=== PATIENT | female | born 1970 | race Caucasian/White ===

== ENCOUNTER 2019-12-18 18:26 | Emergency (ER) | payer SELFPAY ==
[~2019-12-18] VITALS: Ht 139.7 cm; Wt 45.4 kg
[~2019-12-18 18:26] MED LIST: ATIVAN2 MG PO; LEVSIN0.125 MG PO; PREVACID30 MG PO; PROBIOTIC DIGE1 EACH PO; ZOLOFT50 MG PO
[2019-12-18] MEDS ORDERED: SODIUM CHLORIDE 0.9% 1000ML 1,000 ML IV STA (18:38)
[2019-12-18] MEDS ORDERED: ONDANSETRON HCL INJ 2MG/ML 2ML 2 MG/ML VIAL IV NR (18:45)
[2019-12-18] MEDS ORDERED: KETOROLAC TROMETHAMINE 30 MG/ML VIAL IV NR (18:45)
[2019-12-18] MEDS ORDERED: CEFTRIAXONE SOD 1 GM/NS 50 ML 50 ML IV NR (18:45)
--- NOTE | 2019-12-18 18:45 | Emergency Department Note ---
History of Present Illnes History of Present Illness Chief Complaint: Abdominal Complaints History of Present Illness This is a 49 year old female . c/o left flank pain 4/10 currently being tx for uti on keflex denies abd pain cva ttp noted on exam denies n/v/d PAIN TO LEFT FLANK DOES NOT RADIATE FROM AREA. DENIES OTHER SYMPTOMS, STATES ON ABX FOR UTI AND HAS HISTORY OF DIVERTICULITIS. Historian: Patient Arrival Mode: Car Onset (how long ago): day(s) (on set this am ) Severity: moderate Duration (how long): day(s) (onset this am ) Progression: unchanged Context: recent illness (uti on kelfex) Relieving factors: none Exacerbating factors: none Treatments prior to arrival: other (currently on keflex ) (MANDY MALAVE NP) Past Medical/Family History Physician Review I have reviewed the patient's past medical and family history. Any updates have been documented here. (MANDY MALAVE NP) Past Medical History Recent Fever: No Clinical Suspicion of Infectio: No New/Unexplained Change in Ment: No Past Medical History: UTI's, Anxiety, GERD Other Medical History: IBS Past Surgical History: Hysterectomy (MANDY MALAVE NP) Social History Smoking Cessation: Never Smoker Alcohol Use: None Any Illegal Drug Use: No TB Exposure/Symptoms: No (MANDY MALAVE NP) Family History Family history of heart diseas: No (MANDY MALAVE NP) Other Any Pre-Existing Lines (PICC,: No (MANDY MALAVE NP) Review of Systems Review of Systems Constitutional: no symptoms EENTM: no symptoms Cardiovascular: no symptoms Respiratory: no symptoms Gastrointestinal: no symptoms, other (c/o left flank pain / cva tenderness) Genitourinary: no symptoms Musculoskeletal: no symptoms Neurological: no symptoms Psychological: no symptoms Endocrine: no symptoms Hematological/Lymphatic: no symptoms Review of other systems All other systems reviewed and negative. (MANDY MALAVE NP) Physical Exam Related Data Allergies: Coded Allergies: amoxicillin (Verified Allergy, Severe, HEART RACE, 08/05/19) ciprofloxacin (Verified Allergy, Severe, HEART RACE, 08/05/19) clavulanic acid (Verified Allergy, Severe, HEART RACE, 08/05/19) diazepam (Verified Allergy, Severe, ANXIOUS, 08/05/19) hydromorphone (Verified Allergy, Severe, ITCHING, 08/05/19) morphine (Verified Allergy, Severe, 08/05/19) PT REPORTS SHE "CAN'T BREATH" WHEN THIS MEDICATION WAS GIVEN escitalopram (Verified Allergy, Unknown, 08/05/19) levofloxacin (Verified Allergy, Unknown, 08/05/19) Triage Vital Signs Vital Signs Date Time Temp Pulse Resp B/P (MAP) Pulse Ox O2 Delivery O2 Flow Rate FiO2 12/18/19 18:36 98.7 97 16 119/84 98 Vital signs reviewed: Yes (MANDY MALAVE ELECTROCARDIOGRAM TECHNICIAN) Physical Exam CONSTITUTIONAL Constitutional: well-developed, well-nourished HENT HENT: normocephalic, atraumatic, oropharynx clear/moist, nose normal HENT L/R: left ext ear normal, right ext ear normal EYES Eyes: conjunctivae normal, EOM normal NECK Neck: ROM normal PULMONARY Pulmonary: effort normal, breath sounds normal CARDIOVASCULAR GASTROINTESTINAL Abdominal: soft, nontender, bowel sounds normal, left CVA tenderness, other (c/o left flank pain on set this am / denies n/v/d dysuria / currently being tx for uti on keflex) GENITOURINARY Genitourinary: exam deferred SKIN Skin: warm, dry MUSCULOSKELETAL Musculoskeletal: ROM normal NEUROLOGICAL Neurological: alert, oriented x 3, no gross motor or sensory deficits PSYCHOLOGICAL Psychological: mood/affect normal, judgement normal (MANDY MALAVE ELECTROCARDIOGRAM TECHNICIAN) Results Laboratory Laboratory Laboratory Tests Test 12/18/19 18:40 White Blood Count 6.37 x10e3/uL (4.8-10.8) Red Blood Count 4.33 x10e6/uL (3.6-5.1) Hemoglobin 11.9 g/dL (12.0-16.0) Hematocrit 37.4 % (34.2-44.1) Mean Corpuscular Volume 86.4 fL (81-99) Mean Corpuscular Hemoglobin 27.5 pg (28-32) Mean Corpuscular Hemoglobin Concent 31.8 g/dL (31-35) Red Cell Distribution Width 16.2 % (11.7-14.4) Platelet Count 309 x10e3/uL (140-360) Neutrophils (%) (Auto) 35.9 % (38.7-80.0) Lymphocytes (%) (Auto) 23.4 % (18.0-39.1) Monocytes (%) (Auto) 7.2 % (4.4-11.3) Eosinophils (%) (Auto) 31.7 % (0.0-6.0) Basophils (%) (Auto) 1.6 % (0.0-1.0) Neutrophils # (Auto) 2.3 (2.1-6.9) Lymphocytes # (Auto) 1.5 (1.0-3.2) Monocytes # (Auto) 0.5 (0.2-0.8) Eosinophils # (Auto) 2.0 (0.0-0.4) Basophils # (Auto) 0.1 (0.0-0.1) Absolute Immature Granulocyte (auto 0.01 x10e3/uL (0-0.1) Urine Color Yellow (YELLOW) Urine Clarity Clear (CLEAR) Urine pH 6.5 (5 - 7) Urine Specific [place] 1.020 (1.010-1.025) Urine Protein Negative (NEGATIVE) Urine Glucose (UA) Negative (NEGATIVE) Urine Ketones Negative (NEGATIVE) Urine Blood Negative (NEGATIVE) Urine Nitrite Negative (NEGATIVE) Urine Bilirubin Negative (NEGATIVE) Urine Urobilinogen 0.2 mg/dL (0.2 - 1) Urine Leukocyte Esterase Negative (NEGATIVE) Urine RBC 0-5 /HPF (0-5) Urine WBC 0-5 /HPF (0-5) Urine Epithelial Cells Few /LPF (NONE) Urine Bacteria Rare /HPF (NONE) Sodium Level 137 mmol/L (136-145) Potassium Level 4.2 mmol/L (3.5-5.1) Chloride Level 107 mmol/L (98-107) Carbon Dioxide Level 20 mmol/L (22-29) Anion Gap 14.2 mmol/L (8-16) Blood Urea Nitrogen 11 mg/dL (7-26) Creatinine 0.66 mg/dL (0.57-1.11) Estimat Glomerular Filtration Rate > 60 ML/MIN (60-) BUN/Creatinine Ratio 17 (6-25) Glucose Level 89 mg/dL (74-118) Calcium Level 8.9 mg/dL (8.4-10.2) Total Bilirubin 0.5 mg/dL (0.2-1.2) Aspartate Amino Transf (AST/SGOT) 19 IU/L (5-34) Alanine Aminotransferase (ALT/SGPT) 15 IU/L (0-55) Alkaline Phosphatase 62 IU/L (40-150) Total Protein 7.4 g/dL (6.5-8.1) Albumin 3.7 g/dL (3.5-5.0) Globulin 3.7 g/dL (2.3-3.5) Albumin/Globulin Ratio 1.0 (0.8-2.0) Lab results reviewed: Yes (MANDY MALAVE NP) Imaging Impressions Procedure: [id number] CT/CT ABDOMEN/PELVIS WO Exam Date: 12/18/19 Exam Time: 1929 REPORT STATUS: Signed EXAM: CT Abdomen and Pelvis WITHOUT contrast INDICATION: Flank pain COMPARISON: None. TECHNIQUE: Abdomen and pelvis were scanned utilizing a multidetector helical scanner from the lung base to the pubic symphysis without administration of IV contrast. Absence of intravenous contrast decreases sensitivity for detection of focal lesions and vascular pathology. Coronal and sagittal reformations were obtained. Routine protocol was performed. IV CONTRAST: None ORAL CONTRAST: None COMPLICATIONS: None RADIATION DOSE: Total DLP: 642 mGy*cm Estimated effective dose: (DLP x 0.015 x size factor) mSv CTDIvol has been reviewed. It is below the limits set by the Radiation Protocol Committee (RPC). Dose modulation, iterative reconstruction, and/or weight based adjustment of the mA/kV was utilized to reduce the radiation dose to as low as reasonably achievable. FINDINGS: LINES and TUBES: None. LOWER THORAX: Unremarkable HEPATOBILIARY: Small hepatic cysts. No biliary ductal dilation. GALLBLADDER: No radio-opaque stones or sludge. No wall thickening. SPLEEN: No splenomegaly. PANCREAS: No focal masses or ductal dilatation. ADRENALS: No adrenal nodules KIDNEYS/URETERS: No hydronephrosis. No cystic or solid mass lesions. Two nonobstructing left intrarenal calculi, largest 5 mm. GI TRACT: No abnormal distention, wall thickening, or evidence of bowel obstruction. Appendix is normal. PELVIC ORGANS/BLADDER: The urinary bladder is unremarkable. The uterus is surgically absent. LYMPH NODES: Mildly prominent central mesenteric lymph nodes. No lymphadenopathy by CT size criteria. VESSELS: Unremarkable. PERITONEUM / RETROPERITONEUM: No free air or fluid. Minimal nonspecific stranding of the central mesenteric fat. Advanced colonic diverticulosis. BONES: Unremarkable. SOFT TISSUES: Unremarkable. IMPRESSION: 1. No acute abdominal or pelvic abnormality. No obstructive uropathy. 2. Small nonobstructing left intrarenal calculi. 3. Advanced colonic diverticulosis. 4. Minimal nonspecific stranding of the central mesenteric fat. This may reflect a remote inflammatory process. Signed by: Steven Escobar MD on 12/18/2019 8:09 PM Dictated By: STEVEN ESCOBAR MD 08 Transcribed By: ERICK on 12/18/192008 (MANDY MALAVE NP) Critical Care Time Subsequent provider I assumed direction of critical care for this patient from another provider of my specialty. (MANDY MALAVE NP) Assessment & Plan Assessment & Plan Problems: (1) Left flank pain Assessment & Plan 49 year old female . c/o left flank pain / currently being tx for uti on keflex denies abd pain cva ttp noted on exam denies n/v/d - Discussed plan of care w/ Dr Erwin - lab ct abd ordered - pt medicated w/ rocephin zofran toradol ns bolus Dr Erwin in eval pt status discussed lab ct results plan of care and f/u instructions 1. follow up with urologist in 1-2 days without fail 2. increase oral fluids 3. return to ed as needed 4. t#3 (MANDY MALAVE NP) Reassessment Reassessment time: 20:19 Reassessment pt sts pain resolved at this time (MANDY MALAVE NP) Depart Disposition: HOME, SELF-CARE Last Vital Signs Date Time Temp Pulse Resp B/P (MAP) Pulse Ox O2 Delivery O2 Flow Rate FiO2 12/18/19 18:36 98.7 97 16 119/84 98 (MANDY MALAVE NP) Home Meds Reported Medications Lansoprazole (PREVACID) 30 Mg Capsule., PO PRN PRN for INDIGESTION THERAPEUTIC INTERCHANGE WITH PROTONIX PER [facility] 08/05/19 Hyoscyamine Sulfate (LEVSIN) 0.125 Mg Tablet, 0.375 MG PO BID 08/05/19 Lactobacillus Rhamnosus R0011 (PROBIOTIC DIGESTIVE CARE) 1 Each Capsule, 1 TAB PO DAILY 08/05/19 Lorazepam (ATIVAN) 2 Mg Tablet, 2 MG PO TID 08/05/19 Sertraline Hcl (ZOLOFT) 50 Mg Tablet, 50 MG PO DAILY, #30 TAB 08/05/19 Attestation Provider Attestation The patient's history, exam findings, diagnostics, and a summary of any interventions or procedures was reviewed in detail with our GILDA. I personally interviewed and examined the patient, and I have reviewed and agree with the HPI andexam. My personal exam shows [ mild left cva tenderness, no abd tenderness, bowel sounds positive]. I confirm the diagnosis as documented by the GILDA. I have reviewed and agree with the care plan articulated in the disposition section. (NORY ERWIN MD) MANDY MALAVE NP December 18, 2019 18:44 NORY ERWIN MD December 18, 2019 20:24
[2019-12-18 19:11] LABS: BASOPHILS # (AUTO) 0.1 (0.0-0.1); BASOPHILS % 1.6 % (0.0-1.0); EOSINOPHILS % 31.7 % (0.0-6.0); HEMATOCRIT 37.4 % (34.2-44.1); HEMOGLOBIN 11.9 g/dL (12.0-16.0); LYMPHOCYTES # (AUTO) 1.5 (1.0-3.2); LYMPHOCYTES % 23.4 % (18.0-39.1); MEAN CORPUSCULAR HEMOGLOBIN 27.5 pg (28-32); MEAN CORPUSCULAR HGB CONC 31.8 g/dL (31-35); MEAN CORPUSCULAR VOLUME 86.4 fL (81-99); MONOCYTES # (AUTO) 0.5 (0.2-0.8); MONOCYTES % 7.2 % (4.4-11.3); NEUTROPHILS # (AUTO) 2.3 (2.1-6.9); NEUTROPHILS % 35.9 % (38.7-80.0); PLATELET COUNT 309 x10e3/uL (140-360); RED BLOOD COUNT 4.33 x10e6/uL (3.6-5.1); RED CELL DISTRIBUTION WIDTH 16.2 % (11.7-14.4)
[2019-12-18 19:28] LABS: ALANINE AMINOTRANSFERASE 15 IU/L (0-55); ALBUMIN 3.7 g/dL (3.5-5.0); ALKALINE PHOSPHATASE 62 IU/L (40-150); ANION GAP 14.2 mmol/L (8-16); BLOOD UREA NITROGEN 11 mg/dL (7-26); BUN/CREATININE RATIO 17 (6-25); CALCIUM 8.9 mg/dL (8.4-10.2); CARBON DIOXIDE 20 mmol/L (22-29); CHLORIDE 107 mmol/L (98-107); CREATININE, SERUM 0.66 mg/dL (0.57-1.11); EST GLOMERULAR FILTRATION RATE > 60 ML/MIN (60-); GLUCOSE 89 mg/dL (74-118); POTASSIUM 4.2 mmol/L (3.5-5.1); SODIUM 137 mmol/L (136-145)
[2019-12-18 19:30] LABS: CLARITY,URINE CLEAR (CLEAR); COLOR,URINE YELLOW (YELLOW); KETONES,URINE NEGATIVE (NEGATIVE); LEUKOCYTE ESTERASE ,URINE NEGATIVE (NEGATIVE); NITRITE,URINE NEGATIVE (NEGATIVE); PROTEIN,URINE DIPSTICK NEGATIVE (NEGATIVE)
[2019-12-18 19:31] LABS: BILIRUBIN,URINE NEGATIVE (NEGATIVE); URINE UROBILINOGEN 0.2 mg/dL (0.2 - 1)
[2019-12-18 19:42] LABS: BACTERIA,URINE RARE /HPF; RBC,URINE 0-5 /HPF (0-5); WBC,URINE (MAN) 0-5 /HPF (0-5)
[2019-12-18 19:43] LABS: EPITHELIAL CELLS,URINE FEW /LPF
--- NOTE | 2019-12-18 20:12 | Diagnostic Imaging Report ---
EXAM: CT Abdomen and Pelvis WITHOUT contrast INDICATION: Flank pain COMPARISON: None. TECHNIQUE: Abdomen and pelvis were scanned utilizing a multidetector helical scanner from the lung base to the pubic symphysis without administration of IV contrast. Absence of intravenous contrast decreases sensitivity for detection of focal lesions and vascular pathology. Coronal and sagittal reformations were obtained. Routine protocol was performed. IV CONTRAST: None ORAL CONTRAST: None COMPLICATIONS: None RADIATION DOSE: Total DLP: 642 mGy*cm Estimated effective dose: (DLP x 0.015 x size factor) mSv CTDIvol has been reviewed. It is below the limits set by the Radiation Protocol Committee (RPC). Dose modulation, iterative reconstruction, and/or weight based adjustment of the mA/kV was utilized to reduce the radiation dose to as low as reasonably achievable. FINDINGS: LINES and TUBES: None. LOWER THORAX: Unremarkable HEPATOBILIARY: Small hepatic cysts. No biliary ductal dilation. GALLBLADDER: No radio-opaque stones or sludge. No wall thickening. SPLEEN: No splenomegaly. PANCREAS: No focal masses or ductal dilatation. ADRENALS: No adrenal nodules KIDNEYS/URETERS: No hydronephrosis. No cystic or solid mass lesions. Two nonobstructing left intrarenal calculi, largest 5 mm. GI TRACT: No abnormal distention, wall thickening, or evidence of bowel obstruction. Appendix is normal. PELVIC ORGANS/BLADDER: The urinary bladder is unremarkable. The uterus is surgically absent. LYMPH NODES: Mildly prominent central mesenteric lymph nodes. No lymphadenopathy by CT size criteria. VESSELS: Unremarkable. PERITONEUM / RETROPERITONEUM: No free air or fluid. Minimal nonspecific stranding of the central mesenteric fat. Advanced colonic diverticulosis. BONES: Unremarkable. SOFT TISSUES: Unremarkable. IMPRESSION: 1. No acute abdominal or pelvic abnormality. No obstructive uropathy. 2. Small nonobstructing left intrarenal calculi. 3. Advanced colonic diverticulosis. 4. Minimal nonspecific stranding of the central mesenteric fat. This may reflect a remote inflammatory process. Signed by: Marco Lyman MD on 12/18/2019 8:09 PM
[2019-12-18 20:38] VITALS: BP 101/80
== END 2019-12-18 20:45 | disposition home or self-care (01) ==
LOC: ER 18:26
DX: M54.5 Low back pain (principal); R10.9 Unspecified abdominal pain; N20.0 Calculus of kidney; K57.90 Diverticulosis of intestine, part unspecified, without perforation or abscess without bleeding; F41.9 Anxiety disorder, unspecified; K21.9 Gastro-esophageal reflux disease without esophagitis
CPT/HCPCS: 36415; 74176; 80053; 81001; 85025; 87086; 96374; 99284; J0696; J1885; J2405; J7030

== ENCOUNTER 2020-01-13 13:47 | Emergency (ER) | payer SELFPAY ==
[~2020-01-13] VITALS: Ht 139.7 cm; Wt 45.4 kg
--- OUTSIDE RECORDS SUMMARY | 2020-01-13 13:51 | XMS REPORT | Continuity of Care Document ---
Author Author [facility] Organization [facility] Address [address] [place] [address] Phone Unavailable Care Team Providers Care Site Promotion Agent Name Role Phone MD Deacon SÁNCHEZ PCP Unavailable Rafal ERWIN Attphys Unavailable William BATES Attphys Unavailable Payers Payer Name Policy Type Policy Number Effective Date Expiration Date S ource Self Pay NA [facility] Problems Condition Name Condition Details Condition Category Status Onset Date Resolution Date Last Treatment Date Treating Clinician Comments Source Left flank pain Problem Active [facility] Allergies, Adverse Reactions, Alerts Allergy Name Allergy Type Status Severity Reaction(s) Onset Date Inacti ve Date Treating Clinician Comments Source Penicillins DA Active NE 2019-10-08 00:00:00 [facility] diazepam DA Active U 2019-09-19 00:00:00 [facility] morphine DA Active U 2019-09-19 00:00:00 [facility] ciprofloxacin DA Active U 2019-09-19 00:00:00 [facility] levofloxacin DA Active U 2019-09-19 00:00:00 [facility] escitalopram DA Active U 2019-09-19 00:00:00 [facility] CO-AMOXYCLAV DA Active SV 2019-09-19 00:00:00 [facility] Diazepam Allergy to substance Active Severe ANXIOUS 2019-08-05 00:00:00 [facility] Morphine Allergy to substance Active Severe 2019-08-05 00:00:00 [facility] clavulanic acid Allergy to substance Active Severe HEART RACE 2019-08-05 00:00:00 [facility] Ciprofloxacin Allergy to substance Active Severe HEART RACE 2019 00:00:00 [facility] Amoxicillin Allergy to substance Active Severe HEART RACE 2019-08-05 0 0:00:00 [facility] Hydromorphone Allergy to substance Active Severe ITCHING 2019-08-05 00 :00:00 [facility] Levofloxacin Allergy to substance Active 2019-08-05 00:00:0 0 [facility] Escitalopram Allergy to substance Active 2019-08-05 00:00:0 0 [facility] clavulanic acid DA Active MO 2019-07-26 00:00:00 [facility] amoxicillin DA Active MO 2019-07-26 00:00:00 [facility] hydromorphone HCl DA Active U 2019-07-26 00:00:00 [facility] diazepam DA Active SV 2019-07-26 00:00:00 [facility] morphine DA Active SV 2019-07-26 00:00:00 [facility] ciprofloxacin DA Active MO 2019-07-26 00:00:00 [facility] hydromorphone DA Active NE 2019-07-26 00:00:00 [facility] levofloxacin DA Active SV 2019-07-26 00:00:00 [facility] hydromorphone HCl DA Active U 2019-06-18 00:00:00 [facility] diazepam DA Active SV 2019-06-18 00:00:00 [facility] morphine DA Active SV 2019-06-18 00:00:00 [facility] clavulanic acid DA Active MO 2019-06-18 00:00:00 [facility] ciprofloxacin DA Active MO 2019-06-18 00:00:00 [facility] amoxicillin DA Active MO 2019-06-18 00:00:00 [facility] hydromorphone DA Active NE 2019-06-18 00:00:00 [facility] levofloxacin DA Active SV 2019-06-18 00:00:00 [facility] hydromorphone HCl DA Active U 2019-03-29 00:00:00 [facility] diazepam DA Active SV 2019-03-29 00:00:00 [facility] morphine DA Active SV 2019-03-29 00:00:00 [facility] clavulanic acid DA Active MO 2019-03-29 00:00:00 [facility] ciprofloxacin DA Active MO 2019-03-29 00:00:00 [facility] amoxicillin DA Active MO 2019-03-29 00:00:00 [facility] levofloxacin DA Active SV 2019-03-29 00:00:00 [facility] clavulanic acid DA Active MO 2019-03-01 00:00:00 [facility] amoxicillin DA Active MO 2019-03-01 00:00:00 [facility] hydromorphone HCl DA Active U 2018-05-10 00:00:00 [facility] diazepam DA Active SV 2018-05-10 00:00:00 [facility] morphine DA Active SV 2018-05-10 00:00:00 [facility] ciprofloxacin DA Active MO 2018-05-10 00:00:00 [facility] levofloxacin DA Active SV 2018-05-10 00:00:00 [facility] hydromorphone HCl DA Active U 2018-03-23 00:00:00 [facility] diazepam DA Active SV 2018-03-23 00:00:00 [facility] morphine DA Active SV 2018-03-23 00:00:00 [facility] ciprofloxacin DA Active MO 2018-03-23 00:00:00 [facility] levofloxacin DA Active SV 2018-03-23 00:00:00 [facility] No Known Allergies DA Active U 2018-02-16 00:00:00 [facility] Social History Social Habit Start Date Stop Date Quantity Comments Source Sex Assigned At 1970 00:00:00 1970 00:00:00 Female [facility] Medications Ordered Medication Name Filled Medication Name Start Date Stop Da te Current Medication? Ordering Clinician Indication Dosage Frequency Signature (SIG) Comments Components Source Hyoscyamine Sulfate (Levsin) 0.125 Mg TABLET Hyoscyami ne Sulfate (Levsin) 0.125 Mg TABLET Yes .375 Twice A Day [facility] Lactobacillus Rhamnosus R0011 (Probiotic Digestive Car e) 1 Each CAPSULE Lactobacillus Rhamnosus R0011 (Probiotic Digestive Care) 1 Each CAPSULE Yes 1 Daily [facility] Lansoprazole (Prevacid) 30 Mg CAPSULE. Lansoprazole (Prevacid) 30 Mg CAPSULE.DR Hernandez As Needed as needed for Ind igestion [facility] Lorazepam (Ativan) 2 Mg TABLET Lorazepam (Ativan) 2 Mg TABLET Yes 2 Three Times A Day [facility] Sertraline Hcl (Zoloft) 50 Mg TABLET Sertraline Hcl (Zoloft) 50 Mg TABLET Yes 50 Daily [facility] Vital Signs Vital Name Observation Time Observation Value Comments Source Body Temperature 2019-12-18 20:38:00 98.2 [degF] [facility] Weight 2019-12-18 18:36:00 100 [lb_av] [facility] BMI (Body Mass Index) 2019-12-18 18:36:00 23.2 kg/m2 [facility] Procedures Procedure Date / Time Performed Performing Clinician Erik tyalor CT of abdomen and pelvis without contrast 2019-12-18 00:00:00 [facility] X-ray of chest, two views 2019-08-05 00:00:00 BETTINA Patricia [facility] Plan of Care Planned Activity Planned Date Details Comments Source Instructions Flank Pain [facility] Encounters Start Date/Time End Date/Time Encounter Type Admission Type [facility] Facility Care Department Encounter ID Source 2019-12-18 18:26:00 2019-12-18 20:45:00 Departed Emergency Room 1 ERWIN, NORY [facility] [id number] CH I [facility] 2019-08-05 04:00:00 2019-08-05 04:00:00 Registered Clinic 3 ANNE BATES [facility] [id number] [facility] Results Test Description Test Time Test Comments Results Result Comments Source CT ABDOMEN/PELVIS WO 2019-12-18 20:05:00 [facility] [address] [address] Patient Name: MERON MARTÍNEZ MR #: [id number] : 1970 Age/Sex: 49/F Req #: [id number] Adm Physician: Ordered by: MANDY MALAVE NP Report #: [id number] Location: ER Room/Bed: Procedure: [id number] CT/CT ABDOMEN/PELVIS WO Exam Date: 12/18/19 Exam Time: 1929 REPORT STATUS: Signed EXAM: CT Abdomen and Pelvis WITHOUT contrast INDICATION: Flank pain COMPARISON: None. TECHNIQUE: Abdomen and pelvis were scanned utilizing a multidetector helical scanner from the lung base to the pubic symphysis without administration of IV contrast. Absence of intravenous contrast decreases sensitivity for detection of focal lesions and vascular pathology. Coronal and sagittal reformations were obtained. Routine protocol was performed. IV CONTRAST: None ORAL CONTRAST: None COMPLICATIONS: None RADIATION DOSE: Total DLP: 642 mGy*cm Estimated effective dose: (DLP x 0.015 x size facto r) mSv CTDIvol has been reviewed. It is below the limits set by the Radiation Protocol Committee (RPC). Dose modulation, iterative reconstruction, and/or weight based adjustment of the mA/kV was utilized to reduce the radiation dose to as low as reasonably achievable. FINDINGS: LINES and TUBES: None. LOWER THORAX: Unremarkable HEPATOBILIARY: Small hepatic cysts. No biliary ductal dilation. GALLBLADDER: No radio-opaque stones or sludge. No wall thickening. SPLEEN: No splenomegaly. PANCREAS: No focal masses or ductal dilatation. A DRENALS: No adrenal nodules KIDNEYS/URETERS: No hydronephrosis. No cystic or solid mass lesions. Two nonobstructing left intrarenal calculi, largest 5 mm. GI TRACT: No abnormal distention, wall thickening, or evidence of bowel obstruction. Appendix is normal. PELVIC ORGANS/BLADDER: The urinary bladder is unremarkable. The uterus is surgically absent. LYMPH NODES: Mildly prominent central mesenteric lymph nodes. No lymphadenopathy by CT size criteria. VESSELS: Unremarkable. PERITONEUM / RETROPERITONEUM: No free air or fluid. Minimal nonspecific stranding of the central mesenteric fat. Advanced colonic diverticulosis. BONES: Unremarkable. SOFT TISSUES: Unremarkable. IMPRESSION: 1. No acute abdominal or pelvic abnormality. No obstructive uropathy. 2. Small nonobstructing left intrarenal calculi. 3. Advanced colonic diverticulosis. 4. Minimal nonspecific stranding of the central mesenteric fat. This may reflect a remote inflammatory process. Signed by: Steven Escobar MD on 12/18/2019 8:09 PM Dictated By: STEVEN ESCOBAR MD 08 Transcribed By: ERICK on 12/18/192008 COPY TO: MANDY MALAVE NP Blood leukocytes automated count (number/volume) 2019-12-18 18:40:00 Test Item White Blood Count (test code = 6690-2) 6.37 4.8-10.8 [facility] count (number/volume)2019-12-18 18:40:00* Test Item Value Reference Range Interpretation Comments Red Blood Count (test code = 789-8) 4.33 3.6-5.1 [facility] hemoglobin measurement (moles/volume)2019-12-18 18:40:00* Test Item Value Reference Range Interpretation Comments Hemoglobin (test code = 43787-4) 11.9 12.0-16.0 [facility] blood hematocrit (volume fraction)2019-12-18 18:40:00* Test Item Value Reference Range Interpretation Comments Hematocrit (test code = 4544-3) 37.4 34.2-44.1 [facility] erythrocyte mean corpuscular [id number] 18:40:00* Test Item Value Reference Range Interpretation Comments Mean Corpuscular Volume (test code = 787-2) 86.4 81-99 [facility] mean corpuscular hemoglobin (mass per erythrocyte)2019-12-18 18:40:00* Test Item Value Reference Range Interpretation Comments Mean Corpuscular Hemoglobin (test code = 785-6) 27.5 28-32 [facility] erythrocyte mean corpuscular hemoglobin concentration measurement (mass/volume)2019-12-18 18:40:00* Test Item Value Reference Range Interpretation Comments Mean Corpuscular Hemoglobin Concent (test code = 786-4) 31.8 31-35 [facility] AliceRDW CtxCh-[id number] 18:40:00* Test Item Value Reference Range Interpretation Comments Red Cell Distribution Width (test code = 30233-0) 16.2 11.7 -14.4 [facility] platelet count (count/volume)2019-12-18 18:40:00* Test Item Value Reference Range Interpretation Comments Platelet Count (test code = 777-3) 309 140-360 [facility] Alice[facility] blood segmented neutrophil count as percentage of total wgdiorswsv3931-39-87 18:40:00* Test Item Value Reference Range Interpretation Comments Neutrophils (%) (Auto) (test code = 47684-0) 35.9 38.7-80.0 [facility] lymphocyte count as percentage ot total gzaxelwxzf1775-35-99 18:40:00* Test Item Value Reference Range Interpretation Comments Lymphocytes (%) (Auto) (test code = 736-9) 23.4 18.0-39.1 [facility] Alice[facility] blood monocyte count as percentage of total bctijeganp8726-74-86 18:40:00* Test Item Value Reference Range Interpretation Comments Monocytes (%) (Auto) (test code = 5905-5) 7.2 4.4-11.3 [facility] Alice[facility] blood eosinophil count as percentage of total rknobafkpd4373-13-04 18:40:00* Test Item Value Reference Range Interpretation Comments Eosinophils (%) (Auto) (test code = 713-8) 31.7 0.0-6.0 [facility] Alice[facility] blood basophil count as percentage of total oxgznphwxj5105-70-51 18:40:00* Test Item Value Reference Range Interpretation Comments Basophils (%) (Auto) (test code = 706-2) 1.6 0.0-1.0 [facility] AliceFluoroscopic procedure less than one hour prwedfnw7438-37-75 18:40:00* Test Item Value Reference Range Interpretation Comments IM GRANULOCYTES % (test code = IM GRANULOCYTES %) 0.2 0.0- 1.0 [facility] Alice[facility] neutrophil count 2019-12-18 18:40:00* Test Item Value Reference Range Interpretation Comments Neutrophils # (Auto) (test code = 751-8) 2.3 2.1-6.9 [facility] lymphocytes count (number/volume) 2019-12-18 18:40:00* Test Item Value Reference Range Interpretation Comments Lymphocytes # (Auto) (test code = 59563-6) 1.5 1.0-3.2 [facility] monocytes automated count (number/volume)2019-12-18 18:40:00* Test Item Value Reference Range Interpretation Comments Monocytes # (Auto) (test code = 742-7) 0.5 0.2-0.8 [facility] Alice[facility] blood eosinophil count 2019-12-18 18:40:00* Test Item Value Reference Range Interpretation Comments Eosinophils # (Auto) (test code = 711-2) 2.0 0.0-0.4 [facility] Alice[facility] blood basophil count (count/volume)2019-12-18 18:40:00* Test Item Value Reference Range Interpretation Comments Basophils # (Auto) (test code = 704-7) 0.1 0.0-0.1 [facility] AliceFluoroscopic procedure less than one hour ebcrypys2958-24-57 18:40:00* Test Item Value Reference Range Interpretation Comments Absolute Immature Granulocyte (auto (lela t code = Absolute Immature Granulocyte (auto) 0.01 0-0.1 [facility] Alice[facility] color rsxadihimrifg8437-46-90 18:40:00* Test Item Value Reference Range Interpretation Comments Urine Color (test code = 5778-6) YELLOW YELLOW [facility] AliceUrine xfecafi8174-71-10 18:40:00* Test Item Value Reference Range Interpretation Comments Urine Clarity (test code = 82080-7) CLEAR CLEAR [facility] gravity of Urine by Test strip 2019-12-18 18:40:00* Test Item Value Reference Range Interpretation Comments Urine Specific Maidens (test code = 5811-5) 1.020 1.010-1.02 5 [facility] pH measurement by automated test qfmjz0239-94-84 18:40:00* Test Item Value Reference Range Interpretation Comments Urine pH (test code = 19312-1) 6.5 5-7 [facility] leukocyte esterase detection by kjlytttv7367-38-01 18:40:00* Test Item Value Reference Range Interpretation Comments Urine Leukocyte Esterase (test code = 5799-2) NEGATIVE NEGATIVE [facility] Alice[facility] nitrite mjewrupay1001-72-59 18:40:00* Test Item Value Reference Range Interpretation Comments Urine Nitrite (test code = 71239-1) NEGATIVE NEGATIVE [facility] protein measurement by test strip (mass/volume)2019-12-18 18:40:00* Test Item Value Reference Range Interpretation Comments Urine Protein (test code = 5804-0) NEGATIVE NEGATIVE [facility] Alice[facility] glucose yimvobytl9135-06-01 18:40:00* Test Item Value Reference Range Interpretation Comments Urine Glucose (UA) (test code = 2349-9) NEGATIVE NEGATIVE [facility] Alice[facility] ketones detection by automated test ccrfb3856-76-12 18:40:00* Test Item Value Reference Range Interpretation Comments Urine Ketones (test code = 72186-2) NEGATIVE NEGATIVE [facility] Alice[facility] urobilinogen measurement by test strip (mass/volume)2019-12-18 18:40:00* Test Item Value Reference Range Interpretation Comments Urine Urobilinogen (test code = 92957-2) 0.2 0.2-1 [facility] Alice[facility] total bilirubin measurement (mass/volume)2019-12-18 18:40:00* Test Item Value Reference Range Interpretation Comments Urine Bilirubin (test code = 1978-6) NEGATIVE NEGATIVE [facility] AliceU[facility] erythrocytes wminuchtp5014-38-16 18:40:00* Test Item Value Reference Range Interpretation Comments Urine Blood (test code = 36015-0) NEGATIVE NEGATIVE [facility] AliceAutomated urine sediment leukocyte count by microscopy (number/high power field)2019-12-18 18:40:00* Test Item Value Reference Range Interpretation Comments Urine WBC (test code = 5821-4) 0-5 0-5 [facility] AliceErythrocytes detection in urine sediment by light jzcmmazkfm5475-85-69 18:40:00* Test Item Value Reference Range Interpretation Comments Urine RBC (test code = 01795-3) 0-5 0-5 [facility] AliceBacteria detection in urine sediment by light vnmwszyljh0956-35-18 18:40:00* Test Item Value Reference Range Interpretation Comments Urine Bacteria (test code = 08665-2) RARE NONE [facility] AliceEpithelial cells detection in urine sediment by light uvrezylwsp1630-34-20 18:40:00* Test Item Value Reference Range Interpretation Comments Urine Epithelial Cells (test code = 94469-1) FEW NONE [facility] Lake[facility]um or plasma sodium measurement (moles/volume)2019-12-18 18:40:00* Test Item Value Reference Range Interpretation Comments Sodium Level (test code = 2951-2) 137 136-145 [facility] Lake[facility]um or plasma potassium measurement (moles/volume)2019-12-18 18:40:00* Test Item Value Reference Range Interpretation Comments Potassium Level (test code = 2823-3) 4.2 3.5-5.1 [facility] Lake[facility]um or plasma chloride measurement (moles/volume)2019-12-18 18:40:00* Test Item Value Reference Range Interpretation Comments Chloride Level (test code = 2075-0) 107 98-107 [facility] Lakeerum or plasma carbon dioxide, total measurement (moles/volume)2019-12-18 18:40:00* Test Item Value Reference Range Interpretation Comments Carbon Dioxide Level (test code = 2028-9) 20 22-29 [facility] Lake[facility]um or plasma anion [id number] 18:40:00* Test Item Value Reference Range Interpretation Comments Anion Gap (test code = 03985-4) 14.2 8-16 [facility] or plasma urea nitrogen measurement (mass/volume)2019-12-18 18:40:00* Test Item Value Reference Range Interpretation Comments Blood Urea Nitrogen (test code = 3094-0) 11 7-26 [facility] or plasma creatinine measurement (mass/volume)2019-12-18 18:40:00* Test Item Value Reference Range Interpretation Comments Creatinine (test code = 2160-0) 0.66 0.57-1.11 [facility] or plasma urea nitrogen/creatinine mass gdsyr6688-22-11 18:40:00* Test Item Value Reference Range Interpretation Comments BUN/Creatinine Ratio (test code = 3097-3) 17 6-25 [facility] AliceEstimated glomerular filtration rate (GFR) abqicgidyfspw0222-04-87 18:40:00* Test Item Value Reference Range Interpretation Comments Estimat Glomerular Filtration Rate (test code = 550712484) > 60 >60 Ranges were taken from the National Kidney Disease Education Program and the [facility] Foundation literature.Reference ranges:60 or greater: Bsuaih56-76 ( for 3 consecutive months): Chronic kidney disease 15 or less: Kidney failureCHRISTUS Spohn [facility] AliceGlucose wppdrjjsipe8727-41-28 18:40:00* Test Item Value Reference Range Interpretation Comments Glucose Level (test code = QNL2239) 89 74-118 [facility] or plasma calcium measurement (mass/volume)2019-12-18 18:40:00* Test Item Value Reference Range Interpretation Comments Calcium Level (test code = 44782-2) 8.9 8.4-10.2 [facility] or plasma total bilirubin measurement (mass/volume)2019-12-18 18:40:00* Test Item Value Reference Range Interpretation Comments Total Bilirubin (test code = 1975-2) 0.5 0.2-1.2 [facility] AliceFluoroscopic procedure less than one hour hgyubblf5559-59-98 18:40:00* Test Item Value Reference Range Interpretation Comments Aspartate Amino Transf (AST/SGOT) (test code = Aspartate Amino Transf (AST/SGOT)) 19 5-34 [facility] or plasma alanine aminotransferase measurement (enzymatic activity/volume)2019-12-18 18:40:00* Test Item Value Reference Range Interpretation Comments Alanine Aminotransferase (ALT/SGPT) (test code = 1742-6) 15 0-55 [facility] or plasma protein measurement (mass/volume)2019-12-18 18:40:00* Test Item Value Reference Range Interpretation Comments Total Protein (test code = 2885-2) 7.4 6.5-8.1 [facility] plasma albumin measurement (mass/volume)2019-12-18 18:40:00* Test Item Value Reference Range Interpretation Comments Albumin (test code = 1751-7) 3.7 3.5-5.0 [facility] Alice[facility] globulin measurement (mass/volume) 2019-12-18 18:40:00* Test Item Value Reference Range Interpretation Comments Globulin (test code = 82841-9) 3.7 2.3-3.5 [facility] or plasma albumin/globulin mass [id number] 18:40:00* Test Item Value Reference Range Interpretation Comments Albumin/Globulin Ratio (test code = 1759-0) 1.0 0.8-2.0 [facility] or plasma alkaline phosphatase measurement (enzymatic activity/volume)2019-12-18 18:40:00* Test Item Value Reference Range Interpretation Comments Alkaline Phosphatase (test code = 6768-6) 62 40-150 [facility] AliceURINALYSIS [id number] 17:01:00* Test Item Value Reference Range Interpretation Comments UA COLOR (test code = COLU) YELLOW YELLOW UA APPEARANCE (test code = APPU) CLEAR CLEAR UA GLUCOSE DIPSTICK (test code = DGLUU) norm mg/dL NEGATIVE UA BILIRUBIN DIPSTICK (test code = BILU) NEGATIVE mg/dL NEGATIVE UA KETONE DIPSTICK (test code = KETU) neg mg/dL NEGATIVE UA SPECIFIC GRAVITY (test code = SGU) 1.020 1.001-1.035 UA BLOOD DIPSTICK (test code = ADITYA) neg Mitch/uL NEGATIVE UA PH DIPSTICK (test code = NORA) 6.0 5.0-8.0 UA PROTEIN DIPSTICK (test code = PROU) neg mg/dL Neg-15 UA UROBILINIOGEN DIPSTICK (test code = URO) norm mg/dL 0.0-0.2 UA NITRITE DIPSTICK (test code = JAYDON) NEGATIVE NEGATIVE UA LEUKOCYTE ESTERASE DIPSTICK (test code = LEUU) 100 Radha/uL (1+) u L NEGATIVE A UA WBC (test code = WBCU) 3-5 per HPF 0-5 UA RBC (test code = RBCU) 0-3 per HPF 0-5 UA EPITHELIAL CELLS (test code = EPIU) Few (2-5/hpf) per HPF Few UA BACTERIA (test code = BACU) MANY per HPF NONE Urine Source? Clean CatchUR HCG [id number] 17:01:00* Test Item Value Reference Range Interpretation Comments UR HCG QUAL (test code = HCGQLU) NEGATIVE This HCGQL test is NOT applicable for MALE patients.Check with nurse about probable order error.If Tumor Marker Test needed, nurse should order test "HCGTU"(Test #[id number]) Urine Source? Clean CatchURINALYSIS [id number] 16:55:00* Test Item Value Reference Range Interpretation Comments UA COLOR (test code = COLU) YELLOW YELLOW UA APPEARANCE (test code = APPU) CLEAR CLEAR UA GLUCOSE DIPSTICK (test code = DGLUU) norm mg/dL NEGATIVE UA BILIRUBIN DIPSTICK (test code = BILU) NEGATIVE mg/dL NEGATIVE UA KETONE DIPSTICK (test code = KETU) neg mg/dL NEGATIVE UA SPECIFIC GRAVITY (test code = SGU) 1.020 1.001-1.035 UA BLOOD DIPSTICK (test code = ADITYA) neg Mitch/uL NEGATIVE UA PH DIPSTICK (test code = NORA) 6.0 5.0-8.0 UA PROTEIN DIPSTICK (test code = PROU) neg mg/dL Neg-15 UA UROBILINIOGEN DIPSTICK (test code = URO) norm mg/dL 0.0-0.2 UA NITRITE DIPSTICK (test code = JAYDON) NEGATIVE NEGATIVE UA LEUKOCYTE ESTERASE DIPSTICK (test code = LEUU) 100 Radha/uL (1+) u L NEGATIVE A UA WBC (test code = WBCU) per HPF 0-5 UA RBC (test code = RBCU) per HPF 0-5 UA EPITHELIAL CELLS (test code = EPIU) per HPF Few UA BACTERIA (test code = BACU) per HPF NONE Urine Source? Clean CatchUR HCG [id number] 16:55:00* Test Item Value Reference Range Interpretation Comments UR HCG QUAL (test code = HCGQLU) Urine Source? Clean CatchURINALYSIS [id number] 16:55:00* Test Item Value Reference Range Interpretation Comments UA COLOR (test code = COLU) YELLOW YELLOW UA APPEARANCE (test code = APPU) CLEAR CLEAR UA GLUCOSE DIPSTICK (test code = DGLUU) norm mg/dL NEGATIVE UA BILIRUBIN DIPSTICK (test code = BILU) NEGATIVE mg/dL NEGATIVE UA KETONE DIPSTICK (test code = KETU) neg mg/dL NEGATIVE UA SPECIFIC GRAVITY (test code = SGU) 1.020 1.001-1.035 UA BLOOD DIPSTICK (test code = ADITYA) neg Mitch/uL NEGATIVE UA PH DIPSTICK (test code = NORA) 6.0 5.0-8.0 UA PROTEIN DIPSTICK (test code = PROU) neg mg/dL Neg-15 UA UROBILINIOGEN DIPSTICK (test code = URO) norm mg/dL 0.0-0.2 UA NITRITE DIPSTICK (test code = JAYDON) NEGATIVE NEGATIVE UA LEUKOCYTE ESTERASE DIPSTICK (test code = LEUU) 100 Radha/uL (1+) u L NEGATIVE A UA WBC (test code = WBCU) per HPF 0-5 UA RBC (test code = RBCU) per HPF 0-5 UA EPITHELIAL CELLS (test code = EPIU) per HPF Few UA BACTERIA (test code = BACU) per HPF NONE Urine Source? Clean CatchUR HCG [id number] 16:55:00* Test Item Value Reference Range Interpretation Comments UR HCG QUAL (test code = HCGQLU) NEGATIVE This HCGQL test is NOT applicable for MALE patients.Check with nurse about probable order error.If Tumor Marker Test needed, nurse should order test "HCGTU"(Test #550.26069) Urine Source? Clean CatchURINALYSIS [id number] 16:00:00* Test Item Value Reference Range Interpretation Comments UA COLOR (test code = COLU) YELLOW YELLOW UA APPEARANCE (test code = APPU) HAZY CLEAR A UA GLUCOSE DIPSTICK (test code = DGLUU) norm mg/dL NEGATIVE UA BILIRUBIN DIPSTICK (test code = BILU) NEGATIVE mg/dL NEGATIVE UA KETONE DIPSTICK (test code = KETU) neg mg/dL NEGATIVE UA SPECIFIC GRAVITY (test code = SGU) 1.015 1.001-1.035 UA BLOOD DIPSTICK (test code = ADITYA) 10 (Trace) Mitch/uL NEGATIVE A UA PH DIPSTICK (test code = NORA) 6.0 5.0-8.0 UA PROTEIN DIPSTICK (test code = PROU) 15 (TRACE) mg/dL Neg-15 A UA UROBILINIOGEN DIPSTICK (test code = URO) norm mg/dL 0.0-0.2 UA NITRITE DIPSTICK (test code = JAYDON) NEGATIVE NEGATIVE UA LEUKOCYTE ESTERASE DIPSTICK (test code = LEUU) 500 Radha/uL (3+) u L NEGATIVE A UA WBC (test code = WBCU) 30-40 per HPF 0-5 A UA RBC (test code = RBCU) 0-3 per HPF 0-5 UA EPITHELIAL CELLS (test code = EPIU) Few (2-5/hpf) per HPF Few UA BACTERIA (test code = BACU) MANY per HPF NONE A UA MUCUS (test code = MUCU) FEW per LPF NONE-FEW Urine Source? Clean CatchURINALYSIS [id number] 15:54:00* Test Item Value Reference Range Interpretation Comments UA COLOR (test code = COLU) YELLOW YELLOW UA APPEARANCE (test code = APPU) HAZY CLEAR A UA GLUCOSE DIPSTICK (test code = DGLUU) norm mg/dL NEGATIVE UA BILIRUBIN DIPSTICK (test code = BILU) NEGATIVE mg/dL NEGATIVE UA KETONE DIPSTICK (test code = KETU) neg mg/dL NEGATIVE UA SPECIFIC GRAVITY (test code = SGU) 1.015 1.001-1.035 UA BLOOD DIPSTICK (test code = ADITYA) 10 (Trace) Mitch/uL NEGATIVE A UA PH DIPSTICK (test code = NORA) 6.0 5.0-8.0 UA PROTEIN DIPSTICK (test code = PROU) 15 (TRACE) mg/dL Neg-15 A UA UROBILINIOGEN DIPSTICK (test code = URO) norm mg/dL 0.0-0.2 UA NITRITE DIPSTICK (test code = JAYDON) NEGATIVE NEGATIVE UA LEUKOCYTE ESTERASE DIPSTICK (test code = LEUU) 500 Radha/uL (3+) u L NEGATIVE A UA WBC (test code = WBCU) per HPF 0-5 UA RBC (test code = RBCU) per HPF 0-5 UA EPITHELIAL CELLS (test code = EPIU) per HPF Few UA BACTERIA (test code = BACU) per HPF NONE Urine Source? Clean [id number] 10:39:00* Test Item Value Reference Range Interpretation Comments MAGNESIUM (test code = MAG) 2.0 mg/dL 1.6-2.3 N COMPREHENSIVE METABOLIC [id number] 10:22:00* Test Item Value Reference Range Interpretation Comments SODIUM (test code = NA) 133 mmol/L 136-145 L POTASSIUM (test code = K) 3.2 mmol/L 3.5-5.1 L CHLORIDE (test code = CL) 96 mmol/L 101-109 L CARBON DIOXIDE (test code = CO2) 19.8 mmol/L 21-32 L ANION GAP (test code = GAP) 20 mmol/L 10-20 N GLUCOSE (test code = GLU) 84 mg/dL 74-106 N BLOOD UREA NITROGEN (test code = BUN) 12 mg/dL 3-21 N CREATININE (test code = CREAT) 0.84 mg/dL 0.55-1.3 N BUN/CREATININE RATIO (test code = BUN/CREA) 14.3 10-20 N TOTAL PROTEIN (test code = PROT) 8.2 g/dL 6.5-8.4 N ALBUMIN (test code = ALB) 3.0 g/dL 3.4-4.8 L GLOBULIN (test code = GLOB) 5.2 G/DL 1-10 N ALBUMIN/GLOBULIN RATIO (test code = A/G) 0.58 RATIO 0.75-1.50 L CALCIUM (test code = CA) 8.6 mg/dL 8.4-10.2 N BILIRUBIN TOTAL (test code = BILT) 0.80 mg/dL 0.0-1.0 N SGOT/AST (test code = AST) 19 U/L 6-32 N SGPT/ALT (test code = ALT) 62 U/L 12-78 N N ote: Change in REFERENCE RANGE due to new reagent method. ALKALINE PHOSPHATASE TOTAL (test code = ALKP) 140 U/L 38-126 H [id number] 10:22:00* Test Item Value Reference Range Interpretation Comments LIPASE (test code = LIP) 60 U/L 128-270 L COMPREHENSIVE METABOLIC [id number] 10:17:00* Test Item Value Reference Range Interpretation Comments SODIUM (test code = NA) 133 mmol/L 136-145 L POTASSIUM (test code = K) 3.2 mmol/L 3.5-5.1 L CHLORIDE (test code = CL) 96 mmol/L 101-109 L CARBON DIOXIDE (test code = CO2) 19.8 mmol/L 21-32 L ANION GAP (test code = GAP) 20 mmol/L 10-20 N GLUCOSE (test code = GLU) 84 mg/dL 74-106 N BLOOD UREA NITROGEN (test code = BUN) 12 mg/dL 3-21 N CREATININE (test code = CREAT) 0.84 mg/dL 0.55-1.3 N BUN/CREATININE RATIO (test code = BUN/CREA) 14.3 10-20 N TOTAL PROTEIN (test code = PROT) gram/dL 6.4-8.2 ALBUMIN (test code = ALB) g/dL 3.4-5.0 GLOBULIN (test code = GLOB) g/dL 2.7-4.2 ALBUMIN/GLOBULIN RATIO (test code = A/G) 0.75-1.50 CALCIUM (test code = CA) 8.6 mg/dL 8.4-10.2 N BILIRUBIN TOTAL (test code = BILT) mg/dL 0.2-1.2 SGOT/AST (test code = AST) IUnit/L 15-37 SGPT/ALT (test code = ALT) U/L 10-69 ALKALINE PHOSPHATASE TOTAL (test code = ALKP) IUnit/L 45-117 [id number] 10:17:00* Test Item Value Reference Range Interpretation Comments LIPASE (test code = LIP) Unit/L 144-286 URINALYSIS [id number] 10:08:00* Test Item Value Reference Range Interpretation Comments UA COLOR (test code = COLU) YELLOW YELLOW UA APPEARANCE (test code = APPU) SLIGHT HAZY CLEAR A UA GLUCOSE DIPSTICK (test code = DGLUU) norm mg/dL NEGATIVE UA BILIRUBIN DIPSTICK (test code = BILU) NEGATIVE mg/dL NEGATIVE UA KETONE DIPSTICK (test code = KETU) 150 (4+) mg/dL NEGATIVE A UA SPECIFIC GRAVITY (test code = SGU) 1.020 1.001-1.035 UA BLOOD DIPSTICK (test code = ADITYA) 25 (1+) Mitch/uL NEGATIVE A UA PH DIPSTICK (test code = NORA) 6.0 5.0-8.0 UA PROTEIN DIPSTICK (test code = PROU) 15 (TRACE) mg/dL Neg-15 A UA UROBILINIOGEN DIPSTICK (test code = URO) norm mg/dL 0.0-0.2 UA NITRITE DIPSTICK (test code = JAYDON) NEGATIVE NEGATIVE UA LEUKOCYTE ESTERASE DIPSTICK (test code = LEUU) 500 Radha/uL (3+) u L NEGATIVE A UA WBC (test code = WBCU) 20-30 per HPF 0-5 A UA RBC (test code = RBCU) 3-5 per HPF 0-5 UA EPITHELIAL CELLS (test code = EPIU) Moderate (5-10/hpf) per HPF Few UA BACTERIA (test code = BACU) MODERATE per HPF NONE A Urine Source? Clean CatchCBC W/AUTO [id number] 10:01:00* Test Item Value Reference Range Interpretation Comments WHITE BLOOD CELL (test code = WBC) 12.2 K/mm3 4.5-12.5 N RED BLOOD CELL (test code = RBC) 3.97 mill/mm3 3.7-5.2 N HEMOGLOBIN (test code = HGB) 10.9 gram/dL 11.5-15.5 L HEMATOCRIT (test code = HCT) 32.2 % 36.0-46.0 L MEAN CELL VOLUME (test code = MCV) 81.1 fL 80-98 N MEAN CELL HGB (test code = MCH) 27.5 picogram 27.0-33.0 N MEAN CELL HGB CONCETRATION (test code = MCHC) 33.9 gram/dL 33.0-36. 0 N RED CELL DISTRIBUTION WIDTH (test code = RDW) 15.5 % 11.6-16. 2 N RED CELL DISTRIBUTION WIDTH SD (test code = RDW-SD) 46.0 fL 37 .0-51.0 N PLATELET COUNT (test code = PLT) 346 K/mm3 150-450 N MEAN PLATELET VOLUME (test code = MPV) 8.9 fL 6.7-11.0 N NEUTROPHIL % (test code = NT%) 84.5 % 39.0-69.0 H LYMPHOCYTE % (test code = LY%) 8.6 % 25.0-55.0 L MONOCYTE % (test code = MO%) 6.2 % 0.0-10.0 N EOSINOPHIL % (test code = EO%) 0.2 % 0.0-5.0 N BASOPHIL % (test code = BA%) 0.3 % 0.0-1.0 N NEUTROPHIL # (test code = NT#) 10.32 K/mm3 1.8-7.7 H LYMPHOCYTE # (test code = LY#) 1.05 K/mm3 1.0-5.0 N MONOCYTE # (test code = MO#) 0.76 K/mm3 0-0.8 N EOSINOPHIL # (test code = EO#) 0.03 K/mm3 0.0-0.5 N BASOPHIL # (test code = BA#) 0.04 K/mm3 0.0-0.2 N MANUAL DIFF REQUIRED (test code = MDIFF) NO - CT ABD PELVIS [id number] 19:01:00 Name: MERON MARTÍNEZ [facility] : 1970 Age/S: 48 / F [address] [facility] Unit #: [id number] Loc: [place] [address] Phys: Oliva Gonzalez MD Acct: [id number] Dis Date: Status: REG ER PHONE #: [phone] Exam Date: 10/08/2019 1822 FAX #: [phone] Reason: LLQ abd pain EXAMS: CPT CODE: [id number] CT ABD PELVIS W/CONT 73673 REASON FOR EXAM: LLQ abd pain EXAM ORDER DATE: 10/08/2019 5:02 PM Ordering M.D.: Oliva Gonzalez MD PROCEDURE: - CT ABD PELVIS W/CONT contrast-enhanced axial CT images were acquired through the abdomen/pelvis at 5 mm intervals. Sagittal and coronal reformatted images were generated. Automated exposure control was utilized for this reduction. Phases of contrast: venous and delayed COMPARISON: CT abdomen and pelvis July 26, 2019 FINDINGS: Visualized thorax: Mild subsegmental atelectasis in the dependent left lung. Otherwise Hepatobiliary system: Simple cyst in the left lobe measuring 8 mm in size is unchanged from the prior exam and likely benign. Pancreas: There is stranding of the peripancreatic fat however no fluid collection or devascularization of the pancreas is appreciated. Spleen: Misti l Adrenal glands: Normal Genitourinary system: There is cortical scarring in the left kidney at the midpole which may be secon dharmesh to previous infectious process. There also appears to be a calyceal s tone in the midpole of the left kidney measuring 4 mm in size. Simple subc entimeter cyst is present in the mid to inferior pole of the right kidney. There is interval hysterectomy since the prior CT scan. There are a few s ubcentimeter cystic appearing lesions in the left ovary. Gas trointestinal tract and appendix: There is diverticulosis of the sigmoid c olon and also the descending colon but no evidence of diverticulitis. Abdominal vascular structures: Normal Peritoneum and ret roperitoneum: There is stranding of the mesenteric PAGE 1 Signed Report (CONTINUED) Name: MERON MARTÍNEZ [facility] : 1970 Age/S: 48 / F [address] [facility] Unit #: [id number] Loc: [place] [address] Phys: Oliva Gonzalez MD Acct: [id number] Dis Date: Status: REG ER PHONE #: [phone] Exam Date: 02/2020 1828 FAX #: [phone] Reason: LLQ abd pain EXAMS: CPT CODE: [id number] CT ABD PELVIS W/CONT 94696 <Continued> fat in the peripancreatic region. However no well-defined fluid collection is seen. There are multiple subcentimeter lymph nodes in the aortocaval and periaortic station. These are nonspecific and may be reactive. Musculoskeletal structures and abdominal wall: Mild degenerative changes of the spine. IMPRESSION: Findings suggest pancreatitis. Correlate with lipase. Diverticulosis of the sigmoid and descending colon without evidence of diverticulitis. Nonobstructing stone in the midpole of the left kidney. Location: [facility] at 1901 Reported and signed by: Cecil Moses MD CC: Kim Cook MD; Oliva Gonzalez MD Technologist:Cornell Brody RT(R)(CT) CTDI: DLP: Trnscb Date/Time: 10/08/2019 (1900) [id number] Orig Print D/T: S: 10/08/2019 (1903) PAGE 2 Signed Report COMPREHENSIVE METABOLIC PANEL 2019-10-08 17:50:00* Test Item Value Reference Range Interpretation Comments SODIUM (test code = NA) 144 mmol/L 136-145 N POTASSIUM (test code = K) 3.5 mmol/L 3.5-5.1 N CHLORIDE (test code = CL) 107 mmol/L 101-109 N CARBON DIOXIDE (test code = CO2) 24.7 mmol/L 21-32 N ANION GAP (test code = GAP) 16 mmol/L 10-20 N GLUCOSE (test code = GLU) 110 mg/dL 74-106 H BLOOD UREA NITROGEN (test code = BUN) 12 mg/dL 3-21 N CREATININE (test code = CREAT) 0.82 mg/dL 0.55-1.3 N BUN/CREATININE RATIO (test code = BUN/CREA) 14.6 10-20 N TOTAL PROTEIN (test code = PROT) 7.1 g/dL 6.5-8.4 N ALBUMIN (test code = ALB) 2.8 g/dL 3.4-4.8 L GLOBULIN (test code = GLOB) 4.3 G/DL 1-10 N ALBUMIN/GLOBULIN RATIO (test code = A/G) 0.65 RATIO 0.75-1.50 L CALCIUM (test code = CA) 8.2 mg/dL 8.4-10.2 L BILIRUBIN TOTAL (test code = BILT) 0.40 mg/dL 0.0-1.0 N SGOT/AST (test code = AST) 70 U/L 6-32 H SGPT/ALT (test code = ALT) 131 U/L 12-78 H N ote: Change in REFERENCE RANGE due to new reagent method. ALKALINE PHOSPHATASE TOTAL (test code = ALKP) 128 U/L 38-126 H [id number] 17:50:00* Test Item Value Reference Range Interpretation Comments LIPASE (test code = LIP) 84 U/L 128-270 L COMPREHENSIVE METABOLIC [id number] 17:45:00* Test Item Value Reference Range Interpretation Comments SODIUM (test code = NA) 144 mmol/L 136-145 N POTASSIUM (test code = K) 3.5 mmol/L 3.5-5.1 N CHLORIDE (test code = CL) 107 mmol/L 101-109 N CARBON DIOXIDE (test code = CO2) 24.7 mmol/L 21-32 N ANION GAP (test code = GAP) 16 mmol/L 10-20 N GLUCOSE (test code = GLU) 110 mg/dL 74-106 H BLOOD UREA NITROGEN (test code = BUN) 12 mg/dL 3-21 N CREATININE (test code = CREAT) 0.82 mg/dL 0.55-1.3 N BUN/CREATININE RATIO (test code = BUN/CREA) 14.6 10-20 N TOTAL PROTEIN (test code = PROT) gram/dL 6.4-8.2 ALBUMIN (test code = ALB) g/dL 3.4-5.0 GLOBULIN (test code = GLOB) g/dL 2.7-4.2 ALBUMIN/GLOBULIN RATIO (test code = A/G) 0.75-1.50 CALCIUM (test code = CA) 8.2 mg/dL 8.4-10.2 L BILIRUBIN TOTAL (test code = BILT) mg/dL 0.2-1.2 SGOT/AST (test code = AST) IUnit/L 15-37 SGPT/ALT (test code = ALT) U/L 10-69 ALKALINE PHOSPHATASE TOTAL (test code = ALKP) IUnit/L 45-117 [id number] 17:45:00* Test Item Value Reference Range Interpretation Comments LIPASE (test code = LIP) Unit/L 144-286 CBC W/AUTO [id number] 17:37:00* Test Item Value Reference Range Interpretation Comments WHITE BLOOD CELL (test code = WBC) 6.0 K/mm3 4.5-12.5 N RED BLOOD CELL (test code = RBC) 3.76 mill/mm3 3.7-5.2 N HEMOGLOBIN (test code = HGB) 10.5 gram/dL 11.5-15.5 L HEMATOCRIT (test code = HCT) 30.5 % 36.0-46.0 L MEAN CELL VOLUME (test code = MCV) 81.1 fL 80-98 N MEAN CELL HGB (test code = MCH) 27.9 picogram 27.0-33.0 N MEAN CELL HGB CONCETRATION (test code = MCHC) 34.4 gram/dL 33.0-36. 0 N RED CELL DISTRIBUTION WIDTH (test code = RDW) 16.1 % 11.6-16. 2 N RED CELL DISTRIBUTION WIDTH SD (test code = RDW-SD) 48.3 fL 37 .0-51.0 N PLATELET COUNT (test code = PLT) 244 K/mm3 150-450 N MEAN PLATELET VOLUME (test code = MPV) 9.2 fL 6.7-11.0 N NEUTROPHIL % (test code = NT%) 80.9 % 39.0-69.0 H LYMPHOCYTE % (test code = LY%) 7.8 % 25.0-55.0 L MONOCYTE % (test code = MO%) 8.8 % 0.0-10.0 N EOSINOPHIL % (test code = EO%) 1.8 % 0.0-5.0 N BASOPHIL % (test code = BA%) 0.5 % 0.0-1.0 N NEUTROPHIL # (test code = NT#) 4.89 K/mm3 1.8-7.7 N LYMPHOCYTE # (test code = LY#) 0.47 K/mm3 1.0-5.0 L MONOCYTE # (test code = MO#) 0.53 K/mm3 0-0.8 N EOSINOPHIL # (test code = EO#) 0.11 K/mm3 0.0-0.5 N BASOPHIL # (test code = BA#) 0.03 K/mm3 0.0-0.2 N MANUAL DIFF REQUIRED (test code = MDIFF) NO URINALYSIS [id number] 17:12:00* Test Item Value Reference Range Interpretation Comments UA COLOR (test code = COLU) YELLOW YELLOW UA APPEARANCE (test code = APPU) SLIGHT HAZY CLEAR A UA GLUCOSE DIPSTICK (test code = DGLUU) NEGATIVE mg/dL NEGATIVE UA BILIRUBIN DIPSTICK (test code = BILU) NEGATIVE mg/dL NEGATIVE UA KETONE DIPSTICK (test code = KETU) NEGATIVE mg/dL NEGATIVE UA SPECIFIC GRAVITY (test code = SGU) 1.020 1.001-1.035 UA BLOOD DIPSTICK (test code = ADITYA) 50 (2+) Mitch/uL NEGATIVE A UA PH DIPSTICK (test code = NORA) 5.0 5.0-8.0 UA PROTEIN DIPSTICK (test code = PROU) 10 (Trace) mg/dL Neg-15 UA UROBILINIOGEN DIPSTICK (test code = URO) NORMAL mg/dL 0.0-0.2 UA NITRITE DIPSTICK (test code = JAYDON) NEGATIVE NEGATIVE UA LEUKOCYTE ESTERASE DIPSTICK (test code = LEUU) 500 Radha/uL (3+) u L NEGATIVE A UA WBC (test code = WBCU) 20-30 per HPF 0-5 A UA RBC (test code = RBCU) 3-5 per HPF 0-5 A UA EPITHELIAL CELLS (test code = EPIU) Few (2-5/hpf) per HPF Few UA BACTERIA (test code = BACU) MODERATE per HPF NONE A Urine Source? Clean CatchUR HCG [id number] 17:12:00* Test Item Value Reference Range Interpretation Comments UR HCG QUAL (test code = HCGQLU) NEGATIVE This HCGQL test is NOT applicable for MALE patients.Check with nurse about probable order error.If Tumor Marker Test needed, nurse should order test "HCGTU"(Test #550.94220) Urine Source? Clean CatchUTERUS,OTHER THAN PROLAPSE/[id number] 18:51:00 RUN DATE: 09/29/19 [facility] PAGE 1 RUN TIME: 1124 Specimen Inqui ry RUN USER: INTERFACE PATIENT: MERON MARTÍNEZ ACCT #: [id number] [facility] [place]: [id number] AGE/SX: 48/F ROOM: [facility] RE09/27/19REG DR: Kim Cook MD : [birth year] BED: A DIS: 09/28/19 STATUS: DIS Peter TLOC: SPEC #: [id number] RECD: 09/27/19 STATUS: [place] #: [id number] HANNAH: 09/27/19- SUBM DR: Kim Cook MD ENTERED: 09/27/19 SP TYPE: UTERUSOTH OTHR DR: ORDERED: LEVEL V SURGICA CODES: [id number] - UTERUS, NOS PROCEDURES: LEV EL V SURGICA (Incomplete) TISSUES: UTERUS, NOS - UTERUS, CERVIX AND BI LATERAL FALLOPIAN TUBES CLINICAL HISTORY 48 year old, severe cervical dysplasia (wpd) FINAL DIAGNOSIS Uterus, bilateral fallopian tubes, hysterectomy and bilateral salpingectomy: cervix - previous biopsy site i dentified, no residual dysplasia (cervix entirely submitted) endometrium - benign, inactive myometrium - leiomyomas bilater al fallopian tubes - benign, one with paratubal cyst CPT code(s): 883 07 [facility] 09/28/19 GROSS DESCRIPTION ANATOMIC SOURCE OF TISSUE (per Re quisition): Uterus, cervix and bilateral tubes The specimen is received in formalin in a container, labeled with the patient's name and designated "ut erus, cervix and bilateral tubes". It consists of a 9 x 7.5 x 6.0 cm, 140 gm h ysterectomy specimen and two separate segments of unoriented fallopian tubes w ith fimbriae attached. The serosa is guillermo, smooth, and glistening. The cer vical external os measures 2.0 cm. The portio vaginalis measures 3.5 cm. The entire cervix and senior sales representative sections of the lower uterine segment are castro bmitted in A1 through A3 - anterior and A4 through A6 - posterior. The end ometrium measures 0.1 cm. The myometrium measures 4 cm and contains guillermo, whit e, firm nodules measuring up to 3.5 cm with no identifiable degenerative change on the cut surfaces. Military Pilot sections are submitted in A7 and A8. CONTINUED ON NEXT PAGE RUN MICHEL TE: 09/29/19 [facility] PAG E 2 RUN TIME: 1124 Specimen Inquiry RUN USER: INTERFACE SPEC #: [id number] PATIENT: MERON MARTÍNEZ #[id number] (Continued) GROSS DESCRIPTION (Contin ued) The first segment of fallopian tube with fimbria measures 0.8 x 0.6 x 0. 6 cm. It is transversely sectioned into three pieces and is submitted in toto in A9. The second segment of fallopian tube with fimbria measures 2.7 x 0 .7 x 0.6 cm. The entire fimbria and one cross-section of the tube are submitt ed in A10. hz/wpd 09/27/19 Signed __ Mindi Okeefe MD 09/28/19 1851 END OF REPORT CHEMISTRY 7 [id number] 07:09:00* Test Item Value Reference Range Interpretation Comments SODIUM (test code = NA) 140 mEq/L 135-145 N POTASSIUM (test code = K) 3.7 mEq/L 3.5-5.0 N CHLORIDE (test code = CL) 105 mEq/L 100-115 N CARBON DIOXIDE (test code = CO2) 26 mEq/L 22-31 N ANION GAP (test code = GAP) 12.90 10-20 N GLUCOSE (test code = GLU) 78 mg/dL 65-110 N BLOOD UREA NITROGEN (test code = BUN) 7 mg/dL 7-18 N GLOMERULAR FILTRATION RATE (test code = GFR) 106 ml/min >60 N CREATININE (test code = CREAT) 0.6 mg/dL 0.5-1.0 N CALCIUM (test code = CA) 8.3 mg/dL 8.4-10.2 L CBC W/AUTO [id number] 06:41:00* Test Item Value Reference Range Interpretation Comments WHITE BLOOD CELL (test code = WBC) 8.5 K/mm3 6.6-12.1 N RED BLOOD CELL (test code = RBC) 3.97 M/mm3 3.45-5.01 N HEMOGLOBIN (test code = HGB) 11.0 g/dL 10.7-13.9 N HEMATOCRIT (test code = HCT) 33.9 % 32.1-42.1 N MEAN CELL VOLUME (test code = MCV) 85 fL 84.1-94.8 N MEAN CELL HGB (test code = MCH) 27.7 pg 27-35 N MEAN CELL HGB CONCETRATION (test code = MCHC) 32.4 gm/dL 32.2-34. 1 N RED CELL DISTRIBUTION WIDTH (test code = RDW) 16.8 % 12.4-16. 5 H PLATELET COUNT (test code = PLT) 239 K/mm3 133-385 N MEAN PLATELET VOLUME (test code = MPV) 10.0 fl 9.1-12.7 N NEUTROPHIL % (test code = NT%) 79.5 % 56.5-79.4 H LYMPHOCYTE % (test code = LY%) 11.9 % 14.3-34.3 L MONOCYTE % (test code = MO%) 7.5 % 5.1-10.4 N EOSINOPHIL % (test code = EO%) 0.4 % 0.1-3.0 N BASOPHIL % (test code = BA%) 0.2 % 0.1-1.0 N NEUTROPHIL # (test code = NT#) 6.8 K/mm3 LYMPHOCYTE # (test code = LY#) 1.0 K/mm3 MONOCYTE # (test code = MO#) 0.6 K/mm3 EOSINOPHIL # (test code = EO#) 0.03 K/mm3 BASOPHIL # (test code = BA#) 0.0 K/mm3 RBC MORPHOLOGY REQUIRED (test code = RBCM) NORMAL NORMAL PLATELET MORPHOLOGY REQUIRED (test code = PLTMR) NORMAL MISTI L UR HCG [id number] 08:55:00* Test Item Value Reference Range Interpretation Comments UR HCG QUAL (test code = HCGQLU) NEGATIVE 1. Very dilute urine specimens, as indicated by a lowspecific gravity, may not contain senior sales representative levels ofhCG. 2. False negative results may occur when the levels of hCGare below the sensitivity level of the test. If is still suspected, a first morningurine specimen should be collected 48 hours later andtested. CHEMISTRY 7 [id number] 15:43:00* Test Item Value Reference Range Interpretation Comments SODIUM (test code = NA) 138 mEq/L 135-145 N POTASSIUM (test code = K) 4.3 mEq/L 3.5-5.0 N CHLORIDE (test code = CL) 102 mEq/L 100-115 N CARBON DIOXIDE (test code = CO2) 26 mEq/L 22-31 N ANION GAP (test code = GAP) 14.40 10-20 N GLUCOSE (test code = GLU) 81 mg/dL 65-110 N BLOOD UREA NITROGEN (test code = BUN) 10 mg/dL 7-18 N GLOMERULAR FILTRATION RATE (test code = GFR) 89 ml/min >60 N CREATININE (test code = CREAT) 0.7 mg/dL 0.5-1.0 N CALCIUM (test code = CA) 8.9 mg/dL 8.4-10.2 N CBC W/AUTO [id number] 15:25:00* Test Item Value Reference Range Interpretation Comments WHITE BLOOD CELL (test code = WBC) 4.9 K/mm3 6.6-12.1 L RED BLOOD CELL (test code = RBC) 4.66 M/mm3 3.45-5.01 N HEMOGLOBIN (test code = HGB) 12.5 g/dL 10.7-13.9 N HEMATOCRIT (test code = HCT) 39.7 % 32.1-42.1 N MEAN CELL VOLUME (test code = MCV) 85 fL 84.1-94.8 N MEAN CELL HGB (test code = MCH) 26.8 pg 27-35 L MEAN CELL HGB CONCETRATION (test code = MCHC) 31.5 gm/dL 32.2-34. 1 L RED CELL DISTRIBUTION WIDTH (test code = RDW) 16.7 % 12.4-16. 5 H PLATELET COUNT (test code = PLT) 340 K/mm3 133-385 N MEAN PLATELET VOLUME (test code = MPV) 9.6 fl 9.1-12.7 N NEUTROPHIL % (test code = NT%) 64.9 % 56.5-79.4 N LYMPHOCYTE % (test code = LY%) 23.3 % 14.3-34.3 N MONOCYTE % (test code = MO%) 8.7 % 5.1-10.4 N EOSINOPHIL % (test code = EO%) 1.9 % 0.1-3.0 N BASOPHIL % (test code = BA%) 0.8 % 0.1-1.0 N NEUTROPHIL # (test code = NT#) 3.2 K/mm3 LYMPHOCYTE # (test code = LY#) 1.1 K/mm3 MONOCYTE # (test code = MO#) 0.4 K/mm3 EOSINOPHIL # (test code = EO#) 0.09 K/mm3 BASOPHIL # (test code = BA#) 0.0 K/mm3 RBC MORPHOLOGY REQUIRED (test code = RBCM) NORMAL NORMAL PLATELET MORPHOLOGY REQUIRED (test code = PLTMR) NORMAL MITSI L UR HCG [id number] 15:23:00* Test Item Value Reference Range Interpretation Comments UR HCG QUAL (test code = HCGQLU) NEGATIVE 1. Very dilute urine specimens, as indicated by a lowspecific gravity, may not contain senior sales representative levels ofhCG. 2. False negative results may occur when the levels of hCGare below the sensitivity level of the test. If is still suspected, a first morningurine specimen should be collected 48 hours later andtested. URINALYSIS [id number] 12:35:00* Test Item Value Reference Range Interpretation Comments UA COLOR (test code = COLU) YELLOW YELLOW UA APPEARANCE (test code = APPU) HAZY CLEAR A UA GLUCOSE DIPSTICK (test code = DGLUU) norm mg/dL NEGATIVE UA BILIRUBIN DIPSTICK (test code = BILU) NEGATIVE mg/dL NEGATIVE UA KETONE DIPSTICK (test code = KETU) 5 (Trace) mg/dL NEGATIVE A UA SPECIFIC GRAVITY (test code = SGU) 1.015 1.001-1.035 UA BLOOD DIPSTICK (test code = ADITYA) neg Mitch/uL NEGATIVE UA PH DIPSTICK (test code = NORA) 5.0 5.0-8.0 UA PROTEIN DIPSTICK (test code = PROU) neg mg/dL Neg-15 UA UROBILINIOGEN DIPSTICK (test code = URO) norm mg/dL 0.0-0.2 UA NITRITE DIPSTICK (test code = JAYDON) NEGATIVE NEGATIVE UA LEUKOCYTE ESTERASE DIPSTICK (test code = LEUU) 25 Radha/uL (Tra ce) uL NEGATIVE A UA WBC (test code = WBCU) 3-5 per HPF 0-5 UA RBC (test code = RBCU) 0-3 per HPF 0-5 UA EPITHELIAL CELLS (test code = EPIU) Moderate (5-10/hpf) per HPF Few UA BACTERIA (test code = BACU) TRACE per HPF NONE UA MUCUS (test code = MUCU) MODERATE per LPF NONE-FEW A Urine Source? Clean CatchURINALYSIS [id number] 12:29:00* Test Item Value Reference Range Interpretation Comments UA COLOR (test code = COLU) YELLOW YELLOW UA APPEARANCE (test code = APPU) HAZY CLEAR A UA GLUCOSE DIPSTICK (test code = DGLUU) norm mg/dL NEGATIVE UA BILIRUBIN DIPSTICK (test code = BILU) NEGATIVE mg/dL NEGATIVE UA KETONE DIPSTICK (test code = KETU) 5 (Trace) mg/dL NEGATIVE A UA SPECIFIC GRAVITY (test code = SGU) 1.015 1.001-1.035 UA BLOOD DIPSTICK (test code = ADITYA) neg Mitch/uL NEGATIVE UA PH DIPSTICK (test code = NORA) 5.0 5.0-8.0 UA PROTEIN DIPSTICK (test code = PROU) neg mg/dL Neg-15 UA UROBILINIOGEN DIPSTICK (test code = URO) norm mg/dL 0.0-0.2 UA NITRITE DIPSTICK (test code = JAYDON) NEGATIVE NEGATIVE UA LEUKOCYTE ESTERASE DIPSTICK (test code = LEUU) 25 Radha/uL (Tra ce) uL NEGATIVE A UA WBC (test code = WBCU) per HPF 0-5 UA RBC (test code = RBCU) per HPF 0-5 UA EPITHELIAL CELLS (test code = EPIU) per HPF Few UA BACTERIA (test code = BACU) per HPF NONE Urine Source? Clean CatchCHEST 2 [id number] 10:29:00 [place] [address] Patient Name: MERON MARTÍNEZ MR #: [id number] : Age/Sex: 48/F Req #: [id number] Adm Physician: Ordered by: ANNE BATES MD Report #: [id number] Location: OR Room/Bed: Procedure: 0103-0 019 DX/CHEST 2 VIEWS Exam Date: 08/05/19 Exam Time: 1005 REPORT STATUS: Signed EX AMINATION: PA and lateral views of the chest. COMPARISON: None CLINICA L HISTORY: Preoperative study for hysterectomy DISCUSSION: Lines /tubes: None. Lungs: The lungs are well inflated and clear. There is no e vidence of pneumonia or pulmonary edema. Pleura: There is no pleural eff usion or pneumothorax. Heart and mediastinum: The cardiomediastinal silhou ette is normal. Bones and soft tissues: No acute bony abnormalities. IMPRESSION: No acute cardiopulmonary abnormalities. Signed by: Dr. Evelin Motley M.D. on 08/05/2019 10:30 AM Dictated By: EVELIN NIETO MD 1030 Transcribed By: ERICK on 08/05/19 1030 COPY TO: ANNE BATES MD Serum or plasma choriogonadotropin ( test) [id number] 08:30:00* Test Item Value Reference Range Interpretation Comments Human Chorionic Gonadotropin, Qual (test code = 2118-8) NEGATIVE NEGATIVE [facility] 2 antibody detection qualitative by rapid [id number] 08:30:00* Test Item Value Reference Range Interpretation Comments HIV (1&2) Antibody (test code = 73631-6) NON-REACTIVE NONREACTIVE [facility] AliceFluoroscopic procedure less than one hour [id number] 08:30:00* Test Item Value Reference Range Interpretation Comments HIV P24 Antigen (test code = HIV P24 Antigen) REACTIVE NONREA CTIVE Results called to LESLIE RAT at 1213 on 08/05/19 by William Brody. [place] or plasma hepatitis A virus IgM antibody detection by [id number] 08:30:00* Test Item Value Reference Range Interpretation Comments Hepatitis A IgM Antibody (test code = 78522-5) Negative Negativ e [facility] or plasma hepatitis B virus surface antigen detection by [id number] 08:30:00* Test Item Value Reference Range Interpretation Comments Hepatitis B Surface Antigen (test code = 5196-1) Negative Negat melody [facility] or plasma hepatitis B virus core IgM antibody detection by ikihzsqwcnp0994-08-50 08:30:00* Test Item Value Reference Range Interpretation Comments Hepatitis B Core IgM Antibody (test code = 52721-7) Negative Ne [facility] hepatitis C virus antibody [id number] 08:30:00* Test Item Value Reference Range Interpretation Comments Hepatitis C Antibody (test code = 81130-6) <0.1 0.0-0.9 Negative: < 0.8 Indeterminate: 0.8 - 0.9 Positive: > 0.9 The CDC recommends that a positive HCV antibody result be followed up with a HCV Nucleic Acid Amplification test (115253).Performed at: - [facility] [id number] [place] [address] [id number] Director: Simon Dash MD, Phone: [phone] [facility] AliceHIV-2 antibody detection by enzyme nbengwilxyg5354-43-96 08:30:00* Test Item Value Reference Range Interpretation Comments HIV-2 Antibody (EIA) (test code = 71333-0) Negative Interpretation:A repeatedly reactive HIV-2 result may indicate infection with HI V-2 virus. However, HIV1 positive patients (50-90%) may also react in HIV-2 EIA. Reactive results should be investigated by supplemental tests. Positive HIV-2 r esults should be considered indicative of infection if HIV-1 has been ruled out with negative HIV-1 testing, patient has epidemiological risk factors for HIV-2, and supplemental tests such as HIV-2 Immunoblot (Investigational use only) show the presence of HIV-2 specific viral bands.[facility] RNA [id number] 08:30:00* Test Item Value Reference Range Interpretation Comments HIV-1 RNA, Qualitative (TMA) (test code = 544638882) Negative N egative Negative for HIV-1 RNAPerformed at: - [facility] [id number] Director: Norma Canas MD, Phone: [phone] [facility] AliceBASIC METABOLIC [id number] 09:02:00* Test Item Value Reference Range Interpretation Comments SODIUM (test code = NA) 141 mmol/L 136-145 RESU LT VERIFIED BY REPEAT ANALYSIS POTASSIUM (test code = K) 3.5 mmol/L 3.5-5.1 N CHLORIDE (test code = CL) 111.0 mmol/L 98-107 H CARBON DIOXIDE (test code = CO2) 17.0 mmol/L 21-32 L ANION GAP (test code = GAP) 16.5 10-20 N GLUCOSE (test code = GLU) 64 mg/dL 74-106 L BLOOD UREA NITROGEN (test code = BUN) 6 mg/dL 7-18 L GLOMERULAR FILTRATION RATE (test code = GFR) > 60 mL/min >=60 Estimated GFR by using Modified MDRD formula.Chronic kidney disease is defined as either kidney damageor GFR <60 mL/min/1.73 m2 for >3 months. CREATININE (test code = CREAT) 0.60 mg/dL 0.55-1.02 N Note change in reference range due to change in reagent. BUN/CREATININE RATIO (test code = BUN/CREA) 10.0 10-20 N CALCIUM (test code = CA) 7.8 mg/dL 8.5-10.1 L CBC W/AUTO [id number] 07:20:00* Test Item Value Reference Range Interpretation Comments WHITE BLOOD CELL (test code = WBC) 4.6 K/mm3 4.5-12.5 N RED BLOOD CELL (test code = RBC) 4.27 mill/mm3 3.7-5.2 N HEMOGLOBIN (test code = HGB) 11.0 gram/dL 11.5-15.5 L HEMATOCRIT (test code = HCT) 37.0 % 36.0-46.0 N MEAN CELL VOLUME (test code = MCV) 86.7 fL 80-98 MEAN CELL HGB (test code = MCH) 25.8 picogram 27.0-33.0 L MEAN CELL HGB CONCETRATION (test code = MCHC) 29.7 gram/dL 33.0-36. 0 L RED CELL DISTRIBUTION WIDTH (test code = RDW) 17.0 % 11.6-16. 2 H RED CELL DISTRIBUTION WIDTH SD (test code = RDW-SD) 52.3 fL 37 .0-51.0 H PLATELET COUNT (test code = PLT) 320 K/mm3 150-450 N MEAN PLATELET VOLUME (test code = MPV) 9.6 fL 6.7-11.0 N NEUTROPHIL % (test code = NT%) 63.9 % 39.0-69.0 N IMMATURE GRANULOCYTE % (test code = IG%) 0.4 % 0.0-5.0 N LYMPHOCYTE % (test code = LY%) 20.2 % 25.0-55.0 L MONOCYTE % (test code = MO%) 12.2 % 0.0-10.0 H EOSINOPHIL % (test code = EO%) 2.4 % 0.0-5.0 N BASOPHIL % (test code = BA%) 0.9 % 0.0-1.0 N NUCLEATED RBC % (test code = NRBC%) 0.0 % 0-0 N NEUTROPHIL # (test code = NT#) 2.94 K/mm3 1.8-7.7 N IMMATURE GRANULOCYTE # (test code = IG#) 0.02 x10 3/uL 0-0.03 N LYMPHOCYTE # (test code = LY#) 0.93 K/mm3 1.0-5.0 L MONOCYTE # (test code = MO#) 0.56 K/mm3 0-0.8 N EOSINOPHIL # (test code = EO#) 0.11 K/mm3 0.0-0.5 N BASOPHIL # (test code = BA#) 0.04 K/mm3 0.0-0.2 N NUCLEATED RBC # (test code = NRBC#) 0.00 K/mm3 0.0-0.1 N - CT ABD PELVIS [id number] 14:17:00 Name: MERON MARTÍNEZ [facility] : 1970 Age/S: 48 / F [address] [facility] Unit #: [id number] Loc: [place] [address] Phys: Liz Terry MD Acct: [id number] Dis Date: Status: REG ER PHONE #: [phone] Exam Date: 07/26/2019 1332 FAX #: [phone] Reason: lower abdominal pain EXAMS: CPT CODE: [id number] CT ABD PELVIS W/CONT 74688 REASON FOR EXAM: lower abdominal pain EXAM ORDER DATE: 07/26/2019 12:29 PM Ordering M.D.: Liz Terry MD PROCEDURE: - CT ABD PELVIS W/CONT contrast-enhanced axial CT images were acquired through the abdomen/pelvis at 5 mm intervals. Sagittal and coronal reformatted images were generated. Automated exposure control was utilized for this reduction. Phases of contrast: venous and delayed COMPARISON: CT of the abdomen and pelvis February 28, 2019 FINDINGS: Visual ized thorax: Normal Hepatobiliary system: Simple cyst measuring 1 cm in diameter is seen in segment 2. Focal fatty infiltration is seen near the ligamentum teres. Otherwise normal Pancreas: Moderate f atty replacement Spleen: Normal Adrenal glands: Norm al Genitourinary system: Focal scarring in the midpole the left ki dney is likely sequela of a previous infectious or inflammatory process. T here are also simple cysts in the bilateral kidneys. Right ovarian cyst measuring 3.4 cm is present. Uterus is enlarged and heterogenous likel y representing multiple fibroids. Gastrointestinal tract and appen consuelo: There is extensive diverticulosis of the sigmoid colon without eviden ce of diverticulitis. Additional diverticular disease is seen in the desce nding colon. There is fatty metaplasia of the submucosa in the transverse colon which may be sequela of prior inflammation. The appendix is mildly d ilated measuring 7 mm in size and there is hyperenhancement of the a ppendiceal wall (series 601 image 34). However no periappendiceal fat stra nding is seen. Stomach is within normal limits. There is distention of sev eral loops of small bowel with fluid in the left hemiabdomen and there is mucosal hyperenhancement. PAGE 1 Signed Report (CONTINUED) Name: MERON MARTÍNEZ [facility] : 1970 Age/S: 48 / F [address] [facility] Unit #: [id number] Loc: Johann [place] [address] Phys: Liz Terry MD Acct: [id number] Dis Date: Status: REG ER PHONE #: [phone] Exam Date: 07/26/2019 1332 FAX #: [phone] Reason: lower abdominal pain EXAMS: CPT CODE: [id number] CT ABD PELVIS W/CONT 77311 < Continued> Abdominal vascular structures: Normal Peritoneum and retroperitoneum: No free fluid or free air. No omental or mesenteric masses. No abnormal lymph nodes. Musculoskeletal structures and abdominal wall: Normal IMPRESSION: Findings suggesting enteritis in the left hemiabdomen. Colonic diverticulosis without evidence of diverticulitis. Mild dilation of the appendix with mucosal hyperenhancement can be seen with appendicitis. However there is no stranding of the periappendiceal fat and there is no mesenteric adenopathy in the right lower abdomen to suggest acute inflammation. This may represent sequela of chronic appendicitis or prior episode of acute appendicitis. Location: [facility] at 1417 Reported and signed by: Cecil Moses MD CC: Liz Terry MD Technologist:Shraddha Aivles CTDI: DLP: Trnscb Date/Time: 07/26/2019 (141) t.SDR.RR31 Orig Print D/T: S: 07/26/2019 (8311) PAGE 2 Signed Report URINALYSIS [id number] 12:21:00* Test Item Value Reference Range Interpretation Comments UA COLOR (test code = COLU) YELLOW YELLOW UA APPEARANCE (test code = APPU) HAZY CLEAR A UA GLUCOSE DIPSTICK (test code = DGLUU) norm mg/dL NEGATIVE UA BILIRUBIN DIPSTICK (test code = BILU) NEGATIVE mg/dL NEGATIVE UA KETONE DIPSTICK (test code = KETU) 150 (4+) mg/dL NEGATIVE A UA SPECIFIC GRAVITY (test code = SGU) 1.025 1.001-1.035 UA BLOOD DIPSTICK (test code = ADITYA) neg Mitch/uL NEGATIVE UA PH DIPSTICK (test code = NORA) 5.0 5.0-8.0 UA PROTEIN DIPSTICK (test code = PROU) neg mg/dL Neg-15 UA UROBILINIOGEN DIPSTICK (test code = URO) norm mg/dL 0.0-0.2 UA NITRITE DIPSTICK (test code = JAYDON) NEGATIVE NEGATIVE UA LEUKOCYTE ESTERASE DIPSTICK (test code = LEUU) 100 Radha/uL (1+) u L NEGATIVE A UA WBC (test code = WBCU) 3-5 per HPF 0-5 UA RBC (test code = RBCU) 3-5 per HPF 0-5 A UA EPITHELIAL CELLS (test code = EPIU) Moderate (5-10/hpf) per HPF Few UA BACTERIA (test code = BACU) TRACE per HPF NONE UA MUCUS (test code = MUCU) MANY per LPF NONE-FEW A Urine Source? Clean CatchBASIC METABOLIC [id number] 12:17:00* Test Item Value Reference Range Interpretation Comments SODIUM (test code = NA) 136 mmol/L 136-145 N POTASSIUM (test code = K) 4.1 mmol/L 3.5-5.1 N CHLORIDE (test code = CL) 99 mmol/L 101-109 L CARBON DIOXIDE (test code = CO2) 24.0 mmol/L 21-32 N ANION GAP (test code = GAP) 17 mmol/L 10-20 N GLUCOSE (test code = GLU) 86 mg/dL 74-106 N BLOOD UREA NITROGEN (test code = BUN) 8 mg/dL 3-21 N GLOMERULAR FILTRATION RATE (test code = GFR) > 60 mL/min >=60 Estimated GFR by using Modified MDRD formula.Chronic kidney disease is defined as either kidney damageor GFR <60 mL/min/1.73 m2 for >3 months. CREATININE (test code = CREAT) 0.69 mg/dL 0.55-1.3 N BUN/CREATININE RATIO (test code = BUN/CREA) 11.6 10-20 N CALCIUM (test code = CA) 8.8 mg/dL 8.4-10.2 N HEPATIC FUNCTION [id number] 12:17:00* Test Item Value Reference Range Interpretation Comments TOTAL PROTEIN (test code = PROT) 7.9 g/dL 6.5-8.4 N ALBUMIN (test code = ALB) 3.7 g/dL 3.4-4.8 N GLOBULIN (test code = GLOB) 4.2 G/DL 1-10 N ALBUMIN/GLOBULIN RATIO (test code = A/G) 0.88 RATIO 0.75-1.50 N BILIRUBIN TOTAL (test code = BILT) 0.60 mg/dL 0.0-1.0 N BILIRUBIN DIRECT (test code = BILD) 0.10 mg/dL 0.0-0.30 N SGOT/AST (test code = AST) 22 U/L 6-32 N SGPT/ALT (test code = ALT) 21 U/L 12-78 N N ote: Change in REFERENCE RANGE due to new reagent method. ALKALINE PHOSPHATASE TOTAL (test code = ALKP) 66 U/L 38-126 N [id number] 12:17:00* Test Item Value Reference Range Interpretation Comments LIPASE (test code = LIP) 106 U/L 128-270 L HCG SERUM [id number] 12:17:00* Test Item Value Reference Range Interpretation Comments HCG SERUM QUAL (test code = HCGQL) NEGATIVE NEGATIVE This HCGQL test is NOT applicable for MALE patients.Check with nurse about probable order error.If Tumor Marker Test needed, nurse should order test "HCGTU"(Test #550.24152) URINALYSIS [id number] 12:14:00* Test Item Value Reference Range Interpretation Comments UA COLOR (test code = COLU) YELLOW YELLOW UA APPEARANCE (test code = APPU) HAZY CLEAR A UA GLUCOSE DIPSTICK (test code = DGLUU) norm mg/dL NEGATIVE UA BILIRUBIN DIPSTICK (test code = BILU) NEGATIVE mg/dL NEGATIVE UA KETONE DIPSTICK (test code = KETU) 150 (4+) mg/dL NEGATIVE A UA SPECIFIC GRAVITY (test code = SGU) 1.025 1.001-1.035 UA BLOOD DIPSTICK (test code = ADITYA) neg Mitch/uL NEGATIVE UA PH DIPSTICK (test code = NORA) 5.0 5.0-8.0 UA PROTEIN DIPSTICK (test code = PROU) neg mg/dL Neg-15 UA UROBILINIOGEN DIPSTICK (test code = URO) norm mg/dL 0.0-0.2 UA NITRITE DIPSTICK (test code = JAYDON) NEGATIVE NEGATIVE UA LEUKOCYTE ESTERASE DIPSTICK (test code = LEUU) 100 Radha/uL (1+) u L NEGATIVE A UA WBC (test code = WBCU) per HPF 0-5 UA RBC (test code = RBCU) per HPF 0-5 UA EPITHELIAL CELLS (test code = EPIU) per HPF Few UA BACTERIA (test code = BACU) per HPF NONE Urine Source? Clean CatchBASIC METABOLIC [id number] 11:56:00* Test Item Value Reference Range Interpretation Comments SODIUM (test code = NA) 136 mmol/L 136-145 N POTASSIUM (test code = K) 4.1 mmol/L 3.5-5.1 N CHLORIDE (test code = CL) 99 mmol/L 101-109 L CARBON DIOXIDE (test code = CO2) 24.0 mmol/L 21-32 N ANION GAP (test code = GAP) 17 mmol/L 10-20 N GLUCOSE (test code = GLU) 86 mg/dL 74-106 N BLOOD UREA NITROGEN (test code = BUN) 8 mg/dL 3-21 N GLOMERULAR FILTRATION RATE (test code = GFR) > 60 mL/min >=60 Estimated GFR by using Modified MDRD formula.Chronic kidney disease is defined as either kidney damageor GFR <60 mL/min/1.73 m2 for >3 months. CREATININE (test code = CREAT) 0.69 mg/dL 0.55-1.3 N BUN/CREATININE RATIO (test code = BUN/CREA) 11.6 10-20 N CALCIUM (test code = CA) 8.8 mg/dL 8.4-10.2 N HEPATIC FUNCTION [id number] 11:56:00* Test Item Value Reference Range Interpretation Comments TOTAL PROTEIN (test code = PROT) gram/dL 6.4-8.2 ALBUMIN (test code = ALB) g/dL 3.4-5.0 GLOBULIN (test code = GLOB) g/dL 2.7-4.2 ALBUMIN/GLOBULIN RATIO (test code = A/G) 0.75-1.50 BILIRUBIN TOTAL (test code = BILT) mg/dL 0.2-1.2 BILIRUBIN DIRECT (test code = BILD) mg/dL 0.0-0.20 SGOT/AST (test code = AST) IUnit/L 15-37 SGPT/ALT (test code = ALT) U/L 10-69 ALKALINE PHOSPHATASE TOTAL (test code = ALKP) IUnit/L 45-117 [id number] 11:56:00* Test Item Value Reference Range Interpretation Comments LIPASE (test code = LIP) Unit/L 144-286 HCG SERUM [id number] 11:56:00* Test Item Value Reference Range Interpretation Comments HCG SERUM QUAL (test code = HCGQL) NEGATIVE NEGATIVE This HCGQL test is NOT applicable for MALE patients.Check with nurse about probable order error.If Tumor Marker Test needed, nurse should order test "HCGTU"(Test #550.10030) CBC W/O [id number] 11:53:00* Test Item Value Reference Range Interpretation Comments WHITE BLOOD CELL (test code = WBC) 4.0 K/mm3 4.5-12.5 L RED BLOOD CELL (test code = RBC) 4.55 mill/mm3 3.7-5.2 N HEMOGLOBIN (test code = HGB) 11.8 gram/dL 11.5-15.5 N HEMATOCRIT (test code = HCT) 36.5 % 36.0-46.0 N MEAN CELL VOLUME (test code = MCV) 80.2 fL 80-98 N MEAN CELL HGB (test code = MCH) 25.9 picogram 27.0-33.0 L MEAN CELL HGB CONCETRATION (test code = MCHC) 32.3 gram/dL 33.0-36. 0 L RED CELL DISTRIBUTION WIDTH (test code = RDW) 16.2 % 11.6-16. 2 N RED CELL DISTRIBUTION WIDTH SD (test code = RDW-SD) 47.2 fL 37 .0-51.0 N PLATELET COUNT (test code = PLT) 314 K/mm3 150-450 N MEAN PLATELET VOLUME (test code = MPV) 9.2 fL 6.7-11.0 N BASIC METABOLIC [id number] 11:53:00* Test Item Value Reference Range Interpretation Comments SODIUM (test code = NA) 136 mmol/L 136-145 N POTASSIUM (test code = K) 4.1 mmol/L 3.5-5.1 N CHLORIDE (test code = CL) 99 mmol/L 101-109 L CARBON DIOXIDE (test code = CO2) 24.0 mmol/L 21-32 N ANION GAP (test code = GAP) 17 mmol/L 10-20 N GLUCOSE (test code = GLU) 86 mg/dL 74-106 N BLOOD UREA NITROGEN (test code = BUN) 8 mg/dL 3-21 N GLOMERULAR FILTRATION RATE (test code = GFR) > 60 mL/min >=60 Estimated GFR by using Modified MDRD formula.Chronic kidney disease is defined as either kidney damageor GFR <60 mL/min/1.73 m2 for >3 months. CREATININE (test code = CREAT) 0.69 mg/dL 0.55-1.3 N BUN/CREATININE RATIO (test code = BUN/CREA) 11.6 10-20 N CALCIUM (test code = CA) 8.8 mg/dL 8.4-10.2 N HEPATIC FUNCTION [id number] 11:53:00* Test Item Value Reference Range Interpretation Comments TOTAL PROTEIN (test code = PROT) gram/dL 6.4-8.2 ALBUMIN (test code = ALB) g/dL 3.4-5.0 GLOBULIN (test code = GLOB) g/dL 2.7-4.2 ALBUMIN/GLOBULIN RATIO (test code = A/G) 0.75-1.50 BILIRUBIN TOTAL (test code = BILT) mg/dL 0.2-1.2 BILIRUBIN DIRECT (test code = BILD) mg/dL 0.0-0.20 SGOT/AST (test code = AST) IUnit/L 15-37 SGPT/ALT (test code = ALT) U/L 10-69 ALKALINE PHOSPHATASE TOTAL (test code = ALKP) IUnit/L 45-117 [id number] 11:53:00* Test Item Value Reference Range Interpretation Comments LIPASE (test code = LIP) Unit/L 144-286 HCG SERUM [id number] 11:53:00* Test Item Value Reference Range Interpretation Comments HCG SERUM QUAL (test code = HCGQL) NEGATIVE URINALYSIS [id number] 09:51:00* Test Item Value Reference Range Interpretation Comments UA COLOR (test code = COLU) YELLOW YELLOW UA APPEARANCE (test code = APPU) SLIGHT HAZY CLEAR A UA GLUCOSE DIPSTICK (test code = DGLUU) norm mg/dL NEGATIVE UA BILIRUBIN DIPSTICK (test code = BILU) NEGATIVE mg/dL NEGATIVE UA KETONE DIPSTICK (test code = KETU) neg mg/dL NEGATIVE UA SPECIFIC GRAVITY (test code = SGU) 1.025 1.001-1.035 UA BLOOD DIPSTICK (test code = ADITYA) 50 (2+) Mitch/uL NEGATIVE A UA PH DIPSTICK (test code = NORA) 5.0 5.0-8.0 UA PROTEIN DIPSTICK (test code = PROU) neg mg/dL Neg-15 UA UROBILINIOGEN DIPSTICK (test code = URO) norm mg/dL 0.0-0.2 UA NITRITE DIPSTICK (test code = JAYDON) NEGATIVE NEGATIVE UA LEUKOCYTE ESTERASE DIPSTICK (test code = LEUU) 100 Radha/uL (1+) u L NEGATIVE A UA WBC (test code = WBCU) 3-5 per HPF 0-5 UA RBC (test code = RBCU) 3-5 per HPF 0-5 A UA EPITHELIAL CELLS (test code = EPIU) Few (2-5/hpf) per HPF Few UA BACTERIA (test code = BACU) MODERATE per HPF NONE A UA MUCUS (test code = MUCU) FEW per LPF NONE-FEW UA YEAST (test code = YEASTU) FEW per HPF NONE A Urine Source? Clean CatchUR HCG [id number] 09:51:00* Test Item Value Reference Range Interpretation Comments UR HCG QUAL (test code = HCGQLU) NEGATIVE This HCGQL test is NOT applicable for MALE patients.Check with nurse about probable order error.If Tumor Marker Test needed, nurse should order test "HCGTU"(Test #550.99646) Urine Source? Clean CatchURINALYSIS [id number] 09:30:00* Test Item Value Reference Range Interpretation Comments UA COLOR (test code = COLU) YELLOW YELLOW UA APPEARANCE (test code = APPU) SLIGHT HAZY CLEAR A UA GLUCOSE DIPSTICK (test code = DGLUU) norm mg/dL NEGATIVE UA BILIRUBIN DIPSTICK (test code = BILU) NEGATIVE mg/dL NEGATIVE UA KETONE DIPSTICK (test code = KETU) neg mg/dL NEGATIVE UA SPECIFIC GRAVITY (test code = SGU) 1.025 1.001-1.035 UA BLOOD DIPSTICK (test code = ADITYA) 50 (2+) Mitch/uL NEGATIVE A UA PH DIPSTICK (test code = NORA) 5.0 5.0-8.0 UA PROTEIN DIPSTICK (test code = PROU) neg mg/dL Neg-15 UA UROBILINIOGEN DIPSTICK (test code = URO) norm mg/dL 0.0-0.2 UA NITRITE DIPSTICK (test code = JAYDON) NEGATIVE NEGATIVE UA LEUKOCYTE ESTERASE DIPSTICK (test code = LEUU) 100 Radha/uL (1+) u L NEGATIVE A UA WBC (test code = WBCU) per HPF 0-5 UA RBC (test code = RBCU) per HPF 0-5 UA EPITHELIAL CELLS (test code = EPIU) per HPF Few UA BACTERIA (test code = BACU) per HPF NONE Urine Source? Clean CatchUR HCG [id number] 09:30:00* Test Item Value Reference Range Interpretation Comments UR HCG QUAL (test code = HCGQLU) Urine Source? Clean CatchURINALYSIS [id number] 13:03:00* Test Item Value Reference Range Interpretation Comments UA COLOR (test code = COLU) YELLOW YELLOW UA APPEARANCE (test code = APPU) CLEAR CLEAR UA GLUCOSE DIPSTICK (test code = DGLUU) norm mg/dL NEGATIVE UA BILIRUBIN DIPSTICK (test code = BILU) NEGATIVE mg/dL NEGATIVE UA KETONE DIPSTICK (test code = KETU) 50 (2+) mg/dL NEGATIVE A UA SPECIFIC GRAVITY (test code = SGU) 1.010 1.001-1.035 UA BLOOD DIPSTICK (test code = ADITYA) 25 (1+) Mitch/uL NEGATIVE A UA PH DIPSTICK (test code = NORA) 5.0 5.0-8.0 UA PROTEIN DIPSTICK (test code = PROU) neg mg/dL Neg-15 UA UROBILINIOGEN DIPSTICK (test code = URO) norm mg/dL 0.0-0.2 UA NITRITE DIPSTICK (test code = JAYDON) NEGATIVE NEGATIVE UA LEUKOCYTE ESTERASE DIPSTICK (test code = LEUU) 25 Radha/uL (Tra ce) uL NEGATIVE A UA WBC (test code = WBCU) 3-5 per HPF 0-5 UA RBC (test code = RBCU) 0-3 per HPF 0-5 UA EPITHELIAL CELLS (test code = EPIU) Many (>10/hpf) per HPF Few A UA BACTERIA (test code = BACU) TRACE per HPF NONE UA MUCUS (test code = MUCU) MODERATE per LPF NONE-FEW A Urine Source? Clean CatchURINALYSIS [id number] 12:57:00* Test Item Value Reference Range Interpretation Comments UA COLOR (test code = COLU) YELLOW YELLOW UA APPEARANCE (test code = APPU) CLEAR CLEAR UA GLUCOSE DIPSTICK (test code = DGLUU) norm mg/dL NEGATIVE UA BILIRUBIN DIPSTICK (test code = BILU) NEGATIVE mg/dL NEGATIVE UA KETONE DIPSTICK (test code = KETU) 50 (2+) mg/dL NEGATIVE A UA SPECIFIC GRAVITY (test code = SGU) 1.010 1.001-1.035 UA BLOOD DIPSTICK (test code = ADITYA) 25 (1+) Mitch/uL NEGATIVE A UA PH DIPSTICK (test code = NORA) 5.0 5.0-8.0 UA PROTEIN DIPSTICK (test code = PROU) neg mg/dL Neg-15 UA UROBILINIOGEN DIPSTICK (test code = URO) norm mg/dL 0.0-0.2 UA NITRITE DIPSTICK (test code = JAYDON) NEGATIVE NEGATIVE UA LEUKOCYTE ESTERASE DIPSTICK (test code = LEUU) 25 Radha/uL (Tra ce) uL NEGATIVE A UA WBC (test code = WBCU) per HPF 0-5 UA RBC (test code = RBCU) per HPF 0-5 UA EPITHELIAL CELLS (test code = EPIU) per HPF Few UA BACTERIA (test code = BACU) per HPF NONE Urine Source? Clean CatchBASIC METABOLIC [id number] 14:53:00* Test Item Value Reference Range Interpretation Comments SODIUM (test code = NA) 137 mEq/L 134-147 N POTASSIUM (test code = K) 3.6 mEq/L 3.4-5.0 N CHLORIDE (test code = CL) 107 mEq/L 100-108 N CARBON DIOXIDE (test code = CO2) 24 mEq/L 21-33 N ANION GAP (test code = GAP) 10 0-20 N GLUCOSE (test code = GLU) 97 mg/dL 70-110 N BLOOD UREA NITROGEN (test code = BUN) 13 mg/dL 7-18 N GLOMERULAR FILTRATION RATE (test code = GFR) 75.9 90-95 L Units of measure = ml/min/1.73 m2 CREATININE (test code = CREAT) 0.8 mg/dL 0.6-1.3 N CALCIUM (test code = CA) 8.5 mg/dL 8.0-10.5 N BASIC METABOLIC [id number] 14:48:00* Test Item Value Reference Range Interpretation Comments SODIUM (test code = NA) 137 mEq/L 134-147 N POTASSIUM (test code = K) 3.6 mEq/L 3.4-5.0 N CHLORIDE (test code = CL) 107 mEq/L 100-108 N CARBON DIOXIDE (test code = CO2) 24 mEq/L 21-33 N ANION GAP (test code = GAP) 10 0-20 N GLUCOSE (test code = GLU) 97 mg/dL 70-110 N BLOOD UREA NITROGEN (test code = BUN) 13 mg/dL 7-18 N GLOMERULAR FILTRATION RATE (test code = GFR) 90-95 CREATININE (test code = CREAT) mg/dL 0.6-1.3 CALCIUM (test code = CA) 8.5 mg/dL 8.0-10.5 N UA RFLX MICR CULT IF [id number] 14:46:00* Test Item Value Reference Range Interpretation Comments UA COLOR (test code = COLU) GARY YEL/STRAW A UA APPEARANCE (test code = APPU) TURBID CLEAR A UA GLUCOSE DIPSTICK (test code = DGLUU) NEGATIVE NEGATIVE UA BILIRUBIN DIPSTICK (test code = BILU) NEGATIVE NEGATIVE UA KETONE DIPSTICK (test code = KETU) 1+ NEGATIVE A UA SPECIFIC GRAVITY (test code = SGU) 1.027 1.005-1.030 N UA BLOOD DIPSTICK (test code = ADITYA) 2+ NEGATIVE A UA PH DIPSTICK (test code = NORA) 5.0 5.0-7.0 N UA PROTEIN DIPSTICK (test code = PROU) NEGATIVE NEGATIVE UA UROBILINIOGEN DIPSTICK (test code = URO) 2.0 mg/dL 0.2-1.0 A UA NITRITE DIPSTICK (test code = JAYDON) NEGATIVE NEGATIVE UA LEUKOCYTE ESTERASE DIPSTICK (test code = LEUU) 1+ NEGA TIVE A UA WBC (test code = WBCU) 4-9 WBC/HPF 0-3 A UA RBC (test code = RBCU) 4-10 RBC/HPF 0-3 UA WBC NO REFLEX (test code = WBCUCL) 4-9 WBC/HPF 0-3 A UA BACTERIA (test code = BACU) 2+ /HPF NONE SEEN A UA SQUAMOUS CELLS (test code = SQU) 6-10 /HPF NONE SEEN A UA MUCUS (test code = MUCU) 4+ /LPF NONE SEEN A Indication for culture: Suprapubic PainSpecimen Description: CLEAN CATCHUR HCG [id number] 14:42:00* Test Item Value Reference Range Interpretation Comments UR HCG QUAL (test code = HCGQLU) NEGATIVE NEGATIVE CBC W/AUTO [id number] 14:39:00* Test Item Value Reference Range Interpretation Comments WHITE BLOOD CELL (test code = WBC) 7.22 x10 3/uL 4.5-11.0 N RED BLOOD CELL (test code = RBC) 4.49 x10 6/uL 3.54-5.02 N HEMOGLOBIN (test code = HGB) 11.6 g/dL 11.0-15.0 N HEMATOCRIT (test code = HCT) 36.8 % 33.0-45.0 N MEAN CELL VOLUME (test code = MCV) 82.0 fL 81.0-99.0 N MEAN CELL HGB (test code = MCH) 25.8 pg 27.0-33.0 L MEAN CELL HGB CONCETRATION (test code = MCHC) 31.5 g/dL 33.0-37. 0 L RED CELL DISTRIBUTION WIDTH CV (test code = RDW) 15.2 % 11.5- 14.5 H RED CELL DISTRIBUTION WIDTH SD (test code = RDW-SD) 45.5 fL 37 .0-54.0 N PLATELET COUNT (test code = PLT) 355 x10 3/uL 150-400 N MEAN PLATELET VOLUME (test code = MPV) 9.3 fL 7.0-9.0 H NEUTROPHIL % (test code = NT%) 78.3 % 56.0-77.0 H IMMATURE GRANULOCYTE % (test code = IG%) 0.3 % 0.0-2.0 N LYMPHOCYTE % (test code = LY%) 10.9 % 14.0-32.0 L MONOCYTE % (test code = MO%) 8.2 % 4.8-9.0 N EOSINOPHIL % (test code = EO%) 1.7 % 0.3-3.7 N BASOPHIL % (test code = BA%) 0.6 % 0.0-2.0 N NUCLEATED RBC % (test code = NRBC%) 0.0 % 0-0 N NEUTROPHIL # (test code = NT#) 5.66 x10 3/uL 2.0-7.6 N IMMATURE GRANULOCYTE # (test code = IG#) 0.02 x10 3/uL 0.00-0.03 N LYMPHOCYTE # (test code = LY#) 0.79 x10 3/uL 1.0-3.8 L MONOCYTE # (test code = MO#) 0.59 x10 3/uL 0.1-0.8 N EOSINOPHIL # (test code = EO#) 0.12 x10 3/uL 0.0-0.2 N BASOPHIL # (test code = BA#) 0.04 x10 3/uL 0.0-0.2 N NUCLEATED RBC # (test code = NRBC#) 0.00 x10 3/uL 0.0-0.1 N MANUAL DIFF REQUIRED (test code = MDIFF) NO URINALYSIS [id number] 09:46:00* Test Item Value Reference Range Interpretation Comments UA COLOR (test code = COLU) YELLOW YELLOW UA APPEARANCE (test code = APPU) CLEAR CLEAR UA GLUCOSE DIPSTICK (test code = DGLUU) norm mg/dL NEGATIVE UA BILIRUBIN DIPSTICK (test code = BILU) NEGATIVE mg/dL NEGATIVE UA KETONE DIPSTICK (test code = KETU) neg mg/dL NEGATIVE UA SPECIFIC GRAVITY (test code = SGU) 1.025 1.001-1.035 UA BLOOD DIPSTICK (test code = ADITYA) neg Mitch/uL NEGATIVE UA PH DIPSTICK (test code = NORA) 5.0 5.0-8.0 UA PROTEIN DIPSTICK (test code = PROU) neg mg/dL Neg-15 UA UROBILINIOGEN DIPSTICK (test code = URO) norm mg/dL 0.0-0.2 UA NITRITE DIPSTICK (test code = JAYDON) NEGATIVE NEGATIVE UA LEUKOCYTE ESTERASE DIPSTICK (test code = LEUU) 100 Radha/uL (1+) u L NEGATIVE A UA WBC (test code = WBCU) 3-5 per HPF 0-5 UA RBC (test code = RBCU) 0-3 per HPF 0-5 UA EPITHELIAL CELLS (test code = EPIU) MOD per HPF Few A UA BACTERIA (test code = BACU) FEW per HPF NONE URINALYSIS W/O [id number] 09:46:00* Test Item Value Reference Range Interpretation Comments UA MICROSCOPIC NEEDED? (test code = UAMICRO) YES URINALYSIS [id number] 09:38:00* Test Item Value Reference Range Interpretation Comments UA COLOR (test code = COLU) YELLOW YELLOW UA APPEARANCE (test code = APPU) CLEAR CLEAR UA GLUCOSE DIPSTICK (test code = DGLUU) norm mg/dL NEGATIVE UA BILIRUBIN DIPSTICK (test code = BILU) NEGATIVE mg/dL NEGATIVE UA KETONE DIPSTICK (test code = KETU) neg mg/dL NEGATIVE UA SPECIFIC GRAVITY (test code = SGU) 1.025 1.001-1.035 UA BLOOD DIPSTICK (test code = ADITYA) neg Mitch/uL NEGATIVE UA PH DIPSTICK (test code = NORA) 5.0 5.0-8.0 UA PROTEIN DIPSTICK (test code = PROU) neg mg/dL Neg-15 UA UROBILINIOGEN DIPSTICK (test code = URO) norm mg/dL 0.0-0.2 UA NITRITE DIPSTICK (test code = JAYDON) NEGATIVE NEGATIVE UA LEUKOCYTE ESTERASE DIPSTICK (test code = LEUU) 100 Radha/uL (1+) u L NEGATIVE A UA WBC (test code = WBCU) per HPF 0-5 UA RBC (test code = RBCU) per HPF 0-5 UA EPITHELIAL CELLS (test code = EPIU) per HPF Few UA BACTERIA (test code = BACU) per HPF NONE URINALYSIS W/O [id number] 09:38:00* Test Item Value Reference Range Interpretation Comments UA MICROSCOPIC NEEDED? (test code = UAMICRO) URINALYSIS [id number] 09:38:00* Test Item Value Reference Range Interpretation Comments UA COLOR (test code = COLU) YELLOW YELLOW UA APPEARANCE (test code = APPU) CLEAR CLEAR UA GLUCOSE DIPSTICK (test code = DGLUU) norm mg/dL NEGATIVE UA BILIRUBIN DIPSTICK (test code = BILU) NEGATIVE mg/dL NEGATIVE UA KETONE DIPSTICK (test code = KETU) neg mg/dL NEGATIVE UA SPECIFIC GRAVITY (test code = SGU) 1.025 1.001-1.035 UA BLOOD DIPSTICK (test code = ADITYA) neg Mitch/uL NEGATIVE UA PH DIPSTICK (test code = NORA) 5.0 5.0-8.0 UA PROTEIN DIPSTICK (test code = PROU) neg mg/dL Neg-15 UA UROBILINIOGEN DIPSTICK (test code = URO) norm mg/dL 0.0-0.2 UA NITRITE DIPSTICK (test code = JAYDON) NEGATIVE NEGATIVE UA LEUKOCYTE ESTERASE DIPSTICK (test code = LEUU) 100 Radha/uL (1+) u L NEGATIVE A UA WBC (test code = WBCU) per HPF 0-5 UA RBC (test code = RBCU) per HPF 0-5 UA EPITHELIAL CELLS (test code = EPIU) per HPF Few UA BACTERIA (test code = BACU) per HPF NONE URINALYSIS W/O [id number] 09:38:00* Test Item Value Reference Range Interpretation Comments UA MICROSCOPIC NEEDED? (test code = UAMICRO) B-TYPE NATRIURETIC [id number] 17:30:00* Test Item Value Reference Range Interpretation Comments B-TYPE NATRIURETIC PEPTIDE (test code = BNP) 15.1 pg/mL 0-100 N [id number] 17:23:00* Test Item Value Reference Range Interpretation Comments D-DIMER (test code = DDIMER) < 100 ng/ml < 600 COMPREHENSIVE METABOLIC [id number] 17:21:00* Test Item Value Reference Range Interpretation Comments SODIUM (test code = NA) 138 mmol/L 136-145 N POTASSIUM (test code = K) 3.5 mmol/L 3.5-5.1 N CHLORIDE (test code = CL) 103 mmol/L 101-109 N CARBON DIOXIDE (test code = CO2) 23.9 mmol/L 21-32 N ANION GAP (test code = GAP) 15 mmol/L 10-20 N GLUCOSE (test code = GLU) 81 mg/dL 74-106 N BLOOD UREA NITROGEN (test code = BUN) 11 mg/dL 3-21 N CREATININE (test code = CREAT) 0.74 mg/dL 0.55-1.3 N BUN/CREATININE RATIO (test code = BUN/CREA) 14.9 10-20 N TOTAL PROTEIN (test code = PROT) 8.2 g/dL 6.5-8.4 N ALBUMIN (test code = ALB) 3.7 g/dL 3.4-4.8 N GLOBULIN (test code = GLOB) 4.5 G/DL 1-10 N ALBUMIN/GLOBULIN RATIO (test code = A/G) 0.82 RATIO 0.75-1.50 N CALCIUM (test code = CA) 8.3 mg/dL 8.4-10.2 L BILIRUBIN TOTAL (test code = BILT) 0.70 mg/dL 0.0-1.0 N SGOT/AST (test code = AST) 15 U/L 6-32 N SGPT/ALT (test code = ALT) 21 U/L 12-78 N N ote: Change in REFERENCE RANGE due to new reagent method. ALKALINE PHOSPHATASE TOTAL (test code = ALKP) 72 U/L 38-126 N [id number] 17:21:00* Test Item Value Reference Range Interpretation Comments TROPONIN-I (test code = TROPI) <0.015 ng/mL 0.00-0.056 N COMPREHENSIVE METABOLIC [id number] 17:13:00* Test Item Value Reference Range Interpretation Comments SODIUM (test code = NA) 138 mmol/L 136-145 N POTASSIUM (test code = K) 3.5 mmol/L 3.5-5.1 N CHLORIDE (test code = CL) 103 mmol/L 101-109 N CARBON DIOXIDE (test code = CO2) 23.9 mmol/L 21-32 N ANION GAP (test code = GAP) 15 mmol/L 10-20 N GLUCOSE (test code = GLU) 81 mg/dL 74-106 N BLOOD UREA NITROGEN (test code = BUN) 11 mg/dL 3-21 N CREATININE (test code = CREAT) 0.74 mg/dL 0.55-1.3 N BUN/CREATININE RATIO (test code = BUN/CREA) 14.9 10-20 N TOTAL PROTEIN (test code = PROT) gram/dL 6.4-8.2 ALBUMIN (test code = ALB) g/dL 3.4-5.0 GLOBULIN (test code = GLOB) g/dL 2.7-4.2 ALBUMIN/GLOBULIN RATIO (test code = A/G) 0.75-1.50 CALCIUM (test code = CA) 8.3 mg/dL 8.4-10.2 L BILIRUBIN TOTAL (test code = BILT) mg/dL 0.2-1.2 SGOT/AST (test code = AST) IUnit/L 15-37 SGPT/ALT (test code = ALT) U/L 10-69 ALKALINE PHOSPHATASE TOTAL (test code = ALKP) IUnit/L 45-117 [id number] 17:13:00* Test Item Value Reference Range Interpretation Comments TROPONIN-I (test code = TROPI) ng/mL 0-0.045 CBC W/AUTO [id number] 17:09:00* Test Item Value Reference Range Interpretation Comments WHITE BLOOD CELL (test code = WBC) 4.1 K/mm3 4.5-12.5 L RED BLOOD CELL (test code = RBC) 4.84 mill/mm3 3.7-5.2 N HEMOGLOBIN (test code = HGB) 11.8 gram/dL 11.5-15.5 N HEMATOCRIT (test code = HCT) 38.3 % 36.0-46.0 N MEAN CELL VOLUME (test code = MCV) 79.1 fL 80-98 L MEAN CELL HGB (test code = MCH) 24.4 picogram 27.0-33.0 L MEAN CELL HGB CONCETRATION (test code = MCHC) 30.8 gram/dL 33.0-36. 0 L RED CELL DISTRIBUTION WIDTH (test code = RDW) 18.0 % 11.6-16. 2 H RED CELL DISTRIBUTION WIDTH SD (test code = RDW-SD) 52.4 fL 37 .0-51.0 H PLATELET COUNT (test code = PLT) 322 K/mm3 150-450 N MEAN PLATELET VOLUME (test code = MPV) 8.8 fL 6.7-11.0 N NEUTROPHIL % (test code = NT%) 57.7 % 39.0-69.0 N LYMPHOCYTE % (test code = LY%) 23.9 % 25.0-55.0 L MONOCYTE % (test code = MO%) 12.3 % 0.0-10.0 H EOSINOPHIL % (test code = EO%) 4.9 % 0.0-5.0 N BASOPHIL % (test code = BA%) 1.0 % 0.0-1.0 N NEUTROPHIL # (test code = NT#) 2.34 K/mm3 1.8-7.7 N LYMPHOCYTE # (test code = LY#) 0.97 K/mm3 1.0-5.0 L MONOCYTE # (test code = MO#) 0.50 K/mm3 0-0.8 N EOSINOPHIL # (test code = EO#) 0.20 K/mm3 0.0-0.5 N BASOPHIL # (test code = BA#) 0.04 K/mm3 0.0-0.2 N MANUAL DIFF REQUIRED (test code = MDIFF) NO - XR CHEST 1 [id number] 16:53:00 Name: MERON MARTÍNEZ [facility] : 1970 Age/S:48 /F [address] [place] [address] Unit#:[id number] Loc: [place] [address] Phys: Steven Patterson MD Dis Date: PHONE #: [phone] Status: REG ER FAX #: [phone] Exam Date: 03/01/2019 Reason: sob EXAMS: CPT CODE: [id number] XR CHEST 1 V [id number] REASON FOR EXAM: sob EXAM ORDER DATE: 03/01/2019 4:16 PM Ordering M.D.: Steven Patterson MD PROCEDURE: - XR CHEST 1 V COMPARISON: FINDINGS: Portable AP frontal view of the chest obtained at 4:31 PM shows clear lungs without evidence of consolidation. There is no evidence of effusion. The heart size is within normal limits. Pulmonary vasculatures are unremarkable. IMPRESSION: No active disease. at 9745 Reported and signed by: Kelvin Cole M.D. CC: Steven Son MD Technologist: Shraddha Aviles Trnscrpt Data: 03/01/2019 (6539) tJUDY HERNANDEZ Orig Print D/T: S: 03/01/2019 (4070) PAGE 1 Signed Report - CT ABD PELVIS W/O [id number] 15:35:00 Name: HERMINIA MARTÍNEZELLE JOSHUA [facility] : 1970 Age/S: 48 / F [address] [place] [address] Unit #: [id number] Loc: [place] [address] Phys: Steven Patterson MD Acct: [id number] Dis Date: Status: REG ER PHONE #: [phone] Exam Date: 02/28/2019 1512 FAX #: [phone] Reason: left side abd pain EXAMS: CPT CODE: [id number] CT ABD PELVIS W/O CONT 74517 REASON FOR EXAM: left side abd pain EXAM ORDER DATE: 02/28/2019 2:46 PM Ordering MRaheel: Steven Patterson MD PROCEDURE: - CT ABD PELVIS W/O CONT COMPARISON: 12/05/2017 FINDINGS: CT images of the abdomen and pelvis were obtained without IV and without oral contrast at 5mm. Dose modulation, iterative reconstruction, and/or weight based adjustment of the MA/KV was utilized to reduce the radiation dose to as low as reasonably achievable. The liver, spleen, and pancreas are grossly within normal limits. The gall bladder is unremarkable by CT. Stable appearance of the dystrophic calcification in the upper pole of the left kidney The urinary bladder is unremarkable. The colon, small bowel, and stomach are within normal limits without evidence of obstruction. The appendix is unremarkable. Diffuse sigmoid colon div erticulosis with minimal stranding of the left splenic flexure. No evidence of free air or free fluid. The uterus is unremarkable. Sta ble appearance of the right ovarian cysts (3 cm) IMPRESSION: Min imal stranding of the left splenic flexure suggestive of probable acute diverticulitis. No evidence of abscess at 1535 Reported and signed by: Susanne Cole M.D. CC: Steven Patterson MD echnologist:Shraddha Aviles CTDI: DLP: Trnscb Date /Time: 02/28/2019 (5269) FadiVTL PAGE 1 Signed Report COMPREHENSIVE METABOLIC [id number] 15:14:00* Test Item Value Reference Range Interpretation Comments SODIUM (test code = NA) 137 mmol/L 135-148 N POTASSIUM (test code = K) 3.6 mmol/L 3.5-5.1 N CHLORIDE (test code = CL) 102 mmol/L 101-109 N CARBON DIOXIDE (test code = CO2) 24.7 mmol/L 21-32 N ANION GAP (test code = GAP) 14 mmol/L 10-20 N GLUCOSE (test code = GLU) 95 mg/dL 74-106 N BLOOD UREA NITROGEN (test code = BUN) 8 mg/dL 3-21 N CREATININE (test code = CREAT) 0.65 mg/dL 0.55-1.3 N BUN/CREATININE RATIO (test code = BUN/CREA) 12.3 10-20 N TOTAL PROTEIN (test code = PROT) 7.8 g/dL 6.5-8.4 N ALBUMIN (test code = ALB) 3.5 g/dL 3.4-4.8 N GLOBULIN (test code = GLOB) 4.3 G/DL 1-10 N ALBUMIN/GLOBULIN RATIO (test code = A/G) 0.8 RATIO 0.75-1.50 N CALCIUM (test code = CA) 8.6 mg/dL 8.4-10.2 N BILIRUBIN TOTAL (test code = BILT) 0.60 mg/dL 0.0-1.0 N SGOT/AST (test code = AST) 12 U/L 6-32 N SGPT/ALT (test code = ALT) 14 U/L 12-78 N N ote: Change in REFERENCE RANGE due to new reagent method. ALKALINE PHOSPHATASE TOTAL (test code = ALKP) 74 U/L 38-126 N [id number] 15:14:00* Test Item Value Reference Range Interpretation Comments LIPASE (test code = LIP) 82 U/L 128-270 L COMPREHENSIVE METABOLIC [id number] 15:06:00* Test Item Value Reference Range Interpretation Comments SODIUM (test code = NA) 137 mmol/L 135-148 N POTASSIUM (test code = K) 3.6 mmol/L 3.5-5.1 N CHLORIDE (test code = CL) 102 mmol/L 101-109 N CARBON DIOXIDE (test code = CO2) 24.7 mmol/L 21-32 N ANION GAP (test code = GAP) 14 mmol/L 10-20 N GLUCOSE (test code = GLU) 95 mg/dL 74-106 N BLOOD UREA NITROGEN (test code = BUN) 8 mg/dL 3-21 N CREATININE (test code = CREAT) 0.65 mg/dL 0.55-1.3 N BUN/CREATININE RATIO (test code = BUN/CREA) 12.3 10-20 N TOTAL PROTEIN (test code = PROT) gram/dL 6.4-8.2 ALBUMIN (test code = ALB) g/dL 3.4-5.0 GLOBULIN (test code = GLOB) g/dL 2.7-4.2 ALBUMIN/GLOBULIN RATIO (test code = A/G) 0.75-1.50 CALCIUM (test code = CA) 8.6 mg/dL 8.4-10.2 N BILIRUBIN TOTAL (test code = BILT) mg/dL 0.2-1.2 SGOT/AST (test code = AST) IUnit/L 15-37 SGPT/ALT (test code = ALT) U/L 10-69 ALKALINE PHOSPHATASE TOTAL (test code = ALKP) IUnit/L 45-117 [id number] 15:06:00* Test Item Value Reference Range Interpretation Comments LIPASE (test code = LIP) Unit/L 144-286 CBC W/AUTO [id number] 14:56:00* Test Item Value Reference Range Interpretation Comments WHITE BLOOD CELL (test code = WBC) 4.3 K/mm3 4.5-12.5 L RED BLOOD CELL (test code = RBC) 4.56 mill/mm3 3.7-5.2 N HEMOGLOBIN (test code = HGB) 11.1 gram/dL 11.5-15.5 L HEMATOCRIT (test code = HCT) 36.0 % 36.0-46.0 N MEAN CELL VOLUME (test code = MCV) 78.9 fL 80-98 L MEAN CELL HGB (test code = MCH) 24.3 picogram 27.0-33.0 L MEAN CELL HGB CONCETRATION (test code = MCHC) 30.8 gram/dL 33.0-36. 0 L RED CELL DISTRIBUTION WIDTH (test code = RDW) 17.8 % 11.6-16. 2 H RED CELL DISTRIBUTION WIDTH SD (test code = RDW-SD) 52.3 fL 37 .0-51.0 H PLATELET COUNT (test code = PLT) 291 K/mm3 150-450 N MEAN PLATELET VOLUME (test code = MPV) 8.4 fL 6.7-11.0 N NEUTROPHIL % (test code = NT%) 58.8 % 39.0-69.0 N LYMPHOCYTE % (test code = LY%) 27.0 % 25.0-55.0 N MONOCYTE % (test code = MO%) 9.3 % 0.0-10.0 N EOSINOPHIL % (test code = EO%) 4.0 % 0.0-5.0 N BASOPHIL % (test code = BA%) 0.7 % 0.0-1.0 N NEUTROPHIL # (test code = NT#) 2.53 K/mm3 1.8-7.7 N LYMPHOCYTE # (test code = LY#) 1.16 K/mm3 1.0-5.0 N MONOCYTE # (test code = MO#) 0.40 K/mm3 0-0.8 N EOSINOPHIL # (test code = EO#) 0.17 K/mm3 0.0-0.5 N BASOPHIL # (test code = BA#) 0.03 K/mm3 0.0-0.2 N MANUAL DIFF REQUIRED (test code = MDIFF) NO URINALYSIS W/O [id number] 14:50:00* Test Item Value Reference Range Interpretation Comments UA COLOR (test code = COLU) LIGHT YELLOW YELLOW UA APPEARANCE (test code = APPU) CLEAR CLEAR UA GLUCOSE DIPSTICK (test code = DGLUU) norm mg/dL NEGATIVE UA BILIRUBIN DIPSTICK (test code = BILU) NEGATIVE mg/dL NEGATIVE UA KETONE DIPSTICK (test code = KETU) neg mg/dL NEGATIVE UA SPECIFIC GRAVITY (test code = SGU) 1.015 1.001-1.035 UA BLOOD DIPSTICK (test code = ADITYA) neg Mitch/uL NEGATIVE UA PH DIPSTICK (test code = NORA) 5.0 5.0-8.0 UA PROTEIN DIPSTICK (test code = PROU) neg mg/dL Neg-15 UA UROBILINIOGEN DIPSTICK (test code = URO) norm mg/dL 0.0-0.2 UA NITRITE DIPSTICK (test code = JAYDON) NEGATIVE NEGATIVE UA LEUKOCYTE ESTERASE W REFLEX (test code = LEUUR) NEGATIVE NEG ATIVE URINALYSIS W/O [id number] 14:49:00* Test Item Value Reference Range Interpretation Comments UA COLOR (test code = COLU) LIGHT YELLOW YELLOW UA APPEARANCE (test code = APPU) CLEAR CLEAR UA GLUCOSE DIPSTICK (test code = DGLUU) norm mg/dL NEGATIVE UA BILIRUBIN DIPSTICK (test code = BILU) NEGATIVE mg/dL NEGATIVE UA KETONE DIPSTICK (test code = KETU) neg mg/dL NEGATIVE UA SPECIFIC GRAVITY (test code = SGU) 1.015 1.001-1.035 UA BLOOD DIPSTICK (test code = ADITYA) neg Mitch/uL NEGATIVE UA PH DIPSTICK (test code = NORA) 5.0 5.0-8.0 UA PROTEIN DIPSTICK (test code = PROU) neg mg/dL Neg-15 UA UROBILINIOGEN DIPSTICK (test code = URO) norm mg/dL 0.0-0.2 UA NITRITE DIPSTICK (test code = JAYDON) NEGATIVE NEGATIVE UA LEUKOCYTE ESTERASE W REFLEX (test code = LEUUR) NEG ATIVE - XR KNEE 3 V [id number] 14:17:00 Name: MERON MARTÍNEZ [facility] : 1970 Age/S:48 /F [address] [facility] Unit#:[id number] Loc: [place] [address] Phys: Isabella Perry NP Dis Date: PHONE #: [phone] Status: REG ER FAX #: [phone] Exam Date: 12/25/2018 Reason: hypererxtension right knee EXAMS: CPT CODE: [id number] XR KNEE 3 V RT [id number] REASON FOR EXAM: hypererxtension right knee EXAM ORDER DATE: 12/25/2018 1:52 PM Ordering Dani: Isabella Perry NP PROCEDURE: - XR KNEE 3 V RT FINDINGS: 3 views of the right knee were obtained. The osseous structures are unremarkable in size and shape. The joint spaces are maintained. No evidence of fracture. No evidence of joint effusion. The patella is intact IMPRESSION: Unremarkable right knee at 8056 Reported and signed by: Kelvin Cole M.D. CC: Russell Espinoza MD Technologist: Shraddha Moctezuma per Trnscrpt Data: 12/25/2018 (3760) [email or web address] Orig Print D/T: S: 12/25/2018 (8869) PAGE 1 Signed Report - XR TIBIA/FIBULA 2 V [id number] 14:12:00 Name: MERON MARTÍNEZ [facility] : 1970 Age/S:48 /F [address] [facility] Unit#:[id number] Loc: [place] [address] Phys: Isabella Perry NP Dis Date: PHONE #: [phone] Status: REG ER FAX #: [phone] Exam Date: 12/25/2018 Reason: hypererxtension right knee EXAMS: CPT CODE: [id number] XR TIBIA/FIBULA 2 V RT [id number] REASON FOR EXAM: hypererxtension right knee EXAM ORDER DATE: 12/25/2018 1:52 PM Ordering MRaheel: Isabella Perry NP PROCEDURE: - XR TIBIA/FIBULA 2 V RT FINDINGS: 2 views of the right lower extremity were obtained. The osseous structures are unremarkable in size and shape. The joint spaces are maintained. No evidence of fracture. The right knee joint and ankle joint are grossly intact IMPRESSION: Unr emarkable right tibia and fibula at 1412 Reported and signed by: Kelvin Cole M.D. CC: Russell Espinoza MD Technologist: [facility]ha [facility] Data: 12/25/2018 (1412) Anusha Orig Print D/T : S: 12/25/2018 (1269) PAGE 1 Sig lisbeth Report URINALYSIS [id number] 06:31:00 * Test Item Value Reference Range Interpretation Comments UA COLOR (test code = COLU) YELLOW YELLOW UA APPEARANCE (test code = APPU) CLOUDY CLEAR A UA GLUCOSE DIPSTICK (test code = DGLUU) norm mg/dL NEGATIVE UA BILIRUBIN DIPSTICK (test code = BILU) NEGATIVE mg/dL NEGATIVE UA KETONE DIPSTICK (test code = KETU) 5 (Trace) mg/dL NEGATIVE A UA SPECIFIC GRAVITY (test code = SGU) 1.020 1.001-1.035 UA BLOOD DIPSTICK (test code = ADITYA) 250 (4+) Mitch/uL NEGATIVE A UA PH DIPSTICK (test code = NORA) 5.0 5.0-8.0 UA PROTEIN DIPSTICK (test code = PROU) 100 (2+) mg/dL Neg-15 A UA UROBILINIOGEN DIPSTICK (test code = URO) norm mg/dL 0.0-0.2 UA NITRITE DIPSTICK (test code = JAYDON) NEGATIVE NEGATIVE UA LEUKOCYTE ESTERASE DIPSTICK (test code = LEUU) 500 Radha/uL (3+) u L NEGATIVE A UA WBC (test code = WBCU) TNTC per HPF 0-5 A UA RBC (test code = RBCU) >100 per HPF 0-5 UA EPITHELIAL CELLS (test code = EPIU) Moderate (5-10/hpf) per HPF Few UA BACTERIA (test code = BACU) MANY per HPF NONE A UA RENAL CELLS (test code = DERIAN) FEW per HPF NONE A URINALYSIS [id number] 06:24:00* Test Item Value Reference Range Interpretation Comments UA COLOR (test code = COLU) YELLOW YELLOW UA APPEARANCE (test code = APPU) CLOUDY CLEAR A UA GLUCOSE DIPSTICK (test code = DGLUU) norm mg/dL NEGATIVE UA BILIRUBIN DIPSTICK (test code = BILU) NEGATIVE mg/dL NEGATIVE UA KETONE DIPSTICK (test code = KETU) 5 (Trace) mg/dL NEGATIVE A UA SPECIFIC GRAVITY (test code = SGU) 1.020 1.001-1.035 UA BLOOD DIPSTICK (test code = ADITYA) 250 (4+) Mitch/uL NEGATIVE A UA PH DIPSTICK (test code = NORA) 5.0 5.0-8.0 UA PROTEIN DIPSTICK (test code = PROU) 100 (2+) mg/dL Neg-15 A UA UROBILINIOGEN DIPSTICK (test code = URO) norm mg/dL 0.0-0.2 UA NITRITE DIPSTICK (test code = JAYDON) NEGATIVE NEGATIVE UA LEUKOCYTE ESTERASE DIPSTICK (test code = LEUU) uL NEGA TIVE UA WBC (test code = WBCU) per HPF 0-5 UA RBC (test code = RBCU) per HPF 0-5 UA EPITHELIAL CELLS (test code = EPIU) per HPF Few UA BACTERIA (test code = BACU) per HPF NONE URINALYSIS W/O [id number] 06:24:00* Test Item Value Reference Range Interpretation Comments UA LEUKOCYTE ESTERASE W REFLEX (test code = LEUUR) NEG ATIVE URINALYSIS [id number] 06:24:00* Test Item Value Reference Range Interpretation Comments UA COLOR (test code = COLU) YELLOW YELLOW UA APPEARANCE (test code = APPU) CLOUDY CLEAR A UA GLUCOSE DIPSTICK (test code = DGLUU) norm mg/dL NEGATIVE UA BILIRUBIN DIPSTICK (test code = BILU) NEGATIVE mg/dL NEGATIVE UA KETONE DIPSTICK (test code = KETU) 5 (Trace) mg/dL NEGATIVE A UA SPECIFIC GRAVITY (test code = SGU) 1.020 1.001-1.035 UA BLOOD DIPSTICK (test code = ADITYA) 250 (4+) Mitch/uL NEGATIVE A UA PH DIPSTICK (test code = NORA) 5.0 5.0-8.0 UA PROTEIN DIPSTICK (test code = PROU) 100 (2+) mg/dL Neg-15 A UA UROBILINIOGEN DIPSTICK (test code = URO) norm mg/dL 0.0-0.2 UA NITRITE DIPSTICK (test code = JAYDON) NEGATIVE NEGATIVE UA LEUKOCYTE ESTERASE DIPSTICK (test code = LEUU) uL NEGA TIVE UA WBC (test code = WBCU) per HPF 0-5 UA RBC (test code = RBCU) per HPF 0-5 UA EPITHELIAL CELLS (test code = EPIU) per HPF Few UA BACTERIA (test code = BACU) per HPF NONE URINALYSIS W/O [id number] 06:24:00* Test Item Value Reference Range Interpretation Comments UA LEUKOCYTE ESTERASE W REFLEX (test code = LEUUR) NEG ATIVE URINALYSIS [id number] 10:05:00* Test Item Value Reference Range Interpretation Comments UA COLOR (test code = COLU) YELLOW YELLOW UA APPEARANCE (test code = APPU) CLEAR CLEAR UA GLUCOSE DIPSTICK (test code = DGLUU) norm mg/dL NEGATIVE UA BILIRUBIN DIPSTICK (test code = BILU) NEGATIVE mg/dL NEGATIVE UA KETONE DIPSTICK (test code = KETU) neg mg/dL NEGATIVE UA SPECIFIC GRAVITY (test code = SGU) 1.025 1.001-1.035 UA BLOOD DIPSTICK (test code = ADITYA) 10 (Trace) Mitch/uL NEGATIVE A UA PH DIPSTICK (test code = NORA) 6.0 5.0-8.0 UA PROTEIN DIPSTICK (test code = PROU) neg mg/dL Neg-15 UA UROBILINIOGEN DIPSTICK (test code = URO) norm mg/dL 0.0-0.2 UA NITRITE DIPSTICK (test code = JAYDON) NEGATIVE NEGATIVE UA LEUKOCYTE ESTERASE DIPSTICK (test code = LEUU) 25 Radha/uL (Tra ce) uL NEGATIVE A UA WBC (test code = WBCU) 3-5 per HPF 0-5 UA RBC (test code = RBCU) 0-3 per HPF 0-5 UA EPITHELIAL CELLS (test code = EPIU) FEW per HPF Few UA BACTERIA (test code = BACU) FEW per HPF NONE URINALYSIS W/O [id number] 10:05:00* Test Item Value Reference Range Interpretation Comments UA MICROSCOPIC NEEDED? (test code = UAMICRO) YES URINALYSIS [id number] 09:59:00* Test Item Value Reference Range Interpretation Comments UA COLOR (test code = COLU) YELLOW YELLOW UA APPEARANCE (test code = APPU) CLEAR CLEAR UA GLUCOSE DIPSTICK (test code = DGLUU) norm mg/dL NEGATIVE UA BILIRUBIN DIPSTICK (test code = BILU) NEGATIVE mg/dL NEGATIVE UA KETONE DIPSTICK (test code = KETU) neg mg/dL NEGATIVE UA SPECIFIC GRAVITY (test code = SGU) 1.025 1.001-1.035 UA BLOOD DIPSTICK (test code = ADITYA) 10 (Trace) Mitch/uL NEGATIVE A UA PH DIPSTICK (test code = NORA) 6.0 5.0-8.0 UA PROTEIN DIPSTICK (test code = PROU) neg mg/dL Neg-15 UA UROBILINIOGEN DIPSTICK (test code = URO) norm mg/dL 0.0-0.2 UA NITRITE DIPSTICK (test code = JAYDON) NEGATIVE NEGATIVE UA LEUKOCYTE ESTERASE DIPSTICK (test code = LEUU) 25 Radha/uL (Tra ce) uL NEGATIVE A UA WBC (test code = WBCU) per HPF 0-5 UA RBC (test code = RBCU) per HPF 0-5 UA EPITHELIAL CELLS (test code = EPIU) per HPF Few UA BACTERIA (test code = BACU) per HPF NONE URINALYSIS W/O [id number] 09:59:00* Test Item Value Reference Range Interpretation Comments UA MICROSCOPIC NEEDED? (test code = UAMICRO) URINALYSIS [id number] 09:59:00* Test Item Value Reference Range Interpretation Comments UA COLOR (test code = COLU) YELLOW YELLOW UA APPEARANCE (test code = APPU) CLEAR CLEAR UA GLUCOSE DIPSTICK (test code = DGLUU) norm mg/dL NEGATIVE UA BILIRUBIN DIPSTICK (test code = BILU) NEGATIVE mg/dL NEGATIVE UA KETONE DIPSTICK (test code = KETU) neg mg/dL NEGATIVE UA SPECIFIC GRAVITY (test code = SGU) 1.025 1.001-1.035 UA BLOOD DIPSTICK (test code = ADITYA) 10 (Trace) Mitch/uL NEGATIVE A UA PH DIPSTICK (test code = NORA) 6.0 5.0-8.0 UA PROTEIN DIPSTICK (test code = PROU) neg mg/dL Neg-15 UA UROBILINIOGEN DIPSTICK (test code = URO) norm mg/dL 0.0-0.2 UA NITRITE DIPSTICK (test code = JAYDON) NEGATIVE NEGATIVE UA LEUKOCYTE ESTERASE DIPSTICK (test code = LEUU) 25 Radha/uL (Tra ce) uL NEGATIVE A UA WBC (test code = WBCU) per HPF 0-5 UA RBC (test code = RBCU) per HPF 0-5 UA EPITHELIAL CELLS (test code = EPIU) per HPF Few UA BACTERIA (test code = BACU) per HPF NONE URINALYSIS W/O [id number] 09:59:00* Test Item Value Reference Range Interpretation Comments UA MICROSCOPIC NEEDED? (test code = UAMICRO)
--- NOTE | 2020-01-13 14:11 | Emergency Department Note ---
History of Present Illnes History of Present Illness Chief Complaint: General Medicine Complaints History of Present Illness This is a 49 year old female R sided abdominal pain . Historian: Patient Arrival Mode: Car Past Medical/Family History Physician Review I have reviewed the patient's past medical and family history. Any updates have been documented here. Past Medical History Recent Fever: No Clinical Suspicion of Infectio: No New/Unexplained Change in Ment: No Past Medical History: UTI's, Anxiety, GERD Other Medical History: IBS Past Surgical History: Hysterectomy Review of Systems Review of Systems Constitutional: Reports no symptoms EENTM: Reports no symptoms Cardiovascular: Reports no symptoms Respiratory: Reports no symptoms Gastrointestinal: Reports abdominal pain Genitourinary: Reports no symptoms Musculoskeletal: Reports no symptoms Integumentary: Reports no symptoms Neurological: Reports no symptoms Psychological: Reports no symptoms Endocrine: Reports no symptoms Hematological/Lymphatic: Reports no symptoms Physical Exam Related Data Allergies: Coded Allergies: amoxicillin (Verified Allergy, Severe, HEART RACE, 08/05/19) ciprofloxacin (Verified Allergy, Severe, HEART RACE, 08/05/19) clavulanic acid (Verified Allergy, Severe, HEART RACE, 08/05/19) diazepam (Verified Allergy, Severe, ANXIOUS, 08/05/19) hydromorphone (Verified Allergy, Severe, ITCHING, 08/05/19) morphine (Verified Allergy, Severe, 08/05/19) PT REPORTS SHE "CAN'T BREATH" WHEN THIS MEDICATION WAS GIVEN escitalopram (Verified Allergy, Unknown, 08/05/19) levofloxacin (Verified Allergy, Unknown, 08/05/19) Triage Vital Signs Vital Signs Date Time Temp Pulse Resp B/P (MAP) Pulse Ox O2 Delivery O2 Flow Rate FiO2 01/13/20 14:04 98.1 86 16 113/77 99 Vital signs reviewed: Yes Physical Exam CONSTITUTIONAL Constitutional: Reports well-developed, Reports well-nourished HENT HENT: Reports normocephalic, Reports atraumatic, Reports oropharynx clear/moist, Reports nose normal HENT L/R: Reports left ext ear normal, Reports right ext ear normal EYES Eyes: Reports PERRL, Reports conjunctivae normal NECK Neck: Reports ROM normal PULMONARY Pulmonary: Reports effort normal, Reports breath sounds normal CARDIOVASCULAR Cardiovascular: Reports regular rhythm, Reports heart sounds normal, Reports capillary refill normal, Reports normal rate GASTROINTESTINAL Abdominal: Reports soft, Reports nontender, Reports bowel sounds normal GENITOURINARY Genitourinary: Reports exam deferred SKIN Skin: Reports warm, Reports dry MUSCULOSKELETAL Musculoskeletal: Reports ROM normal NEUROLOGICAL Neurological: Reports alert, Reports oriented x 3, Reports no gross motor or sensory deficits PSYCHOLOGICAL Psychological: Reports mood/affect normal, Reports judgement normal Assessment & Plan Medical Decision Making MDM Patient presents to the ED for chronic abd pain. [place] [employer] CONSULTANT score reviewed. PCP Dr Wes Perry called and not aware of claims that patient was sent in to the ED by him for evaluation of "liver cysts" Assessment & Plan Final Impression: (1) Abdominal pain Depart Disposition: LEFT AFTER MEDICAL SCREENING Last Vital Signs Date Time Temp Pulse Resp B/P (MAP) Pulse Ox O2 Delivery O2 Flow Rate FiO2 01/13/20 14:04 98.1 86 16 113/77 99 Home Meds Reported Medications Lansoprazole (PREVACID) 30 Mg Capsule., PO PRN PRN for INDIGESTION THERAPEUTIC INTERCHANGE WITH PROTONIX PER [facility] 08/05/19 Hyoscyamine Sulfate (LEVSIN) 0.125 Mg Tablet, 0.375 MG PO BID 08/05/19 Lactobacillus Rhamnosus R0011 (PROBIOTIC DIGESTIVE CARE) 1 Each Capsule, 1 TAB PO DAILY 08/05/19 Lorazepam (ATIVAN) 2 Mg Tablet, 2 MG PO TID 08/05/19 Sertraline Hcl (ZOLOFT) 50 Mg Tablet, 50 MG PO DAILY, #30 TAB 08/05/19 MANDY TALAVERA DO Jan 13, 2020 14:11
== END 2020-01-13 14:10 | disposition short-term general hospital (02) ==
LOC: ER 13:47
DX: R52 Pain, unspecified (principal)

== ENCOUNTER 2020-01-17 03:54 | Emergency (ER) | payer SELFPAY ==
[~2020-01-17] VITALS: Ht 139.7 cm; Wt 45.4 kg
--- NOTE | 2020-01-17 04:15 | Emergency Department Note ---
History of Present Illnes History of Present Illness Chief Complaint: Abdominal Complaints History of Present Illness This is a 49 year old female LEFT SIDE PAIN SINCE 10 PM, GOT ANTIBIOTICS FROM PCP ON 01/10/20 FOR UTI FROM PCP, DENIES N/V/D, SEEN FOR SAME IN THIS ER ONE MONTH AGO. . Historian: Patient Arrival Mode: Car Onset (how long ago): hour(s) (6) Location: LEFT ABDOMEN Quality: PAIN Radiation: Reports non-radiation Severity: moderate Onset quality: sudden Duration (how long): hour(s) (6) Progression: unchanged Chronicity: recurrent Relieving factors: none Exacerbating factors: none Associated symptoms: Reports denies other symptoms Past Medical/Family History Physician Review I have reviewed the patient's past medical and family history. Any updates have been documented here. Past Medical History Recent Fever: No Clinical Suspicion of Infectio: No New/Unexplained Change in Ment: No Past Medical History: UTI's, Anxiety, GERD Other Medical History: IBS Past Surgical History: Hysterectomy Social History Smoking Cessation: Never Smoker Alcohol Use: None Any Illegal Drug Use: No Family History Family history of heart diseas: No Other Last Tetanus: UNK Review of Systems Review of Systems Constitutional: Reports no symptoms EENTM: Reports no symptoms Cardiovascular: Reports no symptoms Respiratory: Reports no symptoms Gastrointestinal: Reports as per HPI Genitourinary: Reports no symptoms Musculoskeletal: Reports no symptoms Integumentary: Reports no symptoms Neurological: Reports no symptoms Psychological: Reports no symptoms Endocrine: Reports no symptoms Hematological/Lymphatic: Reports no symptoms Physical Exam Related Data Allergies: Coded Allergies: amoxicillin (Verified Allergy, Severe, HEART RACE, 08/05/19) ciprofloxacin (Verified Allergy, Severe, HEART RACE, 08/05/19) clavulanic acid (Verified Allergy, Severe, HEART RACE, 08/05/19) diazepam (Verified Allergy, Severe, ANXIOUS, 08/05/19) hydromorphone (Verified Allergy, Severe, ITCHING, 08/05/19) morphine (Verified Allergy, Severe, 08/05/19) PT REPORTS SHE "CAN'T BREATH" WHEN THIS MEDICATION WAS GIVEN escitalopram (Verified Allergy, Unknown, 08/05/19) levofloxacin (Verified Allergy, Unknown, 08/05/19) Triage Vital Signs Vital Signs Date Time Temp Pulse Resp B/P (MAP) Pulse Ox O2 Delivery O2 Flow Rate FiO2 01/17/20 04:02 98.5 92 18 112/71 98 Vital signs reviewed: Yes Physical Exam CONSTITUTIONAL Constitutional: Present well-developed, Present well-nourished HENT HENT: Present normocephalic, Present atraumatic, Present oropharynx clear/moist, Present nose normal HENT L/R: Present left ext ear normal, Present right ext ear normal EYES Eyes: Reports PERRL, Reports conjunctivae normal NECK Neck: Present ROM normal PULMONARY Pulmonary: Present effort normal, Present breath sounds normal CARDIOVASCULAR Cardiovascular: Present regular rhythm, Present heart sounds normal, Present capillary refill normal, Present normal rate GASTROINTESTINAL Abdominal: Present soft, Present bowel sounds normal, Present tender (MINIMAL LLQ TENDERENESS) GENITOURINARY Genitourinary: Present exam deferred SKIN Skin: Present warm, Present dry MUSCULOSKELETAL Musculoskeletal: Present ROM normal NEUROLOGICAL Neurological: Present alert, Present oriented x 3, Present no gross motor or sensory deficits PSYCHOLOGICAL Psychological: Present mood/affect normal, Present judgement normal Results Laboratory Laboratory Laboratory Tests Test 01/17/20 04:08 Urine Color Yellow (YELLOW) Urine Clarity Clear (CLEAR) Urine pH 6 (5 - 7) Urine Specific [place] >=1.030 (1.010-1.025) Urine Protein Negative (NEGATIVE) Urine Glucose (UA) Negative (NEGATIVE) Urine Ketones Negative (NEGATIVE) Urine Blood Negative (NEGATIVE) Urine Nitrite Negative (NEGATIVE) Urine Bilirubin Negative (NEGATIVE) Urine Urobilinogen 0.2 mg/dL (0.2 - 1) Urine Leukocyte Esterase Trace (NEGATIVE) Urine RBC 0-5 /HPF (0-5) Urine WBC 6-10 /HPF (0-5) Urine Epithelial Cells Few /LPF (NONE) Urine Bacteria Few /HPF (NONE) Urine Opiates Screen Negative (NEGATIVE) Urine Methadone Screen Negative (NEGATIVE) Urine Barbiturates Screen Negative (NEGATIVE) Urine Phencyclidine Screen Negative (NEGATIVE) Urine Amphetamines Screen Negative (NEGATIVE) Urine Methamphetamines Screen Negative (NEGATIVE) Urine Benzodiazepines Screen Positive (NEGATIVE) Urine Cocaine Screen Negative (NEGATIVE) Urine Cannabinoids Screen Negative (NEGATIVE) Lab results reviewed: Yes Imaging Imaging results reviewed: Yes Impressions Procedure: [id number] DX/ABDOMEN ACUTE SERIES W/PA CXR Exam Date: Exam Time: REPORT STATUS: Signed EXAM: Abdomen Radiograph 1 View INDICATION: LEFT ABDOMINAL PAIN COMPARISON: Abdominal CT 12/18/2019 FINDINGS: No abnormalities in the lower chest. No lines or tubes. Normal volume of stool in the colon. No dilated loops of small bowel. Tiny left renal superior pole calcification may represent a calculus or parenchymal calcification. No abnormal soft tissue masses. No pneumoperitoneum. No acute osseous abnormality. Mild degenerative changes in the lumbar spine and pelvis. IMPRESSION: No acute abdominal radiographic abnormality. Signed by: Ace Hair DO on 01/17/2020 5:54 AM Dictated By: ACE HAIR DO 3 Transcribed By: ERICK on 01/17/20553 Assessment & Plan Medical Decision Making MDM Patient with left lower quadrant tenderness no other symptoms. Acute abdominal series, UA ordered to eval for UTI, hematuria, constipation, free air under the diaphragm, bowel obstruction. Assessment & Plan Final Impression: (1) Diverticulitis (2) Abdominal pain Depart Disposition: HOME, SELF-CARE Last Vital Signs Date Time Temp Pulse Resp B/P (MAP) Pulse Ox O2 Delivery O2 Flow Rate FiO2 01/17/20 04:02 98.5 92 18 112/71 98 Home Meds Reported Medications Lansoprazole (PREVACID) 30 Mg Capsule.dr, PO PRN PRN for INDIGESTION THERAPEUTIC INTERCHANGE WITH PROTONIX PER [facility] 08/05/19 Hyoscyamine Sulfate (LEVSIN) 0.125 Mg Tablet, 0.375 MG PO BID 08/05/19 Lactobacillus Rhamnosus R0011 (PROBIOTIC DIGESTIVE CARE) 1 Each Capsule, 1 TAB PO DAILY 08/05/19 Lorazepam (ATIVAN) 2 Mg Tablet, 2 MG PO TID 08/05/19 Sertraline Hcl (ZOLOFT) 50 Mg Tablet, 50 MG PO DAILY, #30 TAB 08/05/19 NORY ERWIN MD Jan 17, 2020 04:15
[2020-01-17 04:36] LABS: AMPHETAMINES SCREEN,URINE NEGATIVE (NEGATIVE); PHENCYCLIDINE SCREEN,URINE NEGATIVE (NEGATIVE)
[2020-01-17 04:37] LABS: BENZODIAZEPINES SCREEN,URINE POSITIVE (NEGATIVE)
[2020-01-17 04:39] LABS: BILIRUBIN,URINE NEGATIVE (NEGATIVE); CLARITY,URINE CLEAR (CLEAR); COLOR,URINE YELLOW (YELLOW); KETONES,URINE NEGATIVE (NEGATIVE); LEUKOCYTE ESTERASE ,URINE TRACE (NEGATIVE); NITRITE,URINE NEGATIVE (NEGATIVE); PROTEIN,URINE DIPSTICK NEGATIVE (NEGATIVE); RBC,URINE 0-5 /HPF (0-5); URINE UROBILINOGEN 0.2 mg/dL (0.2 - 1)
[2020-01-17 04:40] LABS: BACTERIA,URINE FEW /HPF; EPITHELIAL CELLS,URINE FEW /LPF
--- NOTE | 2020-01-17 05:57 | Diagnostic Imaging Report ---
EXAM: Abdomen Radiograph 1 View INDICATION: LEFT ABDOMINAL PAIN COMPARISON: Abdominal CT 12/18/2019 FINDINGS: No abnormalities in the lower chest. No lines or tubes. Normal volume of stool in the colon. No dilated loops of small bowel. Tiny left renal superior pole calcification may represent a calculus or parenchymal calcification. No abnormal soft tissue masses. No pneumoperitoneum. No acute osseous abnormality. Mild degenerative changes in the lumbar spine and pelvis. IMPRESSION: No acute abdominal radiographic abnormality. Signed by: Brandon Hair DO on 01/17/2020 5:54 AM
[2020-01-17 06:05] VITALS: BP 132/82
== END 2020-01-17 06:15 | disposition home or self-care (01) ==
LOC: ER 03:54
DX: R10.32 Left lower quadrant pain (principal); K57.92 Diverticulitis of intestine, part unspecified, without perforation or abscess without bleeding; F41.9 Anxiety disorder, unspecified; K21.9 Gastro-esophageal reflux disease without esophagitis; K58.9 Irritable bowel syndrome, unspecified
CPT/HCPCS: 74022; 80307; 81001; 99283

== ENCOUNTER 2020-03-06 23:07 | Emergency (ER) | payer SELFPAY ==
[~2020-03-06] VITALS: Ht 139.7 cm; Wt 45.4 kg
--- NOTE | 2020-03-06 23:25 | Emergency Department Note ---
History of Present Illnes History of Present Illness Chief Complaint: Skin Rash or Abscess History of Present Illness This is a 49 year old female presents to the ED for evaluation of abnormal sensation after ingesting medication . Historian: Patient Arrival Mode: Car Curriculum Specialist Required: No Onset (how long ago): hour(s) Radiation: Reports non-radiation Severity: mild Onset quality: sudden Duration (how long): hour(s) Timing of current episode: constant Progression: unchanged Chronicity: new Context: Reports new medications Relieving factors: none Exacerbating factors: none Associated symptoms: Reports denies other symptoms Treatments prior to arrival: none Past Medical/Family History Physician Review I have reviewed the patient's past medical and family history. Any updates have been documented here. Past Medical History Recent Fever: No Clinical Suspicion of Infectio: No New/Unexplained Change in Ment: No Past Medical History: UTI's, Anxiety, GERD Other Medical History: IBS Past Surgical History: Hysterectomy Social History Smoking Cessation: Never Smoker Alcohol Use: None Any Illegal Drug Use: No Other Last Tetanus: UNK Review of Systems Review of Systems Constitutional: Reports no symptoms EENTM: Reports no symptoms Cardiovascular: Reports no symptoms Respiratory: Reports no symptoms Gastrointestinal: Reports no symptoms Genitourinary: Reports no symptoms Musculoskeletal: Reports no symptoms Integumentary: Reports no symptoms Neurological: Reports no symptoms Psychological: Reports anxiety Endocrine: Reports no symptoms Hematological/Lymphatic: Reports no symptoms Physical Exam Related Data Allergies: Coded Allergies: amoxicillin (Verified Allergy, Severe, HEART RACE, 08/05/19) ciprofloxacin (Verified Allergy, Severe, HEART RACE, 08/05/19) clavulanic acid (Verified Allergy, Severe, HEART RACE, 08/05/19) diazepam (Verified Allergy, Severe, ANXIOUS, 08/05/19) hydromorphone (Verified Allergy, Severe, ITCHING, 08/05/19) morphine (Verified Allergy, Severe, 08/05/19) PT REPORTS SHE "CAN'T BREATH" WHEN THIS MEDICATION WAS GIVEN nitrofurantoin (Verified Allergy, Intermediate, 03/07/20) escitalopram (Verified Allergy, Unknown, 08/05/19) levofloxacin (Verified Allergy, Unknown, 08/05/19) Vital signs reviewed: Yes Physical Exam CONSTITUTIONAL Constitutional: Present well-developed, Present well-nourished HENT HENT: Present normocephalic, Present atraumatic, Present oropharynx clear/moist, Present nose normal HENT L/R: Present left ext ear normal, Present right ext ear normal EYES Eyes: Reports PERRL, Reports conjunctivae normal NECK Neck: Present ROM normal PULMONARY Pulmonary: Present effort normal, Present breath sounds normal CARDIOVASCULAR Cardiovascular: Present regular rhythm, Present heart sounds normal, Present capillary refill normal, Present normal rate GASTROINTESTINAL Abdominal: Present soft, Present nontender, Present bowel sounds normal GENITOURINARY Genitourinary: Present exam deferred SKIN Skin: Present warm, Present dry MUSCULOSKELETAL Musculoskeletal: Present ROM normal NEUROLOGICAL Neurological: Present alert, Present oriented x 3, Present no gross motor or sensory deficits PSYCHOLOGICAL Psychological: Present mood/affect normal, Present judgement normal Assessment & Plan Medical Decision Making MDM Diff Dx : anxiety, allergic reaction, anaphylaxis Assessment & Plan Final Impression: (1) Adverse reaction to antibiotic Depart Disposition: HOME, SELF-FDC Meds Reported Medications Lansoprazole (PREVACID) 30 Mg Capsule.dr, PO PRN PRN for INDIGESTION THERAPEUTIC INTERCHANGE WITH PROTONIX PER [facility] 08/05/19 Hyoscyamine Sulfate (LEVSIN) 0.125 Mg Tablet, 0.375 MG PO BID 08/05/19 Lactobacillus Rhamnosus R0011 (PROBIOTIC DIGESTIVE CARE) 1 Each Capsule, 1 TAB PO DAILY 08/05/19 Lorazepam (ATIVAN) 2 Mg Tablet, 2 MG PO TID 08/05/19 Sertraline Hcl (ZOLOFT) 50 Mg Tablet, 50 MG PO DAILY, #30 TAB 08/05/19 MANDY TALAVERA DO Mar 06, 2020 23:25
--- OUTSIDE RECORDS SUMMARY | 2020-03-07 00:58 | XMS REPORT | Continuity of Care Document ---
Author Author [facility] t Organization [facility] Address [address] [place] [address] Phone Unavailable Care Team Providers Care Log Rider Name Role Phone MD Ganesh MISHRA PCP Rafal ERWIN Attphys Unavailable William BATES Attphys Unavailable Payers Payer Name Policy Type Policy Number Effective Date Expiration Date S ource Self Pay NA [facility] Problems Condition Name Condition Details Condition Category Status Onset Date Resolution Date Last Treatment Date Treating Clinician Comments Source Left flank pain Problem Active [facility] Abdominal pain Problem Active [facility] Diverticulitis Problem Active [facility] Allergies, Adverse Reactions, Alerts Allergy Name Allergy Type Status Severity Reaction(s) Onset Date Inacti ve Date Treating Clinician Comments Source No Known Allergies DA Active U 2020-03-06 00:00:00 [facility] Penicillins DA Active SV 2020-03-06 00:00:00 [facility] diazepam DA Active SV 2020-03-06 00:00:00 [facility] morphine DA Active SV 2020-03-06 00:00:00 [facility] ciprofloxacin DA Active SV 2020-03-06 00:00:00 [facility] hydromorphone DA Active SV 2020-03-06 00:00:00 [facility] levofloxacin DA Active SV 2020-03-06 00:00:00 [facility] escitalopram DA Active SV 2020-03-06 00:00:00 [facility] Penic[place]ins DA Active [place] 2019-10-08 00:00:00 [facility] CO-AMOXYCLAV DA Active SV 2019-09-19 00:00:00 [facility] escitalopram DA Active U 2019-09-19 00:00:00 [facility] diazepam DA Active U 2019-09-19 00:00:00 [facility] morphine DA Active U 2019-09-19 00:00:00 [facility] ciprofloxacin DA Active U 2019-09-19 00:00:00 [facility] levofloxacin DA Active U 2019-09-19 00:00:00 [facility] Diazepam Allergy to substance Active Severe ANXIOUS 2019-08-05 00:00:00 [facility] Morphine Allergy to substance Active Severe 2019-08-05 00:00:00 [facility] clavulanic acid Allergy to substance Active Severe HEART RACE 2019-08-05 00:00:00 [facility] Ciprofloxacin Allergy to substance Active Severe HEART RACE 2019 00:00:00 [facility] Amoxicillin Allergy to substance Active Severe HEART RACE 2019-08-05 0 0:00:00 [facility] Hydromorphone Allergy to substance Active Severe ITCHING 2019-08-05 00 :00:00 [facility] Levofloxacin Allergy to substance Active 2019-08-05 00:00:0 0 [facility] Escitalopram Allergy to substance Active 2019-08-05 00:00:0 0 [facility] hydromorphone HCl DA Active U 2019-07-26 00:00:00 [facility] diazepam DA Active SV 2019-07-26 00:00:00 [facility] morphine DA Active SV 2019-07-26 00:00:00 [facility] ciprofloxacin DA Active [place] 2019-07-26 00:00:00 [facility] hydromorphone DA Active [place] 2019-07-26 00:00:00 [facility] levofloxacin DA Active SV 2019-07-26 00:00:00 [facility] clavulanic acid DA Active MO 2019-07-26 00:00:00 [facility] amoxicillin DA Active MO 2019-07-26 00:00:00 [facility] hydromorphone HCl DA Active U 2019-06-18 00:00:00 [facility] diazepam DA Active SV 2019-06-18 00:00:00 [facility] morphine DA Active SV 2019-06-18 00:00:00 [facility] clavulanic acid DA Active [place] 2019-06-18 00:00:00 [facility] ciprofloxacin DA Active MO 2019-06-18 00:00:00 [facility] amoxicillin DA Active [place] 2019-06-18 00:00:00 [facility] hydromorphone DA Active [place] 2019-06-18 00:00:00 [facility] levofloxacin DA Active SV 2019-06-18 00:00:00 [facility] hydromorphone HCl DA Active U 2019-03-29 00:00:00 [facility] diazepam DA Active SV 2019-03-29 00:00:00 [facility] morphine DA Active SV 2019-03-29 00:00:00 [facility] clavulanic acid DA Active MO 2019-03-29 00:00:00 [facility] ciprofloxacin DA Active MO 2019-03-29 00:00:00 [facility] amoxicillin DA Active MO 2019-03-29 00:00:00 [facility] levofloxacin DA Active SV 2019-03-29 00:00:00 [facility] clavulanic acid DA Active MO 2019-03-01 00:00:00 [facility] amoxicillin DA Active [place] 2019-03-01 00:00:00 [facility] hydromorphone HCl DA Active U 2018-05-10 00:00:00 [facility] diazepam DA Active SV 2018-05-10 00:00:00 [facility] morphine DA Active SV 2018-05-10 00:00:00 [facility] ciprofloxacin DA Active MO 2018-05-10 00:00:00 [facility] levofloxacin DA Active SV 2018-05-10 00:00:00 [facility] hydromorphone HCl DA Active U 2018-03-23 00:00:00 [facility] diazepam DA Active SV 2018-03-23 00:00:00 [facility] morphine DA Active SV 2018-03-23 00:00:00 [facility] ciprofloxacin DA Active MO 2018-03-23 00:00:00 [facility] levofloxacin DA Active SV 2018-03-23 00:00:00 [facility] No Known Allergies DA Active U 2018-02-16 00:00:00 [facility] Social History Social Habit Start Date Stop Date Quantity Comments Source Sex Assigned At 1970 00:00:00 1970 00:00:00 Female [facility] Medications Ordered Medication Name Filled Medication Name Start Date Stop Da te Current Medication? Ordering Clinician Indication Dosage Frequency Signature (SIG) Comments Components Source Hyoscyamine Sulfate (Levsin) 0.125 Mg TABLET Hyoscyami ne Sulfate (Levsin) 0.125 Mg TABLET Yes .375 Twice A Day [facility] Lactobacillus Rhamnosus R0011 (Probiotic Digestive Car e) 1 Each CAPSULE Lactobacillus Rhamnosus R0011 (Probiotic Digestive Care) 1 Each CAPSULE Yes 1 Daily [facility] Lansoprazole (Prevacid) 30 Mg CAPSULE. Lansoprazole (Prevacid) 30 [address].DR Hernandez As Needed as needed for Ind igestion [facility] Lorazepam (Ativan) 2 Mg TABLET Lorazepam (Ativan) 2 Mg TABLET Yes 2 Three Times A Day [facility] Sertraline Hcl (Zoloft) 50 Mg TABLET Sertraline Hcl (Zoloft) 50 Mg TABLET Yes 50 Daily [facility] Vital Signs Vital Name Observation Time Observation Value Comments Source Weight 2020-01-17 04:02:00 100 [lb_av] [facility] BMI (Body Mass Index) 2020-01-17 04:02:00 23.2 kg/m2 [facility] Weight 2020-01-13 14:04:00 100 [lb_av] [facility] BMI (Body Mass Index) 2020-01-13 14:04:00 23.2 kg/m2 [facility] Body Temperature 2019-12-18 20:38:00 98.2 [degF] [facility] Weight 2019-12-18 18:36:00 100 [lb_av] [facility] BMI (Body Mass Index) 2019-12-18 18:36:00 23.2 kg/m2 [facility] Procedures Procedure Date / Time Performed Performing Clinician Lyly claudia CT of abdomen and pelvis without contrast 2019-12-18 00:00:00 [facility] X-ray of chest, two views 2019-08-05 00:00:00 [facility] Plan of Care Planned Activity Planned Date Details Comments Source Instructions Diverticulitis [facility] Encounters Start Date/Time End Date/Time Encounter Type Admission Type Attendi [facility] Facility Care Department Encounter ID Source 2020-01-13 13:47:00 2020-01-13 14:10:00 Departed Emergency Room [facility] [id number] [facility] [place] 2019-12-18 18:26:00 2019-12-18 20:45:00 Departed Emergency Room 1 NORY ERWIN [facility] [id number] [facility] 2019-08-05 04:00:00 2019-08-05 04:00:00 Registered Clinic 3 ANNE BATES [facility] [id number] [facility] Results Test Description Test Time Test Comments Results Result Comments Source URINALYSIS COMPLETE 2020-03-06 18:23:00 Test Item UA COLOR (test code = COLU) STRAW YELLOW UA APPEARANCE (test code = APPU) CLEAR CLEAR UA GLUCOSE DIPSTICK (test code = DGLUU) norm mg/dL NEGATIVE UA BILIRUBIN DIPSTICK (test code = BILU) NEGATIVE mg/dL NEGATIVE UA KETONE DIPSTICK (test code = KETU) neg mg/dL NEGATIVE UA SPECIFIC GRAVITY (test code = SGU) 1.005 1.001-1.035 UA BLOOD DIPSTICK (test code = [...] A UA WBC (test code = WBCU) 0-5 per HPF 0-5 UA RBC (test code = RBCU) 0-3 per HPF 0-5 UA EPITHELIAL CELLS (test code = EPIU) Few (2-5/hpf) per HPF Few UA BACTERIA (test code = BACU) FEW per HPF NONE Urine Source? Clean CatchURINALYSIS [id number] 18:17:00* Test Item Value Reference Range Interpretation Comments UA COLOR (test code = COLU) STRAW YELLOW UA APPEARANCE (test code = APPU) CLEAR CLEAR UA GLUCOSE DIPSTICK (test code = DGLUU) norm mg/dL NEGATIVE UA BILIRUBIN DIPSTICK (test code = BILU) NEGATIVE mg/dL NEGATIVE UA KETONE DIPSTICK (test code = KETU) neg mg/dL NEGATIVE UA SPECIFIC GRAVITY (test code = SGU) 1.005 1.001-1.035 UA BLOOD DIPSTICK (test code = [...] BACU) per HPF NONE Urine Source? Clean CatchB-TYPE NATRIURETIC [id number] 10:18:00* Test Item Value Reference Range Interpretation Comments B-TYPE NATRIURETIC PEPTIDE (test code = BNP) 9.1 pg/mL 0-100 N BASIC METABOLIC [id number] 10:10:00* Test Item Value Reference Range Interpretation Comments SODIUM (test code = NA) 136 mmol/L 135-148 N POTASSIUM (test code = K) 3.9 mmol/L 3.5-5.1 N CHLORIDE (test code = CL) 104 mmol/L 101-109 N CARBON DIOXIDE (test code = CO2) 26.0 mmol/L 21-32 N ANION GAP (test code = GAP) 10 mmol/L 10-20 N GLUCOSE (test code = GLU) 100 mg/dL 74-106 N BLOOD UREA NITROGEN (test code = BUN) 11 mg/dL 3-21 N GLOMERULAR FILTRATION RATE (test code = GFR) > 60 mL/min >=60 Estimated GFR by using Modified MDRD formula.Chronic kidney disease is defined as either kidney damageor GFR <60 mL/min/1.73 m2 for >3 months. CREATININE (test code = CREAT) 0.81 mg/dL 0.55-1.3 N BUN/CREATININE RATIO (test code = BUN/CREA) 13.6 10-20 N CALCIUM (test code = CA) 7.9 mg/dL 8.4-10.2 L [id number] 10:10:00* Test Item Value Reference Range Interpretation Comments TROPONIN-I (test code = TROPI) <0.015 ng/mL 0.00-0.056 N CBC W/O [id number] 09:58:00* Test Item Value Reference Range Interpretation Comments WHITE BLOOD CELL (test code = WBC) 3.8 K/mm3 4.5-12.5 L RED BLOOD CELL (test code = RBC) 4.46 mill/mm3 3.7-5.2 N HEMOGLOBIN (test code = HGB) 12.7 gram/dL 11.5-15.5 N HEMATOCRIT (test code = HCT) 39.0 % 36.0-46.0 N MEAN CELL VOLUME (test code = MCV) 87.4 fL 80-98 N MEAN CELL HGB (test code = MCH) 28.5 picogram 27.0-33.0 N MEAN CELL HGB CONCETRATION (test code = MCHC) 32.6 gram/dL 33.0-36. 0 L RED CELL DISTRIBUTION WIDTH (test code = RDW) 15.4 % 11.6-16. 2 N RED CELL DISTRIBUTION WIDTH SD (test code = RDW-SD) 49.9 fL 37 .0-51.0 N PLATELET COUNT (test code = PLT) 304 K/mm3 150-450 N MEAN PLATELET VOLUME (test code = MPV) 9.3 fL 6.7-11.0 N - XR CHEST 1 [id number] 09:53:00 Name: MERON Martínez [facility] : 1970 Age/S:49 /F [address] [facility] Unit#:[id number] Loc: [place] [address] Phys: Bernardo Rachel MD Dis Date: PHONE #: [phone] Status: REG ER FAX #: [phone] Exam Date: 02/05/2020 Reason: sob EXAMS: CPT CODE: [id number] XR CHEST 1 V 03191 HISTORY: Shortness of breath TECHNIQUE: AP chest x-ray COMPARISON: None FINDINGS: No airspace consolidation or pleural effusion. Normal heart size. Mediastinal silhouette is unremarkable. Visualized osseous structures are grossly intact. IMPRESSION: No radiographic evidence of acute cardiopulmonary process. LOCATION: LP at 0953 Reported and signed by: Tiara Mittal D.O. CC: Bernardo Rachel MD Technologist: ALESSIA WOLF CT Trnscrpt Data: 02/05/2020 (0953) [email or web address] Orig Print D/T: S: 02/05/2020 (4831) PAGE 1 Signed Report ABDOMEN ACUTE SERIES W/PA CXR 2020-01-17 05:52:00 [facility] [address] [address] Patient Name: MERON MARTÍNEZ MR #: [id number] : 1970 Age/Sex: 49/F Req #: [id number] Adm Physician: Ordered by: NORY ERWIN MD Report #: [id number] Location: ER Room/Bed: Procedure: [id number] DX/ABDOMEN ACUTE SERIES W/PA CXR Exam Date: 01/17/20 Exam Time: 0420 REPORT STATUS : Signed EXAM: Abdomen Radiograph 1 View INDICATION: LEFT ABDOMINAL PAIN COMPARISON: Abdominal CT 12/18/2019 FINDINGS: No abnormalities in the lower chest. No lines or tubes. Normal volume of stool in the colon. No dilated loops of small bowel. Tiny left renal superior pole calcifi cation may represent a calculus or parenchymal calcification. No abnormal soft tissue masses. No pneumoperitoneum. No acute osseous abnormality . Mild degenerative changes in the lumbar spine and pelvis. IMPRESSION : No acute abdominal radiographic abnormality. Signed by: Brandon valenzuela DO on 01/17/2020 5:54 AM Dictated By: BRANDON Manriqueza leonay Signed By: BRANDON LEI DO on 01/17/2054 Transcribed By: ERICK on 01/17/20553 COPY TO: NORY ERWIN MD Urine color [id number] 04:08:00* Test Item Value Reference Range Interpretation Comments Urine Color (test code = 5778-6) YELLOW YELLOW [facility] [id number] 04:08:00* Test Item Value Reference Range Interpretation Comments Urine Clarity (test code = 63071-5) CLEAR [facility]AR [facility] by Test strip 2020-01-17 04:08:00* Test Item Value Reference Range Interpretation Comments Urine Specific [place] (test code = 5811-5) >=1.030 1.010-1.02 5 [facility] pH measurement by automated test [id number] 04:08:00* Test Item Value Reference Range Interpretation Comments Urine pH (test code = 01853-5) 6 5-7 [facility] leukocyte esterase detection by [id number] 04:08:00* Test Item Value Reference Range Interpretation Comments Urine Leukocyte Esterase (test code = 5799-2) TRACE NEGATIVE [facility] Hospital[facility] nitrite [id number] 04:08:00* Test Item Value Reference Range Interpretation Comments Urine Nitrite (test code = 39387-5) NEGATIVE NEGATIVE [facility] Hospital[facility] protein measurement by test strip (mass/volume)2020-01-17 04:08:00* Test Item Value Reference Range Interpretation Comments Urine Protein (test code = 5804-0) NEGATIVE NEGATIVE [facility] Hospital[facility] glucose [id number] 04:08:00* Test Item Value Reference Range Interpretation Comments Urine Glucose (UA) (test code = 2349-9) NEGATIVE NEGATIVE [facility] Hospital[facility]rine ketones detection by automated test [id number] 04:08:00* Test Item Value Reference Range Interpretation Comments Urine Ketones (test code = 84818-4) NEGATIVE NEGATIVE [facility] Hospital[facility]rine opiates screening [id number] 04:08:00* Test Item Value Reference Range Interpretation Comments Urine Opiates Screen (test code = 51268-6) NEGATIVE NEGATIVE ALL TESTS PERFORMED MANUALLY ON [facility] TOX/SEE TESTMem[facility]ann [facility] HospitalBarbiturates screen, [id number] 04:08:00* Test Item Value Reference Range Interpretation Comments Urine Barbiturates Screen (test code = 051591169) NEGATIVE NEGA TIVE [facility] HospitalUrine phencyclidine detection by screening [id number] 04:08:00* Test Item Value Reference Range Interpretation Comments Urine Phencyclidine Screen (test code = 33508-0) NEGATIVE NEGAT THAI [facility] HospitalUrine amphetamines detection by screen method > 1000 [id number] 04:08:00* Test Item Value Reference Range Interpretation Comments Urine Amphetamines Screen (test code = 07640-5) NEGATIVE NEGATI VE [facility] HospitalFluoroscopic procedure less than one hour [id number] 04:08:00* Test Item Value Reference Range Interpretation Comments Urine Methamphetamines Screen (test code = Urine Metha mphetamines Screen) NEGATIVE NEGATIVE [facility] HospitalUrine benzodiazepines detection by screening [id number] 04:08:00* Test Item Value Reference Range Interpretation Comments Urine Benzodiazepines Screen (test code = 24321-9) POSITIVE NEG ATIVE This test provides only a screen. Positive results should be repeated by a confi rmatory test.[facility] Hospital[facility]rine cocaine measurement (mass/volume)2020-01-17 04:08:00* Test Item Value Reference Range Interpretation Comments Urine Cocaine Screen (test code = 3398-5) NEGATIVE NEGATIVE [facility] HospitalUrine cannabinoids detection by screening [id number] 04:08:00* Test Item Value Reference Range Interpretation Comments Urine Cannabinoids Screen (test code = 47565-6) NEGATIVE NEGATI VE THESE RESULTS ARE FOR MEDICAL TREATMENT ONLYTHIS REPORT CONTAINS UNCONFIR MED SCREENING RESULTS*POSITIVE RESULTS WILL BE CONFIRMED BY REFERENCE LAB UPON R EQUEST CUT-OFFDRUG CLASS CONCENTRATION ng/mLAmphetamines 1000Methamphetamines 1000Cocaine 300Opiate 300Phencyc lidine 25Cannabinoid 50Barbiturates 300Benzodiazepine 300Methadone 300[facility] Center[facility] methadone [id number] 04:08:00* Test Item Value Reference Range Interpretation Comments Urine Methadone Screen (test code = 19589-8) NEGATIVE NEGATIVE THESE RESULTS ARE FOR MEDICAL TREATMENT ONLYTHIS REPORT CONTAINS UNCONFIR MED SCREENING RESULTS*POSITIVE RESULTS WILL BE CONFIRMED BY REFERENCE LAB UPON R EQUEST CUT-OFFDRUG CLASS CONCENTRATION ng/mLAmphetamines 1000Methamphetamines 1000Cocaine Metabolite 300Opiate 300Phencyc lidine 25Cannabinoid 50Barbiturates 300Benzodiazepine 300Methadone 300[facility] CenterUrine urobilinogen measurement by test strip (mass/volume)2020-01-17 04:08:00* Test Item Value Reference Range Interpretation Comments Urine Urobilinogen (test code = 55100-9) 0.2 0.2-1 [facility] total bilirubin measurement (mass/volume)2020-01-17 04:08:00* Test Item Value Reference Range Interpretation Comments Urine Bilirubin (test code = 1978-6) NEGATIVE NEGATIVE [facility] HospitalUrine erythrocytes [id number] 04:08:00* Test Item Value Reference Range Interpretation Comments Urine Blood (test code = 43800-7) NEGATIVE NEGATIVE [facility] HospitalAutomated urine sediment leukocyte count by microscopy (number/high power field)2020-01-17 04:08:00* Test Item Value Reference Range Interpretation Comments Urine WBC (test code = 5821-4) 6-10 0-5 [facility] HospitalErythrocytes detection in urine sediment by light offiszuvum5466-98-59 04:08:00* Test Item Value Reference Range Interpretation Comments Urine RBC (test code = 35387-8) 0-5 0-5 [facility] HospitalBacteria detection in urine sediment by light iknopuqixj9884-87-94 04:08:00* Test Item Value Reference Range Interpretation Comments Urine Bacteria (test code = 82271-1) FEW NONE [facility] HospitalEpithelial cells detection in urine sediment by light [id number] 04:08:00* Test Item Value Reference Range Interpretation Comments Urine Epithelial Cells (test code = 64544-0) FEW NONE [facility] HospitalCT ABDOMEN/PELVIS [id number] 20:05:00 [facility] [address] [place] [address] Patient Name: MERON MARTÍNEZ MR #: [id number] : [birth year] Age/Sex: 49/F Req #: [id number] Adm Physician: Ordered by: MANDY MALAVE SR. 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 TECHNIQUE: Abdomen and pelvis were scanned utilizing a multidetect or helical scanner from the lung base to the pubic symphysis without administr ation of IV contrast. Absence of intravenous contrast decreases sensitivity fo r detection of focal lesions and vascular pathology. Coronal and sagittal refo rmations were obtained. Routine protocol was performed. IV CONTRAST: N one ORAL CONTRAST: None COMPLICATIONS: None RADIATI ON DOSE: Total DLP: 642 mGy*cm Estimated effective dose: (DLP x 0. 015 x size factor) mSv CTDIvol has been reviewed. It is below the limits set by the Radiation Protocol Committee (RPC). Dose modulation, iterati ve reconstruction, and/or weight based adjustment of the mA/kV was utilized to reduce the radiation dose to as low as reasonably achievable. FINDINGS: LINES and TUBES: None. LOWER THORAX: Unremarkable HEPATOBILIARY : Small hepatic cysts. No biliary ductal dilation. GALLBLADDER: No ra collin-opaque stones or sludge. No wall thickening. SPLEEN: No splenomegaly. PANCREAS: No focal masses or ductal dilatation. ADRENALS: No adrena l nodules KIDNEYS/URETERS: No hydronephrosis. No cystic or solid mass lesions. Two nonobstructing left intrarenal calculi, largest 5 mm. GI TR ACT: No abnormal distention, wall thickening, or evidence of bowel obstruction . Appendix is normal. PELVIC ORGANS/BLADDER: The urinary bladder is u nremarkable. The uterus is surgically absent. LYMPH NODES: Mildly promine nt central mesenteric lymph nodes. No lymphadenopathy by CT size criteria. VESSELS: Unremarkable. PERITONEUM / RETROPERITONEUM: No free air or fluid . Minimal nonspecific stranding of the central mesenteric fat. Advanced coloni c diverticulosis. BONES: Unremarkable. SOFT TISSUES: Unremarkable. IMPRESSION: 1. No acute abdominal or pelvic abnormality. No ob structive uropathy. 2. Small nonobstructing left intrarenal calculi. 3. Advanced colonic diverticulosis. 4. Minimal nonspecific stranding of the central mesenteric fat. This may reflect a remote inflammatory process. Signed by: Marco Escobar MD on 12/18/2019 8:09 PM Dictated By: MARCO ESCOBAR MD 08 Trans cribed By: ERICK on 12/18/192008 COPY TO: MANDY MALAVE NP Blood leukocytes automated count (number/volume)2019-12-18 18:40:00* Test Item Value Reference Range Interpretation Comments White Blood Count (test code = 6690-2) 6.37 4.8-10.8 [facility] erythrocytes automated count (number/volume)2019-12-18 18:40:00* Test Item Value Reference Range Interpretation Comments Red Blood Count (test code = 789-8) 4.33 3.6-5.1 [facility] HospitalBlood hemoglobin measurement (moles/volume)2019-12-18 18:40:00* Test Item Value Reference Range Interpretation Comments Hemoglobin (test code = 32128-7) 11.9 12.0-16.0 [facility] HospitalAutomated blood hematocrit (volume fraction)2019-12-18 18:40:00* Test Item Value Reference Range Interpretation Comments Hematocrit (test code = 4544-3) 37.4 34.2-44.1 [facility] HospitalAutomated erythrocyte mean corpuscular [id number] 18:40:00* Test Item Value Reference Range Interpretation Comments Mean Corpuscular Volume (test code = 787-2) 86.4 81-99 [facility] HospitalAutomated erythrocyte mean corpuscular hemoglobin (mass per erythrocyte)2019-12-18 18:40:00* Test Item Value Reference Range Interpretation Comments Mean Corpuscular Hemoglobin (test code = 785-6) 27.5 28-32 [facility] HospitalAutomated erythrocyte mean corpuscular hemoglobin concentration measurement (mass/volume)2019-12-18 18:40:00* Test Item Value Reference Range Interpretation Comments Mean Corpuscular Hemoglobin Concent (test code = 786-4) 31.8 31-35 [facility] HospitalRDW GxeAf-[id number] 18:40:00* Test Item Value Reference Range Interpretation Comments Red Cell Distribution Width (test code = 08469-7) 16.2 11.7 -14.4 [facility] HospitalAutomated blood platelet count (count/volume)2019-12-18 18:40:00* Test Item Value Reference Range Interpretation Comments Platelet Count (test code = 777-3) 309 140-360 [facility] HospitalAutomated blood segmented neutrophil count as percentage of total cgbtkmpwxi6395-38-54 18:40:00* Test Item Value Reference Range Interpretation Comments Neutrophils (%) (Auto) (test code = 74498-1) 35.9 38.7-80.0 [facility] HospitalAutomated blood lymphocyte count as percentage ot total tfnfcrjgrg3499-67-74 18:40:00* Test Item Value Reference Range Interpretation Comments Lymphocytes (%) (Auto) (test code = 736-9) 23.4 18.0-39.1 [facility] HospitalAutomated blood monocyte count as percentage of total knzbykyagi0443-80-32 18:40:00* Test Item Value Reference Range Interpretation Comments Monocytes (%) (Auto) (test code = 5905-5) 7.2 4.4-11.3 [facility] HospitalAutomated blood eosinophil count as percentage of total gkxwxpuwyt6851-64-29 18:40:00* Test Item Value Reference Range Interpretation Comments Eosinophils (%) (Auto) (test code = 713-8) 31.7 0.0-6.0 [facility] HospitalAutomated blood basophil count as percentage of total vgdmlhmqot4523-24-27 18:40:00* Test Item Value Reference Range Interpretation Comments Basophils (%) (Auto) (test code = 706-2) 1.6 0.0-1.0 [facility] HospitalFluoroscopic procedure less than one hour uuhxhfhg7958-17-76 18:40:00* Test Item Value Reference Range Interpretation Comments IM GRANULOCYTES % (test code = IM GRANULOCYTES %) 0.2 0.0- 1.0 [facility] HospitalAutomated blood neutrophil count 2019-12-18 18:40:00* Test Item Value Reference Range Interpretation Comments Neutrophils # (Auto) (test code = 751-8) 2.3 2.1-6.9 [facility] HospitalBlood lymphocytes count (number/volume) 2019-12-18 18:40:00* Test Item Value Reference Range Interpretation Comments Lymphocytes # (Auto) (test code = 24435-0) 1.5 1.0-3.2 [facility] HospitalBlood monocytes automated count (number/volume)2019-12-18 18:40:00* Test Item Value Reference Range Interpretation Comments Monocytes # (Auto) (test code = 742-7) 0.5 0.2-0.8 [facility] HospitalAutomated blood eosinophil count 2019-12-18 18:40:00* Test Item Value Reference Range Interpretation Comments Eosinophils # (Auto) (test code = 711-2) 2.0 0.0-0.4 [facility] HospitalAutomated blood basophil count (count/volume)2019-12-18 18:40:00* Test Item Value Reference Range Interpretation Comments Basophils # (Auto) (test code = 704-7) 0.1 0.0-0.1 [facility] HospitalFluoroscopic procedure less than one hour woeamnkh9490-63-94 18:40:00* Test Item Value Reference Range Interpretation Comments Absolute Immature Granulocyte (auto (lela t code = Absolute Immature Granulocyte (auto) 0.01 0-0.1 [facility] HospitalUrine color mvwgwsxpkcdif5595-19-41 18:40:00* Test Item Value Reference Range Interpretation Comments Urine Color (test code = 5778-6) YELLOW YELLOW [facility] HospitalUrine vmkjtux8615-19-17 18:40:00* Test Item Value Reference Range Interpretation Comments Urine Clarity (test code = 66895-6) [facility] by Test strip 2019-12-18 18:40:00* Test Item Value Reference Range Interpretation Comments Urine Specific [place] (test code = 5811-5) 1.020 1.010-1.02 5 [facility] HospitalUrine pH measurement by automated test wkksm5317-91-34 18:40:00* Test Item Value Reference Range Interpretation Comments Urine pH (test code = 82426-9) 6.5 5-7 [facility] HospitalUrine leukocyte esterase detection by mgxagkng5127-93-63 18:40:00* Test Item Value Reference Range Interpretation Comments Urine Leukocyte Esterase (test code = 5799-2) NEGATIVE NEGATIVE [facility] HospitalUrine nitrite kmmvvbocy3710-64-70 18:40:00* Test Item Value Reference Range Interpretation Comments Urine Nitrite (test code = 10699-5) NEGATIVE NEGATIVE [facility] HospitalUrine protein measurement by test strip (mass/volume)2019-12-18 18:40:00* Test Item Value Reference Range Interpretation Comments Urine Protein (test code = 5804-0) NEGATIVE NEGATIVE [facility] HospitalUrine glucose vysvqjtjb6561-32-88 18:40:00* Test Item Value Reference Range Interpretation Comments Urine Glucose (UA) (test code = 2349-9) NEGATIVE NEGATIVE [facility] HospitalUrine ketones detection by automated test txthf3747-29-26 18:40:00* Test Item Value Reference Range Interpretation Comments Urine Ketones (test code = 08588-6) NEGATIVE NEGATIVE [facility] HospitalUrine urobilinogen measurement by test strip (mass/volume)2019-12-18 18:40:00* Test Item Value Reference Range Interpretation Comments Urine Urobilinogen (test code = 73078-6) 0.2 0.2-1 [facility] HospitalUrine total bilirubin measurement (mass/volume)2019-12-18 18:40:00* Test Item Value Reference Range Interpretation Comments Urine Bilirubin (test code = 1978-6) NEGATIVE NEGATIVE [facility] HospitalUrine erythrocytes favhuqypx7047-54-89 18:40:00* Test Item Value Reference Range Interpretation Comments Urine Blood (test code = 39144-0) NEGATIVE NEGATIVE [facility] HospitalAutomated urine sediment leukocyte count by microscopy (number/high power field)2019-12-18 18:40:00* Test Item Value Reference Range Interpretation Comments Urine WBC (test code = 5821-4) 0-5 0-5 [facility] HospitalErythrocytes detection in urine sediment by light inrohuywkb8036-00-86 18:40:00* Test Item Value Reference Range Interpretation Comments Urine RBC (test code = 31605-1) 0-5 0-5 [facility] HospitalBacteria detection in urine sediment by light fxuimijiom7614-88-00 18:40:00* Test Item Value Reference Range Interpretation Comments Urine Bacteria (test code = 15726-0) RARE NONE [facility] HospitalEpithelial cells detection in urine sediment by light mporbugntz3461-93-32 18:40:00* Test Item Value Reference Range Interpretation Comments Urine Epithelial Cells (test code = 98674-7) FEW NONE [facility]ererum or plasma sodium measurement (moles/volume)2019-12-18 18:40:00* Test Item Value Reference Range Interpretation Comments Sodium Level (test code = 2951-2) 137 136-145 [facility]ererum or plasma potassium measurement (moles/volume)2019-12-18 18:40:00* Test Item Value Reference Range Interpretation Comments Potassium Level (test code = 2823-3) 4.2 3.5-5.1 [facility]ererum or plasma chloride measurement (moles/volume)2019-12-18 18:40:00* Test Item Value Reference Range Interpretation Comments Chloride Level (test code = 2075-0) 107 98-107 [facility]ererum or plasma carbon dioxide, total measurement (moles/volume)2019-12-18 18:40:00* Test Item Value Reference Range Interpretation Comments Carbon Dioxide Level (test code = 2028-9) 20 22-29 [facility]ererum or plasma anion vme4499-73-89 18:40:00* Test Item Value Reference Range Interpretation Comments Anion Gap (test code = 95346-3) 14.2 8-16 [facility]ererum or plasma urea nitrogen measurement (mass/volume)2019-12-18 18:40:00* Test Item Value Reference Range Interpretation Comments Blood Urea Nitrogen (test code = 3094-0) 11 7- [facility]ererum or plasma creatinine measurement (mass/volume)2019-12-18 18:40:00* Test Item Value Reference Range Interpretation Comments Creatinine (test code = 2160-0) 0.66 0.57-1.11 [facility]ererum or plasma urea nitrogen/creatinine mass lbqlx6578-04-34 18:40:00* Test Item Value Reference Range Interpretation Comments BUN/Creatinine Ratio (test code = 3097-3) 17 6- [facility] HospitalEstimated glomerular filtration rate (GFR) ksvuersixbfrl2818-93-99 18:40:00* Test Item Value Reference Range Interpretation Comments Estimat Glomerular Filtration Rate (test code = 868474817) > 60 >60 Ranges were taken from the National Kidney Disease Education Program and the [facility] [employer] literature.Reference ranges:60 or greater: Kafbhn43-61 ( for 3 consecutive months): Chronic kidney disease 15 or less: Kidney failureMem[facility] Hermann Pear[facility] HospitalGlucose twbhkemjqcx5507-55-08 18:40:00* Test Item Value Reference Range Interpretation Comments Glucose Level (test code = XPV9931) 89 74-118 [facility]ererum or plasma calcium measurement (mass/volume)2019-12-18 18:40:00* Test Item Value Reference Range Interpretation Comments Calcium Level (test code = 04828-4) 8.9 8.4-10.2 [facility]ererum or plasma total bilirubin measurement (mass/volume)2019-12-18 18:40:00* Test Item Value Reference Range Interpretation Comments Total Bilirubin (test code = 1975-2) 0.5 0.2-1.2 [facility] HospitalFluoroscopic procedure less than one hour umvtwbmh1414-61-85 18:40:00* Test Item Value Reference Range Interpretation Comments Aspartate Amino Transf (AST/SGOT) (test code = Aspartate Amino Transf (AST/SGOT)) 19 5-34 [facility] Centererum or plasma alanine aminotransferase measurement (enzymatic activity/volume)2019-12-18 18:40:00* Test Item Value Reference Range Interpretation Comments Alanine Aminotransferase (ALT/SGPT) (test code = 1742-6) 15 0-55 [facility]ererum or plasma protein measurement (mass/volume)2019-12-18 18:40:00* Test Item Value Reference Range Interpretation Comments Total Protein (test code = 2885-2) 7.4 6.5-8.1 [facility]ererum or plasma albumin measurement (mass/volume)2019-12-18 18:40:00* Test Item Value Reference Range Interpretation Comments Albumin (test code = 1751-7) 3.7 3.5-5.0 [facility] HospitalPlasma globulin measurement (mass/volume) 2019-12-18 18:40:00* Test Item Value Reference Range Interpretation Comments Globulin (test code = 82757-7) 3.7 2.3-3.5 [facility]ererum or plasma albumin/globulin mass hdwtm1481-75-20 18:40:00* Test Item Value Reference Range Interpretation Comments Albumin/Globulin Ratio (test code = 1759-0) 1.0 0.8-2.0 [facility]ererum or plasma alkaline phosphatase measurement (enzymatic activity/volume)2019-12-18 18:40:00* Test Item Value Reference Range Interpretation Comments Alkaline Phosphatase (test code = 6768-6) 62 40-150 [facility] HospitalBlood leukocytes automated count (number/volume)2019-12-18 18:40:00* Test Item Value Reference Range Interpretation Comments White Blood Count (test code = 6690-2) 6.37 4.8-10.8 [facility] HospitalBlood erythrocytes automated count (number/volume)2019-12-18 18:40:00* Test Item Value Reference Range Interpretation Comments Red Blood Count (test code = 789-8) 4.33 3.6-5.1 [facility] HospitalBlood hemoglobin measurement (moles/volume)2019-12-18 18:40:00* Test Item Value Reference Range Interpretation Comments Hemoglobin (test code = 49326-0) 11.9 12.0-16.0 [facility] HospitalAutomated blood hematocrit (volume fraction)2019-12-18 18:40:00* Test Item Value Reference Range Interpretation Comments Hematocrit (test code = 4544-3) 37.4 34.2-44.1 [facility] HospitalAutomated erythrocyte mean corpuscular wdvtce6179-79-56 18:40:00* Test Item Value Reference Range Interpretation Comments Mean Corpuscular Volume (test code = 787-2) 86.4 81-99 [facility] HospitalAutomated erythrocyte mean corpuscular hemoglobin (mass per erythrocyte)2019-12-18 18:40:00* Test Item Value Reference Range Interpretation Comments Mean Corpuscular Hemoglobin (test code = 785-6) 27.5 28-32 [facility] HospitalAutnovant health [facility] erythrocyte mean corpuscular hemoglobin concentration measurement (mass/volume)2019-12-18 18:40:00* Test Item Value Reference Range Interpretation Comments Mean Corpuscular Hemoglobin Concent (test code = 786-4) 31.8 31-35 [facility] HospitalRDW GqjRy-Fsm4608-87-17 18:40:00* Test Item Value Reference Range Interpretation Comments Red Cell Distribution Width (test code = 13251-7) 16.2 11.7 -14.4 [facility] HospitalAutanson community hospitaled blood platelet count (count/volume)2019-12-18 18:40:00* Test Item Value Reference Range Interpretation Comments Platelet Count (test code = 777-3) 309 140-360 [facility] blood segmented neutrophil count as percentage of total nvazdeuiry9720-08-90 18:40:00* Test Item Value Reference Range Interpretation Comments Neutrophils (%) (Auto) (test code = 90781-5) 35.9 38.7-80.0 [facility] HospitalAutanson community hospitaled blood lymphocyte count as percentage ot total twggblpkii6551-28-01 18:40:00* Test Item Value Reference Range Interpretation Comments Lymphocytes (%) (Auto) (test code = 736-9) 23.4 18.0-39.1 [facility] HospitalAutomated blood monocyte count as percentage of total itzhysyzje0026-51-13 18:40:00* Test Item Value Reference Range Interpretation Comments Monocytes (%) (Auto) (test code = 5905-5) 7.2 4.4-11.3 [facility] HospitalAutomated blood eosinophil count as percentage of total djyortgnna9713-10-64 18:40:00* Test Item Value Reference Range Interpretation Comments Eosinophils (%) (Auto) (test code = 713-8) 31.7 0.0-6.0 [facility] HospitalAutomated blood basophil count as percentage of total sxuazmhbac7504-70-97 18:40:00* Test Item Value Reference Range Interpretation Comments Basophils (%) (Auto) (test code = 706-2) 1.6 0.0-1.0 [facility] HospitalFluoroscopic procedure less than one hour bkjbugea2442-74-03 18:40:00* Test Item Value Reference Range Interpretation Comments IM GRANULOCYTES % (test code = IM GRANULOCYTES %) 0.2 0.0- 1.0 [facility] HospitalAutomated blood neutrophil count 2019-12-18 18:40:00* Test Item Value Reference Range Interpretation Comments Neutrophils # (Auto) (test code = 751-8) 2.3 2.1-6.9 [facility] HospitalBlood lymphocytes count (number/volume) 2019-12-18 18:40:00* Test Item Value Reference Range Interpretation Comments Lymphocytes # (Auto) (test code = 98292-9) 1.5 1.0-3.2 [facility] HospitalBlood monocytes automated count (number/volume)2019-12-18 18:40:00* Test Item Value Reference Range Interpretation Comments Monocytes # (Auto) (test code = 742-7) 0.5 0.2-0.8 [facility] HospitalAutomated blood eosinophil count 2019-12-18 18:40:00* Test Item Value Reference Range Interpretation Comments Eosinophils # (Auto) (test code = 711-2) 2.0 0.0-0.4 [facility] HospitalAutomated blood basophil count (count/volume)2019-12-18 18:40:00* Test Item Value Reference Range Interpretation Comments Basophils # (Auto) (test code = 704-7) 0.1 0.0-0.1 [facility] HospitalFluoroscopic procedure less than one hour itunchwa5858-67-15 18:40:00* Test Item Value Reference Range Interpretation Comments Absolute Immature Granulocyte (auto (lela t code = Absolute Immature Granulocyte (auto) 0.01 0-0.1 [facility] HospitalUrine color nliqjgfcziarr3379-72-39 18:40:00* Test Item Value Reference Range Interpretation Comments Urine Color (test code = 5778-6) YELLOW YELLOW [facility] HospitalUrine wsaigcp4449-36-83 18:40:00* Test Item Value Reference Range Interpretation Comments Urine Clarity (test code = 94791-0) CLEAR CLEAR [facility] Centerpecific gravity of Urine by Test strip 2019-12-18 18:40:00* Test Item Value Reference Range Interpretation Comments Urine Specific [place] (test code = 5811-5) 1.020 1.010-1.02 5 [facility] HospitalUrine pH measurement by automated test kjzrw8710-45-43 18:40:00* Test Item Value Reference Range Interpretation Comments Urine pH (test code = 88621-2) 6.5 5-7 [facility] HospitalUrine leukocyte esterase detection by qkoiwghm6827-96-98 18:40:00* Test Item Value Reference Range Interpretation Comments Urine Leukocyte Esterase (test code = 5799-2) NEGATIVE NEGATIVE [facility] HospitalUrine nitrite baisvwwmo8449-63-31 18:40:00* Test Item Value Reference Range Interpretation Comments Urine Nitrite (test code = 21391-9) NEGATIVE NEGATIVE [facility] HospitalUrine protein measurement by test strip (mass/volume)2019-12-18 18:40:00* Test Item Value Reference Range Interpretation Comments Urine Protein (test code = 5804-0) NEGATIVE NEGATIVE [facility] HospitalUrine glucose riexutvkg0278-73-73 18:40:00* Test Item Value Reference Range Interpretation Comments Urine Glucose (UA) (test code = 2349-9) NEGATIVE NEGATIVE [facility] HospitalUrine ketones detection by automated test eyaxs7900-55-17 18:40:00* Test Item Value Reference Range Interpretation Comments Urine Ketones (test code = 10581-8) NEGATIVE NEGATIVE [facility] HospitalUrine urobilinogen measurement by test strip (mass/volume)2019-12-18 18:40:00* Test Item Value Reference Range Interpretation Comments Urine Urobilinogen (test code = 03105-6) 0.2 0.2-1 [facility] HospitalUrine total bilirubin measurement (mass/volume)2019-12-18 18:40:00* Test Item Value Reference Range Interpretation Comments Urine Bilirubin (test code = 1978-6) NEGATIVE NEGATIVE [facility] HospitalUrine erythrocytes yvmysjgcy9489-59-67 18:40:00* Test Item Value Reference Range Interpretation Comments Urine Blood (test code = 32051-4) NEGATIVE NEGATIVE [facility] HospitalAutomated urine sediment leukocyte count by microscopy (number/high power field)2019-12-18 18:40:00* Test Item Value Reference Range Interpretation Comments Urine WBC (test code = 5821-4) 0-5 0-5 [facility] HospitalErythrocytes detection in urine sediment by light aduqdypyjk3601-47-35 18:40:00* Test Item Value Reference Range Interpretation Comments Urine RBC (test code = 52509-4) 0-5 0-5 [facility] HospitalBacteria detection in urine sediment by light jjkfbodlpc4063-56-43 18:40:00* Test Item Value Reference Range Interpretation Comments Urine Bacteria (test code = 38574-2) RARE NONE [facility] HospitalEpithelial cells detection in urine sediment by light uemhycmhff8968-64-79 18:40:00* Test Item Value Reference Range Interpretation Comments Urine Epithelial Cells (test code = 23834-9) FEW NONE [facility]ererum or plasma sodium measurement (moles/volume)2019-12-18 18:40:00* Test Item Value Reference Range Interpretation Comments Sodium Level (test code = 2951-2) 137 136-145 [facility]ererum or plasma potassium measurement (moles/volume)2019-12-18 18:40:00* Test Item Value Reference Range Interpretation Comments Potassium Level (test code = 2823-3) 4.2 3.5-5.1 [facility]ererum or plasma chloride measurement (moles/volume)2019-12-18 18:40:00* Test Item Value Reference Range Interpretation Comments Chloride Level (test code = 2075-0) 107 98-107 [facility] Centererum or plasma carbon dioxide, total measurement (moles/volume)2019-12-18 18:40:00* Test Item Value Reference Range Interpretation Comments Carbon Dioxide Level (test code = 2028-9) 20 22-29 [facility]ererum or plasma anion ngz8309-31-15 18:40:00* Test Item Value Reference Range Interpretation Comments Anion Gap (test code = 80465-7) 14.2 8-16 [facility]ererum or plasma urea nitrogen measurement (mass/volume)2019-12-18 18:40:00* Test Item Value Reference Range Interpretation Comments Blood Urea Nitrogen (test code = 3094-0) 11 7-26 [facility]ererum or plasma creatinine measurement (mass/volume)2019-12-18 18:40:00* Test Item Value Reference Range Interpretation Comments Creatinine (test code = 2160-0) 0.66 0.57-1.11 [facility]ererum or plasma urea nitrogen/creatinine mass jyyvw0211-58-87 18:40:00* Test Item Value Reference Range Interpretation Comments BUN/Creatinine Ratio (test code = 3097-3) 17 6-25 [facility] HospitalEstimated glomerular filtration rate (GFR) jijfcefxciiuf7052-41-60 18:40:00* Test Item Value Reference Range Interpretation Comments Estimat Glomerular Filtration Rate (test code = 960483844) > 60 >60 Ranges were taken from the National Kidney Disease Education Program and the [facility] [employer] literature.Reference ranges:60 or greater: Sefflp60-91 ( for 3 consecutive months): Chronic kidney disease 15 or less: Kidney failureMemorial Hermann Pearland HospitalGlucose gltkkbwxygo1881-53-10 18:40:00* Test Item Value Reference Range Interpretation Comments Glucose Level (test code = UOU4717) 89 74-118 [facility]ererum or plasma calcium measurement (mass/volume)2019-12-18 18:40:00* Test Item Value Reference Range Interpretation Comments Calcium Level (test code = 41360-6) 8.9 8.4-10.2 [facility]ererum or plasma total bilirubin measurement (mass/volume)2019-12-18 18:40:00* Test Item Value Reference Range Interpretation Comments Total Bilirubin (test code = 1975-2) 0.5 0.2-1.2 [facility] HospitalFluoroscopic procedure less than one hour hkqhvgdc4548-85-51 18:40:00* Test Item Value Reference Range Interpretation Comments Aspartate Amino Transf (AST/SGOT) (test code = Aspartate Amino Transf (AST/SGOT)) 19 5-34 [facility] Centererum or plasma alanine aminotransferase measurement (enzymatic activity/volume)2019-12-18 18:40:00* Test Item Value Reference Range Interpretation Comments Alanine Aminotransferase (ALT/SGPT) (test code = 1742-6) 15 0-55 [facility]ererum or plasma protein measurement (mass/volume)2019-12-18 18:40:00* Test Item Value Reference Range Interpretation Comments Total Protein (test code = 2885-2) 7.4 6.5-8.1 [facility]ererum or plasma albumin measurement (mass/volume)2019-12-18 18:40:00* Test Item Value Reference Range Interpretation Comments Albumin (test code = 1751-7) 3.7 3.5-5.0 [facility] HospitalPlasma globulin measurement (mass/volume) 2019-12-18 18:40:00* Test Item Value Reference Range Interpretation Comments Globulin (test code = 98110-0) 3.7 2.3-3.5 [facility]ererum or plasma albumin/globulin mass oyqlq7011-44-89 18:40:00* Test Item Value Reference Range Interpretation Comments Albumin/Globulin Ratio (test code = 1759-0) 1.0 0.8-2.0 [facility]ererum or plasma alkaline phosphatase measurement (enzymatic activity/volume)2019-12-18 18:40:00* Test Item Value Reference Range Interpretation Comments Alkaline Phosphatase (test code = 6768-6) 62 40-150 [facility] HospitalBlood leukocytes automated count (number/volume)2019-12-18 18:40:00* Test Item Value Reference Range Interpretation Comments White Blood Count (test code = 6690-2) 6.37 4.8-10.8 [facility] HospitalBlchildren[facility] [place] erythrocytes automated count (number/volume)2019-12-18 18:40:00* Test Item Value Reference Range Interpretation Comments Red Blood Count (test code = 789-8) 4.33 3.6-5.1 [facility] HospitalBlood hemoglobin measurement (moles/volume)2019-12-18 18:40:00* Test Item Value Reference Range Interpretation Comments Hemoglobin (test code = 85923-9) 11.9 12.0-16.0 [facility] HospitalAutomated blood hematocrit (volume fraction)2019-12-18 18:40:00* Test Item Value Reference Range Interpretation Comments Hematocrit (test code = 4544-3) 37.4 34.2-44.1 [facility] HospitalAutomated erythrocyte mean corpuscular mjiibn4125-09-16 18:40:00* Test Item Value Reference Range Interpretation Comments Mean Corpuscular Volume (test code = 787-2) 86.4 81-99 [facility] HospitalAutomated erythrocyte mean corpuscular hemoglobin (mass per erythrocyte)2019-12-18 18:40:00* Test Item Value Reference Range Interpretation Comments Mean Corpuscular Hemoglobin (test code = 785-6) 27.5 28-32 [facility] HospitalAutomated erythrocyte mean corpuscular hemoglobin concentration measurement (mass/volume)2019-12-18 18:40:00* Test Item Value Reference Range Interpretation Comments Mean Corpuscular Hemoglobin Concent (test code = 786-4) 31.8 31-35 [facility] HospitalRDW GfkMz-Kua4278-15-17 18:40:00* Test Item Value Reference Range Interpretation Comments Red Cell Distribution Width (test code = 12284-7) 16.2 11.7 -14.4 [facility] HospitalAutomated blood platelet count (count/volume)2019-12-18 18:40:00* Test Item Value Reference Range Interpretation Comments Platelet Count (test code = 777-3) 309 140-360 [facility] HospitalAutomated blood segmented neutrophil count as percentage of total eimcoxmjnr5445-03-93 18:40:00* Test Item Value Reference Range Interpretation Comments Neutrophils (%) (Auto) (test code = 13270-4) 35.9 38.7-80.0 [facility] HospitalAutomated blood lymphocyte count as percentage ot total rrorzlzpwq0969-86-08 18:40:00* Test Item Value Reference Range Interpretation Comments Lymphocytes (%) (Auto) (test code = 736-9) 23.4 18.0-39.1 [facility] HospitalAutomated blood monocyte count as percentage of total fcwvdvqpmr8892-79-30 18:40:00* Test Item Value Reference Range Interpretation Comments Monocytes (%) (Auto) (test code = 5905-5) 7.2 4.4-11.3 [facility] HospitalAutomated blood eosinophil count as percentage of total iqfyexnrvd9507-61-21 18:40:00* Test Item Value Reference Range Interpretation Comments Eosinophils (%) (Auto) (test code = 713-8) 31.7 0.0-6.0 [facility] HospitalAutomated blood basophil count as percentage of total jnckigfcwb5717-37-33 18:40:00* Test Item Value Reference Range Interpretation Comments Basophils (%) (Auto) (test code = 706-2) 1.6 0.0-1.0 [facility] HospitalFluoroscopic procedure less than one hour vwfwcaqc1504-00-43 18:40:00* Test Item Value Reference Range Interpretation Comments IM GRANULOCYTES % (test code = IM GRANULOCYTES %) 0.2 0.0- 1.0 [facility] HospitalAutomated blood neutrophil count 2019-12-18 18:40:00* Test Item Value Reference Range Interpretation Comments Neutrophils # (Auto) (test code = 751-8) 2.3 2.1-6.9 [facility] HospitalBlood lymphocytes count (number/volume) 2019-12-18 18:40:00* Test Item Value Reference Range Interpretation Comments Lymphocytes # (Auto) (test code = 19286-3) 1.5 1.0-3.2 [facility] HospitalBlood monocytes automated count (number/volume)2019-12-18 18:40:00* Test Item Value Reference Range Interpretation Comments Monocytes # (Auto) (test code = 742-7) 0.5 0.2-0.8 [facility] HospitalAutomated blood eosinophil count 2019-12-18 18:40:00* Test Item Value Reference Range Interpretation Comments Eosinophils # (Auto) (test code = 711-2) 2.0 0.0-0.4 [facility] HospitalAutomated blood basophil count (count/volume)2019-12-18 18:40:00* Test Item Value Reference Range Interpretation Comments Basophils # (Auto) (test code = 704-7) 0.1 0.0-0.1 [facility] HospitalFluoroscopic procedure less than one hour wxbcvmeb4247-25-93 18:40:00* Test Item Value Reference Range Interpretation Comments Absolute Immature Granulocyte (auto (lela t code = Absolute Immature Granulocyte (auto) 0.01 0-0.1 [facility] plasma sodium measurement (moles/volume)2019-12-18 18:40:00* Test Item Value Reference Range Interpretation Comments Sodium Level (test code = 2951-2) 137 136-145 [facility]ererum or plasma potassium measurement (moles/volume)2019-12-18 18:40:00* Test Item Value Reference Range Interpretation Comments Potassium Level (test code = 2823-3) 4.2 3.5-5.1 [facility]ererum or plasma chloride measurement (moles/volume)2019-12-18 18:40:00* Test Item Value Reference Range Interpretation Comments Chloride Level (test code = 2075-0) 107 98-107 [facility]ererum or plasma carbon dioxide, total measurement (moles/volume)2019-12-18 18:40:00* Test Item Value Reference Range Interpretation Comments Carbon Dioxide Level (test code = 2028-9) 20 22-29 [facility]ererum or plasma anion zqu7876-31-93 18:40:00* Test Item Value Reference Range Interpretation Comments Anion Gap (test code = 16792-9) 14.2 8-16 [facility]ererum or plasma urea nitrogen measurement (mass/volume)2019-12-18 18:40:00* Test Item Value Reference Range Interpretation Comments Blood Urea Nitrogen (test code = 3094-0) 11 7-26 [facility]ererum or plasma creatinine measurement (mass/volume)2019-12-18 18:40:00* Test Item Value Reference Range Interpretation Comments Creatinine (test code = 2160-0) 0.66 0.57-1.11 [facility]ererum or plasma urea nitrogen/creatinine mass gbilg8353-42-51 18:40:00* Test Item Value Reference Range Interpretation Comments BUN/Creatinine Ratio (test code = 3097-3) 17 6- [facility] HospitalEstimated glomerular filtration rate (GFR) ozauespcnejer8321-84-46 18:40:00* Test Item Value Reference Range Interpretation Comments Estimat Glomerular Filtration Rate (test code = 362700429) > 60 >60 Ranges were taken from the National Kidney Disease Education Program and the [facility] [employer] literature.Reference ranges:60 or greater: Fxahog60-98 ( for 3 consecutive months): Chronic kidney disease 15 or less: Kidney failureMemorial Hermann Pearland HospitalGlucose soudvxgrfkl2744-56-24 18:40:00* Test Item Value Reference Range Interpretation Comments Glucose Level (test code = DAS4821) 89 74-118 [facility]ere[facility] or plasma calcium measurement (mass/volume)2019-12-18 18:40:00* Test Item Value Reference Range Interpretation Comments Calcium Level (test code = 25463-0) 8.9 8.4-10.2 [facility]ererum or plasma total bilirubin measurement (mass/volume)2019-12-18 18:40:00* Test Item Value Reference Range Interpretation Comments Total Bilirubin (test code = 1975-2) 0.5 0.2-1.2 [facility] HospitalFluoroscopic procedure less than one hour zyufshmw7288-05-64 18:40:00* Test Item Value Reference Range Interpretation Comments Aspartate Amino Transf (AST/SGOT) (test code = Aspartate Amino Transf (AST/SGOT)) 19 5-34 [facility] Centererum or plasma alanine aminotransferase measurement (enzymatic activity/volume)2019-12-18 18:40:00* Test Item Value Reference Range Interpretation Comments Alanine Aminotransferase (ALT/SGPT) (test code = 1742-6) 15 0-55 [facility]ererum or plasma protein measurement (mass/volume)2019-12-18 18:40:00* Test Item Value Reference Range Interpretation Comments Total Protein (test code = 2885-2) 7.4 6.5-8.1 [facility]ererum or plasma albumin measurement (mass/volume)2019-12-18 18:40:00* Test Item Value Reference Range Interpretation Comments Albumin (test code = 1751-7) 3.7 3.5-5.0 [facility] HospitalPlasma globulin measurement (mass/volume) 2019-12-18 18:40:00* Test Item Value Reference Range Interpretation Comments Globulin (test code = 65256-4) 3.7 2.3-3.5 [facility]ererum or plasma albumin/globulin mass onnlk4166-49-21 18:40:00* Test Item Value Reference Range Interpretation Comments Albumin/Globulin Ratio (test code = 1759-0) 1.0 0.8-2.0 [facility]ere[facility] or plasma alkaline phosphatase measurement (enzymatic activity/volume)2019-12-18 18:40:00* Test Item Value Reference Range Interpretation Comments Alkaline Phosphatase (test code = 6768-6) 62 40-150 [facility] HospitalURINALYSIS JSIRWAMA2646-83-09 17:01:00* Test Item Value Reference Range Interpretation [...] HPF NONE Urine Source? Clean CatchUR HCG QOQC4334-26-05 17:01:00* Test Item Value Reference Range Interpretation Comments UR HCG QUAL (test code = HCGQLU) NEGATIVE This HCGQL test is NOT applicable for MALE patients.Check with nurse about probable order error.If Tumor Marker Test needed, nurse should order test "HCGTU"(Test #550.53838) Urine Source? Clean CatchURINALYSIS PKDDOWYO7458-71-74 16:55:00* Test Item Value Reference Range Interpretation [...] HPF NONE Urine Source? Clean CatchUR HCG URTN1123-68-58 16:55:00* Test Item Value Reference Range Interpretation Comments UR HCG QUAL (test code = HCGQLU) Urine Source? Clean CatchURINALYSIS WZDVQSEF4792-14-63 16:55:00* Test Item Value Reference Range Interpretation [...] HPF NONE Urine Source? Clean CatchUR HCG [id number] 16:55:00* Test Item Value Reference Range Interpretation Comments UR HCG QUAL (test code = HCGQLU) NEGATIVE This HCGQL test is NOT applicable for MALE patients.Check with nurse about probable order error.If Tumor Marker Test needed, nurse should order test "HCGTU"(Test #550.53460) Urine Source? Clean CatchURINALYSIS VBETWLIH7264-22-81 16:00:00* Test Item Value Reference Range Interpretation [...] per LPF NONE-FEW Urine Source? Clean CatchURINALYSIS ERIKNTWE0168-22-46 15:54:00* Test Item Value Reference Range Interpretation [...] BACU) per HPF NONE Urine Source? Clean LknwySTDGSHUAG4798-62-49 10:39:00* Test Item Value Reference Range Interpretation Comments MAGNESIUM (test code = MAG) 2.0 mg/dL 1.6-2.3 N COMPREHENSIVE METABOLIC GZIBG1375-29-24 10:22:00* Test Item Value Reference Range Interpretation [...] code = ALKP) 140 U/L 38-126 H HJWKBS8391-06-28 10:22:00* Test Item Value Reference Range Interpretation Comments LIPASE (test code = LIP) 60 U/L 128-270 L COMPREHENSIVE METABOLIC TQBFW1822-67-97 10:17:00* Test Item Value Reference Range Interpretation [...] TOTAL (test code = ALKP) IUnit/L 45-117 CTQKKY3812-90-57 10:17:00* Test Item Value Reference Range Interpretation Comments LIPASE (test code = LIP) Unit/L 144-286 URINALYSIS KLDTOKSR8249-00-59 10:08:00* Test Item Value Reference Range Interpretation [...] 0.0-0.2 UA NITRITE DIPSTICK (test code = AJYDON) NEGATIVE NEGATIVE UA LEUKOCYTE ESTERASE DIPSTICK (test [...] NONE A Urine Source? Clean CatchCBC W/AUTO APKI7880-34-10 10:01:00* Test Item Value Reference Range Interpretation [...] = MDIFF) NO - CT ABD PELVIS W/HKFH1335-71-30 19:01:00 Name: MERON MARTÍNEZ [facility] : 1970 Age/S: 48 / F [address] [facility] Unit #: [id number] Loc: [place] [address] Phys: Oliva Gonzalez MD Acct: [id number] Dis Date: Status: REG ER PHONE #: [phone] Exam Date: 10/08/2019 1828 FAX #: [phone] Reason: LLQ abd pain EXAMS: CPT CODE: [id number] CT ABD PELVIS W/CONT 13307 REASON FOR EXAM: LLQ abd pain EXAM [...] 1 Signed Report (CONTINUED) Name: MERON MARTÍNEZ [facility] : 1970 Age/S: 48 / F [address] [facility] Unit #: [id number] Loc: [place], [place] [address] Phys: Oliva Gonzalez MD Acct: [id number] Dis Date: Status: REG ER PHONE #: [phone] Exam Date: 02/2020 1828 FAX #: [phone] Reason: LLQ abd pain EXAMS: CPT CODE: [id number] CT ABD PELVIS W/CONT 77069 <Continued> fat in the peripancreatic region. However [...] of the left kidney. Location: [facility] at 190 Reported and signed by: Cecil Moses MD [...] code = ALKP) 128 U/L 38-126 H TVVAPN6789-23-22 17:50:00* Test Item Value Reference Range Interpretation Comments LIPASE (test code = LIP) 84 U/L 128-270 L COMPREHENSIVE METABOLIC KWQQZ3237-12-88 17:45:00* Test Item Value Reference Range Interpretation [...] TOTAL (test code = ALKP) IUnit/L 45-117 HKNYTZ3291-77-54 17:45:00* Test Item Value Reference Range Interpretation Comments LIPASE (test code = LIP) Unit/L 144-286 CBC W/AUTO [id number] 17:37:00* Test Item Value Reference Range Interpretation [...] REQUIRED (test code = MDIFF) NO URINALYSIS DQQDAYMP2039-52-31 17:12:00* Test Item Value Reference Range Interpretation [...] NONE A Urine Source? Clean CatchUR HCG [id number] 17:12:00* Test Item Value Reference Range Interpretation Comments UR HCG QUAL (test code = HCGQLU) NEGATIVE This HCGQL test is NOT applicable for MALE patients.Check with nurse about probable order error.If Tumor Marker Test needed, nurse should order test "HCGTU"(Test #550.25770) Urine Source? Clean CatchUTERUS,OTHER THAN PROLAPSE/RQS7012-86-14 18:51:00 RUN DATE: 09/29/19 [facility] PAGE 1 RUN TIME: 112 Specimen Inqui ry RUN USER: INTERFACE PATIENT: MERON MARTÍNEZ ACCT #: [id number] [facility] [place] [id number] AGE/SX: 48/F ROOM: [facility] RE09/27/19REG DR: Kim Cook MD : 66 BED: A DIS: 09/28/19 STATUS: DIS Peter TLOC: SPEC #: [id number] RECD: 09/27/19 STATUS: BAY REMarilee #: [id number] HANNAH: 09/27/19- SUBM DR: Kim Cook MD ENTERED: 09/27/19 SP TYPE: UTERUSOTH OTHR DR: ORDERED: LEVEL V SURGICA CODES: [id number] - UTERUS, NOS PROCEDURES: LEV EL V [...] with paratubal cyst CPT code(s): 883 07 [facility] 09/28/19 GROSS DESCRIPTION ANATOMIC SOURCE OF [...] measures 3.5 cm. The entire cervix and cordage sales representative sections of the lower uterine segment are castro bmitted in A1 through A3 - anterior and A4 through A6 - posterior. The end ometrium measures 0.1 cm. The myometrium measures 4 cm and contains guillermo, whit e, firm nodules measuring up to 3.5 cm with no identifiable degenerative change on the cut surfaces. Wood Repatcher sections are submitted in A7 and A8. CONTINUED ON NEXT PAGE RUN DA TE: 09/29/19 [facility] PAG E 2 RUN TIME: 1124 Specimen Inquiry RUN USER: INTERFACE SPEC #: [id number] PATIENT: MERON MARTÍNEZ #[id number] (Continued) GROSS DESCRIPTION (Contin ued) The first [...] the tube are submitt ed in A10. leora/kathy 09/27/19 Signed __ Mindi Okeefe MD 09/28/19 1851 END OF REPORT CHEMISTRY 7 [id number] 07:09:00* Test Item Value Reference Range Interpretation [...] CA) 8.3 mg/dL 8.4-10.2 L CBC W/AUTO [id number] 06:41:00* Test Item Value Reference Range Interpretation [...] = PLTMR) NORMAL MISTI L UR HCG [id number] 08:55:00* Test Item Value Reference Range Interpretation Comments UR HCG QUAL (test code = HCGQLU) NEGATIVE 1. Very dilute urine specimens, as indicated by a lowspecific gravity, may not contain cordage sales representative levels ofhCG. 2. False negative results may occur when the levels of hCGare below the sensitivity level of the test. If is still suspected, a first morningurine specimen should be collected 48 hours later andtested. CHEMISTRY 7 [id number] 15:43:00* Test Item Value Reference Range Interpretation [...] CA) 8.9 mg/dL 8.4-10.2 N CBC W/AUTO [id number] 15:25:00* Test Item Value Reference Range Interpretation [...] = PLTMR) NORMAL MISTI L UR HCG [id number] 15:23:00* Test Item Value Reference Range Interpretation Comments UR HCG QUAL (test code = HCGQLU) NEGATIVE 1. Very dilute urine specimens, as indicated by a lowspecific gravity, may not contain cordage sales representative levels ofhCG. 2. False negative results may occur when the levels of hCGare below the sensitivity level of the test. If is still suspected, a first morningurine specimen should be collected 48 hours later andtested. URINALYSIS [id number] 12:35:00* Test Item Value Reference Range Interpretation [...] LPF NONE-FEW A Urine Source? Clean CatchURINALYSIS [id number] 12:29:00* Test Item Value Reference Range Interpretation [...] HPF NONE Urine Source? Clean CatchCHEST 2 [id number] 10:29:00 [place] [address] Patient Name: MERON MARTÍNEZ MR #: [id number] : Age/Sex: 48/F Req #: [id number] Adm Physician: Ordered by: ANNE BATES MD Report #: [id number] Location: OR Room/Bed: Procedure: 0103-0 019 DX/CHEST [...] MD Serum or plasma choriogonadotropin ( test) ezfumismw4537-66-61 08:30:00* Test Item Value Reference Range Interpretation Comments Human Chorionic Gonadotropin, Qual (test code = 2118-8) NEGATIVE NEGATIVE [facility] HospitalHIV 1 and 2 antibody detection qualitative by rapid vuonpvdcgkn7449-60-07 08:30:00* Test Item Value Reference Range Interpretation Comments HIV (1&2) Antibody (test code = 74707-3) NON-REACTIVE NONREACTIVE [facility] HospitalFluoroscopic procedure less than one hour iibypssv4990-47-32 08:30:00* Test Item Value Reference Range Interpretation Comments HIV P24 Antigen (test code = HIV P24 Antigen) REACTIVE NONREA CTIVE Results called to LESLIE ART at 1213 on 08/05/19 by William Brody. RB [place].[facility]ererum or plasma hepatitis A virus IgM antibody detection by bhpctiiipta4275-18-82 08:30:00* Test Item Value Reference Range Interpretation Comments Hepatitis A IgM Antibody (test code = 08568-0) Negative Negativ e [facility]ererum or plasma hepatitis B virus surface antigen detection by lthmwceqnlh0572-84-18 08:30:00* Test Item Value Reference Range Interpretation Comments Hepatitis B Surface Antigen (test code = 5196-1) Negative Negat thai [facility]ererum or plasma hepatitis B virus core IgM antibody detection by qhzvsuhdqtt9261-11-49 08:30:00* Test Item Value Reference Range Interpretation Comments Hepatitis B Core IgM Antibody (test code = 33342-9) Negative Ne gative [facility] Centererum hepatitis C virus antibody qisqxegdj0663-48-76 08:30:00* Test Item Value Reference Range Interpretation Comments Hepatitis C Antibody (test code = 83765-5) <0.1 0.0-0.9 Negative: < 0.8 Indeterminate: 0.8 - 0.9 Positive: > 0.9 The CDC recommends that a positive HCV antibody result be followed up with a HCV Nucleic Acid Amplification test (447822).Performed at: [facility] [address] [place], [place] [id number] Director: Simon Dash MD, Phone: [phone] Hermann Pearland HospitalHIV-2 antibody detection by enzyme scgipaiijqg5877-67-15 08:30:00* Test Item Value Reference Range Interpretation Comments HIV-2 Antibody (EIA) (test code = 54366-3) Negative Interpretation:A repeatedly reactive HIV-2 result may [...] show the presence of HIV-2 specific viral bands.[facility] HospitalHIV RNA johvs8881-69-96 08:30:00* Test Item Value Reference Range Interpretation Comments HIV-1 RNA, Qualitative (TMA) (test code = 693296069) Negative N egative Negative for HIV-1 RNAPerformed at: [address] [id number] Director: Norma Canas MD, Phone: [phone] Medical Centererum or plasma choriogonadotropin ( test) iyoybyfcf6517-96-21 08:30:00* Test Item Value Reference Range Interpretation Comments Human Chorionic Gonadotropin, Qual (test code = 2118-8) NEGATIVE NEGATIVE [facility] HospitalHIV 1 and 2 antibody detection qualitative by rapid klqtcqutwna9034-32-27 08:30:00* Test Item Value Reference Range Interpretation Comments HIV (1&2) Antibody (test code = 86830-8) NON-REACTIVE NONREACTIVE [facility] HospitalFluoroscopic procedure less than one hour amednitp0881-46-83 08:30:00* Test Item Value Reference Range Interpretation Comments HIV P24 Antigen (test code = HIV P24 Antigen) REACTIVE NONREA CTIVE Results called to LESLIE ART at 1213 on 08/05/19 by William Brody. RB [place].[facility] Centererum or plasma hepatitis A virus IgM antibody detection by iqooxzsehjo9910-99-66 08:30:00* Test Item Value Reference Range Interpretation Comments Hepatitis A IgM Antibody (test code = 70728-3) Negative Negativ e [facility]ererum or plasma hepatitis B virus surface antigen detection by sbdugwllsqu9871-02-27 08:30:00* Test Item Value Reference Range Interpretation Comments Hepatitis B Surface Antigen (test code = 5196-1) Negative Negat thai [facility] Centererum or plasma hepatitis B virus core IgM antibody detection by ymmsqspvlaf6551-36-15 08:30:00* Test Item Value Reference Range Interpretation Comments Hepatitis B Core IgM Antibody (test code = 93280-4) Negative Ne gative [facility] Centererum hepatitis C virus antibody jjdwdivqw0155-07-21 08:30:00* Test Item Value Reference Range Interpretation Comments Hepatitis C Antibody (test code = 93017-3) <0.1 0.0-0.9 Negative: < 0.8 Indeterminate: 0.8 - 0.9 Positive: > 0.9 The CDC recommends that a positive HCV antibody result be followed up with a HCV Nucleic Acid Amplification test (348489).Performed at: [facility] [address] [place], [place] [id number] Director: Simon Dash MD, Phone: [phone] Hermann Pearland HospitalHIV-2 antibody detection by enzyme zfooxivosbd1825-76-03 08:30:00* Test Item Value Reference Range Interpretation Comments HIV-2 Antibody (EIA) (test code = 09919-9) Negative Interpretation:A repeatedly reactive HIV-2 result may [...] show the presence of HIV-2 specific viral bands.[facility] HospitalHIV RNA rqvca7621-32-90 08:30:00* Test Item Value Reference Range Interpretation Comments HIV-1 RNA, Qualitative (TMA) (test code = 220467584) Negative N egative Negative for HIV-1 RNAPerformed at: [facility] LabCoNewark Beth Israel Medical CenterUhtdbhbzgx[address] [place], [place] [id number] Director: Norma Canas MD, Phone: [phone] Medical Centererum or plasma choriogonadotropin ( test) tnfqaszjm5535-53-07 08:30:00* Test Item Value Reference Range Interpretation Comments Human Chorionic Gonadotropin, Qual (test code = 2118-8) NEGATIVE NEGATIVE [facility] HospitalHIV 1 and 2 antibody detection qualitative by rapid lrpnnfztgzs7660-39-33 08:30:00* Test Item Value Reference Range Interpretation Comments HIV (1&2) Antibody (test code = 94717-5) NON-REACTIVE NONREACTIVE [facility] HospitalFluoroscopic procedure less than one hour ficprzzy2722-61-55 08:30:00* Test Item Value Reference Range Interpretation Comments HIV P24 Antigen (test code = HIV P24 Antigen) REACTIVE NONREA CTIVE Results called to LESLIE ART at 1213 on 08/05/19 by William Brody. RB [place].[facility] Centererum or plasma hepatitis A virus IgM antibody detection by wigypsrssuu8942-10-71 08:30:00* Test Item Value Reference Range Interpretation Comments Hepatitis A IgM Antibody (test code = 98619-1) Negative Negativ e [facility] Centererum or plasma hepatitis B virus surface antigen detection by hnygyhksotk2814-06-95 08:30:00* Test Item Value Reference Range Interpretation Comments Hepatitis B Surface Antigen (test code = 5196-1) Negative Negat thai [facility] Centererum or plasma hepatitis B virus core IgM antibody detection by wcdyezttbwa9292-71-50 08:30:00* Test Item Value Reference Range Interpretation Comments Hepatitis B Core IgM Antibody (test code = 40560-5) Negative Ne gative [facility] Centererum hepatitis C virus antibody jlbzmbbcv7829-82-91 08:30:00* Test Item Value Reference Range Interpretation Comments Hepatitis C Antibody (test code = 34150-0) <0.1 0.0-0.9 Negative: < 0.8 Indeterminate: 0.8 - 0.9 Positive: > 0.9 The CDC recommends that a positive HCV antibody result be followed up with a HCV Nucleic Acid Amplification test (465622).Performed at: - LabOhio[facility] [address] [place], [place] [id number] Director: Simon Dash MD, Phone: [phone] Hermann Pearland HospitalHIV-2 antibody detection by enzyme wxwocgexsbz6859-32-72 08:30:00* Test Item Value Reference Range Interpretation Comments HIV-2 Antibody (EIA) (test code = 59992-6) Negative Interpretation:A repeatedly reactive HIV-2 result may [...] show the presence of HIV-2 specific viral bands.[facility] HospitalHIV RNA byptk5990-06-45 08:30:00* Test Item Value Reference Range Interpretation Comments HIV-1 RNA, Qualitative (TMA) (test code = 212824940) Negative N egative Negative for HIV-1 RNAPerformed at: [facility] LabSt. [facility] [place] [id number] Director: Norma Canas MD, Phone: [phone] Hermann Pearland HospitalBASIC METABOLIC ZNZSC2826-93-98 09:02:00* Test Item Value Reference Range Interpretation [...] CA) 7.8 mg/dL 8.5-10.1 L CBC W/AUTO RQCW7898-90-17 07:20:00* Test Item Value Reference Range Interpretation [...] K/mm3 0.0-0.1 N - CT ABD PELVIS W/GASJ5403-70-83 14:17:00 Name: MERON MARTÍNEZ [facility] : 1970 Age/S: 48 / F [address] [facility] Unit #: [id number] Loc: [place] [address] Phys: Liz Terry MD Acct: [id number] Dis Date: Status: REG ER PHONE #: [phone] Exam Date: 07/26/2019 1332 FAX #: [phone] Reason: lower abdominal pain EXAMS: CPT CODE: [id number] CT ABD PELVIS W/CONT 44661 REASON FOR EXAM: lower abdominal pain EXAM [...] 1 Signed Report (CONTINUED) Name: MERON MARTÍNEZ [facility] : 1970 Age/S: 48 / F [address] [facility] Unit #: [id number] Loc: [place] [address] Phys: Liz Terry MD Acct: [id number] Dis Date: Status: REG ER PHONE #: [phone] Exam Date: 07/26/2019 1332 FAX #: [phone] Reason: lower abdominal pain EXAMS: CPT CODE: [id number] CT ABD PELVIS W/CONT 42604 < Continued> Abdominal vascular structures: Normal Peritoneum [...] Moses MD CC: Liz Terry MD Technologist:Shraddha Aviles CTDI: DLP: Trnscb Date/Time: 07/26/2019 (141) t.SDR.RR31 Orig Print D/T: S: 07/26/2019 (6025) PAGE 2 Signed Report URINALYSIS [id number] 12:21:00* Test Item Value Reference Range Interpretation [...] NONE-FEW A Urine Source? Clean CatchBASIC METABOLIC [id number] 12:17:00* Test Item Value Reference Range Interpretation [...] CA) 8.8 mg/dL 8.4-10.2 N HEPATIC FUNCTION [id number] 12:17:00* Test Item Value Reference Range Interpretation [...] code = ALKP) 66 U/L 38-126 N [id number] 12:17:00* Test Item Value Reference Range Interpretation Comments LIPASE (test code = LIP) 106 U/L 128-270 L HCG SERUM [id number] 12:17:00* Test Item Value Reference Range Interpretation Comments HCG SERUM QUAL (test code = HCGQL) NEGATIVE NEGATIVE This HCGQL test is NOT applicable for MALE patients.Check with nurse about probable order error.If Tumor Marker Test needed, nurse should order test "HCGTU"(Test #550.22813) URINALYSIS [id number] 12:14:00* Test Item Value Reference Range Interpretation [...] HPF NONE Urine Source? Clean CatchBASIC METABOLIC [id number] 11:56:00* Test Item Value Reference Range Interpretation [...] CA) 8.8 mg/dL 8.4-10.2 N HEPATIC FUNCTION [id number] 11:56:00* Test Item Value Reference Range Interpretation [...] TOTAL (test code = ALKP) IUnit/L 45-117 [id number] 11:56:00* Test Item Value Reference Range Interpretation Comments LIPASE (test code = LIP) Unit/L 144-286 HCG SERUM [id number] 11:56:00* Test Item Value Reference Range Interpretation Comments HCG SERUM QUAL (test code = HCGQL) NEGATIVE NEGATIVE This HCGQL test is NOT applicable for MALE patients.Check with nurse about probable order error.If Tumor Marker Test needed, nurse should order test "HCGTU"(Test #550.25983) CBC W/O [id number] 11:53:00* Test Item Value Reference Range Interpretation [...] MPV) 9.2 fL 6.7-11.0 N BASIC METABOLIC [id number] 11:53:00* Test Item Value Reference Range Interpretation [...] CA) 8.8 mg/dL 8.4-10.2 N HEPATIC FUNCTION [id number] 11:53:00* Test Item Value Reference Range Interpretation [...] TOTAL (test code = ALKP) IUnit/L 45-117 [id number] 11:53:00* Test Item Value Reference Range Interpretation Comments LIPASE (test code = LIP) Unit/L 144-286 HCG SERUM [id number] 11:53:00* Test Item Value Reference Range Interpretation Comments HCG SERUM QUAL (test code = HCGQL) NEGATIVE URINALYSIS [id number] 09:51:00* Test Item Value Reference Range Interpretation [...] NONE A Urine Source? Clean CatchUR HCG [id number] 09:51:00* Test Item Value Reference Range Interpretation Comments UR HCG QUAL (test code = HCGQLU) NEGATIVE This HCGQL test is NOT applicable for MALE patients.Check with nurse about probable order error.If Tumor Marker Test needed, nurse should order test "HCGTU"(Test #550.64153) Urine Source? Clean CatchURINALYSIS [id number] 09:30:00* Test Item Value Reference Range Interpretation [...] HPF NONE Urine Source? Clean CatchUR HCG [id number] 09:30:00* Test Item Value Reference Range Interpretation Comments UR HCG QUAL (test code = HCGQLU) Urine Source? Clean CatchURINALYSIS [id number] 13:03:00* Test Item Value Reference Range Interpretation [...] LPF NONE-FEW A Urine Source? Clean CatchURINALYSIS [id number] 12:57:00* Test Item Value Reference Range Interpretation [...] HPF NONE Urine Source? Clean CatchBASIC METABOLIC [id number] 14:53:00* Test Item Value Reference Range Interpretation [...] CA) 8.5 mg/dL 8.0-10.5 N BASIC METABOLIC [id number] 14:48:00* Test Item Value Reference Range Interpretation [...] 8.0-10.5 N UA RFLX MICR CULT IF [id number] 14:46:00* Test Item Value Reference Range Interpretation [...] culture: Suprapubic PainSpecimen Description: CLEAN CATCHUR HCG [id number] 14:42:00* Test Item Value Reference Range Interpretation Comments UR HCG QUAL (test code = HCGQLU) NEGATIVE NEGATIVE CBC W/AUTO [id number] 14:39:00* Test Item Value Reference Range Interpretation [...] REQUIRED (test code = MDIFF) NO URINALYSIS [id number] 09:46:00* Test Item Value Reference Range Interpretation [...] BACU) FEW per HPF NONE URINALYSIS W/O [id number] 09:46:00* Test Item Value Reference Range Interpretation Comments UA MICROSCOPIC NEEDED? (test code = UAMICRO) YES URINALYSIS [id number] 09:38:00* Test Item Value Reference Range Interpretation [...] = BACU) per HPF NONE URINALYSIS W/O [id number] 09:38:00* Test Item Value Reference Range Interpretation Comments UA MICROSCOPIC NEEDED? (test code = UAMICRO) URINALYSIS [id number] 09:38:00* Test Item Value Reference Range Interpretation [...] = BACU) per HPF NONE URINALYSIS W/O [id number] 09:38:00* Test Item Value Reference Range Interpretation Comments UA MICROSCOPIC NEEDED? (test code = UAMICRO) B-TYPE NATRIURETIC [id number] 17:30:00* Test Item Value Reference Range Interpretation Comments B-TYPE NATRIURETIC PEPTIDE (test code = BNP) 15.1 pg/mL 0-100 N [id number] 17:23:00* Test Item Value Reference Range Interpretation Comments D-DIMER (test code = DDIMER) < 100 ng/ml < 600 COMPREHENSIVE METABOLIC [id number] 17:21:00* Test Item Value Reference Range Interpretation [...] code = ALKP) 72 U/L 38-126 N [id number] 17:21:00* Test Item Value Reference Range Interpretation Comments TROPONIN-I (test code = TROPI) <0.015 ng/mL 0.00-0.056 N COMPREHENSIVE METABOLIC [id number] 17:13:00* Test Item Value Reference Range Interpretation [...] TOTAL (test code = ALKP) IUnit/L 45-117 [id number] 17:13:00* Test Item Value Reference Range Interpretation Comments TROPONIN-I (test code = TROPI) ng/mL 0-0.045 CBC W/AUTO [id number] 17:09:00* Test Item Value Reference Range Interpretation [...] = MDIFF) NO - XR CHEST 1 [id number] 16:53:00 Name: MERON MARTÍNEZ [facility] : 1970 Age/S:48 /F [address] [place] [address] Unit#:[id number] Loc: [place] [address] Phys: Marco Patterson MD Dis Date: PHONE #: [phone] Status: REG ER FAX #: [phone] Exam Date: 03/01/2019 Reason: sob EXAMS: CPT CODE: [id number] XR CHEST 1 V 51854 REASON FOR EXAM: sob EXAM ORDER DATE: 03/01/2019 4:16 PM Ordering MRaheel: Marco Patterson MD PROCEDURE: - XR CHEST 1 V COMPARISON: FINDINGS: Portable AP frontal view of the chest obtained at 4:31 PM shows clear lungs without evidence of consolidation. There is no evidence of effusion. The heart size is within normal limits. Pulmonary vasculatures are unremarkable. IMPRESSION: No active disease. at 7964 Reported and signed by: Kelvin Cole M.D. CC: Marco Son MD Technologist: Shraddha Aviles Trnscrpt Data: 03/01/2019 (1758) t.ARGENSI. GERTRUDEL Orig Print D/T: S: 03/01/2019 (4942) PAGE 1 Signed Report - CT ABD PELVIS W/O [id number] 15:35:00 Name: MERON MARTÍNEZ [facility] : 1970 Age/S: 48 / F [address] [place] [address] Unit #: [id number] Loc: [place] [address] Phys: Marco Patterson MD Acct: [id number] Dis Date: Status: REG ER PHONE #: [phone] Exam Date: 02/28/2019 1517 FAX #: [phone] Reason: left side abd pain EXAMS: CPT CODE: [id number] CT ABD PELVIS W/O CONT 45953 REASON FOR EXAM: left side abd pain EXAM ORDER DATE: 02/28/2019 2:46 PM Ordering Dani: Marco Patterson MD PROCEDURE: - CT ABD PELVIS [...] and signed by: Susanne Cole M.D. CC: Marco Patterson MD echnologist:Shraddha Aviles CTDI: DLP: Trnscb Date /Time: 02/28/2019 (2227) Laure.VTL PAGE 1 Signed Report COMPREHENSIVE METABOLIC [id number] 15:14:00* Test Item Value Reference Range Interpretation [...] code = ALKP) 74 U/L 38-126 N [id number] 15:14:00* Test Item Value Reference Range Interpretation Comments LIPASE (test code = LIP) 82 U/L 128-270 L COMPREHENSIVE METABOLIC [id number] 15:06:00* Test Item Value Reference Range Interpretation [...] TOTAL (test code = ALKP) IUnit/L 45-117 [id number] 15:06:00* Test Item Value Reference Range Interpretation Comments LIPASE (test code = LIP) Unit/L 144-286 CBC W/AUTO [id number] 14:56:00* Test Item Value Reference Range Interpretation [...] (test code = MDIFF) NO URINALYSIS W/O [id number] 14:50:00* Test Item Value Reference Range Interpretation [...] = LEUUR) NEGATIVE NEG ATIVE URINALYSIS W/O [id number] 14:49:00* Test Item Value Reference Range Interpretation [...] NEG ATIVE - XR KNEE 3 V [id number] 14:17:00 [facility] 1970 Age/S:48 /F [address] [facility] Unit#:[id number] Loc: [place] [address] Phys: Isabella Perry NP Dis Date: PHONE #: [phone] Status: REG ER FAX #: [phone] Exam Date: 12/25/2018 Reason: hypererxtension right knee EXAMS: CPT CODE: [id number] XR KNEE 3 V RT 32348 REASON FOR EXAM: hypererxtension right knee EXAM [...] is intact IMPRESSION: Unremarkable right knee at 1417 Reported and signed by: Kelvin Cole M.D. CC: Russell Espinoza MD Technologist: Shraddha [place] per Trnscrpt Data: 12/25/2018 (1417) Anusha Orig Print D/T: S: 12/25/2018 (8494) PAGE 1 Signed Report - XR TIBIA/FIBULA 2 V [id number] 14:12:00 Name: MERON MARTÍNEZ JOSHUA [facility] : 1970 Age/S:48 /F [address] [facility] Unit#:[id number] Loc: [place] [address] Phys: Isabella Perry NP Dis Date: PHONE #: [phone] Status: REG ER FAX #: [phone] Exam Date: 12/25/2018 Reason: hypererxtension right knee EXAMS: CPT CODE: [id number] XR TIBIA/FIBULA 2 V RT 17068 REASON FOR EXAM: hypererxtension right knee EXAM ORDER DATE: 12/25/2018 1:52 PM Ordering Dani: Isabella Perry NP PROCEDURE: - XR TIBIA/FIBULA [...] CC: Russell Espinoza MD Technologist: Shraddha Winn [facility] Data: 12/25/2018 (1412) t.YOELR.VTL Orig Print D/T : S: 12/25/2018 (5245) PAGE 1 Sig lisbeth Report URINALYSIS [id number] 06:31:00 * Test Item Value Reference Range [...] DERIAN) FEW per HPF NONE A URINALYSIS [id number] 06:24:00* Test Item Value Reference Range Interpretation [...] = BACU) per HPF NONE URINALYSIS W/O [id number] 06:24:00* Test Item Value Reference Range Interpretation Comments UA LEUKOCYTE ESTERASE W REFLEX (test code = LEUUR) NEG ATIVE URINALYSIS [id number] 06:24:00* Test Item Value Reference Range Interpretation [...] = BACU) per HPF NONE URINALYSIS W/O [id number] 06:24:00* Test Item Value Reference Range Interpretation Comments UA LEUKOCYTE ESTERASE W REFLEX (test code = LEUUR) NEG ATIVE URINALYSIS [id number] 10:05:00* Test Item Value Reference Range Interpretation [...] BACU) FEW per HPF NONE URINALYSIS W/O [id number] 10:05:00* Test Item Value Reference Range Interpretation Comments UA MICROSCOPIC NEEDED? (test code = UAMICRO) YES URINALYSIS [id number] 09:59:00* Test Item Value Reference Range Interpretation [...] = BACU) per HPF NONE URINALYSIS W/O [id number] 09:59:00* Test Item Value Reference Range Interpretation Comments UA MICROSCOPIC NEEDED? (test code = UAMICRO) URINALYSIS [id number] 09:59:00* Test Item Value Reference Range Interpretation [...] = BACU) per HPF NONE URINALYSIS W/O [id number] 09:59:00* Test Item Value Reference Range Interpretation Comments UA MICROSCOPIC NEEDED? (test code = UAMICRO)
== END 2020-03-07 00:30 | disposition home or self-care (01) ==
LOC: ER 23:19
DX: T36.8X5A Adverse effect of other systemic antibiotics, initial encounter (principal); F41.9 Anxiety disorder, unspecified; K21.9 Gastro-esophageal reflux disease without esophagitis; K58.9 Irritable bowel syndrome, unspecified
CPT/HCPCS: 99282

== ENCOUNTER 2020-04-06 18:52 | Emergency (ER) | payer SELFPAY ==
[~2020-04-06] VITALS: Ht 139.7 cm; Wt 45.4 kg
--- NOTE | 2020-04-06 19:05 | Emergency Department Note ---
History of Present Illnes History of Present Illness Chief Complaint: COVID PUI History of Present Illness This is a 49 year old female presents to the ED for chest pain secondary to panic attack and SOB since 0800 today. Patient seen at bedside NAD . Arrival Mode: Car Agricultural Inspector Required: No Onset (how long ago): hour(s) Radiation: Reports non-radiation Severity: mild Onset quality: gradual Duration (how long): hour(s) Timing of current episode: constant Progression: unchanged Chronicity: new Context: Denies recent illness, Denies recent surgery, Denies recent immobil ization, Denies recent travel, Denies trauma/injury, Denies new medications, Denies hx of DVT/PE, Denies non-compliance w/ medications, Denies other Associated symptoms: Denies denies other symptoms, Denies confusion, Denies chest pain, Denies cough, Denies diaphoresis, Denies fever/chills, Denies headaches, Denies loss of appetite, Denies malaise, Denies nausea/vomiting, Denies rash, Denies seizure, Denies shortness of breath, Denies syncope, Denies weakness, Denies other Past Medical/Family History Physician Review I have reviewed the patient's past medical and family history. Any updates have been documented here. Past Medical History Recent Fever: No Clinical Suspicion of Infectio: No New/Unexplained Change in Ment: No Past Medical History: UTI's, Anxiety, GERD Other Medical History: IBS Past Surgical History: Hysterectomy Social History Smoking Cessation: Never Smoker Alcohol Use: None Any Illegal Drug Use: No Other Last Tetanus: UNK Review of Systems Review of Systems Constitutional: Reports no symptoms EENTM: Reports no symptoms Cardiovascular: Reports no symptoms Respiratory: Reports no symptoms Gastrointestinal: Reports no symptoms Genitourinary: Reports no symptoms Musculoskeletal: Reports no symptoms Integumentary: Reports no symptoms Neurological: Reports no symptoms Psychological: Reports no symptoms Endocrine: Reports no symptoms Hematological/Lymphatic: Reports no symptoms Physical Exam Related Data Allergies: Coded Allergies: amoxicillin (Verified Allergy, Severe, HEART RACE, 08/05/19) ciprofloxacin (Verified Allergy, Severe, HEART RACE, 08/05/19) clavulanic acid (Verified Allergy, Severe, HEART RACE, 08/05/19) diazepam (Verified Allergy, Severe, ANXIOUS, 08/05/19) hydromorphone (Verified Allergy, Severe, ITCHING, 08/05/19) morphine (Verified Allergy, Severe, 08/05/19) PT REPORTS SHE "CAN'T BREATH" WHEN THIS MEDICATION WAS GIVEN nitrofurantoin (Verified Allergy, Intermediate, 03/07/20) escitalopram (Verified Allergy, Unknown, 08/05/19) levofloxacin (Verified Allergy, Unknown, 08/05/19) Triage Vital Signs Vital Signs Date Time Temp Pulse Resp B/P (MAP) Pulse Ox O2 Delivery O2 Flow Rate FiO2 04/06/20 18:56 97.9 93 18 122/77 100 Room Air Vital signs reviewed: Yes Physical Exam CONSTITUTIONAL Constitutional: Present well-developed, Present well-nourished HENT HENT: Present normocephalic, Present atraumatic, Present oropharynx clear/moist, Present nose normal HENT L/R: Present left ext ear normal, Present right ext ear normal EYES Eyes: Reports PERRL, Reports conjunctivae normal NECK Neck: Present ROM normal PULMONARY Pulmonary: Present effort normal, Present breath sounds normal CARDIOVASCULAR Cardiovascular: Present regular rhythm, Present heart sounds normal, Present capillary refill normal, Present normal rate GASTROINTESTINAL Abdominal: Present soft, Present nontender, Present bowel sounds normal GENITOURINARY Genitourinary: Present exam deferred SKIN Skin: Present warm, Present dry MUSCULOSKELETAL Musculoskeletal: Present ROM normal NEUROLOGICAL Neurological: Present alert, Present oriented x 3, Present no gross motor or sensory deficits PSYCHOLOGICAL Psychological: Present mood/affect normal, Present judgement normal Procedures 12 Lead ECG Interpretation ECG Interpretation : ECG: ECG 1 Agricultural Inspector: Interpreted by ED physician Date: Apr 06, 2020 Time: 19:09 Prior ECG tracings: reviewed Rhythm: sinus tachycardia Rate: normal BPM: 84 QRS axis: normal ST segments normal: Yes T waves normal: Yes Assessment & Plan Medical Decision Making MDM Diff Dx : ACS, URI, COVID-19 infection Assessment & Plan Final Impression: (1) Atypical chest pain Depart Disposition: HOME, SELF-FCI Meds Reported Medications Lansoprazole (PREVACID) 30 Mg Capsule.dr, PO PRN PRN for INDIGESTION THERAPEUTIC INTERCHANGE WITH PROTONIX PER [facility] 08/05/19 Hyoscyamine Sulfate (LEVSIN) 0.125 Mg Tablet, 0.375 MG PO BID 08/05/19 Lactobacillus Rhamnosus R0011 (PROBIOTIC DIGESTIVE CARE) 1 Each Capsule, 1 TAB PO DAILY 08/05/19 Lorazepam (ATIVAN) 2 Mg Tablet, 2 MG PO TID 08/05/19 Sertraline Hcl (ZOLOFT) 50 Mg Tablet, 50 MG PO DAILY, #30 TAB 08/05/19 MANDY TALAVERA DO Apr 06, 2020 19:04
--- OUTSIDE RECORDS SUMMARY | 2020-04-06 19:59 | XMS REPORT | Continuity of Care Document ---
Author Author [facility] t Organization [facility] Address [address] [place] [address] Phone Unavailable Care Team Providers Care Structures Mechanic Name Role Phone MD Ganesh MISHRA PCP Rafal ERWIN Attphys Unavailable William BATES Attphys Unavailable Payers Payer Name Policy Type Policy Number Effective Date Expiration Date S ource Self Pay NA [facility] Problems Condition Name Condition Details Condition Category Status Onset Date Resolution Date Last Treatment Date Treating Clinician Comments Source Left flank pain Problem Active [facility] Abdominal pain Problem Active [facility] Diverticulitis Problem Active [facility] Antibiotic causing adverse effect Problem Active [facility] Allergies, Adverse Reactions, Alerts Allergy Name Allergy Type Status Severity Reaction(s) Onset Date Inacti ve Date Treating Clinician Comments Source Nitrofurantoin Allergy to substance Active Moderate 2020-03-07 00: 00:00 [facility] No Known Allergies DA Active U 2020-03-06 00:00:00 [facility] Penicillins DA Active SV 2020-03-06 00:00:00 [facility] diazepam DA Active SV 2020-03-06 00:00:00 [facility] morphine DA Active SV 2020-03-06 00:00:00 [facility] ciprofloxacin DA Active SV 2020-03-06 00:00:00 [facility] hydromorphone DA Active SV 2020-03-06 00:00:00 [facility] levofloxacin DA Active SV 2020-03-06 00:00:00 [facility] escitalopram DA Active SV 2020-03-06 00:00:00 [facility] Penicillins DA Active [place] 2019-10-08 00:00:00 [facility] escitalopram DA Active U 2019-09-19 00:00:00 [facility] CO-AMOXYCLAV DA Active SV 2019-09-19 00:00:00 [facility] diazepam DA Active U 2019-09-19 00:00:00 [facility] morphine DA Active U 2019-09-19 00:00:00 [facility] ciprofloxacin DA Active U 2019-09-19 00:00:00 [facility] levofloxacin DA Active U 2019-09-19 00:00:00 [facility] Diazepam Allergy to substance Active Severe ANXIOUS 2019-08-05 00:00:00 [facility] Morphine Allergy to substance Active Severe 2019-08-05 00:00:00 [facility] clavulanic acid Allergy to substance Active Severe HEART RACE 2019-08-05 00:00:00 [facility] Ciprofloxacin Allergy to substance Active Severe HEART RACE 2019 00:00:00 [facility] Amoxicillin Allergy to substance Active Severe HEART RACE 2019-08-05 0 0:00:00 [facility] Hydromorphone Allergy to substance Active Severe ITCHING 2019-08-05 00 :00:00 [facility] Levofloxacin Allergy to substance Active 2019-08-05 00:00:0 0 [facility] Escitalopram Allergy to substance Active 2019-08-05 00:00:0 0 [facility] hydromorphone HCl DA Active U 2019-07-26 00:00:00 [facility] diazepam DA Active SV 2019-07-26 00:00:00 [facility] morphine DA Active SV 2019-07-26 00:00:00 [facility] ciprofloxacin DA Active MO 2019-07-26 00:00:00 [facility] hydromorphone DA Active [place] 2019-07-26 00:00:00 [facility] levofloxacin DA Active SV 2019-07-26 00:00:00 [facility] clavulanic acid DA Active MO 2019-07-26 00:00:00 [facility] amoxicillin DA Active MO 2019-07-26 00:00:00 [facility] hydromorphone HCl DA Active U 2019-06-18 00:00:00 [facility] diazepam DA Active SV 2019-06-18 00:00:00 [facility] morphine DA Active SV 2019-06-18 00:00:00 [facility] clavulanic acid DA Active MO 2019-06-18 00:00:00 [facility] ciprofloxacin DA Active MO 2019-06-18 00:00:00 [facility] amoxicillin DA Active MO 2019-06-18 00:00:00 [facility] hydromorphone DA Active [place] 2019-06-18 00:00:00 [facility] levofloxacin DA Active SV 2019-06-18 00:00:00 [facility] hydromorphone HCl DA Active U 2019-03-29 00:00:00 [facility] diazepam DA Active SV 2019-03-29 00:00:00 [facility] morphine DA Active SV 2019-03-29 00:00:00 [facility] clavulanic acid DA Active MO 2019-03-29 00:00:00 [facility] ciprofloxacin DA Active MO 2019-03-29 00:00:00 [facility] amoxicillin DA Active MO 2019-03-29 00:00:00 [facility] levofloxacin DA Active SV 2019-03-29 00:00:00 [facility] clavulanic acid DA Active MO 2019-03-01 00:00:00 [facility] amoxicillin DA Active MO 2019-03-01 00:00:00 [facility] hydromorphone HCl DA Active U 2018-05-10 00:00:00 [facility] diazepam DA Active SV 2018-05-10 00:00:00 [facility] morphine DA Active SV 2018-05-10 00:00:00 [facility] ciprofloxacin DA Active MO 2018-05-10 00:00:00 [facility] levofloxacin DA Active SV 2018-05-10 00:00:00 [facility] hydromorphone HCl DA Active U 2018-03-23 00:00:00 [facility] diazepam DA Active SV 2018-03-23 00:00:00 [facility] morphine DA Active SV 2018-03-23 00:00:00 [facility] ciprofloxacin DA Active MO 2018-03-23 00:00:00 [facility] levofloxacin DA Active SV 2018-03-23 00:00:00 [facility] No Known Allergies DA Active U 2018-02-16 00:00:00 [facility] Social History Social Habit Start Date Stop Date Quantity Comments Source Sex Assigned At 1970 00:00:00 1970 00:00:00 Female [facility] Medications Ordered Medication Name Filled Medication Name Start Date Stop Da te Current Medication? Ordering Clinician Indication Dosage Frequency Signature (SIG) Comments Components Source Hyoscyamine Sulfate (Levsin) 0.125 Mg TABLET Hyoscyami ne Sulfate (Levsin) 0.125 Mg TABLET Yes .375 Twice A Day [facility] Lactobacillus Rhamnosus R0011 (Probiotic Digestive Car e) 1 Each CAPSULE Lactobacillus Rhamnosus R0011 (Probiotic Digestive Care) 1 Each CAPSULE Yes 1 Daily [facility] Lansoprazole (Prevacid) 30 Mg CAPSULE. Lansoprazole (Prevacid) 30 Mg [address].DR Hernandez As Needed as needed for Ind igestion [facility] Lorazepam (Ativan) 2 Mg TABLET Lorazepam (Ativan) 2 Mg TABLET Yes 2 Three Times A Day [facility] Sertraline Hcl (Zoloft) 50 Mg TABLET Sertraline Hcl (Zoloft) 50 Mg TABLET Yes 50 Daily [facility] Vital Signs Vital Name Observation Time Observation Value Comments Source Weight 2020-03-06 23:07:00 100 [lb_av] [facility] BMI (Body Mass Index) 2020-03-06 23:07:00 23.2 kg/m2 [facility] Weight 2020-01-17 04:02:00 100 [lb_av] [facility] BMI (Body Mass Index) 2020-01-17 04:02:00 23.2 kg/m2 [facility] Weight 2020-01-13 14:04:00 100 [lb_av] [facility] BMI (Body Mass Index) 2020-01-13 14:04:00 23.2 kg/m2 [facility] Body Temperature 2019-12-18 20:38:00 98.2 [degF] [facility] Weight 2019-12-18 18:36:00 100 [lb_av] [facility] BMI (Body Mass Index) 2019-12-18 18:36:00 23.2 kg/m2 [facility] Procedures Procedure Date / Time Performed Performing Clinician [facility] claudia CT of abdomen and pelvis without contrast 2019-12-18 00:00:00 [facility] X-ray of chest, two views 2019-08-05 00:00:00 [facility] Plan of Care Planned Activity Planned Date Details Comments Source Instructions Allergic Reaction [facility] Encounters Start Date/Time End Date/Time Encounter Type Admission Type Attendi [facility] Care Department Encounter ID Source 2020-03-06 23:19:00 2020-03-07 00:30:00 Departed Emergency Room [facility] [id number] [facility] dical [place] 2020-01-17 03:54:00 2020-01-17 06:15:00 Departed Emergency Room 1 NORY ERWIN [facility] [id number] [facility] 2020-01-13 13:47:00 2020-01-13 14:10:00 Departed Emergency Room [facility] [id number] [facility] dical [place] 2019-12-18 18:26:00 2019-12-18 20:45:00 Departed Emergency Room 1 NORY ERWIN [facility] [id number] [facility] 2019-08-05 04:00:00 2019-08-05 04:00:00 Registered Clinic 3 ANNE BATES [facility] [id number] [facility] Results Test Description Test Time Test Comments [...] per HPF NONE Urine Source? Clean CatchURINALYSIS [id number] 18:17:00* Test Item Value Reference Range Interpretation [...] HPF NONE Urine Source? Clean CatchB-TYPE NATRIURETIC [id number] 10:18:00* Test Item Value Reference Range Interpretation Comments B-TYPE NATRIURETIC PEPTIDE (test code = BNP) 9.1 pg/mL 0-100 N BASIC METABOLIC [id number] 10:10:00* Test Item Value Reference Range Interpretation [...] code = CA) 7.9 mg/dL 8.4-10.2 L [id number] 10:10:00* Test Item Value Reference Range Interpretation Comments TROPONIN-I (test code = TROPI) <0.015 ng/mL 0.00-0.056 N CBC W/O [id number] 09:58:00* Test Item Value Reference Range Interpretation [...] fL 6.7-11.0 N - XR CHEST 1 [id number] 09:53:00 Name: TanyaMERON : 1970 Age/S:49 /F [address] Unit#:[id number] Loc: [place] [address] Phys: Bernardo Rachel MD Dis Date: PHONE #: [phone] Status: REG ER FAX #: [phone] Exam Date: 02/05/2020 Reason: sob EXAMS: CPT CODE: [id number] XR CHEST 1 V 37128 HISTORY: Shortness of breath TECHNIQUE: AP chest x-ray COMPARISON: None FINDINGS: No airspace consolidation or pleural effusion. Normal heart size. Mediastinal silhouette is unremarkable. Visualized osseous structures are grossly intact. IMPRESSION: No radiographic evidence of acute cardiopulmonary process. LOCATION: [facility] at 0953 Reported and signed by: Tiara Mittal D.O. CC: Bernardo Rachel MD Technologist: ALESSIA WOLF CT Trnscrpt Data: 02/05/2020 (09) t.[email or web address] Orig Print D/T: S: 02/05/2020 (0956) PAGE 1 Signed Report ABDOMEN ACUTE SERIES W/PA CXR 2020-01-17 05:52:00 [place] [address] Patient Name: MERON MARTÍNEZ MR #: [id number] : 1970 Age/Sex: 49/F Req #: [id number] Adm Physician: Ordered by: NORY ERWIN MD Report #: [id number] Location: ER Room/Bed: Procedure: 16- 0017 DX/ABDOMEN ACUTE SERIES W/PA CXR Exam [...] acute abdominal radiographic abnormality. Signed by: Brandon Franco on, DO on 01/17/2020 5:54 AM Dictated By: BRANDON Manriqueza viktoria Signed By: BRANDON LEI DO on 01/17/20553 Transcribed By: ERICK on 01/17/20553 COPY TO: NORY ERWIN MD Urine color [id number] 04:08:00* Test Item Value Reference Range Interpretation Comments Urine Color (test code = 5778-6) YELLOW YELLOW [facility] [id number] 04:08:00* Test Item Value Reference Range Interpretation Comments Urine Clarity (test code = 91818-9) CLEAR [facility]AR [facility] by Test strip 2020-01-17 04:08:00* Test Item Value Reference Range Interpretation Comments Urine Specific [place] (test code = 5811-5) >=1.030 1.010-1.02 5 [facility] pH measurement by automated test [id number] 04:08:00* Test Item Value Reference Range Interpretation Comments Urine pH (test code = 78313-1) 6 5-7 [facility] leukocyte esterase detection by [id number] 04:08:00* Test Item Value Reference Range Interpretation Comments Urine Leukocyte Esterase (test code = 5799-2) TRACE NEGATIVE [facility] HospitalUrine nitrite [id number] 04:08:00* Test Item Value Reference Range Interpretation Comments Urine Nitrite (test code = 59769-8) NEGATIVE NEGATIVE [facility] protein measurement by test strip (mass/volume)2020-01-17 04:08:00* Test Item Value Reference Range Interpretation Comments Urine Protein (test code = 5804-0) NEGATIVE NEGATIVE [facility] glucose [id number] 04:08:00* Test Item Value Reference Range Interpretation Comments Urine Glucose (UA) (test code = 2349-9) NEGATIVE NEGATIVE [facility] Hospital[facility] ketones detection by automated test [id number] 04:08:00* Test Item Value Reference Range Interpretation Comments Urine Ketones (test code = 86844-2) NEGATIVE NEGATIVE [facility] HospitalU[facility] opiates screening [id number] 04:08:00* Test Item Value Reference Range Interpretation Comments Urine Opiates Screen (test code = 34572-9) NEGATIVE NEGATIVE ALL TESTS PERFORMED MANUALLY ON [employer] TOX/SEE TESTUT Health [facility] HospitalBarbiturates screen, [id number] 04:08:00* Test Item Value Reference Range Interpretation Comments Urine Barbiturates Screen (test code = 552557160) NEGATIVE NEGA TIVE [facility] HospitalUrine phencyclidine detection by screening [id number] 04:08:00* Test Item Value Reference Range Interpretation Comments Urine Phencyclidine Screen (test code = 69730-9) NEGATIVE NEGAT THAI [facility] HospitalUrine amphetamines detection by screen method > 1000 ng/[id number] 04:08:00* Test Item Value Reference Range Interpretation Comments Urine Amphetamines Screen (test code = 53999-0) NEGATIVE NEGATI VE [facility] HospitalFluoroscopic procedure less than one hour [id number] 04:08:00* Test Item Value Reference Range Interpretation Comments Urine Methamphetamines Screen (test code = Urine Metha mphetamines Screen) NEGATIVE NEGATIVE [facility] HospitalUrine benzodiazepines detection by screening [id number] 04:08:00* Test Item Value Reference Range Interpretation Comments Urine Benzodiazepines Screen (test code = 30496-5) POSITIVE NEG ATIVE This test provides only a screen. Positive results should be repeated by a confi rmatory test.[facility] HospitalU[facility] cocaine measurement (mass/volume)2020-01-17 04:08:00* Test Item Value Reference Range Interpretation Comments Urine Cocaine Screen (test code = 3398-5) NEGATIVE NEGATIVE [facility] HospitalUrine cannabinoids detection by screening [id number] 04:08:00* Test Item Value Reference Range Interpretation Comments Urine Cannabinoids Screen (test code = 26247-4) NEGATIVE NEGATI VE THESE RESULTS ARE FOR MEDICAL TREATMENT ONLYTHIS REPORT CONTAINS UNCONFIR MED SCREENING RESULTS*POSITIVE RESULTS WILL BE CONFIRMED BY REFERENCE LAB UPON R EQUEST CUT-OFFDRUG CLASS CONCENTRATION ng/mLAmphetamines 1000Methamphetamines 1000Cocaine 300Opiate 300Phencyc lidine 25Cannabinoid 50Barbiturates 300Benzodiazepine 300Methadone 300[facility] [id number] 04:08:00* Test Item Value Reference Range Interpretation Comments Urine Methadone Screen (test code = 85011-4) NEGATIVE NEGATIVE THESE RESULTS ARE FOR MEDICAL TREATMENT ONLYTHIS REPORT CONTAINS UNCONFIR MED SCREENING RESULTS*POSITIVE RESULTS WILL BE CONFIRMED BY REFERENCE LAB UPON R EQUEST CUT-OFFDRUG CLASS CONCENTRATION ng/mLAmphetamines 1000Methamphetamines 1000Cocaine Metabolite 300Opiate 300Phencyc lidine 25Cannabinoid 50Barbiturates 300Benzodiazepine 300Methadone 300[facility] HospitalUrine urobilinogen measurement by test strip (mass/volume)2020-01-17 04:08:00* Test Item Value Reference Range Interpretation Comments Urine Urobilinogen (test code = 46926-9) 0.2 0.2-1 [facility] HospitalU[facility] total bilirubin measurement (mass/volume)2020-01-17 04:08:00* Test Item Value Reference Range Interpretation Comments Urine Bilirubin (test code = 1978-6) NEGATIVE NEGATIVE [facility] HospitalUrine erythrocytes [id number] 04:08:00* Test Item Value Reference Range Interpretation Comments Urine Blood (test code = 62602-3) NEGATIVE NEGATIVE [facility] HospitalAutomated urine sediment leukocyte count by microscopy (number/high power field)2020-01-17 04:08:00* Test Item Value Reference Range Interpretation Comments Urine WBC (test code = 5821-4) 6-10 0-5 [facility] HospitalErythrocytes detection in urine sediment by light [id number] 04:08:00* Test Item Value Reference Range Interpretation Comments Urine RBC (test code = 65136-0) 0-5 0-5 [facility] HospitalBacteria detection in urine sediment by light [id number] 04:08:00* Test Item Value Reference Range Interpretation Comments Urine Bacteria (test code = 65739-0) FEW NONE [facility] HospitalEpithelial cells detection in urine sediment by light [id number] 04:08:00* Test Item Value Reference Range Interpretation Comments Urine Epithelial Cells (test code = 07270-9) FEW NONE [facility] HospitalUrine color [id number] 04:08:00* Test Item Value Reference Range Interpretation Comments Urine Color (test code = 5778-6) YELLOW YELLOW [facility] HospitalUrine [id number] 04:08:00* Test Item Value Reference Range Interpretation Comments Urine Clarity (test code = 26079-5) CLEAR CLEAR [facility] Urine by Test strip 2020-01-17 04:08:00* Test Item Value Reference Range Interpretation Comments Urine Specific [place] (test code = 5811-5) >=1.030 1.010-1.02 5 [facility] HospitalUrine pH measurement by automated test [id number] 04:08:00* Test Item Value Reference Range Interpretation Comments Urine pH (test code = 06707-4) 6 5-7 [facility] HospitalUrine leukocyte esterase detection by [id number] 04:08:00* Test Item Value Reference Range Interpretation Comments Urine Leukocyte Esterase (test code = 5799-2) TRACE NEGATIVE [facility] HospitalUrine nitrite [id number] 04:08:00* Test Item Value Reference Range Interpretation Comments Urine Nitrite (test code = 35784-4) NEGATIVE NEGATIVE [facility] HospitalUrine protein measurement by test strip (mass/volume)2020-01-17 04:08:00* Test Item Value Reference Range Interpretation Comments Urine Protein (test code = 5804-0) NEGATIVE NEGATIVE [facility] HospitalUrine glucose [id number] 04:08:00* Test Item Value Reference Range Interpretation Comments Urine Glucose (UA) (test code = 2349-9) NEGATIVE NEGATIVE [facility] HospitalUrine ketones detection by automated test [id number] 04:08:00* Test Item Value Reference Range Interpretation Comments Urine Ketones (test code = 99576-5) NEGATIVE NEGATIVE [facility] HospitalUrine opiates screening [id number] 04:08:00* Test Item Value Reference Range Interpretation Comments Urine Opiates Screen (test code = 45048-1) NEGATIVE NEGATIVE ALL TESTS PERFORMED MANUALLY ON [employer] TOX/SEE TESTUT [facility] HospitalBarbiturates screen, [id number] 04:08:00* Test Item Value Reference Range Interpretation Comments Urine Barbiturates Screen (test code = 843883972) NEGATIVE NEGA TIVE [facility] HospitalUrine phencyclidine detection by screening [id number] 04:08:00* Test Item Value Reference Range Interpretation Comments Urine Phencyclidine Screen (test code = 75667-7) NEGATIVE NEGAT THAI [facility] HospitalUrine amphetamines detection by screen method > 1000 ng/[id number] 04:08:00* Test Item Value Reference Range Interpretation Comments Urine Amphetamines Screen (test code = 42882-7) NEGATIVE NEGATI VE [facility] HospitalFluoroscopic procedure less than one hour [id number] 04:08:00* Test Item Value Reference Range Interpretation Comments Urine Methamphetamines Screen (test code = Urine Metha mphetamines Screen) NEGATIVE NEGATIVE [facility] HospitalUrine benzodiazepines detection by screening [id number] 04:08:00* Test Item Value Reference Range Interpretation Comments Urine Benzodiazepines Screen (test code = 88751-8) POSITIVE NEG ATIVE This test provides only a screen. Positive results should be repeated by a confi rmatory test.[facility] HospitalUrine cocaine measurement (mass/volume)2020-01-17 04:08:00* Test Item Value Reference Range Interpretation Comments Urine Cocaine Screen (test code = 3398-5) NEGATIVE NEGATIVE [facility] HospitalUrine cannabinoids detection by screening [id number] 04:08:00* Test Item Value Reference Range Interpretation Comments Urine Cannabinoids Screen (test code = 61779-8) NEGATIVE NEGATI VE THESE RESULTS ARE FOR MEDICAL TREATMENT ONLYTHIS REPORT CONTAINS UNCONFIR MED SCREENING RESULTS*POSITIVE RESULTS WILL BE CONFIRMED BY REFERENCE LAB UPON R EQUEST CUT-OFFDRUG CLASS CONCENTRATION ng/mLAmphetamines 1000Methamphetamines 1000Cocaine 300Opiate 300Phencyc lidine 25Cannabinoid 50Barbiturates 300Benzodiazepine 300Methadone 300[facility] HospitalUrine methadone [id number] 04:08:00* Test Item Value Reference Range Interpretation Comments Urine Methadone Screen (test code = 25677-8) NEGATIVE NEGATIVE THESE RESULTS ARE FOR MEDICAL TREATMENT ONLYTHIS REPORT CONTAINS UNCONFIR MED SCREENING RESULTS*POSITIVE RESULTS WILL BE CONFIRMED BY REFERENCE LAB UPON R EQUEST CUT-OFFDRUG CLASS CONCENTRATION ng/mLAmphetamines 1000Methamphetamines 1000Cocaine Metabolite 300Opiate 300Phencyc lidine 25Cannabinoid 50Barbiturates 300Benzodiazepine 300Methadone 300[facility] HospitalUrine urobilinogen measurement by test strip (mass/volume)2020-01-17 04:08:00* Test Item Value Reference Range Interpretation Comments Urine Urobilinogen (test code = 61560-1) 0.2 0.2-1 [facility] HospitalUrine total bilirubin measurement (mass/volume)2020-01-17 04:08:00* Test Item Value Reference Range Interpretation Comments Urine Bilirubin (test code = 1978-6) NEGATIVE NEGATIVE [facility] HospitalUrine erythrocytes [id number] 04:08:00* Test Item Value Reference Range Interpretation Comments Urine Blood (test code = 37217-7) NEGATIVE NEGATIVE [facility] HospitalAutomated urine sediment leukocyte count by microscopy (number/high power field)2020-01-17 04:08:00* Test Item Value Reference Range Interpretation Comments Urine WBC (test code = 5821-4) 6-10 0-5 [facility] HospitalErythrocytes detection in urine sediment by light [id number] 04:08:00* Test Item Value Reference Range Interpretation Comments Urine RBC (test code = 12472-4) 0-5 0-5 [facility] HospitalBacteria detection in urine sediment by light [id number] 04:08:00* Test Item Value Reference Range Interpretation Comments Urine Bacteria (test code = 61371-8) FEW NONE [facility] HospitalEpithelial cells detection in urine sediment by light [id number] 04:08:00* Test Item Value Reference Range Interpretation Comments Urine Epithelial Cells (test code = 48741-9) FEW NONE [facility] [id number] 20:05:00 [facility] [address] [address] Patient Name: MERON MARTÍNEZ MR #: [id number] : [birth year] 67 Age/Sex: 49/F Req #: [id number] Adm Physician: Ordered by: MANDY [facility]AVE [facility] Report #: [id number] Location: ER Room/Bed: Procedure: [id number] CT/CT ABDOMEN/PELVIS WO Exam Date: 12/18/19 Exam [...] PM Dictated By: STEVEN ESCOBAR MD 08 Trans cribed By: ERICK on 12/18/192008 COPY TO: [facility] Blood leukocytes automated count (number/volume)2019-12-18 18:40:00* Test Item Value Reference Range Interpretation Comments White Blood Count (test code = 6690-2) 6.37 4.8-10.8 [facility]Blood erythrocytes automated count (number/volume)2019-12-18 18:40:00* Test Item Value Reference Range Interpretation Comments Red Blood Count (test code = 789-8) 4.33 3.6-5.1 [facility] HospitalBlood hemoglobin measurement (moles/volume)2019-12-18 18:40:00* Test Item Value Reference Range Interpretation Comments Hemoglobin (test code = 14579-1) 11.9 12.0-16.0 [facility] HospitalAutomated blood hematocrit (volume fraction)2019-12-18 18:40:00* Test Item Value Reference Range Interpretation Comments Hematocrit (test code = 4544-3) 37.4 34.2-44.1 [facility] HospitalAutomated erythrocyte mean corpuscular hyakwp2475-12-09 18:40:00* Test Item Value Reference Range Interpretation Comments Mean Corpuscular Volume (test code = 787-2) 86.4 81-99 [facility] HospitalAutomated erythrocyte mean corpuscular hemoglobin (mass per erythrocyte)2019-12-18 18:40:00* Test Item Value Reference Range Interpretation Comments Mean Corpuscular Hemoglobin (test code = 785-6) 27.5 28-32 [facility] HospitalAutomated erythrocyte mean corpuscular hemoglobin concentration measurement (mass/volume)2019-12-18 18:40:00* Test Item Value Reference Range Interpretation Comments Mean Corpuscular Hemoglobin Concent (test code = 786-4) 31.8 31-35 [facility] HospitalRDW JxsTj-Qnx3958-43-17 18:40:00* Test Item Value Reference Range Interpretation Comments Red Cell Distribution Width (test code = 95495-4) 16.2 11.7 -14.4 [facility] HospitalAutomated blood platelet count (count/volume)2019-12-18 18:40:00* Test Item Value Reference Range Interpretation Comments Platelet Count (test code = 777-3) 309 140-360 [facility] HospitalAutomated blood segmented neutrophil count as percentage of total izmexcujoo7479-96-38 18:40:00* Test Item Value Reference Range Interpretation Comments Neutrophils (%) (Auto) (test code = 67573-7) 35.9 38.7-80.0 [facility] HospitalAutomated blood lymphocyte count as percentage ot total votozfbnqn1935-60-33 18:40:00* Test Item Value Reference Range Interpretation Comments Lymphocytes (%) (Auto) (test code = 736-9) 23.4 18.0-39.1 [facility] HospitalAutomated blood monocyte count as percentage of total dmltqvkwva5763-26-98 18:40:00* Test Item Value Reference Range Interpretation Comments Monocytes (%) (Auto) (test code = 5905-5) 7.2 4.4-11.3 [facility] HospitalAutomated blood eosinophil count as percentage of total kbjopqxqer8853-54-30 18:40:00* Test Item Value Reference Range Interpretation Comments Eosinophils (%) (Auto) (test code = 713-8) 31.7 0.0-6.0 [facility] HospitalAutomated blood basophil count as percentage of total uszjwoseks7938-87-77 18:40:00* Test Item Value Reference Range Interpretation Comments Basophils (%) (Auto) (test code = 706-2) 1.6 0.0-1.0 [facility] HospitalFluoroscopic procedure less than one hour urzmxpsa3177-75-26 18:40:00* Test Item Value Reference Range Interpretation Comments IM GRANULOCYTES % (test code = IM GRANULOCYTES %) 0.2 0.0- 1.0 [facility] HospitalAutomated blood neutrophil count 2019-12-18 18:40:00* Test Item Value Reference Range Interpretation Comments Neutrophils # (Auto) (test code = 751-8) 2.3 2.1-6.9 [facility] HospitalBlood lymphocytes count (number/volume) 2019-12-18 18:40:00* Test Item Value Reference Range Interpretation Comments Lymphocytes # (Auto) (test code = 48864-5) 1.5 1.0-3.2 [facility] HospitalBlood monocytes automated count (number/volume)2019-12-18 18:40:00* Test Item Value Reference Range Interpretation Comments Monocytes # (Auto) (test code = 742-7) 0.5 0.2-0.8 [facility] HospitalAutomated blood eosinophil count 2019-12-18 18:40:00* Test Item Value Reference Range Interpretation Comments Eosinophils # (Auto) (test code = 711-2) 2.0 0.0-0.4 [facility] HospitalAutomated blood basophil count (count/volume)2019-12-18 18:40:00* Test Item Value Reference Range Interpretation Comments Basophils # (Auto) (test code = 704-7) 0.1 0.0-0.1 [facility] HospitalFluoroscopic procedure less than one hour viemmzwo2908-23-29 18:40:00* Test Item Value Reference Range Interpretation Comments Absolute Immature Granulocyte (auto (lela t code = Absolute Immature Granulocyte (auto) 0.01 0-0.1 [facility] HospitalUrine color qhvkjnwkyljbj4892-85-99 18:40:00* Test Item Value Reference Range Interpretation Comments Urine Color (test code = 5778-6) YELLOW YELLOW [facility] HospitalUrine icrsqka1021-78-81 18:40:00* Test Item Value Reference Range Interpretation Comments Urine Clarity (test code = 93869-6) [facility]AR [facility]AR [facility] Test strip 2019-12-18 18:40:00* Test Item Value Reference Range Interpretation Comments Urine Specific [place] (test code = 5811-5) 1.020 1.010-1.02 5 [facility] HospitalUrine pH measurement by automated test lsizj5433-14-95 18:40:00* Test Item Value Reference Range Interpretation Comments Urine pH (test code = 46642-1) 6.5 5-7 [facility] HospitalUrine leukocyte esterase detection by fbvozhrj0923-03-62 18:40:00* Test Item Value Reference Range Interpretation Comments Urine Leukocyte Esterase (test code = 5799-2) NEGATIVE NEGATIVE [facility] HospitalUrine nitrite bmrckdevx7839-31-31 18:40:00* Test Item Value Reference Range Interpretation Comments Urine Nitrite (test code = 79035-5) NEGATIVE NEGATIVE [facility] HospitalUrine protein measurement by test strip (mass/volume)2019-12-18 18:40:00* Test Item Value Reference Range Interpretation Comments Urine Protein (test code = 5804-0) NEGATIVE NEGATIVE [facility] HospitalUrine glucose ntmndkgfy0820-68-11 18:40:00* Test Item Value Reference Range Interpretation Comments Urine Glucose (UA) (test code = 2349-9) NEGATIVE NEGATIVE [facility] HospitalUrine ketones detection by automated test xwtag8716-94-55 18:40:00* Test Item Value Reference Range Interpretation Comments Urine Ketones (test code = 42291-8) NEGATIVE NEGATIVE [facility] HospitalUrine urobilinogen measurement by test strip (mass/volume)2019-12-18 18:40:00* Test Item Value Reference Range Interpretation Comments Urine Urobilinogen (test code = 58033-9) 0.2 0.2-1 [facility] HospitalUrine total bilirubin measurement (mass/volume)2019-12-18 18:40:00* Test Item Value Reference Range Interpretation Comments Urine Bilirubin (test code = 1978-6) NEGATIVE NEGATIVE [facility] HospitalUrine erythrocytes ovxyeohlh7503-31-11 18:40:00* Test Item Value Reference Range Interpretation Comments Urine Blood (test code = 93401-1) NEGATIVE NEGATIVE [facility] HospitalAutomated urine sediment leukocyte count by microscopy (number/high power field)2019-12-18 18:40:00* Test Item Value Reference Range Interpretation Comments Urine WBC (test code = 5821-4) 0-5 0-5 [facility] HospitalErythrocytes detection in urine sediment by light iflvxadogn1303-84-02 18:40:00* Test Item Value Reference Range Interpretation Comments Urine RBC (test code = 34228-8) 0-5 0-5 [facility] HospitalBacteria detection in urine sediment by light vtkqdkgapl4593-35-79 18:40:00* Test Item Value Reference Range Interpretation Comments Urine Bacteria (test code = 36240-0) RARE NONE [facility] HospitalEpithelial cells detection in urine sediment by light kquysfxcaw5357-45-06 18:40:00* Test Item Value Reference Range Interpretation Comments Urine Epithelial Cells (test code = 25103-1) FEW NONE [facility] plasma sodium measurement (moles/volume)2019-12-18 18:40:00* Test Item Value Reference Range Interpretation Comments Sodium Level (test code = 2951-2) 137 136-145 [facility] potassium measurement (moles/volume)2019-12-18 18:40:00* Test Item Value Reference Range Interpretation Comments Potassium Level (test code = 2823-3) 4.2 3.5-5.1 [facility] plasma chloride measurement (moles/volume)2019-12-18 18:40:00* Test Item Value Reference Range Interpretation Comments Chloride Level (test code = 2075-0) 107 98-107 [facility] or plasma carbon dioxide, total measurement (moles/volume)2019-12-18 18:40:00* Test Item Value Reference Range Interpretation Comments Carbon Dioxide Level (test code = 2028-9) 20 22-29 [facility] plasma anion wxl2481-91-29 18:40:00* Test Item Value Reference Range Interpretation Comments Anion Gap (test code = 53099-2) 14.2 8-16 [facility] urea nitrogen measurement (mass/volume)2019-12-18 18:40:00* Test Item Value Reference Range Interpretation Comments Blood Urea Nitrogen (test code = 3094-0) 11 7-26 [facility] creatinine measurement (mass/volume)2019-12-18 18:40:00* Test Item Value Reference Range Interpretation Comments Creatinine (test code = 2160-0) 0.66 0.57-1.11 [facility] plasma urea nitrogen/creatinine mass swjkc3835-34-09 18:40:00* Test Item Value Reference Range Interpretation Comments BUN/Creatinine Ratio (test code = 3097-3) 17 6-25 [facility] HospitalEstimated glomerular filtration rate (GFR) jiijlezqbgfur9168-76-75 18:40:00* Test Item Value Reference Range Interpretation Comments Estimat Glomerular Filtration Rate (test code = 251853261) > 60 >60 Ranges were taken from the National Kidney Disease Education Program and the [facility] literature.Reference ranges:60 or greater: Mipihg90-94 ( for 3 consecutive months): Chronic kidney disease 15 or less: Kidney failureUT Health [facility] HospitalGlucose ptrppmnrczt9426-59-57 18:40:00* Test Item Value Reference Range Interpretation Comments Glucose Level (test code = IEM8124) 89 74-118 [facility] calcium measurement (mass/volume)2019-12-18 18:40:00* Test Item Value Reference Range Interpretation Comments Calcium Level (test code = 46341-7) 8.9 8.4-10.2 [facility] plasma total bilirubin measurement (mass/volume)2019-12-18 18:40:00* Test Item Value Reference Range Interpretation Comments Total Bilirubin (test code = 1975-2) 0.5 0.2-1.2 [facility] HospitalFluoroscopic procedure less than one hour nqrpkmqg0870-45-77 18:40:00* Test Item Value Reference Range Interpretation Comments Aspartate Amino Transf (AST/SGOT) (test code = Aspartate Amino Transf (AST/SGOT)) 19 5-34 [facility] plasma alanine aminotransferase measurement (enzymatic activity/volume)2019-12-18 18:40:00* Test Item Value Reference Range Interpretation Comments Alanine Aminotransferase (ALT/SGPT) (test code = 1742-6) 15 0-55 [facility] plasma protein measurement (mass/volume)2019-12-18 18:40:00* Test Item Value Reference Range Interpretation Comments Total Protein (test code = 2885-2) 7.4 6.5-8.1 [facility] albumin measurement (mass/volume)2019-12-18 18:40:00* Test Item Value Reference Range Interpretation Comments Albumin (test code = 1751-7) 3.7 3.5-5.0 [facility] HospitalPlasma globulin measurement (mass/volume) 2019-12-18 18:40:00* Test Item Value Reference Range Interpretation Comments Globulin (test code = 56966-8) 3.7 2.3-3.5 [facility] plasma albumin/globulin mass qskgn8374-84-76 18:40:00* Test Item Value Reference Range Interpretation Comments Albumin/Globulin Ratio (test code = 1759-0) 1.0 0.8-2.0 [facility] plasma alkaline phosphatase measurement (enzymatic activity/volume)2019-12-18 18:40:00* Test Item Value Reference Range Interpretation Comments Alkaline Phosphatase (test code = 6768-6) 62 40-150 [facility] HospitalBlood leukocytes automated count (number/volume)2019-12-18 18:40:00* Test Item Value Reference Range Interpretation Comments White Blood Count (test code = 6690-2) 6.37 4.8-10.8 [facility] HospitalBlood erythrocytes automated count (number/volume)2019-12-18 18:40:00* Test Item Value Reference Range Interpretation Comments Red Blood Count (test code = 789-8) 4.33 3.6-5.1 [facility] HospitalBlood hemoglobin measurement (moles/volume)2019-12-18 18:40:00* Test Item Value Reference Range Interpretation Comments Hemoglobin (test code = 54984-6) 11.9 12.0-16.0 [facility] HospitalAutomated blood hematocrit (volume fraction)2019-12-18 18:40:00* Test Item Value Reference Range Interpretation Comments Hematocrit (test code = 4544-3) 37.4 34.2-44.1 [facility] HospitalAutomated erythrocyte mean corpuscular atlymj9498-26-73 18:40:00* Test Item Value Reference Range Interpretation Comments Mean Corpuscular Volume (test code = 787-2) 86.4 81-99 [facility] HospitalAutomated erythrocyte mean corpuscular hemoglobin (mass per erythrocyte)2019-12-18 18:40:00* Test Item Value Reference Range Interpretation Comments Mean Corpuscular Hemoglobin (test code = 785-6) 27.5 28-32 [facility] HospitalAutomated erythrocyte mean corpuscular hemoglobin concentration measurement (mass/volume)2019-12-18 18:40:00* Test Item Value Reference Range Interpretation Comments Mean Corpuscular Hemoglobin Concent (test code = 786-4) 31.8 31-35 [facility] HospitalRDW VpuDb-Tpy6177-38-17 18:40:00* Test Item Value Reference Range Interpretation Comments Red Cell Distribution Width (test code = 23587-8) 16.2 11.7 -14.4 [facility] HospitalAutomated blood platelet count (count/volume)2019-12-18 18:40:00* Test Item Value Reference Range Interpretation Comments Platelet Count (test code = 777-3) 309 140-360 [facility] HospitalAutomated blood segmented neutrophil count as percentage of total vtwntozenf8656-62-31 18:40:00* Test Item Value Reference Range Interpretation Comments Neutrophils (%) (Auto) (test code = 99119-0) 35.9 38.7-80.0 [facility] HospitalAutomated blood lymphocyte count as percentage ot total prhrbngubz9452-28-65 18:40:00* Test Item Value Reference Range Interpretation Comments Lymphocytes (%) (Auto) (test code = 736-9) 23.4 18.0-39.1 [facility] HospitalAutomated blood monocyte count as percentage of total mxgcvxgetb0884-57-08 18:40:00* Test Item Value Reference Range Interpretation Comments Monocytes (%) (Auto) (test code = 5905-5) 7.2 4.4-11.3 [facility] HospitalAutomated blood eosinophil count as percentage of total bwhljnfujw4869-86-72 18:40:00* Test Item Value Reference Range Interpretation Comments Eosinophils (%) (Auto) (test code = 713-8) 31.7 0.0-6.0 [facility] HospitalAutomated blood basophil count as percentage of total xkzhjnuzrq7393-11-28 18:40:00* Test Item Value Reference Range Interpretation Comments Basophils (%) (Auto) (test code = 706-2) 1.6 0.0-1.0 [facility] HospitalFluoroscopic procedure less than one hour bxdgzsqg0975-47-17 18:40:00* Test Item Value Reference Range Interpretation Comments IM GRANULOCYTES % (test code = IM GRANULOCYTES %) 0.2 0.0- 1.0 [facility] HospitalAutomated blood neutrophil count 2019-12-18 18:40:00* Test Item Value Reference Range Interpretation Comments Neutrophils # (Auto) (test code = 751-8) 2.3 2.1-6.9 [facility] HospitalBlood lymphocytes count (number/volume) 2019-12-18 18:40:00* Test Item Value Reference Range Interpretation Comments Lymphocytes # (Auto) (test code = 12950-8) 1.5 1.0-3.2 [facility] HospitalBlood monocytes automated count (number/volume)2019-12-18 18:40:00* Test Item Value Reference Range Interpretation Comments Monocytes # (Auto) (test code = 742-7) 0.5 0.2-0.8 [facility] HospitalAutomated blood eosinophil count 2019-12-18 18:40:00* Test Item Value Reference Range Interpretation Comments Eosinophils # (Auto) (test code = 711-2) 2.0 0.0-0.4 [facility] HospitalAutomated blood basophil count (count/volume)2019-12-18 18:40:00* Test Item Value Reference Range Interpretation Comments Basophils # (Auto) (test code = 704-7) 0.1 0.0-0.1 [facility] HospitalFluoroscopic procedure less than one hour kpnpezfq3175-48-52 18:40:00* Test Item Value Reference Range Interpretation Comments Absolute Immature Granulocyte (auto (lela t code = Absolute Immature Granulocyte (auto) 0.01 0-0.1 [facility] HospitalUrine color mnesvkjiejmgd8064-65-71 18:40:00* Test Item Value Reference Range Interpretation Comments Urine Color (test code = 5778-6) YELLOW YELLOW [facility] HospitalUrine ilwkbfv5717-15-97 18:40:00* Test Item Value Reference Range Interpretation Comments Urine Clarity (test code = 78551-6) CLEAR CLEAR [facility] Urine by Test strip 2019-12-18 18:40:00* Test Item Value Reference Range Interpretation Comments Urine Specific [place] (test code = 5811-5) 1.020 1.010-1.02 5 [facility] HospitalUrine pH measurement by automated test sejkk5522-36-18 18:40:00* Test Item Value Reference Range Interpretation Comments Urine pH (test code = 09155-6) 6.5 5-7 [facility] HospitalUrine leukocyte esterase detection by tvlibyvg2662-71-15 18:40:00* Test Item Value Reference Range Interpretation Comments Urine Leukocyte Esterase (test code = 5799-2) NEGATIVE NEGATIVE [facility] HospitalUrine nitrite gyiadzlld3648-39-77 18:40:00* Test Item Value Reference Range Interpretation Comments Urine Nitrite (test code = 04839-0) NEGATIVE NEGATIVE [facility] HospitalUrine protein measurement by test strip (mass/volume)2019-12-18 18:40:00* Test Item Value Reference Range Interpretation Comments Urine Protein (test code = 5804-0) NEGATIVE NEGATIVE [facility] HospitalUrine glucose nuwpxknjn3121-42-30 18:40:00* Test Item Value Reference Range Interpretation Comments Urine Glucose (UA) (test code = 2349-9) NEGATIVE NEGATIVE [facility] HospitalUrine ketones detection by automated test ehbco2539-28-92 18:40:00* Test Item Value Reference Range Interpretation Comments Urine Ketones (test code = 42578-0) NEGATIVE NEGATIVE [facility] HospitalUrine urobilinogen measurement by test strip (mass/volume)2019-12-18 18:40:00* Test Item Value Reference Range Interpretation Comments Urine Urobilinogen (test code = 66488-0) 0.2 0.2-1 [facility] HospitalUrine total bilirubin measurement (mass/volume)2019-12-18 18:40:00* Test Item Value Reference Range Interpretation Comments Urine Bilirubin (test code = 1978-6) NEGATIVE NEGATIVE [facility] HospitalUrine erythrocytes mncgcxpoi7132-77-26 18:40:00* Test Item Value Reference Range Interpretation Comments Urine Blood (test code = 84205-2) NEGATIVE NEGATIVE [facility] HospitalAutomated urine sediment leukocyte count by microscopy (number/high power field)2019-12-18 18:40:00* Test Item Value Reference Range Interpretation Comments Urine WBC (test code = 5821-4) 0-5 0-5 [facility] HospitalErythrocytes detection in urine sediment by light kwoglfiuyn7900-81-23 18:40:00* Test Item Value Reference Range Interpretation Comments Urine RBC (test code = 02639-6) 0-5 0-5 [facility] HospitalBacteria detection in urine sediment by light fyhfnuzlqm9041-08-53 18:40:00* Test Item Value Reference Range Interpretation Comments Urine Bacteria (test code = 30231-4) RARE NONE [facility] HospitalEpithelial cells detection in urine sediment by light ygwjmiqudf1788-80-34 18:40:00* Test Item Value Reference Range Interpretation Comments Urine Epithelial Cells (test code = 06803-7) FEW NONE [facility] sodium measurement (moles/volume)2019-12-18 18:40:00* Test Item Value Reference Range Interpretation Comments Sodium Level (test code = 2951-2) 137 136-145 [facility] plasma potassium measurement (moles/volume)2019-12-18 18:40:00* Test Item Value Reference Range Interpretation Comments Potassium Level (test code = 2823-3) 4.2 3.5-5.1 [facility] chloride measurement (moles/volume)2019-12-18 18:40:00* Test Item Value Reference Range Interpretation Comments Chloride Level (test code = 2075-0) 107 98-107 [facility] or plasma carbon dioxide, total measurement (moles/volume)2019-12-18 18:40:00* Test Item Value Reference Range Interpretation Comments Carbon Dioxide Level (test code = 2028-9) 20 22-29 [facility] or plasma anion uyc1173-58-22 18:40:00* Test Item Value Reference Range Interpretation Comments Anion Gap (test code = 28981-3) 14.2 8-16 [facility] urea nitrogen measurement (mass/volume)2019-12-18 18:40:00* Test Item Value Reference Range Interpretation Comments Blood Urea Nitrogen (test code = 3094-0) 11 7-26 [facility] creatinine measurement (mass/volume)2019-12-18 18:40:00* Test Item Value Reference Range Interpretation Comments Creatinine (test code = 2160-0) 0.66 0.57-1.11 [facility] plasma urea nitrogen/creatinine mass ubmoq3654-21-11 18:40:00* Test Item Value Reference Range Interpretation Comments BUN/Creatinine Ratio (test code = 3097-3) 17 6-25 [facility] HospitalEstimated glomerular filtration rate (GFR) dnzwmkjdohhjy9670-83-49 18:40:00* Test Item Value Reference Range Interpretation Comments Estimat Glomerular Filtration Rate (test code = 192338712) > 60 >60 Ranges were taken from the National Kidney Disease Education Program and the [facility] literature.Reference ranges:60 or greater: Hnhugl94-95 ( for 3 consecutive months): Chronic kidney disease 15 or less: Kidney failureUT Health [facility] HospitalGlucose qtowivpdspl7467-28-73 18:40:00* Test Item Value Reference Range Interpretation Comments Glucose Level (test code = MBM1944) 89 74-118 [facility] plasma calcium measurement (mass/volume)2019-12-18 18:40:00* Test Item Value Reference Range Interpretation Comments Calcium Level (test code = 93327-8) 8.9 8.4-10.2 [facility] plasma total bilirubin measurement (mass/volume)2019-12-18 18:40:00* Test Item Value Reference Range Interpretation Comments Total Bilirubin (test code = 1975-2) 0.5 0.2-1.2 [facility] HospitalFluoroscopic procedure less than one hour ovdutwdc0962-24-64 18:40:00* Test Item Value Reference Range Interpretation Comments Aspartate Amino Transf (AST/SGOT) (test code = Aspartate Amino Transf (AST/SGOT)) 19 5-34 [facility] alanine aminotransferase measurement (enzymatic activity/volume)2019-12-18 18:40:00* Test Item Value Reference Range Interpretation Comments Alanine Aminotransferase (ALT/SGPT) (test code = 1742-6) 15 0-55 [facility] plasma protein measurement (mass/volume)2019-12-18 18:40:00* Test Item Value Reference Range Interpretation Comments Total Protein (test code = 2885-2) 7.4 6.5-8.1 [facility] or plasma albumin measurement (mass/volume)2019-12-18 18:40:00* Test Item Value Reference Range Interpretation Comments Albumin (test code = 1751-7) 3.7 3.5-5.0 [facility] HospitalPlasma globulin measurement (mass/volume) 2019-12-18 18:40:00* Test Item Value Reference Range Interpretation Comments Globulin (test code = 10960-6) 3.7 2.3-3.5 [facility]/globulin mass ikgxh7215-34-80 18:40:00* Test Item Value Reference Range Interpretation Comments Albumin/Globulin Ratio (test code = 1759-0) 1.0 0.8-2.0 [facility] alkaline phosphatase measurement (enzymatic activity/volume)2019-12-18 18:40:00* Test Item Value Reference Range Interpretation Comments Alkaline Phosphatase (test code = 6768-6) 62 40-150 [facility] HospitalBlood leukocytes automated count (number/volume)2019-12-18 18:40:00* Test Item Value Reference Range Interpretation Comments White Blood Count (test code = 6690-2) 6.37 4.8-10.8 [facility] HospitalBlood erythrocytes automated count (number/volume)2019-12-18 18:40:00* Test Item Value Reference Range Interpretation Comments Red Blood Count (test code = 789-8) 4.33 3.6-5.1 [facility] HospitalBlood hemoglobin measurement (moles/volume)2019-12-18 18:40:00* Test Item Value Reference Range Interpretation Comments Hemoglobin (test code = 17149-5) 11.9 12.0-16.0 [facility] HospitalAutomated blood hematocrit (volume fraction)2019-12-18 18:40:00* Test Item Value Reference Range Interpretation Comments Hematocrit (test code = 4544-3) 37.4 34.2-44.1 [facility] HospitalAutomated erythrocyte mean corpuscular cxdocc2840-18-52 18:40:00* Test Item Value Reference Range Interpretation Comments Mean Corpuscular Volume (test code = 787-2) 86.4 81-99 [facility] HospitalAutomated erythrocyte mean corpuscular hemoglobin (mass per erythrocyte)2019-12-18 18:40:00* Test Item Value Reference Range Interpretation Comments Mean Corpuscular Hemoglobin (test code = 785-6) 27.5 28-32 [facility] HospitalAutomated erythrocyte mean corpuscular hemoglobin concentration measurement (mass/volume)2019-12-18 18:40:00* Test Item Value Reference Range Interpretation Comments Mean Corpuscular Hemoglobin Concent (test code = 786-4) 31.8 31-35 [facility] HospitalRDW QdeVa-Ope9091-59-17 18:40:00* Test Item Value Reference Range Interpretation Comments Red Cell Distribution Width (test code = 05926-6) 16.2 11.7 -14.4 [facility] HospitalAutomated blood platelet count (count/volume)2019-12-18 18:40:00* Test Item Value Reference Range Interpretation Comments Platelet Count (test code = 777-3) 309 140-360 [facility] HospitalAutomated blood segmented neutrophil count as percentage of total jlejhtbhnt9668-40-98 18:40:00* Test Item Value Reference Range Interpretation Comments Neutrophils (%) (Auto) (test code = 25226-0) 35.9 38.7-80.0 [facility] HospitalAutomated blood lymphocyte count as percentage ot total cctiyvpxyi6921-55-21 18:40:00* Test Item Value Reference Range Interpretation Comments Lymphocytes (%) (Auto) (test code = 736-9) 23.4 18.0-39.1 [facility] HospitalAutomated blood monocyte count as percentage of total yzazcxndvq3904-53-31 18:40:00* Test Item Value Reference Range Interpretation Comments Monocytes (%) (Auto) (test code = 5905-5) 7.2 4.4-11.3 [facility] HospitalAutomated blood eosinophil count as percentage of total hdyvqjfhuk7945-11-83 18:40:00* Test Item Value Reference Range Interpretation Comments Eosinophils (%) (Auto) (test code = 713-8) 31.7 0.0-6.0 [facility] HospitalAutomated blood basophil count as percentage of total brmubcblgh9538-41-10 18:40:00* Test Item Value Reference Range Interpretation Comments Basophils (%) (Auto) (test code = 706-2) 1.6 0.0-1.0 [facility] HospitalFluoroscopic procedure less than one hour ctsblkxt5928-61-67 18:40:00* Test Item Value Reference Range Interpretation Comments IM GRANULOCYTES % (test code = IM GRANULOCYTES %) 0.2 0.0- 1.0 [facility] HospitalAutomated blood neutrophil count 2019-12-18 18:40:00* Test Item Value Reference Range Interpretation Comments Neutrophils # (Auto) (test code = 751-8) 2.3 2.1-6.9 [facility] HospitalBlood lymphocytes count (number/volume) 2019-12-18 18:40:00* Test Item Value Reference Range Interpretation Comments Lymphocytes # (Auto) (test code = 99080-2) 1.5 1.0-3.2 [facility] HospitalBlood monocytes automated count (number/volume)2019-12-18 18:40:00* Test Item Value Reference Range Interpretation Comments Monocytes # (Auto) (test code = 742-7) 0.5 0.2-0.8 [facility] HospitalAutomated blood eosinophil count 2019-12-18 18:40:00* Test Item Value Reference Range Interpretation Comments Eosinophils # (Auto) (test code = 711-2) 2.0 0.0-0.4 [facility] HospitalAutomated blood basophil count (count/volume)2019-12-18 18:40:00* Test Item Value Reference Range Interpretation Comments Basophils # (Auto) (test code = 704-7) 0.1 0.0-0.1 [facility] HospitalFluoroscopic procedure less than one hour mxjtcmlx7369-47-35 18:40:00* Test Item Value Reference Range Interpretation Comments Absolute Immature Granulocyte (auto (lela t code = Absolute Immature Granulocyte (auto) 0.01 0-0.1 [facility] sodium measurement (moles/volume)2019-12-18 18:40:00* Test Item Value Reference Range Interpretation Comments Sodium Level (test code = 2951-2) 137 136-145 [facility] potassium measurement (moles/volume)2019-12-18 18:40:00* Test Item Value Reference Range Interpretation Comments Potassium Level (test code = 2823-3) 4.2 3.5-5.1 [facility] chloride measurement (moles/volume)2019-12-18 18:40:00* Test Item Value Reference Range Interpretation Comments Chloride Level (test code = 2075-0) 107 98-107 [facility] carbon dioxide, total measurement (moles/volume)2019-12-18 18:40:00* Test Item Value Reference Range Interpretation Comments Carbon Dioxide Level (test code = 2028-9) 20 22-29 [facility] anion zdh8400-50-76 18:40:00* Test Item Value Reference Range Interpretation Comments Anion Gap (test code = 22894-8) 14.2 8-16 [facility] urea nitrogen measurement (mass/volume)2019-12-18 18:40:00* Test Item Value Reference Range Interpretation Comments Blood Urea Nitrogen (test code = 3094-0) 11 7-26 [facility] creatinine measurement (mass/volume)2019-12-18 18:40:00* Test Item Value Reference Range Interpretation Comments Creatinine (test code = 2160-0) 0.66 0.57-1.11 [facility] urea nitrogen/creatinine mass dbirq9150-82-35 18:40:00* Test Item Value Reference Range Interpretation Comments BUN/Creatinine Ratio (test code = 3097-3) 17 6-25 [facility] HospitalEstimated glomerular filtration rate (GFR) zjvxqucfmkvvp3239-18-74 18:40:00* Test Item Value Reference Range Interpretation Comments Estimat Glomerular Filtration Rate (test code = 455515733) > 60 >60 Ranges were taken from the National Kidney Disease Education Program and the [facility] literature.Reference ranges:60 or greater: Sglhwp85-03 ( for 3 consecutive months): Chronic kidney disease 15 or less: Kidney failureUT Health East [facility] Athens HospitalGlucose qlbjpyqzskv4998-65-11 18:40:00* Test Item Value Reference Range Interpretation Comments Glucose Level (test code = YCU1862) 89 74-118 [facility] calcium measurement (mass/volume)2019-12-18 18:40:00* Test Item Value Reference Range Interpretation Comments Calcium Level (test code = 58113-2) 8.9 8.4-10.2 [facility] total bilirubin measurement (mass/volume)2019-12-18 18:40:00* Test Item Value Reference Range Interpretation Comments Total Bilirubin (test code = 1975-2) 0.5 0.2-1.2 [facility] HospitalFluoroscopic procedure less than one hour ukqjtxew3767-00-19 18:40:00* Test Item Value Reference Range Interpretation Comments Aspartate Amino Transf (AST/SGOT) (test code = Aspartate Amino Transf (AST/SGOT)) 19 5-34 [facility] alanine aminotransferase measurement (enzymatic activity/volume)2019-12-18 18:40:00* Test Item Value Reference Range Interpretation Comments Alanine Aminotransferase (ALT/SGPT) (test code = 1742-6) 15 0-55 [facility] protein measurement (mass/volume)2019-12-18 18:40:00* Test Item Value Reference Range Interpretation Comments Total Protein (test code = 2885-2) 7.4 6.5-8.1 [facility] albumin measurement (mass/volume)2019-12-18 18:40:00* Test Item Value Reference Range Interpretation Comments Albumin (test code = 1751-7) 3.7 3.5-5.0 [facility] HospitalPlasma globulin measurement (mass/volume) 2019-12-18 18:40:00* Test Item Value Reference Range Interpretation Comments Globulin (test code = 96901-6) 3.7 2.3-3.5 [facility] albumin/globulin mass lvhtk0173-86-88 18:40:00* Test Item Value Reference Range Interpretation Comments Albumin/Globulin Ratio (test code = 1759-0) 1.0 0.8-2.0 [facility] alkaline phosphatase measurement (enzymatic activity/volume)2019-12-18 18:40:00* Test Item Value Reference Range Interpretation Comments Alkaline Phosphatase (test code = 6768-6) 62 40-150 [facility] HospitalBlood leukocytes automated count (number/volume)2019-12-18 18:40:00* Test Item Value Reference Range Interpretation Comments White Blood Count (test code = 6690-2) 6.37 4.8-10.8 [facility] HospitalBlood erythrocytes automated count (number/volume)2019-12-18 18:40:00* Test Item Value Reference Range Interpretation Comments Red Blood Count (test code = 789-8) 4.33 3.6-5.1 [facility] ([facility]/volume)2019-12-18 18:40:00* Test Item Value Reference Range Interpretation Comments Hemoglobin (test code = 87565-5) 11.9 12.0-16.0 [facility] HospitalAutomated blood hematocrit (volume fraction)2019-12-18 18:40:00* Test Item Value Reference Range Interpretation Comments Hematocrit (test code = 4544-3) 37.4 34.2-44.1 [facility] HospitalAutomated erythrocyte mean corpuscular spwnfe0789-31-38 18:40:00* Test Item Value Reference Range Interpretation Comments Mean Corpuscular Volume (test code = 787-2) 86.4 81-99 [facility] HospitalAutomated erythrocyte mean corpuscular hemoglobin (mass per erythrocyte)2019-12-18 18:40:00* Test Item Value Reference Range Interpretation Comments Mean Corpuscular Hemoglobin (test code = 785-6) 27.5 28-32 [facility] HospitalAutomated erythrocyte mean corpuscular hemoglobin concentration measurement (mass/volume)2019-12-18 18:40:00* Test Item Value Reference Range Interpretation Comments Mean Corpuscular Hemoglobin Concent (test code = 786-4) 31.8 31-35 [facility] HospitalRDW FnnUm-Duv4217-74-17 18:40:00* Test Item Value Reference Range Interpretation Comments Red Cell Distribution Width (test code = 97812-3) 16.2 11.7 -14.4 [facility] HospitalAutomated blood platelet count (count/volume)2019-12-18 18:40:00* Test Item Value Reference Range Interpretation Comments Platelet Count (test code = 777-3) 309 140-360 [facility] HospitalAutomated blood segmented neutrophil count as percentage of total asqinvsyqt8338-76-96 18:40:00* Test Item Value Reference Range Interpretation Comments Neutrophils (%) (Auto) (test code = 72362-5) 35.9 38.7-80.0 [facility] HospitalAutomated blood lymphocyte count as percentage ot total uvsflkqotk8354-26-18 18:40:00* Test Item Value Reference Range Interpretation Comments Lymphocytes (%) (Auto) (test code = 736-9) 23.4 18.0-39.1 [facility] HospitalAutomated blood monocyte count as percentage of total mhnjstawju9890-26-39 18:40:00* Test Item Value Reference Range Interpretation Comments Monocytes (%) (Auto) (test code = 5905-5) 7.2 4.4-11.3 [facility] eosinophil count as percentage of total whobiubhbb4461-81-25 18:40:00* Test Item Value Reference Range Interpretation Comments Eosinophils (%) (Auto) (test code = 713-8) 31.7 0.0-6.0 [facility] HospitalAutomated blood basophil count as percentage of total dovihocogz8068-29-53 18:40:00* Test Item Value Reference Range Interpretation Comments Basophils (%) (Auto) (test code = 706-2) 1.6 0.0-1.0 [facility] HospitalFluoroscopic procedure less than one hour dcxujfgk3698-95-31 18:40:00* Test Item Value Reference Range Interpretation Comments IM GRANULOCYTES % (test code = IM GRANULOCYTES %) 0.2 0.0- 1.0 [facility] HospitalAutomated blood neutrophil count 2019-12-18 18:40:00* Test Item Value Reference Range Interpretation Comments Neutrophils # (Auto) (test code = 751-8) 2.3 2.1-6.9 [facility] HospitalBlood lymphocytes count (number/volume) 2019-12-18 18:40:00* Test Item Value Reference Range Interpretation Comments Lymphocytes # (Auto) (test code = 50747-1) 1.5 1.0-3.2 [facility] HospitalBlood monocytes automated count (number/volume)2019-12-18 18:40:00* Test Item Value Reference Range Interpretation Comments Monocytes # (Auto) (test code = 742-7) 0.5 0.2-0.8 [facility] HospitalAutomated blood eosinophil count 2019-12-18 18:40:00* Test Item Value Reference Range Interpretation Comments Eosinophils # (Auto) (test code = 711-2) 2.0 0.0-0.4 [facility] HospitalAutomated blood basophil count (count/volume)2019-12-18 18:40:00* Test Item Value Reference Range Interpretation Comments Basophils # (Auto) (test code = 704-7) 0.1 0.0-0.1 [facility] HospitalFluoroscopic procedure less than one hour zvrcgeyn4978-74-42 18:40:00* Test Item Value Reference Range Interpretation Comments Absolute Immature Granulocyte (auto (lela t code = Absolute Immature Granulocyte (auto) 0.01 0-0.1 [facility] sodium measurement (moles/volume)2019-12-18 18:40:00* Test Item Value Reference Range Interpretation Comments Sodium Level (test code = 2951-2) 137 136-145 [facility] plasma potassium measurement (moles/volume)2019-12-18 18:40:00* Test Item Value Reference Range Interpretation Comments Potassium Level (test code = 2823-3) 4.2 3.5-5.1 [facility] plasma chloride measurement (moles/volume)2019-12-18 18:40:00* Test Item Value Reference Range Interpretation Comments Chloride Level (test code = 2075-0) 107 98-107 [facility] plasma carbon dioxide, total measurement (moles/volume)2019-12-18 18:40:00* Test Item Value Reference Range Interpretation Comments Carbon Dioxide Level (test code = 2028-9) 20 22-29 [facility] plasma anion vpt8223-60-23 18:40:00* Test Item Value Reference Range Interpretation Comments Anion Gap (test code = 25588-5) 14.2 8-16 [facility] urea nitrogen measurement (mass/volume)2019-12-18 18:40:00* Test Item Value Reference Range Interpretation Comments Blood Urea Nitrogen (test code = 3094-0) 11 7-26 [facility] plasma creatinine measurement (mass/volume)2019-12-18 18:40:00* Test Item Value Reference Range Interpretation Comments Creatinine (test code = 2160-0) 0.66 0.57-1.11 [facility] urea nitrogen/creatinine mass rjvkb7758-65-12 18:40:00* Test Item Value Reference Range Interpretation Comments BUN/Creatinine Ratio (test code = 3097-3) 17 6-25 [facility] HospitalEstimated glomerular filtration rate (GFR) kknghtqnwpqjt2664-13-85 18:40:00* Test Item Value Reference Range Interpretation Comments Estimat Glomerular Filtration Rate (test code = 436566422) > 60 >60 Ranges were taken from the National Kidney Disease Education Program and the [facility] literature.Reference ranges:60 or greater: Hhzblq44-80 ( for 3 consecutive months): Chronic kidney disease 15 or less: Kidney failureUT Health [facility] HospitalGlucose pvyrcuhevpb8124-57-37 18:40:00* Test Item Value Reference Range Interpretation Comments Glucose Level (test code = FPX9844) 89 74-118 [facility] calcium measurement (mass/volume)2019-12-18 18:40:00* Test Item Value Reference Range Interpretation Comments Calcium Level (test code = 22262-2) 8.9 8.4-10.2 [facility] total bilirubin measurement (mass/volume)2019-12-18 18:40:00* Test Item Value Reference Range Interpretation Comments Total Bilirubin (test code = 1975-2) 0.5 0.2-1.2 [facility] HospitalFluoroscopic procedure less than one hour vypcrvbr5006-09-08 18:40:00* Test Item Value Reference Range Interpretation Comments Aspartate Amino Transf (AST/SGOT) (test code = Aspartate Amino Transf (AST/SGOT)) 19 5-34 [facility] plasma alanine aminotransferase measurement (enzymatic activity/volume)2019-12-18 18:40:00* Test Item Value Reference Range Interpretation Comments Alanine Aminotransferase (ALT/SGPT) (test code = 1742-6) 15 0-55 [facility] plasma protein measurement (mass/volume)2019-12-18 18:40:00* Test Item Value Reference Range Interpretation Comments Total Protein (test code = 2885-2) 7.4 6.5-8.1 [facility] plasma albumin measurement (mass/volume)2019-12-18 18:40:00* Test Item Value Reference Range Interpretation Comments Albumin (test code = 1751-7) 3.7 3.5-5.0 [facility] HospitalPlasma globulin measurement (mass/volume) 2019-12-18 18:40:00* Test Item Value Reference Range Interpretation Comments Globulin (test code = 37660-8) 3.7 2.3-3.5 [facility] plasma albumin/globulin mass ewevf7905-39-83 18:40:00* Test Item Value Reference Range Interpretation Comments Albumin/Globulin Ratio (test code = 1759-0) 1.0 0.8-2.0 [facility] plasma alkaline phosphatase measurement (enzymatic activity/volume)2019-12-18 18:40:00* Test Item Value Reference Range Interpretation Comments Alkaline Phosphatase (test code = 6768-6) 62 40-150 [facility] HospitalURINALYSIS NUFSACQK5376-58-64 17:01:00* Test Item Value Reference Range Interpretation [...] HPF NONE Urine Source? Clean CatchUR HCG JBTN6968-90-08 17:01:00* Test Item Value Reference Range Interpretation Comments UR HCG QUAL (test code = HCGQLU) NEGATIVE This HCGQL test is NOT applicable for MALE patients.Check with nurse about probable order error.If Tumor Marker Test needed, nurse should order test "HCGTU"(Test #550.13983) Urine Source? Clean CatchURINALYSIS BMIQKZLV8055-17-73 16:55:00* Test Item Value Reference Range Interpretation [...] HPF NONE Urine Source? Clean CatchUR HCG CMHO2040-48-39 16:55:00* Test Item Value Reference Range Interpretation Comments UR HCG QUAL (test code = HCGQLU) Urine Source? Clean CatchURINALYSIS GIIZQWVU4066-43-61 16:55:00* Test Item Value Reference Range Interpretation [...] HPF NONE Urine Source? Clean CatchUR HCG DHLE3685-62-14 16:55:00* Test Item Value Reference Range Interpretation Comments UR HCG QUAL (test code = HCGQLU) NEGATIVE This HCGQL test is NOT applicable for MALE patients.Check with nurse about probable order error.If Tumor Marker Test needed, nurse should order test "HCGTU"(Test #550.21353) Urine Source? Clean CatchURINALYSIS AAWREYAX7901-26-78 16:00:00* Test Item Value Reference Range Interpretation [...] per LPF NONE-FEW Urine Source? Clean CatchURINALYSIS IYBQMFDP4054-08-28 15:54:00* Test Item Value Reference Range Interpretation [...] BACU) per HPF NONE Urine Source? Clean TlttrSYGEQLDMT7115-07-26 10:39:00* Test Item Value Reference Range Interpretation Comments MAGNESIUM (test code = MAG) 2.0 mg/dL 1.6-2.3 N COMPREHENSIVE METABOLIC BAULE2861-83-92 10:22:00* Test Item Value Reference Range Interpretation [...] code = ALKP) 140 U/L 38-126 H [id number] 10:22:00* Test Item Value Reference Range Interpretation Comments LIPASE (test code = LIP) 60 U/L 128-270 L COMPREHENSIVE METABOLIC [id number] 10:17:00* Test Item Value Reference Range Interpretation [...] TOTAL (test code = ALKP) IUnit/L 45-117 TVWMHR5367-53-39 10:17:00* Test Item Value Reference Range Interpretation Comments LIPASE (test code = LIP) Unit/L 144-286 URINALYSIS VKZKTZKE8436-49-59 10:08:00* Test Item Value Reference Range Interpretation [...] NONE A Urine Source? Clean CatchCBC W/AUTO HWPR9276-25-28 10:01:00* Test Item Value Reference Range Interpretation [...] = MDIFF) NO - CT ABD PELVIS W/ZZWO3716-05-90 19:01:00 Name: MERON MART[facility]NEZ [facility] [place] : 1970 Age/S: 48 / F [address] Unit #: [id number] Loc: [place] [address] Phys: Oliva Gonzalez MD Acct: [id number] Dis Date: Status: REG ER PHONE #: [phone] Exam Date: 10/08/2019 1828 FAX #: [phone] Reason: LLQ abd pain EXAMS: CPT CODE: [id number] CT ABD PELVIS W/CONT 05381 REASON FOR EXAM: LLQ abd pain EXAM [...] 1 Signed Report (CONTINUED) Name: MERON MARTÍNEZ : 1970 Age/S: 48 / F [address] Unit #: [id number] Loc: [place] [address] Phys: Oliva Gonzalez MD Acct: [id number] Dis Date: Status: REG ER PHONE #: [phone] Exam Date: 02/2020 1828 FAX #: [phone] Reason: LLQ abd pain EXAMS: CPT CODE: [id number] CT ABD PELVIS W/CONT 55078 <Continued> fat in the peripancreatic region. However [...] RT(R)(CT) CTDI: DLP: Trnscb Date/Time: 10/08/2019 (1900) t.[email or web address].[email or web address] Orig Print D/T: S: 10/08/2019 (1903) PAGE [...] code = ALKP) 128 U/L 38-126 H [id number] 17:50:00* Test Item Value Reference Range Interpretation Comments LIPASE (test code = LIP) 84 U/L 128-270 L COMPREHENSIVE METABOLIC [id number] 17:45:00* Test Item Value Reference Range Interpretation [...] TOTAL (test code = ALKP) IUnit/L 45-117 [id number] 17:45:00* Test Item Value Reference Range Interpretation Comments LIPASE (test code = LIP) Unit/L 144-286 CBC W/AUTO [id number] 17:37:00* Test Item Value Reference Range Interpretation [...] REQUIRED (test code = MDIFF) NO URINALYSIS [id number] 17:12:00* Test Item Value Reference Range Interpretation [...] NONE A Urine Source? Clean CatchUR HCG [id number] 17:12:00* Test Item Value Reference Range Interpretation Comments UR HCG QUAL (test code = HCGQLU) NEGATIVE This HCGQL test is NOT applicable for MALE patients.Check with nurse about probable order error.If Tumor Marker Test needed, nurse should order test "HCGTU"(Test #550.77743) Urine Source? Clean CatchUTERUS,OTHER THAN PROLAPSE/[id number] 18:51:00 RUN DATE: 09/29/19 [facility] PAGE 1 RUN TIME: 1124 Specimen Inqui ry RUN USER: INTERFACE PATIENT: MERON MARTÍNEZ ACCT #: [id number] LOC: U U #: [id number] AGE/SX: 48/F ROOM: Replaced By [facility] RE09/27/19[facility] [place] DR: Kim Cook MD : [birth year] BED: A DIS: 09/28/19 STATUS: DIS Peter TLOC: SPEC #: [id number] RECD: 09/27/19 STATUS: [place] #: [id number] HANNAH: 09/27/19- SUBM DR: Kim Cook MD ENTERED: 09/27/19 SP TYPE: UTERUSOTH OTHR DR: ORDERED: LEVEL V SURGICA CODES: [id number] - UTERUS, NOS PROCEDURES: LEV EL V [...] with paratubal cyst CPT code(s): 883 07 [facility] 09/28/19 GROSS DESCRIPTION ANATOMIC SOURCE OF TISSUE [...] measures 3.5 cm. The entire cervix and sales representative supervisor sections of the lower uterine segment are castro bmitted in A1 through A3 - anterior and A4 through A6 - posterior. The end ometrium measures 0.1 cm. The myometrium measures 4 cm and contains guillermo, whit e, firm nodules measuring up to 3.5 cm with no identifiable degenerative change on the cut surfaces. Lead Project Engineer sections are submitted in A7 and A8. CONTINUED ON NEXT PAGE RUN DA TE: 09/29/19 [facility] PAG E 2 RUN TIME: 1124 Specimen Inquiry RUN USER: INTERFACE SPEC #: [id number] PATIENT: MERON MARTÍNEZ #[id number] (Continued) GROSS DESCRIPTION (Contin ued) The first [...] 09/28/19 1851 END OF REPORT CHEMISTRY 7 [id number] 07:09:00* Test Item Value Reference Range Interpretation [...] CA) 8.3 mg/dL 8.4-10.2 L CBC W/AUTO [id number] 06:41:00* Test Item Value Reference Range Interpretation [...] = PLTMR) NORMAL MISTI L UR HCG [id number] 08:55:00* Test Item Value Reference Range Interpretation Comments UR HCG QUAL (test code = HCGQLU) NEGATIVE 1. Very dilute urine specimens, as indicated by a lowspecific gravity, may not contain sales representative supervisor levels ofhCG. 2. False negative results may occur when the levels of hCGare below the sensitivity level of the test. If is still suspected, a first morningurine specimen should be collected 48 hours later andtested. CHEMISTRY 7 [id number] 15:43:00* Test Item Value Reference Range Interpretation [...] CA) 8.9 mg/dL 8.4-10.2 N CBC W/AUTO [id number] 15:25:00* Test Item Value Reference Range Interpretation [...] = PLTMR) NORMAL MISTI L UR HCG [id number] 15:23:00* Test Item Value Reference Range Interpretation Comments UR HCG QUAL (test code = HCGQLU) NEGATIVE 1. Very dilute urine specimens, as indicated by a lowspecific gravity, may not contain sales representative supervisor levels ofhCG. 2. False negative results may occur when the levels of hCGare below the sensitivity level of the test. If is still suspected, a first morningurine specimen should be collected 48 hours later andtested. URINALYSIS [id number] 12:35:00* Test Item Value Reference Range Interpretation [...] LPF NONE-FEW A Urine Source? Clean CatchURINALYSIS [id number] 12:29:00* Test Item Value Reference Range Interpretation [...] HPF NONE Urine Source? Clean CatchCHEST 2 [id number] 10:29:00 [place] [address] Patient Name: MERON MARTÍNEZ MR #: [id number] : Age/Sex: 48/F Req #: [id number] Adm Physician: Ordered by: ANNE BATES MD Report #: [id number] Location: OR Room/Bed: Procedure: 0103-0 019 DX/CHEST [...] MD Serum or plasma choriogonadotropin ( test) nqxvegtxp2661-84-26 08:30:00* Test Item Value Reference Range Interpretation Comments Human Chorionic Gonadotropin, Qual (test code = 2118-8) NEGATIVE NEGATIVE [facility] and 2 antibody detection qualitative by rapid jnlgqnxayqb5321-79-56 08:30:00* Test Item Value Reference Range Interpretation Comments HIV (1&2) Antibody (test code = 26801-9) NON-REACTIVE NONREACTIVE [facility] HospitalFluoroscopic procedure less than one hour gbxgewkl5984-24-67 08:30:00* Test Item Value Reference Range Interpretation Comments HIV P24 Antigen (test code = HIV P24 Antigen) REACTIVE NONREA CTIVE Results called to LESLIE ART at 1213 on 08/05/19 by William Brody. [place].[facility] or plasma hepatitis A virus IgM antibody detection by xwoujaouxni0931-21-15 08:30:00* Test Item Value Reference Range Interpretation Comments Hepatitis A IgM Antibody (test code = 73579-0) Negative Negativ e [facility] or plasma hepatitis B virus surface antigen detection by tospvrifqel2965-15-02 08:30:00* Test Item Value Reference Range Interpretation Comments Hepatitis B Surface Antigen (test code = 5196-1) Negative Negat thai [facility] or plasma hepatitis B virus core IgM antibody detection by pjkekymthnw2332-14-26 08:30:00* Test Item Value Reference Range Interpretation Comments Hepatitis B Core IgM Antibody (test code = 53687-2) Negative Ne gative [facility] hepatitis C virus antibody ibtmmgilo1214-53-58 08:30:00* Test Item Value Reference Range Interpretation Comments Hepatitis C Antibody (test code = 11224-6) <0.1 0.0-0.9 Negative: < 0.8 Indeterminate: 0.8 - 0.9 Positive: > 0.9 The CDC recommends that a positive HCV antibody result be followed up with a HCV Nucleic Acid Amplification test (287637).Performed at: [facility] [address] [place], [place] [id number] Director: Simon Dash MD, Phone: [phone] [facility] HospitalHIV-2 antibody detection by enzyme jbecadlhjml7420-70-19 08:30:00* Test Item Value Reference Range Interpretation Comments HIV-2 Antibody (EIA) (test code = 30143-2) Negative Interpretation:A repeatedly reactive HIV-2 result may [...] show the presence of HIV-2 specific viral bands.[facility] HospitalHIV RNA bldxn7029-39-45 08:30:00* Test Item Value Reference Range Interpretation Comments HIV-1 RNA, Qualitative (TMA) (test code = 796192677) Negative N egative Negative for HIV-1 RNAPerformed at: [facility] [place] [id number] Director: Norma Canas MD, Phone: [phone] Health Friscoerum or plasma choriogonadotropin ( test) sgydqlocd1808-75-83 08:30:00* Test Item Value Reference Range Interpretation Comments Human Chorionic Gonadotropin, Qual (test code = 2118-8) NEGATIVE NEGATIVE [facility] HospitalHIV 1 and 2 antibody detection qualitative by rapid aoixzkyjffb3519-95-47 08:30:00* Test Item Value Reference Range Interpretation Comments HIV (1&2) Antibody (test code = 62523-7) NON-REACTIVE NONREACTIVE [facility] HospitalFluoroscopic procedure less than one hour efqlrlay6683-02-29 08:30:00* Test Item Value Reference Range Interpretation Comments HIV P24 Antigen (test code = HIV P24 Antigen) REACTIVE NONREA CTIVE Results called to LESLIE ART at 1213 on 08/05/19 by William Brody. [place].[facility] or plasma hepatitis A virus IgM antibody detection by fzuagozhumd3500-84-19 08:30:00* Test Item Value Reference Range Interpretation Comments Hepatitis A IgM Antibody (test code = 79644-0) Negative Negativ e [facility] or plasma hepatitis B virus surface antigen detection by wmyqllqkvyu2078-20-91 08:30:00* Test Item Value Reference Range Interpretation Comments Hepatitis B Surface Antigen (test code = 5196-1) Negative Negat thai [facility] or plasma hepatitis B virus core IgM antibody detection by udclhrwjlim6483-72-17 08:30:00* Test Item Value Reference Range Interpretation Comments Hepatitis B Core IgM Antibody (test code = 30247-8) Negative Ne gative [facility] hepatitis C virus antibody plhjzenli7832-62-24 08:30:00* Test Item Value Reference Range Interpretation Comments Hepatitis C Antibody (test code = 13379-4) <0.1 0.0-0.9 Negative: < 0.8 Indeterminate: 0.8 - 0.9 Positive: > 0.9 The CDC recommends that a positive HCV antibody result be followed up with a HCV Nucleic Acid Amplification test (382764).Performed at: [facility] [address] [place], [place] [id number] Director: Simon Dash MD, Phone: [phone] [facility] HospitalHIV-2 antibody detection by enzyme lsuehgkhwtz9134-85-57 08:30:00* Test Item Value Reference Range Interpretation Comments HIV-2 Antibody (EIA) (test code = 70223-7) Negative Interpretation:A repeatedly reactive HIV-2 result may [...] show the presence of HIV-2 specific viral bands.[facility] HospitalHIV RNA blfgv5532-54-43 08:30:00* Test Item Value Reference Range Interpretation Comments HIV-1 RNA, Qualitative (TMA) (test code = 337964751) Negative N egative Negative for HIV-1 RNAPerformed at: - LabCo[address] [id number] Director: Norma Canas MD, Phone: [phone] Health Friscoerum or plasma choriogonadotropin ( test) jddjtjvfl6771-59-03 08:30:00* Test Item Value Reference Range Interpretation Comments Human Chorionic Gonadotropin, Qual (test code = 2118-8) NEGATIVE NEGATIVE [facility] HospitalHIV 1 and 2 antibody detection qualitative by rapid wkzgpgvkskg7331-14-77 08:30:00* Test Item Value Reference Range Interpretation Comments HIV (1&2) Antibody (test code = 59067-7) NON-REACTIVE NONREACTIVE [facility] HospitalFluoroscopic procedure less than one hour blxfaiit6811-73-37 08:30:00* Test Item Value Reference Range Interpretation Comments HIV P24 Antigen (test code = HIV P24 Antigen) REACTIVE NONREA CTIVE Results called to LESLIE ART at 1213 on 08/05/19 by William Brody. [place].[facility] or plasma hepatitis A virus IgM antibody detection by npllhzxpsiz8284-91-83 08:30:00* Test Item Value Reference Range Interpretation Comments Hepatitis A IgM Antibody (test code = 60695-8) Negative Negativ e [facility] or plasma hepatitis B virus surface antigen detection by sjtqttfqnvs5513-66-89 08:30:00* Test Item Value Reference Range Interpretation Comments Hepatitis B Surface Antigen (test code = 5196-1) Negative Negat thai [facility] or plasma hepatitis B virus core IgM antibody detection by wvavrugmjxu4660-03-01 08:30:00* Test Item Value Reference Range Interpretation Comments Hepatitis B Core IgM Antibody (test code = 59640-8) Negative Ne gative [facility] hepatitis C virus antibody gogwgkioc5507-69-37 08:30:00* Test Item Value Reference Range Interpretation Comments Hepatitis C Antibody (test code = 90184-3) <0.1 0.0-0.9 Negative: < 0.8 Indeterminate: 0.8 - 0.9 Positive: > 0.9 The CDC recommends that a positive HCV antibody result be followed up with a HCV Nucleic Acid Amplification test (026027).Performed at: - [facility] [address] [place] [id number] Director: Simon Dash MD, Phone: [phone] [facility] HospitalHIV-2 antibody detection by enzyme lwsxfwbbkak6044-64-90 08:30:00* Test Item Value Reference Range Interpretation Comments HIV-2 Antibody (EIA) (test code = 84226-1) Negative Interpretation:A repeatedly reactive HIV-2 result may [...] show the presence of HIV-2 specific viral bands.[facility]HIV RNA ehjjd1338-50-49 08:30:00* Test Item Value Reference Range Interpretation Comments HIV-1 RNA, Qualitative (TMA) (test code = 316511919) Negative N egative Negative for HIV-1 RNAPerformed at: - LabCo[address] [id number] Director: Norma Canas MD, Phone: [phone] Health Friscoerum or plasma choriogonadotropin ( test) vrmabxuck1411-70-17 08:30:00* Test Item Value Reference Range Interpretation Comments Human Chorionic Gonadotropin, Qual (test code = 2118-8) NEGATIVE NEGATIVE [facility] HospitalHIV 1 and 2 antibody detection qualitative by rapid gpioaodmdcf9517-31-37 08:30:00* Test Item Value Reference Range Interpretation Comments HIV (1&2) Antibody (test code = 97690-2) NON-REACTIVE NONREACTIVE [facility] HospitalFluoroscopic procedure less than one hour zduicpze8800-57-84 08:30:00* Test Item Value Reference Range Interpretation Comments HIV P24 Antigen (test code = HIV P24 Antigen) REACTIVE NONREA CTIVE Results called to LESLIE ART at 1213 on 08/05/19 by William Brody. RB [place].[facility] or plasma hepatitis A virus IgM antibody detection by nauvtqyrwlu3162-60-12 08:30:00* Test Item Value Reference Range Interpretation Comments Hepatitis A IgM Antibody (test code = 40046-7) Negative Negativ e [facility] or plasma hepatitis B virus surface antigen detection by oozvhisjemo8698-46-20 08:30:00* Test Item Value Reference Range Interpretation Comments Hepatitis B Surface Antigen (test code = 5196-1) Negative Negat thai [facility] or plasma hepatitis B virus core IgM antibody detection by cgiugfgoltz5559-43-43 08:30:00* Test Item Value Reference Range Interpretation Comments Hepatitis B Core IgM Antibody (test code = 37567-2) Negative Ne gative [facility] hepatitis C virus antibody glyxpuhxb6579-55-35 08:30:00* Test Item Value Reference Range Interpretation Comments Hepatitis C Antibody (test code = 00856-5) <0.1 0.0-0.9 Negative: < 0.8 Indeterminate: 0.8 - 0.9 Positive: > 0.9 The CDC recommends that a positive HCV antibody result be followed up with a HCV Nucleic Acid Amplification test (593693).Performed at: [facility] [address] [place], [place] [id number] Director: Simon Dash MD, Phone: [phone] Health [facility] HospitalHIV-2 antibody detection by enzyme ppafljmmtky7274-23-65 08:30:00* Test Item Value Reference Range Interpretation Comments HIV-2 Antibody (EIA) (test code = 77938-8) Negative Interpretation:A repeatedly reactive HIV-2 result may [...] show the presence of HIV-2 specific viral bands.[facility] RNA jjnhq8767-22-88 08:30:00* Test Item Value Reference Range Interpretation Comments HIV-1 RNA, Qualitative (TMA) (test code = 219086970) Negative N egative Negative for HIV-1 RNAPerformed at: [facility] LabCoJames [place]ille [address] [place], [place] [id number] Director: Norma Canas MD, Phone: [phone] [facility] HospitalBASI METABOLIC WXJIC1996-63-21 09:02:00* Test Item Value Reference Range Interpretation [...] CA) 7.8 mg/dL 8.5-10.1 L CBC W/AUTO JWQW1108-76-42 07:20:00* Test Item Value Reference Range Interpretation [...] K/mm3 0.0-0.1 N - CT ABD PELVIS W/RUFT4212-01-91 14:17:00 Name: MERON MARTÍNEZ : 1970 Age/S: 48 / F [address] [facility] Unit #: [id number] Loc: [place] [address] Phys: Liz Terry MD Acct: [id number] Dis Date: Status: REG ER PHONE #: [phone] Exam Date: 07/26/2019 1332 FAX #: [phone] Reason: lower abdominal pain EXAMS: CPT CODE: [id number] CT ABD PELVIS W/CONT 68972 REASON FOR EXAM: lower abdominal pain EXAM [...] 1 Signed Report (CONTINUED) Name: MERON MARTÍNEZ [facility] : 1970 Age/S: 48 / F [address] [facility] [address] Unit #: [id number] Loc: [place] [address] Phys: Liz Terry MD Acct: [id number] Dis Date: Status: REG ER PHONE #: [phone] Exam Date: 07/26/2019 1332 FAX #: [phone] Reason: lower abdominal pain EXAMS: CPT CODE: [id number] CT ABD PELVIS W/CONT 69069 < Continued> Abdominal vascular structures: Normal Peritoneum [...] Technologist:Shraddha Aviles CTDI: DLP: Trnscb Date/Time: 07/26/2019 (1416) t.YOELR.RR31 Orig Print D/T: S: 07/26/2019 (1420) PAGE 2 Signed Report URINALYSIS BCFDFTUE8464-70-23 12:21:00* Test Item Value Reference Range Interpretation [...] NONE-FEW A Urine Source? Clean CatchBASIC METABOLIC NSWHU9259-64-26 12:17:00* Test Item Value Reference Range Interpretation [...] CA) 8.8 mg/dL 8.4-10.2 N HEPATIC FUNCTION PQSPX9847-63-78 12:17:00* Test Item Value Reference Range Interpretation [...] code = ALKP) 66 U/L 38-126 N IJSTEQ5250-11-23 12:17:00* Test Item Value Reference Range Interpretation Comments LIPASE (test code = LIP) 106 U/L 128-270 L HCG SERUM LMYZ5384-09-14 12:17:00* Test Item Value Reference Range Interpretation Comments HCG SERUM QUAL (test code = HCGQL) NEGATIVE NEGATIVE This HCGQL test is NOT applicable for MALE patients.Check with nurse about probable order error.If Tumor Marker Test needed, nurse should order test "HCGTU"(Test #550.02545) URINALYSIS YZJGDLQB0984-72-77 12:14:00* Test Item Value Reference Range Interpretation [...] HPF NONE Urine Source? Clean CatchBASIC METABOLIC FIGAK4733-59-11 11:56:00* Test Item Value Reference Range Interpretation [...] CA) 8.8 mg/dL 8.4-10.2 N HEPATIC FUNCTION [id number] 11:56:00* Test Item Value Reference Range Interpretation [...] TOTAL (test code = ALKP) IUnit/L 45-117 CYVVSK3850-58-25 11:56:00* Test Item Value Reference Range Interpretation Comments LIPASE (test code = LIP) Unit/L 144-286 HCG SERUM WOHE8921-18-35 11:56:00* Test Item Value Reference Range Interpretation Comments HCG SERUM QUAL (test code = HCGQL) NEGATIVE NEGATIVE This HCGQL test is NOT applicable for MALE patients.Check with nurse about probable order error.If Tumor Marker Test needed, nurse should order test "HCGTU"(Test #550.95250) CBC W/O ZEHK4953-14-94 11:53:00* Test Item Value Reference Range Interpretation [...] MPV) 9.2 fL 6.7-11.0 N BASIC METABOLIC [id number] 11:53:00* Test Item Value Reference Range Interpretation [...] CA) 8.8 mg/dL 8.4-10.2 N HEPATIC FUNCTION [id number] 11:53:00* Test Item Value Reference Range Interpretation [...] TOTAL (test code = ALKP) IUnit/L 45-117 [id number] 11:53:00* Test Item Value Reference Range Interpretation Comments LIPASE (test code = LIP) Unit/L 144-286 HCG SERUM ITIB9896-71-89 11:53:00* Test Item Value Reference Range Interpretation Comments HCG SERUM QUAL (test code = HCGQL) NEGATIVE URINALYSIS ZTYASMYT3323-01-21 09:51:00* Test Item Value Reference Range Interpretation [...] NONE A Urine Source? Clean CatchUR HCG [id number] 09:51:00* Test Item Value Reference Range Interpretation Comments UR HCG QUAL (test code = HCGQLU) NEGATIVE This HCGQL test is NOT applicable for MALE patients.Check with nurse about probable order error.If Tumor Marker Test needed, nurse should order test "HCGTU"(Test #550.40327) Urine Source? Clean CatchURINALYSIS HZAUJPQA4854-18-90 09:30:00* Test Item Value Reference Range Interpretation [...] HPF NONE Urine Source? Clean CatchUR HCG FYWE6444-73-33 09:30:00* Test Item Value Reference Range Interpretation Comments UR HCG QUAL (test code = HCGQLU) Urine Source? Clean CatchURINALYSIS MKYLLNAP8565-68-25 13:03:00* Test Item Value Reference Range Interpretation [...] LPF NONE-FEW A Urine Source? Clean CatchURINALYSIS [id number] 12:57:00* Test Item Value Reference Range Interpretation [...] HPF NONE Urine Source? Clean CatchBASIC METABOLIC [id number] 14:53:00* Test Item Value Reference Range Interpretation [...] CA) 8.5 mg/dL 8.0-10.5 N BASIC METABOLIC [id number] 14:48:00* Test Item Value Reference Range Interpretation [...] 8.0-10.5 N UA RFLX MICR CULT IF YMJMCJBQH3307-39-12 14:46:00* Test Item Value Reference Range Interpretation [...] culture: Suprapubic PainSpecimen Description: CLEAN CATCHUR HCG [id number] 14:42:00* Test Item Value Reference Range Interpretation Comments UR HCG QUAL (test code = HCGQLU) NEGATIVE NEGATIVE CBC W/AUTO [id number] 14:39:00* Test Item Value Reference Range Interpretation [...] REQUIRED (test code = MDIFF) NO URINALYSIS [id number] 09:46:00* Test Item Value Reference Range Interpretation [...] BACU) FEW per HPF NONE URINALYSIS W/O [id number] 09:46:00* Test Item Value Reference Range Interpretation Comments UA MICROSCOPIC NEEDED? (test code = UAMICRO) YES URINALYSIS [id number] 09:38:00* Test Item Value Reference Range Interpretation [...] = BACU) per HPF NONE URINALYSIS W/O [id number] 09:38:00* Test Item Value Reference Range Interpretation Comments UA MICROSCOPIC NEEDED? (test code = UAMICRO) URINALYSIS [id number] 09:38:00* Test Item Value Reference Range Interpretation [...] = BACU) per HPF NONE URINALYSIS W/O [id number] 09:38:00* Test Item Value Reference Range Interpretation Comments UA MICROSCOPIC NEEDED? (test code = UAMICRO) B-TYPE NATRIURETIC [id number] 17:30:00* Test Item Value Reference Range Interpretation Comments B-TYPE NATRIURETIC PEPTIDE (test code = BNP) 15.1 pg/mL 0-100 N [id number] 17:23:00* Test Item Value Reference Range Interpretation Comments D-DIMER (test code = DDIMER) < 100 ng/ml < 600 COMPREHENSIVE METABOLIC [id number] 17:21:00* Test Item Value Reference Range Interpretation [...] code = ALKP) 72 U/L 38-126 N [id number]-[id number] 17:21:00* Test Item Value Reference Range Interpretation Comments TROPONIN-I (test code = TROPI) <0.015 ng/mL 0.00-0.056 N COMPREHENSIVE METABOLIC [id number] 17:13:00* Test Item Value Reference Range Interpretation [...] TOTAL (test code = ALKP) IUnit/L 45-117 [id number]-[id number] 17:13:00* Test Item Value Reference Range Interpretation Comments TROPONIN-I (test code = TROPI) ng/mL 0-0.045 CBC W/AUTO [id number] 17:09:00* Test Item Value Reference Range Interpretation [...] = MDIFF) NO - XR CHEST 1 [id number] 16:53:00 Name: TANYAMERON JOSHUA : 1970 Age/S:48 /F [address] [facility] Unit#:[id number] Loc: [place], [place] [address] Phys: Steven Patterson MD Dis Date: PHONE #: [phone] Status: REG ER FAX #: [phone] Exam Date: 03/01/2019 Reason: sob EXAMS: CPT CODE: [id number] XR CHEST 1 V 19532 REASON FOR EXAM: sob EXAM ORDER DATE: 03/01/2019 4:16 PM Ordering Dani: Steven Patterson MD PROCEDURE: - XR CHEST 1 V COMPARISON: FINDINGS: Portable AP frontal view of the chest obtained at 4:31 PM shows clear lungs without evidence of consolidation. There is no evidence of effusion. The heart size is within normal limits. Pulmonary vasculatures are unremarkable. IMPRESSION: No active disease. at 1653 Reported and signed by: Kelvin Cole M.D. CC: Steven Son MD Technologist: Shraddha Aviles Trnscrpt Data: 03/01/2019 (1652) t.SDR. VTL Orig Print D/T: S: 03/01/2019 (5940) PAGE 1 Signed Report - CT ABD PELVIS W/O [id number] 15:35:00 Name: MERON MARTÍNEZ : 1970 Age/S: 48 / F [address] [facility] Unit #: [id number] Loc: [place] [address] Phys: Steven Patterson MD Acct: [id number] Dis Date: Status: REG ER PHONE #: [phone] Exam Date: 02/28/2019 1512 FAX #: [phone] Reason: left side abd pain EXAMS: CPT CODE: [id number] CT ABD PELVIS W/O CONT 49141 REASON FOR EXAM: left side abd pain EXAM ORDER DATE: 02/28/2019 2:46 PM Ordering Dani: Steven Patterson MD PROCEDURE: - CT ABD [...] Aviles CTDI: DLP: Trnscb Date /Time: 02/28/2019 (1535) tVIOLET.VTL PAGE 1 Signed Report COMPREHENSIVE METABOLIC [id number] 15:14:00* Test Item Value Reference Range Interpretation [...] code = ALKP) 74 U/L 38-126 N [id number] 15:14:00* Test Item Value Reference Range Interpretation Comments LIPASE (test code = LIP) 82 U/L 128-270 L COMPREHENSIVE METABOLIC [id number] 15:06:00* Test Item Value Reference Range Interpretation [...] TOTAL (test code = ALKP) IUnit/L 45-117 [id number] 15:06:00* Test Item Value Reference Range Interpretation Comments LIPASE (test code = LIP) Unit/L 144-286 CBC W/AUTO [id number] 14:56:00* Test Item Value Reference Range Interpretation [...] (test code = MDIFF) NO URINALYSIS W/O [id number] 14:50:00* Test Item Value Reference Range Interpretation [...] = LEUUR) NEGATIVE NEG ATIVE URINALYSIS W/O [id number] 14:49:00* Test Item Value Reference Range Interpretation [...] NEG ATIVE - XR KNEE 3 V [id number] 14:17:00 Name: MERON MARTÍNEZ : 1970 Age/S:48 /F [address] [facility] Unit#:[id number] Loc: [place] [address] Phys: Isabella Perry RN [facility] Dis Date: PHONE #: [phone] Status: REG ER FAX #: [phone] Exam Date: 12/25/2018 Reason: hypererxtension right knee EXAMS: CPT CODE: [id number] XR KNEE 3 [place] RT [address]137 REASON FOR EXAM: hypererxtension right knee EXAM [...] Technologist: Shraddha [place] per Trnscrpt Data: 12/25/2018 (9919) t.YOELR.VTL Orig Print D/T: S: 12/25/2018 (2332) PAGE 1 Signed Report - XR TIBIA/FIBULA 2 V [id number] 14:12:00 Name: MERON MARTÍNEZ : 1970 Age/S:48 /F [address] [facility] Unit#:[id number] Loc: [place] [address] Phys: Isabella Perry RN [facility] Dis Date: PHONE #: [phone] Status: REG ER FAX #: [phone] Exam Date: 12/25/2018 Reason: hypererxtension right knee EXAMS: CPT CODE: [id number] XR TIBIA/FIBULA 2 [place] RT [address]38 REASON FOR EXAM: hypererxtension right knee EXAM [...] CC: Russell Espinoza MD Technologist: Shraddha Winn nscrpt Data: 12/25/2018 (1412) t.YOELR.VTL Orig Print D/T : S: 12/25/2018 (5619) PAGE 1 Sig lisbeth Report URINALYSIS [id number] 06:31:00 * Test Item Value Reference Range [...] 1.001-1.035 UA BLOOD DIPSTICK (test code = ADIYTA) 250 (4+) Mitch/uL NEGATIVE A UA PH [...] DERIAN) FEW per HPF NONE A URINALYSIS [id number] 06:24:00* Test Item Value Reference Range Interpretation [...] = BACU) per HPF NONE URINALYSIS W/O [id number] 06:24:00* Test Item Value Reference Range Interpretation Comments UA LEUKOCYTE ESTERASE W REFLEX (test code = LEUUR) NEG ATIVE URINALYSIS [id number] 06:24:00* Test Item Value Reference Range Interpretation [...] = BACU) per HPF NONE URINALYSIS W/O [id number] 06:24:00* Test Item Value Reference Range Interpretation Comments UA LEUKOCYTE ESTERASE W REFLEX (test code = LEUUR) NEG ATIVE URINALYSIS [id number] 10:05:00* Test Item Value Reference Range Interpretation [...] BACU) FEW per HPF NONE URINALYSIS W/O [id number] 10:05:00* Test Item Value Reference Range Interpretation Comments UA MICROSCOPIC NEEDED? (test code = UAMICRO) YES URINALYSIS [id number] 09:59:00* Test Item Value Reference Range Interpretation [...] = BACU) per HPF NONE URINALYSIS W/O [id number] 09:59:00* Test Item Value Reference Range Interpretation Comments UA MICROSCOPIC NEEDED? (test code = UAMICRO) URINALYSIS [id number] 09:59:00* Test Item Value Reference Range Interpretation [...] = BACU) per HPF NONE URINALYSIS W/O [id number] 09:59:00* Test Item Value Reference Range Interpretation Comments UA MICROSCOPIC NEEDED? (test code = UAMICRO)
== END 2020-04-06 19:30 | disposition home or self-care (01) ==
LOC: ER 18:57
DX: R07.89 Other chest pain (principal); K21.9 Gastro-esophageal reflux disease without esophagitis; F41.9 Anxiety disorder, unspecified
CPT/HCPCS: 93005; 99282

== ENCOUNTER 2020-05-06 10:37 | Emergency (ER) | payer SELFPAY ==
[~2020-05-06] VITALS: Ht 142.2 cm; Wt 42.6 kg
--- OUTSIDE RECORDS SUMMARY | 2020-05-06 10:54 | XMS REPORT | Continuity of Care Document ---
Author Author [facility] Organization [facility] Address [address] [place] [address] Phone Unavailable Care Team Providers Care Internet Merchant Name Role Phone MD Ganesh MISHRA PCP Rafal ERWIN Attphys Unavailable William BATES Attphys Unavailable Payers Payer Name Policy Type Policy Number Effective Date Expiration Date S ource Self Pay NA [facility] Problems Condition Name Condition Details Condition Category Status Onset Date Resolution Date Last Treatment Date Treating Clinician Comments Source Left flank pain Problem Active [facility] Abdominal pain Problem Active [facility] Diverticulitis Problem Active [facility] Antibiotic causing adverse effect Problem Active [facility] Allergies, Adverse Reactions, Alerts Allergy Name Allergy Type Status Severity Reaction(s) Onset Date Inacti ve Date Treating Clinician Comments Source Nitrofurantoin Allergy to substance Active Moderate 2020-03-07 00: 00:00 [facility] No Known Allergies DA Active U 2020-03-06 00:00:00 [facility] Penicillins DA Active SV 2020-03-06 00:00:00 [facility] diazepam DA Active SV 2020-03-06 00:00:00 [facility] morphine DA Active SV 2020-03-06 00:00:00 [facility] ciprofloxacin DA Active SV 2020-03-06 00:00:00 [facility] hydromorphone DA Active SV 2020-03-06 00:00:00 [facility] levofloxacin DA Active SV 2020-03-06 00:00:00 [facility] escitalopram DA Active SV 2020-03-06 00:00:00 [facility] Penicillins DA Active [place] 2019-10-08 00:00:00 [facility] escitalopram DA Active U 2019-09-19 00:00:00 [facility] CO-AMOXYCLAV DA Active SV 2019-09-19 00:00:00 [facility] diazepam DA Active U 2019-09-19 00:00:00 [facility] morphine DA Active U 2019-09-19 00:00:00 [facility] ciprofloxacin DA Active U 2019-09-19 00:00:00 [facility] levofloxacin DA Active U 2019-09-19 00:00:00 [facility] Diazepam Allergy to substance Active Severe ANXIOUS 2019-08-05 00:00:00 [facility] Morphine Allergy to substance Active Severe 2019-08-05 00:00:00 [facility] clavulanic acid Allergy to substance Active Severe HEART RACE 2019-08-05 00:00:00 [facility] Ciprofloxacin Allergy to substance Active Severe HEART RACE 2019 00:00:00 [facility] Amoxicillin Allergy to substance Active Severe HEART RACE 2019-08-05 0 0:00:00 [facility] Hydromorphone Allergy to substance Active Severe ITCHING 2019-08-05 00 :00:00 [facility] Levofloxacin Allergy to substance Active 2019-08-05 00:00:0 0 [facility] Escitalopram Allergy to substance Active 2019-08-05 00:00:0 0 [facility] hydromorphone HCl DA Active U 2019-07-26 00:00:00 [facility] diazepam DA Active SV 2019-07-26 00:00:00 [facility] morphine DA Active SV 2019-07-26 00:00:00 [facility] ciprofloxacin DA Active MO 2019-07-26 00:00:00 [facility] hydromorphone DA Active LA 2019-07-26 00:00:00 [facility] levofloxacin DA Active SV 2019-07-26 00:00:00 [facility] clavulanic acid DA Active MO 2019-07-26 00:00:00 [facility] amoxicillin DA Active MO 2019-07-26 00:00:00 [facility] hydromorphone HCl DA Active U 2019-06-18 00:00:00 [facility] diazepam DA Active SV 2019-06-18 00:00:00 [facility] morphine DA Active SV 2019-06-18 00:00:00 [facility] clavulanic acid DA Active MO 2019-06-18 00:00:00 [facility] ciprofloxacin DA Active MO 2019-06-18 00:00:00 [facility] amoxicillin DA Active MO 2019-06-18 00:00:00 [facility] hydromorphone DA Active LA 2019-06-18 00:00:00 [facility] levofloxacin DA Active SV 2019-06-18 00:00:00 [facility] hydromorphone HCl DA Active U 2019-03-29 00:00:00 [facility] diazepam DA Active SV 2019-03-29 00:00:00 [facility] morphine DA Active SV 2019-03-29 00:00:00 [facility] clavulanic acid DA Active MO 2019-03-29 00:00:00 [facility] ciprofloxacin DA Active MO 2019-03-29 00:00:00 [facility] amoxicillin DA Active MO 2019-03-29 00:00:00 [facility] levofloxacin DA Active SV 2019-03-29 00:00:00 [facility] clavulanic acid DA Active MO 2019-03-01 00:00:00 [facility] amoxicillin DA Active MO 2019-03-01 00:00:00 [facility] hydromorphone HCl DA Active U 2018-05-10 00:00:00 [facility] diazepam DA Active SV 2018-05-10 00:00:00 [facility] morphine DA Active SV 2018-05-10 00:00:00 [facility] ciprofloxacin DA Active MO 2018-05-10 00:00:00 [facility] levofloxacin DA Active SV 2018-05-10 00:00:00 [facility] hydromorphone HCl DA Active U 2018-03-23 00:00:00 [facility] diazepam DA Active SV 2018-03-23 00:00:00 [facility] morphine DA Active SV 2018-03-23 00:00:00 [facility] ciprofloxacin DA Active MO 2018-03-23 00:00:00 [facility] levofloxacin DA Active SV 2018-03-23 00:00:00 [facility] No Known Allergies DA Active U 2018-02-16 00:00:00 [facility] Social History Social Habit Start Date Stop Date Quantity Comments Source Sex Assigned At 1970 00:00:00 1970 00:00:00 Female [facility] Medications Ordered Medication Name Filled Medication Name Start Date Stop Da te Current Medication? Ordering Clinician Indication Dosage Frequency Signature (SIG) Comments Components Source Hyoscyamine Sulfate (Levsin) 0.125 Mg TABLET Hyoscyami ne Sulfate (Levsin) 0.125 Mg TABLET Yes .375 Twice A Day [facility] Lactobacillus Rhamnosus R0011 (Probiotic Digestive Car e) 1 Each CAPSULE Lactobacillus Rhamnosus R0011 (Probiotic Digestive Care) 1 Each CAPSULE Yes 1 Daily [facility] Lansoprazole (Prevacid) 30 Mg CAPSULE. Lansoprazole (Prevacid) 30 [address] Hernandez As Needed as needed for Ind igestion [facility] Lorazepam (Ativan) 2 Mg TABLET Lorazepam (Ativan) 2 Mg TABLET Yes 2 Three Times A Day [facility] Sertraline Hcl (Zoloft) 50 Mg TABLET Sertraline Hcl (Zoloft) 50 Mg TABLET Yes 50 Daily [facility] Vital Signs Vital Name Observation Time Observation Value Comments Source Weight 2020-04-06 18:56:00 100 [lb_av] [facility] BMI (Body Mass Index) 2020-04-06 18:56:00 23.2 kg/m2 [facility] Weight 2020-03-06 23:07:00 100 [lb_av] [facility] BMI (Body Mass Index) 2020-03-06 23:07:00 23.2 kg/m2 [facility] Weight 2020-01-17 04:02:00 100 [lb_av] [facility] BMI (Body Mass Index) 2020-01-17 04:02:00 23.2 kg/m2 [facility] Weight 2020-01-13 14:04:00 100 [lb_av] [facility] BMI (Body Mass Index) 2020-01-13 14:04:00 23.2 kg/m2 [facility] Body Temperature 2019-12-18 20:38:00 98.2 [degF] [facility] Weight 2019-12-18 18:36:00 100 [lb_av] [facility] BMI (Body Mass Index) 2019-12-18 18:36:00 23.2 kg/m2 [facility] Procedures Procedure Date / Time Performed Performing Clinician [facility] e [facility] of abdomen and pelvis without contrast 2019-12-18 00:00:00 [facility] X-ray of chest, two views 2019-08-05 00:00:00 [facility] Plan of Care Planned Activity Planned Date Details Comments Source Instructions Generalized Anxiety Disorder [facility] Encounters Start Date/Time End Date/Time Encounter Type Admission Type Att[facility] Emergency Department Facility Care Department Encounter ID Source 2020-04-06 18:57:00 2020-04-06 19:30:00 Departed Emergency Room [facility] [id number] [facility] 2020-03-06 23:19:00 2020-03-07 00:30:00 Departed Emergency Room [facility] [id number] [facility] 2020-01-17 03:54:00 2020-01-17 06:15:00 Departed Emergency Room 1 NORY ERWIN [facility] [id number] [facility] 2020-01-13 13:47:00 2020-01-13 14:10:00 Departed Emergency Room [facility] [id number] [facility] 2019-12-18 18:26:00 2019-12-18 20:45:00 Departed Emergency Room 1 NORY ERWIN [facility] [id number] [facility] 2019-08-05 04:00:00 2019-08-05 04:00:00 Registered Clinic 3 CHEVY BATESHarshad [facility] [id number] [facility] Results Test Description Test Time Test Comments [...] per HPF NONE Urine Source? Clean CatchURINALYSIS [id number] 18:17:00* Test Item Value Reference Range Interpretation [...] HPF NONE Urine Source? Clean CatchB-TYPE NATRIURETIC [id number] 10:18:00* Test Item Value Reference Range Interpretation Comments B-TYPE NATRIURETIC PEPTIDE (test code = BNP) 9.1 pg/mL 0-100 N BASIC METABOLIC [id number] 10:10:00* Test Item Value Reference Range Interpretation [...] code = CA) 7.9 mg/dL 8.4-10.2 L [id number] 10:10:00* Test Item Value Reference Range Interpretation Comments TROPONIN-I (test code = TROPI) <0.015 ng/mL 0.00-0.056 N CBC W/O [id number] 09:58:00* Test Item Value Reference Range Interpretation [...] fL 6.7-11.0 N - XR CHEST 1 [id number] 09:53:00 Name: MERON Martínez [facility] : 1970 Age/S:49 /F [facility] Unit#:[id number] Loc: [place] [address] Phys: Bernardo Rachel MD Dis Date: PHONE #: [phone] Status: REG ER FAX #: [phone] Exam Date: 02/05/2020 Reason: sob EXAMS: CPT CODE: [id number] XR CHEST 1 V 39853 HISTORY: Shortness of breath TECHNIQUE: AP chest x-ray COMPARISON: None FINDINGS: No airspace consolidation or pleural effusion. Normal heart size. Mediastinal silhouette is unremarkable. Visualized osseous structures are grossly intact. IMPRESSION: No radiographic evidence of acute cardiopulmonary process. LOCATION: [place] at 0953 Reported and signed by: Tiara Mittal D.O. CC: Bernardo Rachel MD Technologist: ALESSIA WOLF CT Trnscrpt Data: 02/05/2020 (0953) [email or web address] Orig Print D/T: S: 02/05/2020 (2734) PAGE 1 Signed Report ABDOMEN ACUTE SERIES W/PA CXR 2020-01-17 05:52:00 [place] [address] Patient Name: MERON MARTÍNEZ MR #: [id number] : 1970 Age/Sex: 49/F Req #: [id number] Adm Physician: Ordered by: NORY ERWIN MD Report #: [id number] Location: ER Room/Bed: Procedure: 0616- 0017 DX/ABDOMEN [...] COPY TO: NORY ERWIN MD Urine color [id number] 04:08:00* Test Item Value Reference Range Interpretation Comments Urine Color (test code = 5778-6) YELLOW YELLOW [facility] [id number] 04:08:00* Test Item Value Reference Range Interpretation Comments Urine Clarity (test code = 11131-7) [facility] Test strip 2020-01-17 04:08:00* Test Item Value Reference Range Interpretation Comments Urine Specific [place] (test code = 5811-5) >=1.030 1.010-1.02 5 [facility] pH measurement by automated test [id number] 04:08:00* Test Item Value Reference Range Interpretation Comments Urine pH (test code = 85345-3) 6 5-7 [facility] leukocyte esterase detection by [id number] 04:08:00* Test Item Value Reference Range Interpretation Comments Urine Leukocyte Esterase (test code = 5799-2) TRACE NEGATIVE [facility] nitrite [id number] 04:08:00* Test Item Value Reference Range Interpretation Comments Urine Nitrite (test code = 30264-0) NEGATIVE NEGATIVE [facility] protein measurement by test strip (mass/volume)2020-01-17 04:08:00* Test Item Value Reference Range Interpretation Comments Urine Protein (test code = 5804-0) NEGATIVE NEGATIVE [facility] glucose [id number] 04:08:00* Test Item Value Reference Range Interpretation Comments Urine Glucose (UA) (test code = 2349-9) NEGATIVE NEGATIVE [facility] ketones detection by automated test [id number] 04:08:00* Test Item Value Reference Range Interpretation Comments Urine Ketones (test code = 60245-9) NEGATIVE NEGATIVE [facility] opiates screening [id number] 04:08:00* Test Item Value Reference Range Interpretation Comments Urine Opiates Screen (test code = 46825-5) NEGATIVE NEGATIVE ALL TESTS PERFORMED MANUALLY ON DialedIN TOX/SEE TESTHCA [facility] CypressBarbiturates screen, [id number] 04:08:00* Test Item Value Reference Range Interpretation Comments Urine Barbiturates Screen (test code = 189992643) NEGATIVE NEGA TIVE [facility]ress[facility] phencyclidine detection by screening [id number] 04:08:00* Test Item Value Reference Range Interpretation Comments Urine Phencyclidine Screen (test code = 21627-2) NEGATIVE NEGAT THAI [facility]ress[facility] amphetamines detection by screen method > 1000 ng/[id number] 04:08:00* Test Item Value Reference Range Interpretation Comments Urine Amphetamines Screen (test code = 49246-9) NEGATIVE NEGATI VE [facility]ressFluoroscopic procedure less than one hour [id number] 04:08:00* Test Item Value Reference Range Interpretation Comments Urine Methamphetamines Screen (test code = Urine Metha mphetamines Screen) NEGATIVE NEGATIVE [facility]ress[facility]rine benzodiazepines detection by screening [id number] 04:08:00* Test Item Value Reference Range Interpretation Comments Urine Benzodiazepines Screen (test code = 35826-7) POSITIVE NEG ATIVE This test provides only a screen. Positive results should be repeated by a confi rmatory test.[facility]ress[facility] cocaine measurement (mass/volume)2020-01-17 04:08:00* Test Item Value Reference Range Interpretation Comments Urine Cocaine Screen (test code = 3398-5) NEGATIVE NEGATIVE [facility]ressUrine cannabinoids detection by screening [id number] 04:08:00* Test Item Value Reference Range Interpretation Comments Urine Cannabinoids Screen (test code = 23172-7) NEGATIVE NEGATI VE THESE RESULTS ARE FOR MEDICAL TREATMENT ONLYTHIS REPORT CONTAINS UNCONFIR MED SCREENING RESULTS*POSITIVE RESULTS WILL BE CONFIRMED BY REFERENCE LAB UPON R EQUEST CUT-OFFDRUG CLASS CONCENTRATION ng/mLAmphetamines 1000Methamphetamines 1000Cocaine 300Opiate 300Phencyc lidine 25Cannabinoid 50Barbiturates 300Benzodiazepine 300Methadone 300[facility]ressUrine methadone [id number] 04:08:00* Test Item Value Reference Range Interpretation Comments Urine Methadone Screen (test code = 92939-7) NEGATIVE NEGATIVE THESE RESULTS ARE FOR MEDICAL TREATMENT ONLYTHIS REPORT CONTAINS UNCONFIR MED SCREENING RESULTS*POSITIVE RESULTS WILL BE CONFIRMED BY REFERENCE LAB UPON R EQUEST CUT-OFFDRUG CLASS CONCENTRATION ng/mLAmphetamines 1000Methamphetamines 1000Cocaine Metabolite 300Opiate 300Phencyc lidine 25Cannabinoid 50Barbiturates 300Benzodiazepine 300Methadone 300[facility]ressUrine urobilinogen measurement by test strip (mass/volume)2020-01-17 04:08:00* Test Item Value Reference Range Interpretation Comments Urine Urobilinogen (test code = 89172-0) 0.2 0.2-1 [facility] total bilirubin measurement (mass/volume)2020-01-17 04:08:00* Test Item Value Reference Range Interpretation Comments Urine Bilirubin (test code = 1978-6) NEGATIVE NEGATIVE [facility]ress[facility] erythrocytes [id number] 04:08:00* Test Item Value Reference Range Interpretation Comments Urine Blood (test code = 77342-2) NEGATIVE NEGATIVE [facility]ressAutomated urine sediment leukocyte count by microscopy (number/high power field)2020-01-17 04:08:00* Test Item Value Reference Range Interpretation Comments Urine WBC (test code = 5821-4) 6-10 0-5 [facility]ressErythrocytes detection in urine sediment by light [id number] 04:08:00* Test Item Value Reference Range Interpretation Comments Urine RBC (test code = 92642-0) 0-5 0-5 [facility]ressBacteria detection in urine sediment by light [id number] 04:08:00* Test Item Value Reference Range Interpretation Comments Urine Bacteria (test code = 65006-5) FEW NONE [facility]ressEpithelial cells detection in urine sediment by light gwijpzrhpq9202-18-20 04:08:00* Test Item Value Reference Range Interpretation Comments Urine Epithelial Cells (test code = 21036-6) FEW NONE [facility]ressUrine color [id number] 04:08:00* Test Item Value Reference Range Interpretation Comments Urine Color (test code = 5778-6) YELLOW YELLOW [facility]ressUrine [id number] 04:08:00* Test Item Value Reference Range Interpretation Comments Urine Clarity (test code = 43204-9) CLEAR CLEAR [facility] Urine by Test strip 2020-01-17 04:08:00* Test Item Value Reference Range Interpretation Comments Urine Specific [place] (test code = 5811-5) >=1.030 1.010-1.02 5 [facility]ress[facility] pH measurement by automated test [id number] 04:08:00* Test Item Value Reference Range Interpretation Comments Urine pH (test code = 42637-1) 6 5-7 [facility]ressU[facility] leukocyte esterase detection by [id number] 04:08:00* Test Item Value Reference Range Interpretation Comments Urine Leukocyte Esterase (test code = 5799-2) TRACE NEGATIVE [facility]ressUrine nitrite [id number] 04:08:00* Test Item Value Reference Range Interpretation Comments Urine Nitrite (test code = 20549-7) NEGATIVE NEGATIVE [facility]ress[facility] protein measurement by test strip (mass/volume)2020-01-17 04:08:00* Test Item Value Reference Range Interpretation Comments Urine Protein (test code = 5804-0) NEGATIVE NEGATIVE [facility]ress[facility] glucose [id number] 04:08:00* Test Item Value Reference Range Interpretation Comments Urine Glucose (UA) (test code = 2349-9) NEGATIVE NEGATIVE [facility]ress[facility] ketones detection by automated test [id number] 04:08:00* Test Item Value Reference Range Interpretation Comments Urine Ketones (test code = 00658-6) NEGATIVE NEGATIVE [facility]ressUrine opiates screening [id number] 04:08:00* Test Item Value Reference Range Interpretation Comments Urine Opiates Screen (test code = 48123-0) NEGATIVE NEGATIVE ALL TESTS PERFORMED MANUALLY ON DialedIN TOX/SEE TESTHCA [facility] CypressBarbiturates screen, [id number] 04:08:00* Test Item Value Reference Range Interpretation Comments Urine Barbiturates Screen (test code = 117211720) NEGATIVE NEGA TIVE [facility]ressUrine phencyclidine detection by screening [id number] 04:08:00* Test Item Value Reference Range Interpretation Comments Urine Phencyclidine Screen (test code = 11925-4) NEGATIVE NEGAT THAI [facility]ressUrine amphetamines detection by screen method > 1000 ng/[id number] 04:08:00* Test Item Value Reference Range Interpretation Comments Urine Amphetamines Screen (test code = 72166-3) NEGATIVE NEGATI VE [facility] CypressFluoroscopic procedure less than one hour [id number] 04:08:00* Test Item Value Reference Range Interpretation Comments Urine Methamphetamines Screen (test code = Urine Metha mphetamines Screen) NEGATIVE NEGATIVE [facility]ressUrine benzodiazepines detection by screening [id number] 04:08:00* Test Item Value Reference Range Interpretation Comments Urine Benzodiazepines Screen (test code = 12299-6) POSITIVE NEG ATIVE This test provides only a screen. Positive results should be repeated by a confi rmatory test.[facility]ress[facility] cocaine measurement (mass/volume)2020-01-17 04:08:00* Test Item Value Reference Range Interpretation Comments Urine Cocaine Screen (test code = 3398-5) NEGATIVE NEGATIVE [facility]ressUrine cannabinoids detection by screening [id number] 04:08:00* Test Item Value Reference Range Interpretation Comments Urine Cannabinoids Screen (test code = 32186-4) NEGATIVE NEGATI VE THESE RESULTS ARE FOR MEDICAL TREATMENT ONLYTHIS REPORT CONTAINS UNCONFIR MED SCREENING RESULTS*POSITIVE RESULTS WILL BE CONFIRMED BY REFERENCE LAB UPON R EQUEST CUT-OFFDRUG CLASS CONCENTRATION ng/mLAmphetamines 1000Methamphetamines 1000Cocaine 300Opiate 300Phencyc lidine 25Cannabinoid 50Barbiturates 300Benzodiazepine 300Methadone 300[facility]ressUrine methadone [id number] 04:08:00* Test Item Value Reference Range Interpretation Comments Urine Methadone Screen (test code = 74928-6) NEGATIVE NEGATIVE THESE RESULTS ARE FOR MEDICAL TREATMENT ONLYTHIS REPORT CONTAINS UNCONFIR MED SCREENING RESULTS*POSITIVE RESULTS WILL BE CONFIRMED BY REFERENCE LAB UPON R EQUEST CUT-OFFDRUG CLASS CONCENTRATION ng/mLAmphetamines 1000Methamphetamines 1000Cocaine Metabolite 300Opiate 300Phencyc lidine 25Cannabinoid 50Barbiturates 300Benzodiazepine 300Methadone 300[facility]ressUrine urobilinogen measurement by test strip (mass/volume)2020-01-17 04:08:00* Test Item Value Reference Range Interpretation Comments Urine Urobilinogen (test code = 86682-5) 0.2 0.2-1 [facility]ress[facility] total bilirubin measurement (mass/volume)2020-01-17 04:08:00* Test Item Value Reference Range Interpretation Comments Urine Bilirubin (test code = 1978-6) NEGATIVE NEGATIVE [facility]ressU[facility] erythrocytes [id number] 04:08:00* Test Item Value Reference Range Interpretation Comments Urine Blood (test code = 20180-5) NEGATIVE NEGATIVE [facility] CypressAutomated urine sediment leukocyte count by microscopy (number/high power field)2020-01-17 04:08:00* Test Item Value Reference Range Interpretation Comments Urine WBC (test code = 5821-4) 6-10 0-5 [facility]ressErythrocytes detection in urine sediment by light [id number] 04:08:00* Test Item Value Reference Range Interpretation Comments Urine RBC (test code = 79672-8) 0-5 0-5 [facility] CypressBacteria detection in urine sediment by light cjyoaegxti3254-61-20 04:08:00* Test Item Value Reference Range Interpretation Comments Urine Bacteria (test code = 93480-3) FEW NONE [facility]ressEpithelial cells detection in urine sediment by light kbvrlkirxm9921-24-57 04:08:00* Test Item Value Reference Range Interpretation Comments Urine Epithelial Cells (test code = 75125-9) FEW NONE [facility]ressUrine color uwgnfzlutappb0850-35-34 04:08:00* Test Item Value Reference Range Interpretation Comments Urine Color (test code = 5778-6) YELLOW YELLOW [facility]ressUrine tpiovfu2572-38-67 04:08:00* Test Item Value Reference Range Interpretation Comments Urine Clarity (test code = 32238-8) [facility]AR [facility]AR [facility] by Test strip 2020-01-17 04:08:00* Test Item Value Reference Range Interpretation Comments Urine Specific [place] (test code = 5811-5) >=1.030 1.010-1.02 5 [facility]ressU[facility] pH measurement by automated test kfqto7476-10-20 04:08:00* Test Item Value Reference Range Interpretation Comments Urine pH (test code = 16195-5) 6 5-7 [facility]ressUrine leukocyte esterase detection by ltxmskfd3560-78-55 04:08:00* Test Item Value Reference Range Interpretation Comments Urine Leukocyte Esterase (test code = 5799-2) TRACE NEGATIVE [facility]ressUrine nitrite sndrieyze9637-87-57 04:08:00* Test Item Value Reference Range Interpretation Comments Urine Nitrite (test code = 20547-4) NEGATIVE NEGATIVE [facility]ressUrine protein measurement by test strip (mass/volume)2020-01-17 04:08:00* Test Item Value Reference Range Interpretation Comments Urine Protein (test code = 5804-0) NEGATIVE NEGATIVE [facility]ressU[facility] glucose fkifxzwny0180-16-52 04:08:00* Test Item Value Reference Range Interpretation Comments Urine Glucose (UA) (test code = 2349-9) NEGATIVE NEGATIVE [facility]ressUrine ketones detection by automated test swhtl2615-73-00 04:08:00* Test Item Value Reference Range Interpretation Comments Urine Ketones (test code = 06087-8) NEGATIVE NEGATIVE [facility]ressUrine opiates screening niga2390-77-49 04:08:00* Test Item Value Reference Range Interpretation Comments Urine Opiates Screen (test code = 12343-8) NEGATIVE NEGATIVE ALL TESTS PERFORMED MANUALLY ON DialedIN TOX/SEE TESTH[facility] CypressBarbiturates screen, qrpsi3936-92-64 04:08:00* Test Item Value Reference Range Interpretation Comments Urine Barbiturates Screen (test code = 136351263) NEGATIVE NEGA TIVE [facility]ressUrine phencyclidine detection by screening djcawf2232-07-85 04:08:00* Test Item Value Reference Range Interpretation Comments Urine Phencyclidine Screen (test code = 47867-9) NEGATIVE NEGAT THAI [facility]ressUrine amphetamines detection by screen method > 1000 ng/wG0309-26-68 04:08:00* Test Item Value Reference Range Interpretation Comments Urine Amphetamines Screen (test code = 82874-2) NEGATIVE NEGATI VE [facility] CypressFluoroscopic procedure less than one hour wpovekre6219-78-08 04:08:00* Test Item Value Reference Range Interpretation Comments Urine Methamphetamines Screen (test code = Urine Metha mphetamines Screen) NEGATIVE NEGATIVE [facility]ressUrine benzodiazepines detection by screening bnfbkj8410-56-60 04:08:00* Test Item Value Reference Range Interpretation Comments Urine Benzodiazepines Screen (test code = 20688-0) POSITIVE NEG ATIVE This test provides only a screen. Positive results should be repeated by a confi rmatory test.[facility]ressUrine cocaine measurement (mass/volume)2020-01-17 04:08:00* Test Item Value Reference Range Interpretation Comments Urine Cocaine Screen (test code = 3398-5) NEGATIVE NEGATIVE [facility] CypressUrine cannabinoids detection by screening ydcton1702-00-25 04:08:00* Test Item Value Reference Range Interpretation Comments Urine Cannabinoids Screen (test code = 30752-6) NEGATIVE NEGATI VE THESE RESULTS ARE FOR MEDICAL TREATMENT ONLYTHIS REPORT CONTAINS UNCONFIR MED SCREENING RESULTS*POSITIVE RESULTS WILL BE CONFIRMED BY REFERENCE LAB UPON R EQUEST CUT-OFFDRUG CLASS CONCENTRATION ng/mLAmphetamines 1000Methamphetamines 1000Cocaine 300Opiate 300Phencyc lidine 25Cannabinoid 50Barbiturates 300Benzodiazepine 300Methadone 300[facility] CypressUrine methadone cafzmj5264-68-70 04:08:00* Test Item Value Reference Range Interpretation Comments Urine Methadone Screen (test code = 87051-4) NEGATIVE NEGATIVE THESE RESULTS ARE FOR MEDICAL TREATMENT ONLYTHIS REPORT CONTAINS UNCONFIR MED SCREENING RESULTS*POSITIVE RESULTS WILL BE CONFIRMED BY REFERENCE LAB UPON R EQUEST CUT-OFFDRUG CLASS CONCENTRATION ng/mLAmphetamines 1000Methamphetamines 1000Cocaine Metabolite 300Opiate 300Phencyc lidine 25Cannabinoid 50Barbiturates 300Benzodiazepine 300Methadone 300[facility]ressUrine urobilinogen measurement by test strip (mass/volume)2020-01-17 04:08:00* Test Item Value Reference Range Interpretation Comments Urine Urobilinogen (test code = 21652-0) 0.2 0.2-1 [facility]ressUrine total bilirubin measurement (mass/volume)2020-01-17 04:08:00* Test Item Value Reference Range Interpretation Comments Urine Bilirubin (test code = 1978-6) NEGATIVE NEGATIVE [facility]ressUrine erythrocytes gpmkzuxmf5933-86-66 04:08:00* Test Item Value Reference Range Interpretation Comments Urine Blood (test code = 21685-0) NEGATIVE NEGATIVE [facility] CypressAutomated urine sediment leukocyte count by microscopy (number/high power field)2020-01-17 04:08:00* Test Item Value Reference Range Interpretation Comments Urine WBC (test code = 5821-4) 6-10 0-5 [facility]ressErythrocytes detection in urine sediment by light ustbtwpupr7836-09-72 04:08:00* Test Item Value Reference Range Interpretation Comments Urine RBC (test code = 24393-4) 0-5 0-5 [facility] CypressBacteria detection in urine sediment by light uhxnbjtjnl4665-54-99 04:08:00* Test Item Value Reference Range Interpretation Comments Urine Bacteria (test code = 49845-6) FEW NONE [facility] CypressEpithelial cells detection in urine sediment by light cuaimrguab8913-82-40 04:08:00* Test Item Value Reference Range Interpretation Comments Urine Epithelial Cells (test code = 26062-1) FEW NONE [facility] CypressCT ABDOMEN/PELVIS [id number] 20:05:00 [place] [address] Patient Name: MERON MARTÍNEZ MR #: [id number] : [birth year] Age/Sex: 49/F Req #: [id number] Adm Physician: Ordered by: MANDY MALAVE OFFICE SECRETARY Report #: [id number] Location: ER Room/Bed: Procedure: [id number] CT/CT ABDOMEN/PELVIS WO Exam Date: 12/18/19 Exam [...] ERICK on 12/18/192008 COPY TO: MANDY MALAVE OFFICE SECRETARY Blood leukocytes automated count (number/volume)2019-12-18 18:40:00* Test Item Value Reference Range Interpretation Comments White Blood Count (test code = 6690-2) 6.37 4.8-10.8 [facility]ressBlood erythrocytes automated count (number/volume)2019-12-18 18:40:00* Test Item Value Reference Range Interpretation Comments Red Blood Count (test code = 789-8) 4.33 3.6-5.1 [facility]ressBlood hemoglobin measurement (moles/volume)2019-12-18 18:40:00* Test Item Value Reference Range Interpretation Comments Hemoglobin (test code = 88625-2) 11.9 12.0-16.0 [facility] CypressAutomated blood hematocrit (volume fraction)2019-12-18 18:40:00* Test Item Value Reference Range Interpretation Comments Hematocrit (test code = 4544-3) 37.4 34.2-44.1 [facility] CypressAutomated erythrocyte mean corpuscular vjztef5158-43-66 18:40:00* Test Item Value Reference Range Interpretation Comments Mean Corpuscular Volume (test code = 787-2) 86.4 81-99 [facility] CypressAutomated erythrocyte mean corpuscular hemoglobin (mass per erythrocyte)2019-12-18 18:40:00* Test Item Value Reference Range Interpretation Comments Mean Corpuscular Hemoglobin (test code = 785-6) 27.5 28-32 [facility] CypressAutomated erythrocyte mean corpuscular hemoglobin concentration measurement (mass/volume)2019-12-18 18:40:00* Test Item Value Reference Range Interpretation Comments Mean Corpuscular Hemoglobin Concent (test code = 786-4) 31.8 31-35 [facility] CypressRDW YhzYs-Vaq5389-06-17 18:40:00* Test Item Value Reference Range Interpretation Comments Red Cell Distribution Width (test code = 74406-9) 16.2 11.7 -14.4 [facility] CypressAutomated blood platelet count (count/volume)2019-12-18 18:40:00* Test Item Value Reference Range Interpretation Comments Platelet Count (test code = 777-3) 309 140-360 [facility]ressAutatrium healthed blood segmented neutrophil count as percentage of total fteatnmsmy2734-15-86 18:40:00* Test Item Value Reference Range Interpretation Comments Neutrophils (%) (Auto) (test code = 77393-0) 35.9 38.7-80.0 [facility] CypressAutomated blood lymphocyte count as percentage ot total qpnadwpcmv5572-33-66 18:40:00* Test Item Value Reference Range Interpretation Comments Lymphocytes (%) (Auto) (test code = 736-9) 23.4 18.0-39.1 [facility] CypressAutomated blood monocyte count as percentage of total nsgvolegvv0080-92-69 18:40:00* Test Item Value Reference Range Interpretation Comments Monocytes (%) (Auto) (test code = 5905-5) 7.2 4.4-11.3 [facility] CypressAutomated blood eosinophil count as percentage of total zdrjirmnfd7308-96-61 18:40:00* Test Item Value Reference Range Interpretation Comments Eosinophils (%) (Auto) (test code = 713-8) 31.7 0.0-6.0 [facility] CypressAutomated blood basophil count as percentage of total ptdvdgsexh9469-07-36 18:40:00* Test Item Value Reference Range Interpretation Comments Basophils (%) (Auto) (test code = 706-2) 1.6 0.0-1.0 [facility] CypressFluoroscopic procedure less than one hour xjkmoegu6579-08-69 18:40:00* Test Item Value Reference Range Interpretation Comments IM GRANULOCYTES % (test code = IM GRANULOCYTES %) 0.2 0.0- 1.0 [facility] CypressAutomated blood neutrophil count 2019-12-18 18:40:00* Test Item Value Reference Range Interpretation Comments Neutrophils # (Auto) (test code = 751-8) 2.3 2.1-6.9 [facility]ressBlood lymphocytes count (number/volume) 2019-12-18 18:40:00* Test Item Value Reference Range Interpretation Comments Lymphocytes # (Auto) (test code = 58620-8) 1.5 1.0-3.2 [facility] CypressBlood monocytes automated count (number/volume)2019-12-18 18:40:00* Test Item Value Reference Range Interpretation Comments Monocytes # (Auto) (test code = 742-7) 0.5 0.2-0.8 [facility] CypressAutomated blood eosinophil count 2019-12-18 18:40:00* Test Item Value Reference Range Interpretation Comments Eosinophils # (Auto) (test code = 711-2) 2.0 0.0-0.4 [facility] CypressAutomated blood basophil count (count/volume)2019-12-18 18:40:00* Test Item Value Reference Range Interpretation Comments Basophils # (Auto) (test code = 704-7) 0.1 0.0-0.1 [facility] CypressFluoroscopic procedure less than one hour btchewny9809-86-75 18:40:00* Test Item Value Reference Range Interpretation Comments Absolute Immature Granulocyte (auto (lela t code = Absolute Immature Granulocyte (auto) 0.01 0-0.1 [facility] CypressUrine color rhnrdqhdgdmgg5698-95-67 18:40:00* Test Item Value Reference Range Interpretation Comments Urine Color (test code = 5778-6) YELLOW YELLOW [facility] CypressUrine pdkmjny4457-87-53 18:40:00* Test Item Value Reference Range Interpretation Comments Urine Clarity (test code = 16739-6) CLEAR CLEAR [facility] by Test strip 2019-12-18 18:40:00* Test Item Value Reference Range Interpretation Comments Urine Specific [place] (test code = 5811-5) 1.020 1.010-1.02 5 [facility]ressUrine pH measurement by automated test adghp9661-46-94 18:40:00* Test Item Value Reference Range Interpretation Comments Urine pH (test code = 46257-8) 6.5 5-7 [facility]ressUrine leukocyte esterase detection by ecmfhaco8631-71-54 18:40:00* Test Item Value Reference Range Interpretation Comments Urine Leukocyte Esterase (test code = 5799-2) NEGATIVE NEGATIVE [facility]ressUrine nitrite rnlvkktbd8042-75-62 18:40:00* Test Item Value Reference Range Interpretation Comments Urine Nitrite (test code = 02146-1) NEGATIVE NEGATIVE [facility]ressUrine protein measurement by test strip (mass/volume)2019-12-18 18:40:00* Test Item Value Reference Range Interpretation Comments Urine Protein (test code = 5804-0) NEGATIVE NEGATIVE [facility]ressUrine glucose sopnveoib6750-38-66 18:40:00* Test Item Value Reference Range Interpretation Comments Urine Glucose (UA) (test code = 2349-9) NEGATIVE NEGATIVE [facility] CypressUrine ketones detection by automated test chpvw1207-57-53 18:40:00* Test Item Value Reference Range Interpretation Comments Urine Ketones (test code = 89934-9) NEGATIVE NEGATIVE [facility] CypressUrine urobilinogen measurement by test strip (mass/volume)2019-12-18 18:40:00* Test Item Value Reference Range Interpretation Comments Urine Urobilinogen (test code = 05194-1) 0.2 0.2-1 [facility]ressUrine total bilirubin measurement (mass/volume)2019-12-18 18:40:00* Test Item Value Reference Range Interpretation Comments Urine Bilirubin (test code = 1978-6) NEGATIVE NEGATIVE [facility] CypressUrine erythrocytes uujmsodgp9811-86-67 18:40:00* Test Item Value Reference Range Interpretation Comments Urine Blood (test code = 04642-1) NEGATIVE NEGATIVE [facility] CypressAutomated urine sediment leukocyte count by microscopy (number/high power field)2019-12-18 18:40:00* Test Item Value Reference Range Interpretation Comments Urine WBC (test code = 5821-4) 0-5 0-5 [facility] CypressErythrocytes detection in urine sediment by light bdgzxdbhvp0200-78-91 18:40:00* Test Item Value Reference Range Interpretation Comments Urine RBC (test code = 46927-4) 0-5 0-5 [facility] CypressBacteria detection in urine sediment by light mgttfhbhdt6226-32-80 18:40:00* Test Item Value Reference Range Interpretation Comments Urine Bacteria (test code = 60914-3) RARE NONE [facility] CypressEpithelial cells detection in urine sediment by light siugwjrntz7618-37-08 18:40:00* Test Item Value Reference Range Interpretation Comments Urine Epithelial Cells (test code = 03734-6) FEW NONE [facility] Hospitalerum or plasma sodium measurement (moles/volume)2019-12-18 18:40:00* Test Item Value Reference Range Interpretation Comments Sodium Level (test code = 2951-2) 137 136-145 [facility] Hospitalerum or plasma potassium measurement (moles/volume)2019-12-18 18:40:00* Test Item Value Reference Range Interpretation Comments Potassium Level (test code = 2823-3) 4.2 3.5-5.1 [facility] Hospitalerum or plasma chloride measurement (moles/volume)2019-12-18 18:40:00* Test Item Value Reference Range Interpretation Comments Chloride Level (test code = 2075-0) 107 98-107 [facility]erum or plasma carbon dioxide, total measurement (moles/volume)2019-12-18 18:40:00* Test Item Value Reference Range Interpretation Comments Carbon Dioxide Level (test code = 2028-9) 20 22-29 [facility]erum or plasma anion gqq0320-22-38 18:40:00* Test Item Value Reference Range Interpretation Comments Anion Gap (test code = 24785-6) 14.2 8-16 [facility]er[facility] or plasma urea nitrogen measurement (mass/volume)2019-12-18 18:40:00* Test Item Value Reference Range Interpretation Comments Blood Urea Nitrogen (test code = 3094-0) 11 7-26 [facility]er[facility] or plasma creatinine measurement (mass/volume)2019-12-18 18:40:00* Test Item Value Reference Range Interpretation Comments Creatinine (test code = 2160-0) 0.66 0.57-1.11 [facility]erum or plasma urea nitrogen/creatinine mass gcoki4499-01-32 18:40:00* Test Item Value Reference Range Interpretation Comments BUN/Creatinine Ratio (test code = 3097-3) 17 6-25 [facility] CypressEstimated glomerular filtration rate (GFR) nigifqtasrgnw4632-80-58 18:40:00* Test Item Value Reference Range Interpretation Comments Estimat Glomerular Filtration Rate (test code = 889222479) > 60 >60 Ranges were taken from the National Kidney Disease Education Program and the [facility] literature.Reference ranges:60 or greater: Cstrhd97-87 ( for 3 consecutive months): Chronic kidney disease 15 or less: Kidney failureH[facility] CypressGlucose tmvnrcvgndk6716-94-38 18:40:00* Test Item Value Reference Range Interpretation Comments Glucose Level (test code = NKI7309) 89 74-118 [facility]er[facility] or plasma calcium measurement (mass/volume)2019-12-18 18:40:00* Test Item Value Reference Range Interpretation Comments Calcium Level (test code = 36718-3) 8.9 8.4-10.2 [facility]er[facility] or plasma total bilirubin measurement (mass/volume)2019-12-18 18:40:00* Test Item Value Reference Range Interpretation Comments Total Bilirubin (test code = 1975-2) 0.5 0.2-1.2 [facility] CypressFluoroscopic procedure less than one hour ddaiynuj1436-49-62 18:40:00* Test Item Value Reference Range Interpretation Comments Aspartate Amino Transf (AST/SGOT) (test code = Aspartate Amino Transf (AST/SGOT)) 19 5-34 [facility]er[facility] or plasma alanine aminotransferase measurement (enzymatic activity/volume)2019-12-18 18:40:00* Test Item Value Reference Range Interpretation Comments Alanine Aminotransferase (ALT/SGPT) (test code = 1742-6) 15 0-55 [facility]er[facility] or plasma protein measurement (mass/volume)2019-12-18 18:40:00* Test Item Value Reference Range Interpretation Comments Total Protein (test code = 2885-2) 7.4 6.5-8.1 [facility]er[facility] or plasma albumin measurement (mass/volume)2019-12-18 18:40:00* Test Item Value Reference Range Interpretation Comments Albumin (test code = 1751-7) 3.7 3.5-5.0 [facility] CypressPlasma globulin measurement (mass/volume) 2019-12-18 18:40:00* Test Item Value Reference Range Interpretation Comments Globulin (test code = 33658-8) 3.7 2.3-3.5 [facility]er[facility] or plasma albumin/globulin mass xojcj7299-84-00 18:40:00* Test Item Value Reference Range Interpretation Comments Albumin/Globulin Ratio (test code = 1759-0) 1.0 0.8-2.0 [facility]er[facility] or plasma alkaline phosphatase measurement (enzymatic activity/volume)2019-12-18 18:40:00* Test Item Value Reference Range Interpretation Comments Alkaline Phosphatase (test code = 6768-6) 62 40-150 [facility]ressBlood leukocytes automated count (number/volume)2019-12-18 18:40:00* Test Item Value Reference Range Interpretation Comments White Blood Count (test code = 6690-2) 6.37 4.8-10.8 [facility] CypressBlood erythrocytes automated count (number/volume)2019-12-18 18:40:00* Test Item Value Reference Range Interpretation Comments Red Blood Count (test code = 789-8) 4.33 3.6-5.1 [facility] ([facility]oles/volume)2019-12-18 18:40:00* Test Item Value Reference Range Interpretation Comments Hemoglobin (test code = 35382-4) 11.9 12.0-16.0 [facility] CypressAutomated blood hematocrit (volume fraction)2019-12-18 18:40:00* Test Item Value Reference Range Interpretation Comments Hematocrit (test code = 4544-3) 37.4 34.2-44.1 [facility] CypressAutomated erythrocyte mean corpuscular ppsjtf5357-90-61 18:40:00* Test Item Value Reference Range Interpretation Comments Mean Corpuscular Volume (test code = 787-2) 86.4 81-99 [facility] CypressAutomated erythrocyte mean corpuscular hemoglobin (mass per erythrocyte)2019-12-18 18:40:00* Test Item Value Reference Range Interpretation Comments Mean Corpuscular Hemoglobin (test code = 785-6) 27.5 28-32 [facility] CypressAutomated erythrocyte mean corpuscular hemoglobin concentration measurement (mass/volume)2019-12-18 18:40:00* Test Item Value Reference Range Interpretation Comments Mean Corpuscular Hemoglobin Concent (test code = 786-4) 31.8 31-35 [facility] CypressRDW WrhQw-Ces1201-69-17 18:40:00* Test Item Value Reference Range Interpretation Comments Red Cell Distribution Width (test code = 61602-0) 16.2 11.7 -14.4 [facility] CypressAutomated blood platelet count (count/volume)2019-12-18 18:40:00* Test Item Value Reference Range Interpretation Comments Platelet Count (test code = 777-3) 309 140-360 [facility] CypressAutomated blood segmented neutrophil count as percentage of total klcxqxkxbo5178-29-55 18:40:00* Test Item Value Reference Range Interpretation Comments Neutrophils (%) (Auto) (test code = 46183-3) 35.9 38.7-80.0 [facility] blood lymphocyte count as percentage ot total wwjbsxdvqk6048-44-75 18:40:00* Test Item Value Reference Range Interpretation Comments Lymphocytes (%) (Auto) (test code = 736-9) 23.4 18.0-39.1 [facility] CypressAutomated blood monocyte count as percentage of total peipwlhyzv1437-90-25 18:40:00* Test Item Value Reference Range Interpretation Comments Monocytes (%) (Auto) (test code = 5905-5) 7.2 4.4-11.3 [facility] CypressAutatrium healthed blood eosinophil count as percentage of total ftsyantkvl2468-14-40 18:40:00* Test Item Value Reference Range Interpretation Comments Eosinophils (%) (Auto) (test code = 713-8) 31.7 0.0-6.0 [facility] CypressAutomated blood basophil count as percentage of total qnnrsfniky7159-90-69 18:40:00* Test Item Value Reference Range Interpretation Comments Basophils (%) (Auto) (test code = 706-2) 1.6 0.0-1.0 [facility] CypressFluoroscopic procedure less than one hour aeszfdvt0291-79-54 18:40:00* Test Item Value Reference Range Interpretation Comments IM GRANULOCYTES % (test code = IM GRANULOCYTES %) 0.2 0.0- 1.0 [facility] CypressAutomated blood neutrophil count 2019-12-18 18:40:00* Test Item Value Reference Range Interpretation Comments Neutrophils # (Auto) (test code = 751-8) 2.3 2.1-6.9 [facility]ressBlood lymphocytes count (number/volume) 2019-12-18 18:40:00* Test Item Value Reference Range Interpretation Comments Lymphocytes # (Auto) (test code = 25877-2) 1.5 1.0-3.2 [facility] CypressBlood monocytes automated count (number/volume)2019-12-18 18:40:00* Test Item Value Reference Range Interpretation Comments Monocytes # (Auto) (test code = 742-7) 0.5 0.2-0.8 [facility] CypressAutomated blood eosinophil count 2019-12-18 18:40:00* Test Item Value Reference Range Interpretation Comments Eosinophils # (Auto) (test code = 711-2) 2.0 0.0-0.4 [facility] CypressAutomated blood basophil count (count/volume)2019-12-18 18:40:00* Test Item Value Reference Range Interpretation Comments Basophils # (Auto) (test code = 704-7) 0.1 0.0-0.1 [facility] CypressFluoroscopic procedure less than one hour jzmlsncm9810-18-15 18:40:00* Test Item Value Reference Range Interpretation Comments Absolute Immature Granulocyte (auto (lela t code = Absolute Immature Granulocyte (auto) 0.01 0-0.1 [facility] CypressUrine color uepuccbckcucs6841-55-21 18:40:00* Test Item Value Reference Range Interpretation Comments Urine Color (test code = 5778-6) YELLOW YELLOW [facility] CypressUrine onipxbn8173-20-51 18:40:00* Test Item Value Reference Range Interpretation Comments Urine Clarity (test code = 44670-5) [facility]AR [facility] 2019-12-18 18:40:00* Test Item Value Reference Range Interpretation Comments Urine Specific [place] (test code = 5811-5) 1.020 1.010-1.02 5 [facility] pH measurement by automated test [id number] 18:40:00* Test Item Value Reference Range Interpretation Comments Urine pH (test code = 58944-1) 6.5 5-7 [facility]ressUrine leukocyte esterase detection by msarckew6852-35-89 18:40:00* Test Item Value Reference Range Interpretation Comments Urine Leukocyte Esterase (test code = 5799-2) NEGATIVE NEGATIVE [facility]ressUrine nitrite givkbjyzu1421-98-36 18:40:00* Test Item Value Reference Range Interpretation Comments Urine Nitrite (test code = 69874-4) NEGATIVE NEGATIVE [facility]ress[facility] protein measurement by test strip (mass/volume)2019-12-18 18:40:00* Test Item Value Reference Range Interpretation Comments Urine Protein (test code = 5804-0) NEGATIVE NEGATIVE [facility]ressU[facility] glucose edlohkkob2335-90-09 18:40:00* Test Item Value Reference Range Interpretation Comments Urine Glucose (UA) (test code = 2349-9) NEGATIVE NEGATIVE [facility]ressUrine ketones detection by automated test gfjuv2642-86-44 18:40:00* Test Item Value Reference Range Interpretation Comments Urine Ketones (test code = 83608-7) NEGATIVE NEGATIVE [facility]ressUrine urobilinogen measurement by test strip (mass/volume)2019-12-18 18:40:00* Test Item Value Reference Range Interpretation Comments Urine Urobilinogen (test code = 09477-8) 0.2 0.2-1 [facility]ressU[facility] total bilirubin measurement (mass/volume)2019-12-18 18:40:00* Test Item Value Reference Range Interpretation Comments Urine Bilirubin (test code = 1978-6) NEGATIVE NEGATIVE [facility]ressU[facility] erythrocytes zlsajwdea6798-12-63 18:40:00* Test Item Value Reference Range Interpretation Comments Urine Blood (test code = 25554-1) NEGATIVE NEGATIVE [facility] CypressAutomated urine sediment leukocyte count by microscopy (number/high power field)2019-12-18 18:40:00* Test Item Value Reference Range Interpretation Comments Urine WBC (test code = 5821-4) 0-5 0-5 [facility] CypressErythrocytes detection in urine sediment by light ohihpouihl5486-66-60 18:40:00* Test Item Value Reference Range Interpretation Comments Urine RBC (test code = 07755-5) 0-5 0-5 [facility] CypressBacteria detection in urine sediment by light fyzpsxguxd0833-24-94 18:40:00* Test Item Value Reference Range Interpretation Comments Urine Bacteria (test code = 66038-1) RARE NONE [facility] CypressEpithelial cells detection in urine sediment by light fqdlnxgrpj5888-99-72 18:40:00* Test Item Value Reference Range Interpretation Comments Urine Epithelial Cells (test code = 62585-8) FEW NONE [facility]erum or plasma sodium measurement (moles/volume)2019-12-18 18:40:00* Test Item Value Reference Range Interpretation Comments Sodium Level (test code = 2951-2) 137 136-145 [facility]er[facility] potassium measurement (moles/volume)2019-12-18 18:40:00* Test Item Value Reference Range Interpretation Comments Potassium Level (test code = 2823-3) 4.2 3.5-5.1 [facility] chloride measurement (moles/volume)2019-12-18 18:40:00* Test Item Value Reference Range Interpretation Comments Chloride Level (test code = 2075-0) 107 98-107 [facility]er[facility] plasma carbon dioxide, total measurement (moles/volume)2019-12-18 18:40:00* Test Item Value Reference Range Interpretation Comments Carbon Dioxide Level (test code = 2028-9) 20 22-29 [facility]er[facility] plasma anion uac6619-30-58 18:40:00* Test Item Value Reference Range Interpretation Comments Anion Gap (test code = 74987-0) 14.2 8-16 [facility] urea nitrogen measurement (mass/volume)2019-12-18 18:40:00* Test Item Value Reference Range Interpretation Comments Blood Urea Nitrogen (test code = 3094-0) 11 7-26 [facility] creatinine measurement (mass/volume)2019-12-18 18:40:00* Test Item Value Reference Range Interpretation Comments Creatinine (test code = 2160-0) 0.66 0.57-1.11 [facility]er[facility] plasma urea nitrogen/creatinine mass hhxvn6015-44-25 18:40:00* Test Item Value Reference Range Interpretation Comments BUN/Creatinine Ratio (test code = 3097-3) 17 6-25 [facility] CypressEstimated glomerular filtration rate (GFR) xfoepnsogbilb4805-37-64 18:40:00* Test Item Value Reference Range Interpretation Comments Estimat Glomerular Filtration Rate (test code = 931141626) > 60 >60 Ranges were taken from the National Kidney Disease Education Program and the [facility] Foundation literature.Reference ranges:60 or greater: Ycalip02-06 ( for 3 consecutive months): Chronic kidney disease 15 or less: Kidney failureH[facility] Healthcare [facility] CypressGlucose zwamydmsqyk1005-29-41 18:40:00* Test Item Value Reference Range Interpretation Comments Glucose Level (test code = MCQ7434) 89 74-118 [facility]er[facility] plasma calcium measurement (mass/volume)2019-12-18 18:40:00* Test Item Value Reference Range Interpretation Comments Calcium Level (test code = 99599-0) 8.9 8.4-10.2 [facility]er[facility] plasma total bilirubin measurement (mass/volume)2019-12-18 18:40:00* Test Item Value Reference Range Interpretation Comments Total Bilirubin (test code = 1975-2) 0.5 0.2-1.2 [facility] CypressFluoroscopic procedure less than one hour gzeyfwxo0564-49-86 18:40:00* Test Item Value Reference Range Interpretation Comments Aspartate Amino Transf (AST/SGOT) (test code = Aspartate Amino Transf (AST/SGOT)) 19 5-34 [facility]er[facility] or plasma alanine aminotransferase measurement (enzymatic activity/volume)2019-12-18 18:40:00* Test Item Value Reference Range Interpretation Comments Alanine Aminotransferase (ALT/SGPT) (test code = 1742-6) 15 0-55 [facility]er[facility] plasma protein measurement (mass/volume)2019-12-18 18:40:00* Test Item Value Reference Range Interpretation Comments Total Protein (test code = 2885-2) 7.4 6.5-8.1 [facility]er[facility] plasma albumin measurement (mass/volume)2019-12-18 18:40:00* Test Item Value Reference Range Interpretation Comments Albumin (test code = 1751-7) 3.7 3.5-5.0 [facility] CypressPlasma globulin measurement (mass/volume) 2019-12-18 18:40:00* Test Item Value Reference Range Interpretation Comments Globulin (test code = 59348-5) 3.7 2.3-3.5 [facility]er[facility] plasma albumin/globulin mass vkazg1806-30-28 18:40:00* Test Item Value Reference Range Interpretation Comments Albumin/Globulin Ratio (test code = 1759-0) 1.0 0.8-2.0 [facility]er[facility] or plasma alkaline phosphatase measurement (enzymatic activity/volume)2019-12-18 18:40:00* Test Item Value Reference Range Interpretation Comments Alkaline Phosphatase (test code = 6768-6) 62 40-150 [facility]ressBlood leukocytes automated count (number/volume)2019-12-18 18:40:00* Test Item Value Reference Range Interpretation Comments White Blood Count (test code = 6690-2) 6.37 4.8-10.8 [facility] CypressBlood erythrocytes automated count (number/volume)2019-12-18 18:40:00* Test Item Value Reference Range Interpretation Comments Red Blood Count (test code = 789-8) 4.33 3.6-5.1 [facility]ressBlood hemoglobin measurement (moles/volume)2019-12-18 18:40:00* Test Item Value Reference Range Interpretation Comments Hemoglobin (test code = 72104-6) 11.9 12.0-16.0 [facility] CypressAutomated blood hematocrit (volume fraction)2019-12-18 18:40:00* Test Item Value Reference Range Interpretation Comments Hematocrit (test code = 4544-3) 37.4 34.2-44.1 [facility] CypressAutomated erythrocyte mean corpuscular lzmqjg2565-87-35 18:40:00* Test Item Value Reference Range Interpretation Comments Mean Corpuscular Volume (test code = 787-2) 86.4 81-99 [facility] CypressAutomated erythrocyte mean corpuscular hemoglobin (mass per erythrocyte)2019-12-18 18:40:00* Test Item Value Reference Range Interpretation Comments Mean Corpuscular Hemoglobin (test code = 785-6) 27.5 28-32 [facility] CypressAutomated erythrocyte mean corpuscular hemoglobin concentration measurement (mass/volume)2019-12-18 18:40:00* Test Item Value Reference Range Interpretation Comments Mean Corpuscular Hemoglobin Concent (test code = 786-4) 31.8 31-35 [facility] CypressRD IzfHu-Wnj1197-65-17 18:40:00* Test Item Value Reference Range Interpretation Comments Red Cell Distribution Width (test code = 68529-8) 16.2 11.7 -14.4 [facility] CypressAutomated blood platelet count (count/volume)2019-12-18 18:40:00* Test Item Value Reference Range Interpretation Comments Platelet Count (test code = 777-3) 309 140-360 [facility] neutrophil count as percentage of total dhtrtukpjg7037-76-36 18:40:00* Test Item Value Reference Range Interpretation Comments Neutrophils (%) (Auto) (test code = 57446-4) 35.9 38.7-80.0 [facility] CypressAutatrium healthed blood lymphocyte count as percentage ot total ewjnsotisi1464-31-53 18:40:00* Test Item Value Reference Range Interpretation Comments Lymphocytes (%) (Auto) (test code = 736-9) 23.4 18.0-39.1 [facility] monocyte count as percentage of total twpwecdfkv6563-85-75 18:40:00* Test Item Value Reference Range Interpretation Comments Monocytes (%) (Auto) (test code = 5905-5) 7.2 4.4-11.3 [facility]ressAutatrium healthed blood eosinophil count as percentage of total ecvygetnxg9363-13-01 18:40:00* Test Item Value Reference Range Interpretation Comments Eosinophils (%) (Auto) (test code = 713-8) 31.7 0.0-6.0 [facility]ressAutomated blood basophil count as percentage of total nzsytxnqoq3898-49-59 18:40:00* Test Item Value Reference Range Interpretation Comments Basophils (%) (Auto) (test code = 706-2) 1.6 0.0-1.0 [facility]ressFluoroscopic procedure less than one hour tvikivtq3115-72-08 18:40:00* Test Item Value Reference Range Interpretation Comments IM GRANULOCYTES % (test code = IM GRANULOCYTES %) 0.2 0.0- 1.0 [facility]ressAutomated blood neutrophil count 2019-12-18 18:40:00* Test Item Value Reference Range Interpretation Comments Neutrophils # (Auto) (test code = 751-8) 2.3 2.1-6.9 [facility] ([facility]) 2019-12-18 18:40:00* Test Item Value Reference Range Interpretation Comments Lymphocytes # (Auto) (test code = 31260-8) 1.5 1.0-3.2 [facility] monocytes automated count (number/volume)2019-12-18 18:40:00* Test Item Value Reference Range Interpretation Comments Monocytes # (Auto) (test code = 742-7) 0.5 0.2-0.8 [facility]ressAutomated blood eosinophil count 2019-12-18 18:40:00* Test Item Value Reference Range Interpretation Comments Eosinophils # (Auto) (test code = 711-2) 2.0 0.0-0.4 [facility]ressAutomated blood basophil count (count/volume)2019-12-18 18:40:00* Test Item Value Reference Range Interpretation Comments Basophils # (Auto) (test code = 704-7) 0.1 0.0-0.1 [facility] CypressFluoroscopic procedure less than one hour udiepgll6792-41-57 18:40:00* Test Item Value Reference Range Interpretation Comments Absolute Immature Granulocyte (auto (lela t code = Absolute Immature Granulocyte (auto) 0.01 0-0.1 [facility]er[facility] plasma sodium measurement (moles/volume)2019-12-18 18:40:00* Test Item Value Reference Range Interpretation Comments Sodium Level (test code = 2951-2) 137 136-145 [facility] potassium measurement (moles/volume)2019-12-18 18:40:00* Test Item Value Reference Range Interpretation Comments Potassium Level (test code = 2823-3) 4.2 3.5-5.1 [facility] chloride measurement (moles/volume)2019-12-18 18:40:00* Test Item Value Reference Range Interpretation Comments Chloride Level (test code = 2075-0) 107 98-107 [facility]er[facility] plasma carbon dioxide, total measurement (moles/volume)2019-12-18 18:40:00* Test Item Value Reference Range Interpretation Comments Carbon Dioxide Level (test code = 2028-9) 20 22-29 [facility] plasma anion nst4305-54-41 18:40:00* Test Item Value Reference Range Interpretation Comments Anion Gap (test code = 04338-2) 14.2 8-16 [facility] urea nitrogen measurement (mass/volume)2019-12-18 18:40:00* Test Item Value Reference Range Interpretation Comments Blood Urea Nitrogen (test code = 3094-0) 11 7-26 [facility] creatinine measurement (mass/volume)2019-12-18 18:40:00* Test Item Value Reference Range Interpretation Comments Creatinine (test code = 2160-0) 0.66 0.57-1.11 [facility]er[facility] plasma urea nitrogen/creatinine mass mqdes8242-38-78 18:40:00* Test Item Value Reference Range Interpretation Comments BUN/Creatinine Ratio (test code = 3097-3) 17 6-25 [facility] CypressEstimated glomerular filtration rate (GFR) qzmjsrlyuwbwe4509-64-08 18:40:00* Test Item Value Reference Range Interpretation Comments Estimat Glomerular Filtration Rate (test code = 153684658) > 60 >60 Ranges were taken from the National Kidney Disease Education Program and the [facility] literature.Reference ranges:60 or greater: Gstniv26-98 ( for 3 consecutive months): Chronic kidney disease 15 or less: Kidney failureHCA [facility] Healthcare North CypressGlucose hykblhhpvym2612-66-98 18:40:00* Test Item Value Reference Range Interpretation Comments Glucose Level (test code = WSU3770) 89 74-118 [facility] plasma calcium measurement (mass/volume)2019-12-18 18:40:00* Test Item Value Reference Range Interpretation Comments Calcium Level (test code = 26682-7) 8.9 8.4-10.2 [facility]er[facility] plasma total bilirubin measurement (mass/volume)2019-12-18 18:40:00* Test Item Value Reference Range Interpretation Comments Total Bilirubin (test code = 1975-2) 0.5 0.2-1.2 [facility] CypressFluoroscopic procedure less than one hour sobmhlkf8104-00-60 18:40:00* Test Item Value Reference Range Interpretation Comments Aspartate Amino Transf (AST/SGOT) (test code = Aspartate Amino Transf (AST/SGOT)) 19 5-34 [facility]er[facility] plasma alanine aminotransferase measurement (enzymatic activity/volume)2019-12-18 18:40:00* Test Item Value Reference Range Interpretation Comments Alanine Aminotransferase (ALT/SGPT) (test code = 1742-6) 15 0-55 [facility] plasma protein measurement (mass/volume)2019-12-18 18:40:00* Test Item Value Reference Range Interpretation Comments Total Protein (test code = 2885-2) 7.4 6.5-8.1 [facility]er[facility] plasma albumin measurement (mass/volume)2019-12-18 18:40:00* Test Item Value Reference Range Interpretation Comments Albumin (test code = 1751-7) 3.7 3.5-5.0 [facility] CypressPlasma globulin measurement (mass/volume) 2019-12-18 18:40:00* Test Item Value Reference Range Interpretation Comments Globulin (test code = 53271-8) 3.7 2.3-3.5 [facility] plasma albumin/globulin mass hmpbt5995-59-16 18:40:00* Test Item Value Reference Range Interpretation Comments Albumin/Globulin Ratio (test code = 1759-0) 1.0 0.8-2.0 [facility] plasma alkaline phosphatase measurement (enzymatic activity/volume)2019-12-18 18:40:00* Test Item Value Reference Range Interpretation Comments Alkaline Phosphatase (test code = 6768-6) 62 40-150 [facility]ressBlood leukocytes automated count (number/volume)2019-12-18 18:40:00* Test Item Value Reference Range Interpretation Comments White Blood Count (test code = 6690-2) 6.37 4.8-10.8 [facility]Blst[facility] erythrocytes automated count (number/volume)2019-12-18 18:40:00* Test Item Value Reference Range Interpretation Comments Red Blood Count (test code = 789-8) 4.33 3.6-5.1 [facility]ressBlood hemoglobin measurement (moles/volume)2019-12-18 18:40:00* Test Item Value Reference Range Interpretation Comments Hemoglobin (test code = 15987-0) 11.9 12.0-16.0 [facility] CypressAutomated blood hematocrit (volume fraction)2019-12-18 18:40:00* Test Item Value Reference Range Interpretation Comments Hematocrit (test code = 4544-3) 37.4 34.2-44.1 [facility] CypressAutomated erythrocyte mean corpuscular mgqoax0757-30-90 18:40:00* Test Item Value Reference Range Interpretation Comments Mean Corpuscular Volume (test code = 787-2) 86.4 81-99 [facility] CypressAutomated erythrocyte mean corpuscular hemoglobin (mass per erythrocyte)2019-12-18 18:40:00* Test Item Value Reference Range Interpretation Comments Mean Corpuscular Hemoglobin (test code = 785-6) 27.5 28-32 [facility] CypressAutomated erythrocyte mean corpuscular hemoglobin concentration measurement (mass/volume)2019-12-18 18:40:00* Test Item Value Reference Range Interpretation Comments Mean Corpuscular Hemoglobin Concent (test code = 786-4) 31.8 31-35 [facility] CypressRDW MdmUj-Ube9387-34-17 18:40:00* Test Item Value Reference Range Interpretation Comments Red Cell Distribution Width (test code = 43985-9) 16.2 11.7 -14.4 [facility] CypressAutomated blood platelet count (count/volume)2019-12-18 18:40:00* Test Item Value Reference Range Interpretation Comments Platelet Count (test code = 777-3) 309 140-360 [facility] neutrophil count as percentage of total conqxacgpx2600-14-38 18:40:00* Test Item Value Reference Range Interpretation Comments Neutrophils (%) (Auto) (test code = 73850-7) 35.9 38.7-80.0 [facility] CypressAutomated blood lymphocyte count as percentage ot total jznnoftjsd4897-94-44 18:40:00* Test Item Value Reference Range Interpretation Comments Lymphocytes (%) (Auto) (test code = 736-9) 23.4 18.0-39.1 [facility] CypressAutomated blood monocyte count as percentage of total ufxruqrchk0736-43-75 18:40:00* Test Item Value Reference Range Interpretation Comments Monocytes (%) (Auto) (test code = 5905-5) 7.2 4.4-11.3 [facility] CypressAutomated blood eosinophil count as percentage of total heqgdtrbbf7414-12-56 18:40:00* Test Item Value Reference Range Interpretation Comments Eosinophils (%) (Auto) (test code = 713-8) 31.7 0.0-6.0 [facility] CypressAutomated blood basophil count as percentage of total tktwfvxewo4733-72-22 18:40:00* Test Item Value Reference Range Interpretation Comments Basophils (%) (Auto) (test code = 706-2) 1.6 0.0-1.0 [facility] CypressFluoroscopic procedure less than one hour imvjdzzc3941-76-52 18:40:00* Test Item Value Reference Range Interpretation Comments IM GRANULOCYTES % (test code = IM GRANULOCYTES %) 0.2 0.0- 1.0 [facility] CypressAutomated blood neutrophil count 2019-12-18 18:40:00* Test Item Value Reference Range Interpretation Comments Neutrophils # (Auto) (test code = 751-8) 2.3 2.1-6.9 [facility]ressBlood lymphocytes count (number/volume) 2019-12-18 18:40:00* Test Item Value Reference Range Interpretation Comments Lymphocytes # (Auto) (test code = 26617-0) 1.5 1.0-3.2 [facility]Bl[facility] monocytes automated count (number/volume)2019-12-18 18:40:00* Test Item Value Reference Range Interpretation Comments Monocytes # (Auto) (test code = 742-7) 0.5 0.2-0.8 [facility] CypressAutomated blood eosinophil count 2019-12-18 18:40:00* Test Item Value Reference Range Interpretation Comments Eosinophils # (Auto) (test code = 711-2) 2.0 0.0-0.4 [facility] CypressAutomated blood basophil count (count/volume)2019-12-18 18:40:00* Test Item Value Reference Range Interpretation Comments Basophils # (Auto) (test code = 704-7) 0.1 0.0-0.1 [facility] CypressFluoroscopic procedure less than one hour nodfcbiz6185-51-24 18:40:00* Test Item Value Reference Range Interpretation Comments Absolute Immature Granulocyte (auto (lela t code = Absolute Immature Granulocyte (auto) 0.01 0-0.1 [facility] sodium measurement (moles/volume)2019-12-18 18:40:00* Test Item Value Reference Range Interpretation Comments Sodium Level (test code = 2951-2) 137 136-145 [facility] potassium measurement (moles/volume)2019-12-18 18:40:00* Test Item Value Reference Range Interpretation Comments Potassium Level (test code = 2823-3) 4.2 3.5-5.1 [facility] chloride measurement (moles/volume)2019-12-18 18:40:00* Test Item Value Reference Range Interpretation Comments Chloride Level (test code = 2075-0) 107 98-107 [facility] plasma carbon dioxide, total measurement (moles/volume)2019-12-18 18:40:00* Test Item Value Reference Range Interpretation Comments Carbon Dioxide Level (test code = 2028-9) 20 22-29 [facility] anion kxy5946-39-28 18:40:00* Test Item Value Reference Range Interpretation Comments Anion Gap (test code = 27325-1) 14.2 8-16 [facility] urea nitrogen measurement (mass/volume)2019-12-18 18:40:00* Test Item Value Reference Range Interpretation Comments Blood Urea Nitrogen (test code = 3094-0) 11 7-26 [facility] creatinine measurement (mass/volume)2019-12-18 18:40:00* Test Item Value Reference Range Interpretation Comments Creatinine (test code = 2160-0) 0.66 0.57-1.11 [facility] urea nitrogen/creatinine mass ocqae3376-12-71 18:40:00* Test Item Value Reference Range Interpretation Comments BUN/Creatinine Ratio (test code = 3097-3) 17 6-25 [facility] CypressEstimated glomerular filtration rate (GFR) vswewqczikjki8007-11-68 18:40:00* Test Item Value Reference Range Interpretation Comments Estimat Glomerular Filtration Rate (test code = 640134141) > 60 >60 Ranges were taken from the National Kidney Disease Education Program and the [facility] literature.Reference ranges:60 or greater: Fshado00-78 ( for 3 consecutive months): Chronic kidney disease 15 or less: Kidney failureH[facility] CypressGlucose wvcvgbondqo2062-54-99 18:40:00* Test Item Value Reference Range Interpretation Comments Glucose Level (test code = YMY5267) 89 74-118 [facility] calcium measurement (mass/volume)2019-12-18 18:40:00* Test Item Value Reference Range Interpretation Comments Calcium Level (test code = 12182-2) 8.9 8.4-10.2 [facility] total bilirubin measurement (mass/volume)2019-12-18 18:40:00* Test Item Value Reference Range Interpretation Comments Total Bilirubin (test code = 1975-2) 0.5 0.2-1.2 [facility] CypressFluoroscopic procedure less than one hour nqcfxene8010-74-09 18:40:00* Test Item Value Reference Range Interpretation Comments Aspartate Amino Transf (AST/SGOT) (test code = Aspartate Amino Transf (AST/SGOT)) 19 5-34 [facility]er[facility] alanine aminotransferase measurement (enzymatic activity/volume)2019-12-18 18:40:00* Test Item Value Reference Range Interpretation Comments Alanine Aminotransferase (ALT/SGPT) (test code = 1742-6) 15 0-55 [facility]er[facility] plasma protein measurement (mass/volume)2019-12-18 18:40:00* Test Item Value Reference Range Interpretation Comments Total Protein (test code = 2885-2) 7.4 6.5-8.1 [facility] albumin [facility] (mass/volume)2019-12-18 18:40:00* Test Item Value Reference Range Interpretation Comments Albumin (test code = 1751-7) 3.7 3.5-5.0 [facility]ressPlasma globulin measurement (mass/volume) 2019-12-18 18:40:00* Test Item Value Reference Range Interpretation Comments Globulin (test code = 82109-3) 3.7 2.3-3.5 [facility] albumin/globulin mass bhcpp8482-01-57 18:40:00* Test Item Value Reference Range Interpretation Comments Albumin/Globulin Ratio (test code = 1759-0) 1.0 0.8-2.0 [facility] alkaline phosphatase measurement (enzymatic activity/volume)2019-12-18 18:40:00* Test Item Value Reference Range Interpretation Comments Alkaline Phosphatase (test code = 6768-6) 62 40-150 [facility] leukocytes automated count (number/volume)2019-12-18 18:40:00* Test Item Value Reference Range Interpretation Comments White Blood Count (test code = 6690-2) 6.37 4.8-10.8 [facility] CypressBlood erythrocytes automated count (number/volume)2019-12-18 18:40:00* Test Item Value Reference Range Interpretation Comments Red Blood Count (test code = 789-8) 4.33 3.6-5.1 [facility] hemoglobin measurement (moles/volume)2019-12-18 18:40:00* Test Item Value Reference Range Interpretation Comments Hemoglobin (test code = 74939-7) 11.9 12.0-16.0 [facility]Aut[facility] blood hematocrit (volume fraction)2019-12-18 18:40:00* Test Item Value Reference Range Interpretation Comments Hematocrit (test code = 4544-3) 37.4 34.2-44.1 [facility] CypressAutomated erythrocyte mean corpuscular etknup2539-38-69 18:40:00* Test Item Value Reference Range Interpretation Comments Mean Corpuscular Volume (test code = 787-2) 86.4 81-99 [facility] CypressAutomated erythrocyte mean corpuscular hemoglobin (mass per erythrocyte)2019-12-18 18:40:00* Test Item Value Reference Range Interpretation Comments Mean Corpuscular Hemoglobin (test code = 785-6) 27.5 28-32 [facility] CypressAutomated erythrocyte mean corpuscular hemoglobin concentration measurement (mass/volume)2019-12-18 18:40:00* Test Item Value Reference Range Interpretation Comments Mean Corpuscular Hemoglobin Concent (test code = 786-4) 31.8 31-35 [facility] CypressRDW LyaFa-Zxe9272-23-17 18:40:00* Test Item Value Reference Range Interpretation Comments Red Cell Distribution Width (test code = 63647-8) 16.2 11.7 -14.4 [facility] CypressAutomated blood platelet count (count/volume)2019-12-18 18:40:00* Test Item Value Reference Range Interpretation Comments Platelet Count (test code = 777-3) 309 140-360 [facility] CypressAutomated blood segmented neutrophil count as percentage of total edleoyeira1568-32-73 18:40:00* Test Item Value Reference Range Interpretation Comments Neutrophils (%) (Auto) (test code = 23169-5) 35.9 38.7-80.0 [facility] CypressAutomated blood lymphocyte count as percentage ot total gzcemxtdic3742-09-65 18:40:00* Test Item Value Reference Range Interpretation Comments Lymphocytes (%) (Auto) (test code = 736-9) 23.4 18.0-39.1 [facility] CypressAutomated blood monocyte count as percentage of total rwjkcxkaus7353-50-85 18:40:00* Test Item Value Reference Range Interpretation Comments Monocytes (%) (Auto) (test code = 5905-5) 7.2 4.4-11.3 [facility] CypressAutomated blood eosinophil count as percentage of total wfrpfynlfw8174-72-07 18:40:00* Test Item Value Reference Range Interpretation Comments Eosinophils (%) (Auto) (test code = 713-8) 31.7 0.0-6.0 [facility] CypressAutomated blood basophil count as percentage of total ouyudqcqcs7549-33-51 18:40:00* Test Item Value Reference Range Interpretation Comments Basophils (%) (Auto) (test code = 706-2) 1.6 0.0-1.0 [facility] CypressFluoroscopic procedure less than one hour vjhqfkhd4063-27-93 18:40:00* Test Item Value Reference Range Interpretation Comments IM GRANULOCYTES % (test code = IM GRANULOCYTES %) 0.2 0.0- 1.0 [facility] CypressAutomated blood neutrophil count 2019-12-18 18:40:00* Test Item Value Reference Range Interpretation Comments Neutrophils # (Auto) (test code = 751-8) 2.3 2.1-6.9 [facility] CypressBlood lymphocytes count (number/volume) 2019-12-18 18:40:00* Test Item Value Reference Range Interpretation Comments Lymphocytes # (Auto) (test code = 69932-0) 1.5 1.0-3.2 [facility] CypressBlood monocytes automated count (number/volume)2019-12-18 18:40:00* Test Item Value Reference Range Interpretation Comments Monocytes # (Auto) (test code = 742-7) 0.5 0.2-0.8 [facility] CypressAutomated blood eosinophil count 2019-12-18 18:40:00* Test Item Value Reference Range Interpretation Comments Eosinophils # (Auto) (test code = 711-2) 2.0 0.0-0.4 [facility] CypressAutomated blood basophil count (count/volume)2019-12-18 18:40:00* Test Item Value Reference Range Interpretation Comments Basophils # (Auto) (test code = 704-7) 0.1 0.0-0.1 [facility] CypressFluoroscopic procedure less than one hour zvqpbjpi5568-47-92 18:40:00* Test Item Value Reference Range Interpretation Comments Absolute Immature Granulocyte (auto (lela t code = Absolute Immature Granulocyte (auto) 0.01 0-0.1 [facility] sodium measurement (moles/volume)2019-12-18 18:40:00* Test Item Value Reference Range Interpretation Comments Sodium Level (test code = 2951-2) 137 136-145 [facility] potassium measurement (moles/volume)2019-12-18 18:40:00* Test Item Value Reference Range Interpretation Comments Potassium Level (test code = 2823-3) 4.2 3.5-5.1 [facility] chloride measurement (moles/volume)2019-12-18 18:40:00* Test Item Value Reference Range Interpretation Comments Chloride Level (test code = 2075-0) 107 98-107 [facility] carbon dioxide, total measurement (moles/volume)2019-12-18 18:40:00* Test Item Value Reference Range Interpretation Comments Carbon Dioxide Level (test code = 2028-9) 20 22-29 [facility] anion ldc4830-77-59 18:40:00* Test Item Value Reference Range Interpretation Comments Anion Gap (test code = 75229-8) 14.2 8-16 [facility] urea nitrogen measurement (mass/volume)2019-12-18 18:40:00* Test Item Value Reference Range Interpretation Comments Blood Urea Nitrogen (test code = 3094-0) 11 7-26 [facility] creatinine measurement (mass/volume)2019-12-18 18:40:00* Test Item Value Reference Range Interpretation Comments Creatinine (test code = 2160-0) 0.66 0.57-1.11 [facility] urea nitrogen/creatinine mass gjxyw6856-87-77 18:40:00* Test Item Value Reference Range Interpretation Comments BUN/Creatinine Ratio (test code = 3097-3) 17 - [facility] CypressEstimated glomerular filtration rate (GFR) sxfoqiehjitno6751-08-43 18:40:00* Test Item Value Reference Range Interpretation Comments Estimat Glomerular Filtration Rate (test code = 454849478) > 60 >60 Ranges were taken from the National Kidney Disease Education Program and the [facility] [employer] literature.Reference ranges:60 or greater: Rayqgh48-86 ( for 3 consecutive months): Chronic kidney disease 15 or less: Kidney failureHCA Houston Healthcare North CypressGlucose ccsknrumrhm8587-92-60 18:40:00* Test Item Value Reference Range Interpretation Comments Glucose Level (test code = BKO5450) 89 74-118 [facility] calcium measurement (mass/volume)2019-12-18 18:40:00* Test Item Value Reference Range Interpretation Comments Calcium Level (test code = 17377-1) 8.9 8.4-10.2 [facility] total bilirubin measurement (mass/volume)2019-12-18 18:40:00* Test Item Value Reference Range Interpretation Comments Total Bilirubin (test code = 1975-2) 0.5 0.2-1.2 [facility] CypressFluoroscopic procedure less than one hour pvyhrmck7869-64-24 18:40:00* Test Item Value Reference Range Interpretation Comments Aspartate Amino Transf (AST/SGOT) (test code = Aspartate Amino Transf (AST/SGOT)) 19 5-34 [facility] alanine aminotransferase measurement (enzymatic activity/volume)2019-12-18 18:40:00* Test Item Value Reference Range Interpretation Comments Alanine Aminotransferase (ALT/SGPT) (test code = 1742-6) 15 0-55 [facility] protein measurement (mass/volume)2019-12-18 18:40:00* Test Item Value Reference Range Interpretation Comments Total Protein (test code = 2885-2) 7.4 6.5-8.1 [facility] albumin measurement (mass/volume)2019-12-18 18:40:00* Test Item Value Reference Range Interpretation Comments Albumin (test code = 1751-7) 3.7 3.5-5.0 [facility] CypressPlasma globulin measurement (mass/volume) 2019-12-18 18:40:00* Test Item Value Reference Range Interpretation Comments Globulin (test code = 48784-4) 3.7 2.3-3.5 [facility] albumin/globulin mass nfnxg5536-84-51 18:40:00* Test Item Value Reference Range Interpretation Comments Albumin/Globulin Ratio (test code = 1759-0) 1.0 0.8-2.0 [facility] alkaline phosphatase measurement (enzymatic activity/volume)2019-12-18 18:40:00* Test Item Value Reference Range Interpretation Comments Alkaline Phosphatase (test code = 6768-6) 62 40-150 [facility] CypressURINALYSIS HQVTZSMB3956-02-63 17:01:00* Test Item Value Reference Range Interpretation [...] HPF NONE Urine Source? Clean CatchUR HCG KCQA0873-64-12 17:01:00* Test Item Value Reference Range Interpretation Comments UR HCG QUAL (test code = HCGQLU) NEGATIVE This HCGQL test is NOT applicable for MALE patients.Check with nurse about probable order error.If Tumor Marker Test needed, nurse should order test "HCGTU"(Test #550.42363) Urine Source? Clean CatchURINALYSIS ACDHYWBO6046-74-97 16:55:00* Test Item Value Reference Range Interpretation [...] HPF NONE Urine Source? Clean CatchUR HCG VAGK6778-51-29 16:55:00* Test Item Value Reference Range Interpretation Comments UR HCG QUAL (test code = HCGQLU) Urine Source? Clean CatchURINALYSIS YTLUHVAF5758-04-53 16:55:00* Test Item Value Reference Range Interpretation [...] HPF NONE Urine Source? Clean CatchUR HCG SRNZ9089-72-89 16:55:00* Test Item Value Reference Range Interpretation Comments UR HCG QUAL (test code = HCGQLU) NEGATIVE This HCGQL test is NOT applicable for MALE patients.Check with nurse about probable order error.If Tumor Marker Test needed, nurse should order test "HCGTU"(Test #550.11144) Urine Source? Clean CatchURINALYSIS SDQZDEHQ5875-91-01 16:00:00* Test Item Value Reference Range Interpretation [...] per LPF NONE-FEW Urine Source? Clean CatchURINALYSIS GXUDKNWT8933-72-13 15:54:00* Test Item Value Reference Range Interpretation [...] BACU) per HPF NONE Urine Source? Clean NjamuVHNDWBSIR6421-93-51 10:39:00* Test Item Value Reference Range Interpretation Comments MAGNESIUM (test code = MAG) 2.0 mg/dL 1.6-2.3 N COMPREHENSIVE METABOLIC RKUDL8965-73-49 10:22:00* Test Item Value Reference Range Interpretation [...] code = ALKP) 140 U/L 38-126 H XFGQBU7020-67-45 10:22:00* Test Item Value Reference Range Interpretation Comments LIPASE (test code = LIP) 60 U/L 128-270 L COMPREHENSIVE METABOLIC XQCLY4067-74-97 10:17:00* Test Item Value Reference Range Interpretation [...] TOTAL (test code = ALKP) IUnit/L 45-117 TTOGCV9901-87-59 10:17:00* Test Item Value Reference Range Interpretation Comments LIPASE (test code = LIP) Unit/L 144-286 URINALYSIS XXUMWKRF7879-60-32 10:08:00* Test Item Value Reference Range Interpretation [...] NONE A Urine Source? Clean CatchCBC W/AUTO DCUR7917-76-32 10:01:00* Test Item Value Reference Range Interpretation [...] = MDIFF) NO - CT ABD PELVIS W/FVKX0629-27-25 19:01:00 Name: TANYAMERONGÓMEZ LEWIS [facility] : 1970 Age/S: 48 / F [address] [facility] Unit #: [id number] Loc: Johann [place]ck[place] [address] Phys: Oliva Gonzalez MD Acct: [id number] Dis Date: Status: REG ER PHONE #: [phone] Exam Date: 10/08/2019 1828 FAX #: [phone] Reason: LLQ abd pain EXAMS: CPT CODE: [id number] CT ABD PELVIS W/CONT 31470 REASON FOR EXAM: LLQ abd pain EXAM [...] 1 Signed Report (CONTINUED) Name: MERON MARTÍNEZ [facility] : 1970 Age/S: 48 / F [address] [facility] Unit #: [id number] Loc: Johann Mck[place] [address] Phys: Oliva Gonzalez MD Acct: [id number] Dis Date: Status: REG ER PHONE #: [phone] Exam Date: 02/2020 1828 FAX #: [phone] Reason: LLQ abd pain EXAMS: CPT CODE: [id number] CT ABD PELVIS W/CONT 57689 <Continued> fat in the peripancreatic region. However [...] the midpole of the left kidney. Location: [facility] at 190 Reported and signed by: Cecil [...] code = ALKP) 128 U/L 38-126 H HMFBKP2832-66-58 17:50:00* Test Item Value Reference Range Interpretation Comments LIPASE (test code = LIP) 84 U/L 128-270 L COMPREHENSIVE METABOLIC ICJTV9989-05-07 17:45:00* Test Item Value Reference Range Interpretation [...] TOTAL (test code = ALKP) IUnit/L 45-117 URDSXO8792-50-76 17:45:00* Test Item Value Reference Range Interpretation Comments LIPASE (test code = LIP) Unit/L 144-286 CBC W/AUTO [id number] 17:37:00* Test Item Value Reference Range Interpretation [...] REQUIRED (test code = MDIFF) NO URINALYSIS [id number] 17:12:00* Test Item Value Reference Range Interpretation [...] NONE A Urine Source? Clean CatchUR HCG [id number] 17:12:00* Test Item Value Reference Range Interpretation Comments UR HCG QUAL (test code = HCGQLU) NEGATIVE This HCGQL test is NOT applicable for MALE patients.Check with nurse about probable order error.If Tumor Marker Test needed, nurse should order test "HCGTU"(Test #550.50512) Urine Source? Clean CatchUTERUS,OTHER THAN PROLAPSE/[id number] 18:51:00 RUN DATE: 09/29/19 [facility] PAGE 1 RUN TIME: 112 Specimen Inqui ry RUN USER: INTERFACE PATIENT: MERON MARTÍNEZ ACCT #: [id number] LOC: [place] U #: [id number] AGE/SX: 48/F ROOM: [facility] RE09/27/19REG DR: Kim Cook MD : [birth year] BED: A DIS: 09/28/19 STATUS: DIS Peter TLOC: SPEC #: [id number] RECD: 09/27/19 STATUS: [place] #: [id number] HANNAH: 09/27/19- SUBM DR: Kim Cook MD ENTERED: 09/27/19 SP TYPE: UTERUSOTH OTHR DR: ORDERED: LEVEL V SURGICA CODES: [id number] - UTERUS, NOS PROCEDURES: LEV EL V [...] with paratubal cyst CPT code(s): 883 07 [facility] 09/28/19 GROSS DESCRIPTION ANATOMIC SOURCE [...] measures 3.5 cm. The entire cervix and wholesale representative sections of the lower uterine segment are castro bmitted in A1 through A3 - anterior and A4 through A6 - posterior. The end ometrium measures 0.1 cm. The myometrium measures 4 cm and contains guillermo, whit e, firm nodules measuring up to 3.5 cm with no identifiable degenerative change on the cut surfaces. Schedule Clerk sections are submitted in A7 and A8. CONTINUED ON NEXT PAGE RUN DA TE: 09/29/19 [facility] PAG E 2 RUN TIME: 1124 Specimen Inquiry RUN USER: INTERFACE SPEC #: [id number] PATIENT: MERON MARTÍNEZ #[id number] (Continued) GROSS DESCRIPTION (Contin ued) The first [...] 09/28/19 1851 END OF REPORT CHEMISTRY 7 [id number] 07:09:00* Test Item Value Reference Range Interpretation [...] CA) 8.3 mg/dL 8.4-10.2 L CBC W/AUTO [id number] 06:41:00* Test Item Value Reference Range Interpretation [...] = PLTMR) NORMAL MISTI L UR HCG [id number] 08:55:00* Test Item Value Reference Range Interpretation Comments UR HCG QUAL (test code = HCGQLU) NEGATIVE 1. Very dilute urine specimens, as indicated by a lowspecific gravity, may not contain wholesale representative levels ofhCG. 2. False negative results may occur when the levels of hCGare below the sensitivity level of the test. If is still suspected, a first morningurine specimen should be collected 48 hours later andtested. CHEMISTRY 7 [id number] 15:43:00* Test Item Value Reference Range Interpretation [...] CA) 8.9 mg/dL 8.4-10.2 N CBC W/AUTO [id number] 15:25:00* Test Item Value Reference Range Interpretation [...] = PLTMR) NORMAL MISTI L UR HCG [id number] 15:23:00* Test Item Value Reference Range Interpretation Comments UR HCG QUAL (test code = HCGQLU) NEGATIVE 1. Very dilute urine specimens, as indicated by a lowspecific gravity, may not contain wholesale representative levels ofhCG. 2. False negative results may occur when the levels of hCGare below the sensitivity level of the test. If is still suspected, a first morningurine specimen should be collected 48 hours later andtested. URINALYSIS [id number] 12:35:00* Test Item Value Reference Range Interpretation [...] LPF NONE-FEW A Urine Source? Clean CatchURINALYSIS [id number] 12:29:00* Test Item Value Reference Range Interpretation [...] HPF NONE Urine Source? Clean CatchCHEST 2 [id number] 10:29:00 [place] [address] Patient Name: MERON MARTÍNEZ MR #: [id number] : Age/Sex: 48/F Req #: [id number] Adm Physician: Ordered by: ANNE BATES MD Report #: [id number] Location: OR Room/Bed: Procedure: 0103-0 019 DX/CHEST [...] MD Serum or plasma choriogonadotropin ( test) mqwednopx9752-74-58 08:30:00* Test Item Value Reference Range Interpretation Comments Human Chorionic Gonadotropin, Qual (test code = 2118-8) NEGATIVE NEGATIVE [facility]ressHIV 1 and 2 antibody detection qualitative by rapid etiwytyauma8849-09-63 08:30:00* Test Item Value Reference Range Interpretation Comments HIV (1&2) Antibody (test code = 70003-2) NON-REACTIVE NONREACTIVE [facility] CypressFluoroscopic procedure less than one hour isadoout1635-51-97 08:30:00* Test Item Value Reference Range Interpretation Comments HIV P24 Antigen (test code = HIV P24 Antigen) REACTIVE NONREA CTIVE Results called to LESLIE ART at 1213 on 08/05/19 by William Brody. RB [place].[facility] hepatitis A virus IgM antibody detection by vrtcwoszvbx9065-05-72 08:30:00* Test Item Value Reference Range Interpretation Comments Hepatitis A IgM Antibody (test code = 82847-4) Negative Negativ e [facility] hepatitis B virus surface antigen detection by tafxrsgzlaf4988-06-67 08:30:00* Test Item Value Reference Range Interpretation Comments Hepatitis B Surface Antigen (test code = 5196-1) Negative Negat thai [facility] hepatitis B virus core IgM antibody detection by uywkjinqlmu2389-35-43 08:30:00* Test Item Value Reference Range Interpretation Comments Hepatitis B Core IgM Antibody (test code = 55360-9) Negative Ne gative [facility] C virus antibody jujzzzoqq8968-27-79 08:30:00* Test Item Value Reference Range Interpretation Comments Hepatitis C Antibody (test code = 11708-6) <0.1 0.0-0.9 Negative: < 0.8 Indeterminate: 0.8 - 0.9 Positive: > 0.9 The CDC recommends that a positive HCV antibody result be followed up with a HCV Nucleic Acid Amplification test (288708).Performed at: [facility] [address] [place], [place] [id number] Director: Simon Dash MD, Phone: [phone] Houston Healthcare North CypressHIV-2 antibody detection by enzyme xgjutunhadg7060-45-77 08:30:00* Test Item Value Reference Range Interpretation Comments HIV-2 Antibody (EIA) (test code = 23055-8) Negative Interpretation:A repeatedly reactive HIV-2 result may [...] show the presence of HIV-2 specific viral bands.[facility] CypressHIV RNA jxzon1009-11-79 08:30:00* Test Item Value Reference Range Interpretation Comments HIV-1 RNA, Qualitative (TMA) (test code = 232282519) Negative N egative Negative for HIV-1 RNAPerformed at: [facility] [place] [id number] Director: Norma Canas MD, Phone: [phone] Regional Hospitalerum or plasma choriogonadotropin ( test) cbluxmejo3283-07-04 08:30:00* Test Item Value Reference Range Interpretation Comments Human Chorionic Gonadotropin, Qual (test code = 2118-8) NEGATIVE NEGATIVE [facility] CypressHIV 1 and 2 antibody detection qualitative by rapid druwuyknked2760-99-25 08:30:00* Test Item Value Reference Range Interpretation Comments HIV (1&2) Antibody (test code = 86245-1) NON-REACTIVE NONREACTIVE [facility] CypressFluoroscopic procedure less than one hour outedlxi0418-14-39 08:30:00* Test Item Value Reference Range Interpretation Comments HIV P24 Antigen (test code = HIV P24 Antigen) REACTIVE NONREA CTIVE Results called to LESLIE ART at 1213 on 08/05/19 by William Brody. RB [place].[facility] or plasma hepatitis A virus IgM antibody detection by lgzzwmqxnfb7173-00-59 08:30:00* Test Item Value Reference Range Interpretation Comments Hepatitis A IgM Antibody (test code = 88873-1) Negative Negativ e [facility] plasma hepatitis B virus surface antigen detection by youwfzkbeic9703-03-42 08:30:00* Test Item Value Reference Range Interpretation Comments Hepatitis B Surface Antigen (test code = 5196-1) Negative Negat thai [facility] hepatitis B virus core IgM antibody detection by bugawhwikmv2408-94-58 08:30:00* Test Item Value Reference Range Interpretation Comments Hepatitis B Core IgM Antibody (test code = 91086-4) Negative Ne gative [facility] C virus antibody kbmhesjsq7381-85-34 08:30:00* Test Item Value Reference Range Interpretation Comments Hepatitis C Antibody (test code = 71367-7) <0.1 0.0-0.9 Negative: < 0.8 Indeterminate: 0.8 - 0.9 Positive: > 0.9 The CDC recommends that a positive HCV antibody result be followed up with a HCV Nucleic Acid Amplification test (010235).Performed at: [facility] [address] [place], [place] [id number] Director: Simon Dash MD, Phone: [phone] [facility] Healthcare [facility] CypressHIV-2 antibody detection by enzyme qsckuzinqvd8551-94-28 08:30:00* Test Item Value Reference Range Interpretation Comments HIV-2 Antibody (EIA) (test code = 56959-1) Negative Interpretation:A repeatedly reactive HIV-2 result may [...] show the presence of HIV-2 specific viral bands.[facility] CypressHIV RNA pnbzj0720-23-87 08:30:00* Test Item Value Reference Range Interpretation Comments HIV-1 RNA, Qualitative (TMA) (test code = 907467703) Negative N egative Negative for HIV-1 RNAPerformed at: - [facility] [address] [place], [place] [id number] Director: Norma Canas MD, Phone: [phone] Regional Hospitalerum or plasma choriogonadotropin ( test) rzodvhfgd7444-83-75 08:30:00* Test Item Value Reference Range Interpretation Comments Human Chorionic Gonadotropin, Qual (test code = 2118-8) NEGATIVE NEGATIVE [facility] CypressHIV 1 and 2 antibody detection qualitative by rapid yohumxukgbq5122-06-17 08:30:00* Test Item Value Reference Range Interpretation Comments HIV (1&2) Antibody (test code = 75555-2) NON-REACTIVE NONREACTIVE [facility] CypressFluoroscopic procedure less than one hour bshvppkl3214-65-65 08:30:00* Test Item Value Reference Range Interpretation Comments HIV P24 Antigen (test code = HIV P24 Antigen) REACTIVE NONREA CTIVE Results called to LESLIE ART at 1213 on 08/05/19 by William Brody. RB [place].[facility] or plasma hepatitis A virus IgM antibody detection by fpzqfzjttln7068-05-64 08:30:00* Test Item Value Reference Range Interpretation Comments Hepatitis A IgM Antibody (test code = 08679-9) Negative Negativ e [facility] or plasma hepatitis B virus surface antigen detection by xhjhsrqiyvu5791-32-25 08:30:00* Test Item Value Reference Range Interpretation Comments Hepatitis B Surface Antigen (test code = 5196-1) Negative Negat thai [facility] or plasma hepatitis B virus core IgM antibody detection by gjqvvrrerlo4309-18-47 08:30:00* Test Item Value Reference Range Interpretation Comments Hepatitis B Core IgM Antibody (test code = 17983-7) Negative Ne gative [facility] C virus antibody cvvfuvkqa8071-84-50 08:30:00* Test Item Value Reference Range Interpretation Comments Hepatitis C Antibody (test code = 54026-0) <0.1 0.0-0.9 Negative: < 0.8 Indeterminate: 0.8 - 0.9 Positive: > 0.9 The CDC recommends that a positive HCV antibody result be followed up with a HCV Nucleic Acid Amplification test (998970).Performed at: [facility] [address] [place], [place] [id number] Director: Simon Dash MD, Phone: [phone] [facility] Healthcare North CypressHIV-2 antibody detection by enzyme wdffltqnfit6606-32-95 08:30:00* Test Item Value Reference Range Interpretation Comments HIV-2 Antibody (EIA) (test code = 20157-2) Negative Interpretation:A repeatedly reactive HIV-2 result may [...] show the presence of HIV-2 specific viral bands.[facility]ressHIV RNA tadjd4835-25-51 08:30:00* Test Item Value Reference Range Interpretation Comments HIV-1 RNA, Qualitative (TMA) (test code = 872534554) Negative N egative Negative for HIV-1 RNAPerformed at: [facility] [place] [id number] Director: Norma Canas MD, Phone: [phone] Regional Hospitalerum or plasma choriogonadotropin ( test) adfxxdbdv8688-13-19 08:30:00* Test Item Value Reference Range Interpretation Comments Human Chorionic Gonadotropin, Qual (test code = 2118-8) NEGATIVE NEGATIVE [facility] CypressHIV 1 and 2 antibody detection qualitative by rapid dwnkhnzzcby1825-65-31 08:30:00* Test Item Value Reference Range Interpretation Comments HIV (1&2) Antibody (test code = 72021-1) NON-REACTIVE NONREACTIVE [facility] CypressFluoroscopic procedure less than one hour creewwzc3192-18-73 08:30:00* Test Item Value Reference Range Interpretation Comments HIV P24 Antigen (test code = HIV P24 Antigen) REACTIVE NONREA CTIVE Results called to LESLIE ART at 1213 on 08/05/19 by William Brody. RB [place].[facility] or plasma hepatitis A virus IgM antibody detection by elrzxgbomll2731-83-57 08:30:00* Test Item Value Reference Range Interpretation Comments Hepatitis A IgM Antibody (test code = 00250-9) Negative Negativ e [facility] or plasma hepatitis B virus surface antigen detection by apttgodvojt6921-57-79 08:30:00* Test Item Value Reference Range Interpretation Comments Hepatitis B Surface Antigen (test code = 5196-1) Negative Negat thai [facility] or plasma hepatitis B virus core IgM antibody detection by lojirhzvcjh1729-08-11 08:30:00* Test Item Value Reference Range Interpretation Comments Hepatitis B Core IgM Antibody (test code = 84215-2) Negative Ne gative [facility] hepatitis C virus antibody atpwfmkrb6293-51-87 08:30:00* Test Item Value Reference Range Interpretation Comments Hepatitis C Antibody (test code = 05710-2) <0.1 0.0-0.9 Negative: < 0.8 Indeterminate: 0.8 - 0.9 Positive: > 0.9 The CDC recommends that a positive HCV antibody result be followed up with a HCV Nucleic Acid Amplification test (278876).Performed at: [facility] [address] [place], [place] [id number] Director: Simon Dash MD, Phone: [phone] [facility] Healthcare North CypressHIV-2 antibody detection by enzyme bdxhxkwpkli3321-98-45 08:30:00* Test Item Value Reference Range Interpretation Comments HIV-2 Antibody (EIA) (test code = 96036-7) Negative Interpretation:A repeatedly reactive HIV-2 result may [...] show the presence of HIV-2 specific viral bands.[facility]ressHIV RNA qfiin6639-94-21 08:30:00* Test Item Value Reference Range Interpretation Comments HIV-1 RNA, Qualitative (TMA) (test code = 670802725) Negative N egative Negative for HIV-1 RNAPerformed at: - LabCo[address] [id number] Director: Norma Canas MD, Phone: [phone] Regional Hospitalerum or plasma choriogonadotropin ( test) hobgvlutz2529-52-52 08:30:00* Test Item Value Reference Range Interpretation Comments Human Chorionic Gonadotropin, Qual (test code = 2118-8) NEGATIVE NEGATIVE [facility]ressHIV 1 and 2 antibody detection qualitative by rapid blkdmnsujqe6692-81-74 08:30:00* Test Item Value Reference Range Interpretation Comments HIV (1&2) Antibody (test code = 77799-4) NON-REACTIVE NONREACTIVE [facility] CypressFluoroscopic procedure less than one hour nxsvshst3433-93-62 08:30:00* Test Item Value Reference Range Interpretation Comments HIV P24 Antigen (test code = HIV P24 Antigen) REACTIVE NONREA CTIVE Results called to LESLIE ART at 1213 on 08/05/19 by William Brody. RB [place].[facility] or plasma hepatitis A virus IgM antibody detection by gdhltzfeoad7381-85-28 08:30:00* Test Item Value Reference Range Interpretation Comments Hepatitis A IgM Antibody (test code = 96476-5) Negative Negativ e [facility] or plasma hepatitis B virus surface antigen detection by umwvtoumuig1858-96-47 08:30:00* Test Item Value Reference Range Interpretation Comments Hepatitis B Surface Antigen (test code = 5196-1) Negative Negat thai [facility] or plasma hepatitis B virus core IgM antibody detection by kyakldyrmxn2409-96-19 08:30:00* Test Item Value Reference Range Interpretation Comments Hepatitis B Core IgM Antibody (test code = 41317-6) Negative Ne [facility] virus antibody efpwexprp4518-50-00 08:30:00* Test Item Value Reference Range Interpretation Comments Hepatitis C Antibody (test code = 37108-4) <0.1 0.0-0.9 Negative: < 0.8 Indeterminate: 0.8 - 0.9 Positive: > 0.9 The CDC recommends that a positive HCV antibody result be followed up with a HCV Nucleic Acid Amplification test (356819).Performed at: - [facility] [address] [place] [id number] Director: Simon Dash MD, Phone: [phone] [facility] Healthcare [facility] CypressHIV-2 antibody detection by enzyme kibjwrmtkpr7211-89-49 08:30:00* Test Item Value Reference Range Interpretation Comments HIV-2 Antibody (EIA) (test code = 47485-5) Negative Interpretation:A repeatedly reactive HIV-2 result may [...] show the presence of HIV-2 specific viral bands.[facility]ressHIV RNA wxwny8741-76-15 08:30:00* Test Item Value Reference Range Interpretation Comments HIV-1 RNA, Qualitative (TMA) (test code = 778338962) Negative N egative Negative for HIV-1 RNAPerformed at: - LabBoth[facility] Center[address] [place], [place] [id number] Director: Norma Canas MD, Phone: [phone] Houston Healthcare North CypressBASIC METABOLIC LSVHV6296-87-88 09:02:00* Test Item Value Reference Range Interpretation [...] CA) 7.8 mg/dL 8.5-10.1 L CBC W/AUTO MWSS2328-15-56 07:20:00* Test Item Value Reference Range Interpretation [...] K/mm3 0.0-0.1 N - CT ABD PELVIS W/XMAM1001-23-76 14:17:00 Name: MERON MARTÍNEZ [facility] : 1970 Age/S: 48 / F [address] [facility] Unit #: [id number] Loc: [place] [address] Phys: Liz Terry MD Acct: [id number] Dis Date: Status: REG ER PHONE #: [phone] Exam Date: 07/26/2019 1332 FAX #: [phone] Reason: lower abdominal pain EXAMS: CPT CODE: [id number] CT ABD PELVIS W/CONT 04186 REASON FOR EXAM: lower abdominal pain EXAM [...] 1 Signed Report (CONTINUED) Name: MERON MARTÍNEZ [facility] : 1970 Age/S: 48 / F [address] [facility] Unit #: [id number] Loc: [place], [place] [address] Phys: Liz Terry MD Acct: [id number] Dis Date: Status: REG ER PHONE #: [phone] Exam Date: 07/26/2019 1332 FAX #: [phone] Reason: lower abdominal pain EXAMS: CPT CODE: [id number] CT ABD PELVIS W/CONT 23544 < Continued> Abdominal vascular structures: Normal Peritoneum [...] Aviles CTDI: DLP: Trnscb Date/Time: 07/26/2019 (1416) t.SDR.RR31 Orig Print D/T: S: 07/26/2019 (0575) PAGE 2 Signed Report URINALYSIS [id number] 12:21:00* Test Item Value Reference Range Interpretation [...] NONE-FEW A Urine Source? Clean CatchBASIC METABOLIC ASNPV5524-27-73 12:17:00* Test Item Value Reference Range Interpretation [...] CA) 8.8 mg/dL 8.4-10.2 N HEPATIC FUNCTION NZQPA3288-45-90 12:17:00* Test Item Value Reference Range Interpretation [...] code = ALKP) 66 U/L 38-126 N YWWJBH7390-85-79 12:17:00* Test Item Value Reference Range Interpretation Comments LIPASE (test code = LIP) 106 U/L 128-270 L HCG SERUM [id number] 12:17:00* Test Item Value Reference Range Interpretation Comments HCG SERUM QUAL (test code = HCGQL) NEGATIVE NEGATIVE This HCGQL test is NOT applicable for MALE patients.Check with nurse about probable order error.If Tumor Marker Test needed, nurse should order test "HCGTU"(Test #550.61529) URINALYSIS XIIRLDEI2144-50-67 12:14:00* Test Item Value Reference Range Interpretation [...] HPF NONE Urine Source? Clean CatchBASIC METABOLIC [id number] 11:56:00* Test Item Value Reference Range Interpretation [...] CA) 8.8 mg/dL 8.4-10.2 N HEPATIC FUNCTION ETXNU8611-51-90 11:56:00* Test Item Value Reference Range Interpretation [...] TOTAL (test code = ALKP) IUnit/L 45-117 OHAOFR3605-18-40 11:56:00* Test Item Value Reference Range Interpretation Comments LIPASE (test code = LIP) Unit/L 144-286 HCG SERUM [id number] 11:56:00* Test Item Value Reference Range Interpretation Comments HCG SERUM QUAL (test code = HCGQL) NEGATIVE NEGATIVE This HCGQL test is NOT applicable for MALE patients.Check with nurse about probable order error.If Tumor Marker Test needed, nurse should order test "HCGTU"(Test #550.31643) CBC W/O RZJJ6865-96-83 11:53:00* Test Item Value Reference Range Interpretation [...] MPV) 9.2 fL 6.7-11.0 N BASIC METABOLIC ZJFYQ3976-41-69 11:53:00* Test Item Value Reference Range Interpretation [...] CA) 8.8 mg/dL 8.4-10.2 N HEPATIC FUNCTION [id number] 11:53:00* Test Item Value Reference Range Interpretation [...] TOTAL (test code = ALKP) IUnit/L 45-117 NRLZBF6686-91-65 11:53:00* Test Item Value Reference Range Interpretation Comments LIPASE (test code = LIP) Unit/L 144-286 HCG SERUM [id number] 11:53:00* Test Item Value Reference Range Interpretation Comments HCG SERUM QUAL (test code = HCGQL) NEGATIVE URINALYSIS [id number] 09:51:00* Test Item Value Reference Range Interpretation [...] NONE A Urine Source? Clean CatchUR HCG [id number] 09:51:00* Test Item Value Reference Range Interpretation Comments UR HCG QUAL (test code = HCGQLU) NEGATIVE This HCGQL test is NOT applicable for MALE patients.Check with nurse about probable order error.If Tumor Marker Test needed, nurse should order test "HCGTU"(Test #550.40405) Urine Source? Clean CatchURINALYSIS [id number] 09:30:00* Test Item Value Reference Range Interpretation [...] HPF NONE Urine Source? Clean CatchUR HCG [id number] 09:30:00* Test Item Value Reference Range Interpretation Comments UR HCG QUAL (test code = HCGQLU) Urine Source? Clean CatchURINALYSIS [id number] 13:03:00* Test Item Value Reference Range Interpretation [...] LPF NONE-FEW A Urine Source? Clean CatchURINALYSIS [id number] 12:57:00* Test Item Value Reference Range Interpretation [...] HPF NONE Urine Source? Clean CatchBASIC METABOLIC [id number] 14:53:00* Test Item Value Reference Range Interpretation [...] CA) 8.5 mg/dL 8.0-10.5 N BASIC METABOLIC [id number] 14:48:00* Test Item Value Reference Range Interpretation [...] 8.0-10.5 N UA RFLX MICR CULT IF [id number] 14:46:00* Test Item Value Reference Range Interpretation [...] culture: Suprapubic PainSpecimen Description: CLEAN CATCHUR HCG [id number] 14:42:00* Test Item Value Reference Range Interpretation Comments UR HCG QUAL (test code = HCGQLU) NEGATIVE NEGATIVE CBC W/AUTO [id number] 14:39:00* Test Item Value Reference Range Interpretation [...] REQUIRED (test code = MDIFF) NO URINALYSIS [id number] 09:46:00* Test Item Value Reference Range Interpretation [...] BACU) FEW per HPF NONE URINALYSIS W/O [id number] 09:46:00* Test Item Value Reference Range Interpretation Comments UA MICROSCOPIC NEEDED? (test code = UAMICRO) YES URINALYSIS [id number] 09:38:00* Test Item Value Reference Range Interpretation [...] = BACU) per HPF NONE URINALYSIS W/O [id number] 09:38:00* Test Item Value Reference Range Interpretation Comments UA MICROSCOPIC NEEDED? (test code = UAMICRO) URINALYSIS [id number] 09:38:00* Test Item Value Reference Range Interpretation [...] = BACU) per HPF NONE URINALYSIS W/O [id number] 09:38:00* Test Item Value Reference Range Interpretation Comments UA MICROSCOPIC NEEDED? (test code = UAMICRO) B-TYPE NATRIURETIC [id number] 17:30:00* Test Item Value Reference Range Interpretation Comments B-TYPE NATRIURETIC PEPTIDE (test code = BNP) 15.1 pg/mL 0-100 N [id number] 17:23:00* Test Item Value Reference Range Interpretation Comments D-DIMER (test code = DDIMER) < 100 ng/ml < 600 COMPREHENSIVE METABOLIC [id number] 17:21:00* Test Item Value Reference Range Interpretation [...] code = ALKP) 72 U/L 38-126 N [id number]-[id number] 17:21:00* Test Item Value Reference Range Interpretation Comments TROPONIN-I (test code = TROPI) <0.015 ng/mL 0.00-0.056 N COMPREHENSIVE METABOLIC [id number] 17:13:00* Test Item Value Reference Range Interpretation [...] TOTAL (test code = ALKP) IUnit/L 45-117 [id number] 17:13:00* Test Item Value Reference Range Interpretation Comments TROPONIN-I (test code = TROPI) ng/mL 0-0.045 CBC W/AUTO [id number] 17:09:00* Test Item Value Reference Range Interpretation [...] = MDIFF) NO - XR CHEST 1 [id number] 16:53:00 Name: TANYAMERON [facility] : 1970 Age/S:48 /F [address] [facility] Unit#:[id number] Loc: [place] [address] Phys: Steven Patterson MD Dis Date: PHONE #: [phone] Status: REG ER FAX #: [phone] Exam Date: 03/01/2019 Reason: sob EXAMS: CPT CODE: [id number] XR CHEST 1 V 99464 REASON FOR EXAM: sob EXAM ORDER DATE: 03/01/2019 4:16 PM Ordering M.Deacon.: Steven Patterson MD PROCEDURE: - XR CHEST 1 V COMPARISON: FINDINGS: Portable AP frontal view of the chest obtained at 4:31 PM shows clear lungs without evidence of consolidation. There is no evidence of effusion. The heart size is within normal limits. Pulmonary vasculatures are unremarkable. IMPRESSION: No active disease. at 2760 Reported and signed by: Kelvin Cole M.D. CC: Steven Son MD Technologist: Shraddha Aviles Trnscrpt Data: 03/01/2019 (1498) Fadi HERNANDEZ Orig Print D/T: S: 03/01/2019 (2360) PAGE 1 Signed Report - CT ABD PELVIS W/O [id number] 15:35:00 Name: MERON MARTÍNEZ [facility] : 1970 Age/S: 48 / F [address] [facility] Unit #: [id number] Loc: [place] [address] Phys: Steven Patterson MD Acct: [id number] Dis Date: Status: REG ER PHONE #: [phone] Exam Date: 02/28/2019 1512 FAX #: [phone] Reason: left side abd pain EXAMS: CPT CODE: [id number] CT ABD PELVIS W/O CONT 65202 REASON FOR EXAM: left side abd pain [...] Aviles CTDI: DLP: Trnscb Date /Time: 02/28/2019 (5305) FadiVTL PAGE 1 Signed Report COMPREHENSIVE METABOLIC [id number] 15:14:00* Test Item Value Reference Range Interpretation [...] code = ALKP) 74 U/L 38-126 N [id number] 15:14:00* Test Item Value Reference Range Interpretation Comments LIPASE (test code = LIP) 82 U/L 128-270 L COMPREHENSIVE METABOLIC [id number] 15:06:00* Test Item Value Reference Range Interpretation [...] TOTAL (test code = ALKP) IUnit/L 45-117 [id number] 15:06:00* Test Item Value Reference Range Interpretation Comments LIPASE (test code = LIP) Unit/L 144-286 CBC W/AUTO [id number] 14:56:00* Test Item Value Reference Range Interpretation [...] (test code = MDIFF) NO URINALYSIS W/O [id number] 14:50:00* Test Item Value Reference Range Interpretation [...] = LEUUR) NEGATIVE NEG ATIVE URINALYSIS W/O [id number] 14:49:00* Test Item Value Reference Range Interpretation [...] NEG ATIVE - XR KNEE 3 V [id number] 14:17:00 Name: MERON MARTÍNEZ [facility] : 1970 Age/S:48 /F [address] [facility] Unit#:[id number] Loc: [place] [address] Phys: Isabella Perry NP Dis Date: PHONE #: [phone] Status: REG ER FAX #: [phone] Exam Date: 12/25/2018 Reason: hypererxtension right knee EXAMS: CPT CODE: [id number] XR KNEE 3 V RT [address]263 REASON FOR EXAM: hypererxtension right knee EXAM [...] is intact IMPRESSION: Unremarkable right knee at 6674 Reported and signed by: Kelvin Cole M.D. CC: Russell Espinoza MD Technologist: Shraddha Moctezuma per Trnscrpt Data: 12/25/2018 (1417) Laure.VTL Orig Print D/T: S: 12/25/2018 (5828) PAGE 1 Signed Report - XR TIBIA/FIBULA 2 V [id number] 14:12:00 Name: MERON MARTÍNEZ [facility] : 1970 Age/S:48 /F [address] [facility] Unit#:[id number] Loc: [place] [address] Phys: Isabella Perry NP Dis Date: PHONE #: [phone] Status: REG ER FAX #: [phone] Exam Date: 12/25/2018 Reason: hypererxtension right knee EXAMS: CPT CODE: [id number] XR TIBIA/FIBULA 2 [place] [address] REASON FOR EXAM: hypererxtension right knee EXAM [...] CC: Russell Espinoza MD Technologist: Shraddha [facility] Data: 12/25/2018 (1412) Laure.VTL Orig Print D/T : S: 12/25/2018 (4428) PAGE 1 Sig lisbeth Report URINALYSIS [id number] 06:31:00 * Test Item Value Reference Range [...] DERIAN) FEW per HPF NONE A URINALYSIS [id number] 06:24:00* Test Item Value Reference Range Interpretation [...] = BACU) per HPF NONE URINALYSIS W/O [id number] 06:24:00* Test Item Value Reference Range Interpretation Comments UA LEUKOCYTE ESTERASE W REFLEX (test code = LEUUR) NEG ATIVE URINALYSIS [id number] 06:24:00* Test Item Value Reference Range Interpretation [...] = BACU) per HPF NONE URINALYSIS W/O [id number] 06:24:00* Test Item Value Reference Range Interpretation Comments UA LEUKOCYTE ESTERASE W REFLEX (test code = LEUUR) NEG ATIVE URINALYSIS [id number] 10:05:00* Test Item Value Reference Range Interpretation [...] BACU) FEW per HPF NONE URINALYSIS W/O [id number] 10:05:00* Test Item Value Reference Range Interpretation Comments UA MICROSCOPIC NEEDED? (test code = UAMICRO) YES URINALYSIS [id number] 09:59:00* Test Item Value Reference Range Interpretation [...] = BACU) per HPF NONE URINALYSIS W/O [id number] 09:59:00* Test Item Value Reference Range Interpretation Comments UA MICROSCOPIC NEEDED? (test code = UAMICRO) URINALYSIS [id number] 09:59:00* Test Item Value Reference Range Interpretation [...] = BACU) per HPF NONE URINALYSIS W/O [id number] 09:59:00* Test Item Value Reference Range Interpretation Comments UA MICROSCOPIC NEEDED? (test code = UAMICRO)
[2020-05-06] MEDS ORDERED: ONDANSETRON HCL INJ 2MG/ML 2ML 2 MG/ML VIAL IV STA (11:03)
[2020-05-06] MEDS ORDERED: KETOROLAC TROMETHAMINE 30 MG/ML VIAL IV STA (11:03)
[2020-05-06] MEDS ORDERED: SODIUM CHLORIDE 0.9% 1000ML 1,000 ML IV STA (11:03)
[2020-05-06] MEDS ORDERED: LORAZEPAM INJ 2 MG/ML VIAL IV ONE (11:15)
[2020-05-06 11:22] LABS: BASOPHILS % 1.2 % (0.0-1.0); EOSINOPHILS # (AUTO) 0.2 (0.0-0.4); EOSINOPHILS % 4.7 % (0.0-6.0); HEMATOCRIT 41.2 % (34.2-44.1); HEMOGLOBIN 13.6 g/dL (12.0-16.0); LYMPHOCYTES % 29.9 % (18.0-39.1); MEAN CORPUSCULAR HEMOGLOBIN 30.4 pg (28-32); MONOCYTES # (AUTO) 0.3 (0.2-0.8); MONOCYTES % 8.7 % (4.4-11.3); NEUTROPHILS # (AUTO) 1.9 (2.1-6.9); NEUTROPHILS % 55.2 % (38.7-80.0); PLATELET COUNT 327 x10e3/uL (140-360); RED BLOOD COUNT 4.48 x10e6/uL (3.6-5.1); RED CELL DISTRIBUTION WIDTH 13.5 % (11.7-14.4)
[2020-05-06 11:34] LABS: ALANINE AMINOTRANSFERASE 18 IU/L (0-55); ALBUMIN 4.1 g/dL (3.5-5.0); ALKALINE PHOSPHATASE 89 IU/L (40-150); ANION GAP 12.9 mmol/L (8-16); BLOOD UREA NITROGEN 11 mg/dL (7-26); BUN/CREATININE RATIO 17 (6-25); CALCIUM 8.9 mg/dL (8.4-10.2); CARBON DIOXIDE 25 mmol/L (22-29); CHLORIDE 103 mmol/L (98-107); CREATININE, SERUM 0.65 mg/dL (0.57-1.11); EST GLOMERULAR FILTRATION RATE > 60 ML/MIN (60-); GLUCOSE 89 mg/dL (74-118); POTASSIUM 3.9 mmol/L (3.5-5.1); SODIUM 137 mmol/L (136-145)
[2020-05-06 12:02] LABS: BILIRUBIN,URINE NEGATIVE (NEGATIVE); CLARITY,URINE CLEAR (CLEAR); COLOR,URINE YELLOW (YELLOW); KETONES,URINE NEGATIVE (NEGATIVE); LEUKOCYTE ESTERASE ,URINE NEGATIVE (NEGATIVE); NITRITE,URINE NEGATIVE (NEGATIVE); PROTEIN,URINE DIPSTICK NEGATIVE (NEGATIVE); URINE UROBILINOGEN 0.2 mg/dL (0.2 - 1)
[2020-05-06 12:06] LABS: BACTERIA,URINE FEW /HPF; EPITHELIAL CELLS,URINE FEW /LPF; MUCUS,URINE FEW (RARE); RBC,URINE 0-5 /HPF (0-5); WBC,URINE (MAN) 0-5 /HPF (0-5)
--- NOTE | 2020-05-06 12:09 | Diagnostic Imaging Report ---
EXAM: CT Abdomen and Pelvis WITHOUT contrast INDICATION: Left flank pain. COMPARISON: CT Abdomen/Pelvis 12/18/2019, KUB 01/17/2020. TECHNIQUE: Abdomen and pelvis were scanned utilizing a multidetector helical scanner from the lung base to the pubic symphysis without administration of IV contrast. Absence of intravenous contrast decreases sensitivity for detection of focal lesions and vascular pathology. Coronal and sagittal reformations were obtained. Routine protocol was performed. IV CONTRAST: None ORAL CONTRAST: None COMPLICATIONS: None RADIATION DOSE: Total DLP: 159 mGy*cm Estimated effective dose: (DLP x 0.015 x size factor) mSv CTDIvol has been reviewed. It is below the limits set by the Radiation Protocol Committee (RPC). Dose modulation, iterative reconstruction, and/or weight based adjustment of the mA/kV was utilized to reduce the radiation dose to as low as reasonably achievable. FINDINGS: LINES and TUBES: None. LOWER THORAX: Minimal dependent atelectasis. HEPATOBILIARY: Simple 1.2 cm left hepatic lobe cyst. Additional subcentimeter lesions are too small to characterize, but likely represent cysts. No biliary ductal dilation. GALLBLADDER: No radio-opaque stones or sludge. No wall thickening. SPLEEN: No splenomegaly. PANCREAS: There is mild stranding adjacent to the inferior aspect of the pancreatic head. ADRENALS: No adrenal nodules KIDNEYS/URETERS: No hydronephrosis. No cystic or solid mass lesions. Two nonobstructing left intrarenal calculi, largest 5 mm., unchanged GI TRACT: No abnormal distention, wall thickening, or evidence of bowel obstruction. Appendix is normal. PELVIC ORGANS/BLADDER: The urinary bladder is unremarkable. The uterus is surgically absent. Bilateral pelvic calcified phleboliths. LYMPH NODES: Mildly prominent central mesenteric lymph nodes. No lymphadenopathy by CT size criteria. VESSELS: Unremarkable. PERITONEUM / RETROPERITONEUM: No free air or fluid. There is decreased stranding in the central mesenteric fat with mild residual stranding adjacent to the pancreatic head. BONES: Unremarkable. SOFT TISSUES: Unremarkable. IMPRESSION: No obstructive uropathy. Small nonobstructing left intrarenal calculi. Colonic diverticulosis without evidence of diverticulitis. Decreased stranding in the central mesenteric fat with mild residual stranding adjacent to the pancreatic head. This may reflect resolving inflammatory/infectious process. While pancreatitis is considered less likely, recommend correlation with enzymes. Signed by: Dr. Jemma Nielson MD on 05/06/2020 12:06 PM
--- NOTE | 2020-05-06 13:07 | Emergency Department Note ---
History of Present Illnes History of Present Illness Chief Complaint: Genitourinary History of Present Illness This is a 49 year old female PT C/O LOWER BACK PAIN X 1 WEEK, PT STATES THAT SHE WAS DIAGNOSED WITH A URINE INFECTION 1 WEEK AGO AND WAS PRESCRIBED KEFLEX BUT HAS FOUND NO RELIEF, PT C/O PAINFUL URINATION BUT STATES THAT SHE'S FELT THAT BEFORE DUE TO A HYSTERECTOMY THAT SHE HAD DONE IN THE PAST, DENIES ANY ABDOMINAL PAIN/NAUSEA/VOMITING. Historian: Patient Arrival Mode: Car Lead Setter Required: No Onset (how long ago): week(s) (1) Location: LEFT ABD AND BACK Quality: PAIN Radiation: Reports non-radiation Severity: moderate Onset quality: gradual Timing of current episode: intermittent Progression: waxing and waning Chronicity: recurrent Context: Reports recent illness (RECENT UTI) Relieving factors: none Exacerbating factors: none Associated symptoms: Reports denies other symptoms Past Medical/Family History Physician Review I have reviewed the patient's past medical and family history. Any updates have been documented here. Past Medical History Recent Fever: No Clinical Suspicion of Infectio: Yes New/Unexplained Change in Ment: No Past Medical History: UTI's, Anxiety, GERD Other Medical History: RECURRENT UTI'S, ANXIETY, DIVERTICULITIS Past Surgical History: Hysterectomy, Tubal Ligation Social History Smoking Cessation: Never Smoker Counseling Performed: No Alcohol Use: None Any Illegal Drug Use: No TB Exposure/Symptoms: No Physically hurt or threatened: No Family History Family history of heart diseas: No Other Last Tetanus: UNK Any Pre-Existing Lines (PICC,: No Review of Systems Review of Systems Constitutional: Reports no symptoms EENTM: Reports no symptoms Cardiovascular: Reports no symptoms Respiratory: Reports no symptoms Gastrointestinal: Reports as per HPI, Reports abdominal pain Genitourinary: Reports no symptoms Musculoskeletal: Reports as per HPI, Reports back pain Integumentary: Reports no symptoms Neurological: Reports no symptoms Psychological: Reports no symptoms Endocrine: Reports no symptoms Hematological/Lymphatic: Reports no symptoms Physical Exam Related Data Allergies: Coded Allergies: amoxicillin (Verified Allergy, Severe, HEART RACE, 08/05/19) ciprofloxacin (Verified Allergy, Severe, HEART RACE, 08/05/19) clavulanic acid (Verified Allergy, Severe, HEART RACE, 08/05/19) diazepam (Verified Allergy, Severe, ANXIOUS, 08/05/19) hydromorphone (Verified Allergy, Severe, ITCHING, 08/05/19) morphine (Verified Allergy, Severe, 08/05/19) PT REPORTS SHE "CAN'T BREATH" WHEN THIS MEDICATION WAS GIVEN nitrofurantoin (Verified Allergy, Intermediate, 03/07/20) escitalopram (Verified Allergy, Unknown, 08/05/19) levofloxacin (Verified Allergy, Unknown, 08/05/19) Triage Vital Signs Vital Signs Date Time Temp Pulse Resp B/P (MAP) Pulse Ox O2 Delivery O2 Flow Rate FiO2 05/06/20 10:53 98.2 80 20 114/80 99 Room Air Vital signs reviewed: Yes Physical Exam CONSTITUTIONAL Constitutional: Present well-developed, Present well-nourished HENT HENT: Present normocephalic, Present atraumatic, Present oropharynx clear/moist, Present nose normal HENT L/R: Present left ext ear normal, Present right ext ear normal EYES Eyes: Reports PERRL, Reports conjunctivae normal NECK Neck: Present ROM normal PULMONARY Pulmonary: Present effort normal, Present breath sounds normal CARDIOVASCULAR Cardiovascular: Present regular rhythm, Present heart sounds normal, Present capillary refill normal, Present normal rate GASTROINTESTINAL Abdominal: Present soft, Present tender (LLQ MILD TTP WITHOUT R/G); Absent guarding, Absent rebound, Absent left CVA tenderness, Absent right CVA tenderness GENITOURINARY Genitourinary: Present exam deferred SKIN Skin: Present warm, Present dry MUSCULOSKELETAL Musculoskeletal: Present ROM normal NEUROLOGICAL Neurological: Present alert, Present oriented x 3, Present no gross motor or sensory deficits PSYCHOLOGICAL Psychological: Present mood/affect normal, Present judgement normal Results Laboratory Result Diagram: 05/06/20 0838 05/06/20 0838 Laboratory Laboratory Tests Test 05/06/20 11:50 05/06/20 08:38 Urine Color Yellow (YELLOW) Urine Clarity Clear (CLEAR) Urine pH 5.5 (5 - 7) Urine Specific [place] 1.025 (1.010-1.025) Urine Protein Negative (NEGATIVE) Urine Glucose (UA) Negative (NEGATIVE) Urine Ketones Negative (NEGATIVE) Urine Blood Negative (NEGATIVE) Urine Nitrite Negative (NEGATIVE) Urine Bilirubin Negative (NEGATIVE) Urine Urobilinogen 0.2 mg/dL (0.2 - 1) Urine Leukocyte Esterase Negative (NEGATIVE) Urine RBC 0-5 /HPF (0-5) Urine WBC 0-5 /HPF (0-5) Urine Epithelial Cells Few /LPF (NONE) Urine Bacteria Few /HPF (NONE) Urine Mucus Few (RARE) White Blood Count 3.44 x10e3/uL (4.8-10.8) Red Blood Count 4.48 x10e6/uL (3.6-5.1) Hemoglobin 13.6 g/dL (12.0-16.0) Hematocrit 41.2 % (34.2-44.1) Mean Corpuscular Volume 92.0 fL (81-99) Mean Corpuscular Hemoglobin 30.4 pg (28-32) Mean Corpuscular Hemoglobin Concent 33.0 g/dL (31-35) Red Cell Distribution Width 13.5 % (11.7-14.4) Platelet Count 327 x10e3/uL (140-360) Neutrophils (%) (Auto) 55.2 % (38.7-80.0) Lymphocytes (%) (Auto) 29.9 % (18.0-39.1) Monocytes (%) (Auto) 8.7 % (4.4-11.3) Eosinophils (%) (Auto) 4.7 % (0.0-6.0) Basophils (%) (Auto) 1.2 % (0.0-1.0) Neutrophils # (Auto) 1.9 (2.1-6.9) Lymphocytes # (Auto) 1.0 (1.0-3.2) Monocytes # (Auto) 0.3 (0.2-0.8) Eosinophils # (Auto) 0.2 (0.0-0.4) Basophils # (Auto) 0.0 (0.0-0.1) Absolute Immature Granulocyte (auto 0.01 x10e3/uL (0-0.1) Sodium Level 137 mmol/L (136-145) Potassium Level 3.9 mmol/L (3.5-5.1) Chloride Level 103 mmol/L (98-107) Carbon Dioxide Level 25 mmol/L (22-29) Anion Gap 12.9 mmol/L (8-16) Blood Urea Nitrogen 11 mg/dL (7-26) Creatinine 0.65 mg/dL (0.57-1.11) Estimat Glomerular Filtration Rate > 60 ML/MIN (60-) BUN/Creatinine Ratio 17 (6-25) Glucose Level 89 mg/dL (74-118) Calcium Level 8.9 mg/dL (8.4-10.2) Total Bilirubin 0.9 mg/dL (0.2-1.2) Aspartate Amino Transf (AST/SGOT) 20 IU/L (5-34) Alanine Aminotransferase (ALT/SGPT) 18 IU/L (0-55) Alkaline Phosphatase 89 IU/L (40-150) Total Protein 8.4 g/dL (6.5-8.1) Albumin 4.1 g/dL (3.5-5.0) Globulin 4.3 g/dL (2.3-3.5) Albumin/Globulin Ratio 1.0 (0.8-2.0) Lab results reviewed: Yes Imaging Imaging results reviewed: Yes Assessment & Plan Medical Decision Making MDM ABD PAIN LLQ AND LEFT FLANK PAIN, H/O DIVERTICULITIS/UTI/KIDNEY STONES - RECENTLY SWITCHED TO OMNICEF FOR UTI - CBC, CHEM, UA/CX, CT ABD/PELVIS - R/O DIVERT, UTI/PYELO, URETEROLITHIASIS, RENAL INSUFF Reassessment Reassessment I SPOKE WITH DR MISHRA, PT TO BE DS/C, HE WILL F/U IN CLINIC, CONTINUE FULL COURSE OF OMNICEF, BENTYL UD, RTED PRN Assessment & Plan Final Impression: (1) Abdominal pain Depart Disposition: HOME, SELF-CARE Last Vital Signs Date Time Temp Pulse Resp B/P (MAP) Pulse Ox O2 Delivery O2 Flow Rate FiO2 05/06/20 10:53 98.2 80 20 114/80 99 Room Air Home Meds Reported Medications Lansoprazole (PREVACID) 30 Mg Capsule.dr, PO PRN PRN for INDIGESTION THERAPEUTIC INTERCHANGE WITH PROTONIX PER [facility] 08/05/19 Hyoscyamine Sulfate (LEVSIN) 0.125 Mg Tablet, 0.375 MG PO BID 08/05/19 Lactobacillus Rhamnosus R0011 (PROBIOTIC DIGESTIVE CARE) 1 Each Capsule, 1 TAB PO DAILY 08/05/19 Lorazepam (ATIVAN) 2 Mg Tablet, 2 MG PO TID 08/05/19 Sertraline Hcl (ZOLOFT) 50 Mg Tablet, 50 MG PO DAILY, #30 TAB 08/05/19 Medications in the ED Ondansetron HCl 4 mg ONCE STAT IV ; Start 05/06/20 at 11:03; Stop 05/06/20 at 11:22; Status DC Ketorolac Tromethamine 30 mg ONCE STAT IV Last administered on 05/06/20at 1 1:54; Admin Dose 30 MG; Start 05/06/20 at 11:03; Stop 05/06/20 at 11:22; Status DC Sodium Chloride 1,000 ml @ 0 mls/hr Q0M STAT IV Last administered on 05/06/20at 11:19; Admin Dose 999 MLS/HR; Start 05/06/20 at 11:03; Stop 05/06/20 at 11:11; Status DC Lorazepam 1 mg ONCE ONCE IV ; Start 05/06/20 at 11:15; Stop 05/06/20 at 11:22; Status DC DEE CABA MD May 06, 2020 13:07
== END 2020-05-06 13:22 | disposition home or self-care (01) ==
LOC: ER 10:50
DX: M54.5 Low back pain (principal); R10.32 Left lower quadrant pain; N20.0 Calculus of kidney; K57.90 Diverticulosis of intestine, part unspecified, without perforation or abscess without bleeding
CPT/HCPCS: 36415; 74176; 80053; 81001; 85025; 87086; 99284; J1885; J7030

== ENCOUNTER 2020-06-05 09:11 | Emergency (ER) | payer SELFPAY ==
[~2020-06-05] VITALS: Ht 142.2 cm; Wt 42.6 kg
[2020-06-05 09:42] LABS: EOSINOPHILS # (AUTO) 0.2 (0.0-0.4); EOSINOPHILS % 5.6 % (0.0-6.0); HEMATOCRIT 41.5 % (34.2-44.1); HEMOGLOBIN 13.9 g/dL (12.0-16.0); LYMPHOCYTES # (AUTO) 1.2 (1.0-3.2); LYMPHOCYTES % 30.3 % (18.0-39.1); MEAN CORPUSCULAR HEMOGLOBIN 31.2 pg (28-32); MEAN CORPUSCULAR HGB CONC 33.5 g/dL (31-35); MONOCYTES # (AUTO) 0.4 (0.2-0.8); MONOCYTES % 9.3 % (4.4-11.3); NEUTROPHILS # (AUTO) 2.1 (2.1-6.9); NEUTROPHILS % 53.5 % (38.7-80.0); PLATELET COUNT 257 x10e3/uL (140-360); RED BLOOD COUNT 4.46 x10e6/uL (3.6-5.1); RED CELL DISTRIBUTION WIDTH 13.4 % (11.7-14.4)
[2020-06-05] MEDS ORDERED: ASPIRIN 81 MG CHEW TAB PO ONE (09:45)
--- NOTE | 2020-06-05 10:01 | Diagnostic Imaging Report ---
X-ray chest frontal view History: Chest pain Comparison: None Findings: Lines and tubes: Not applicable Central airways: Unremarkable Cardiac silhouette: Unremarkable Mediastinal silhouettes: Unremarkable Pleura: No pleural effusion, pneumothorax or thickening Diaphragms: Unremarkable Lungs: No focal lung disease Skeletal structures: Unremarkable Extrathoracic soft tissues: Unremarkable Impression: No acute cardiopulmonary disease Signed by: Reggie Mejía MD on 06/05/2020 9:58 AM
[2020-06-05 10:07] LABS: ALANINE AMINOTRANSFERASE 18 IU/L (0-55); ALKALINE PHOSPHATASE 78 IU/L (40-150); ANION GAP 11.5 mmol/L (8-16); BLOOD UREA NITROGEN 11 mg/dL (7-26); BUN/CREATININE RATIO 17 (6-25); CALCIUM 8.8 mg/dL (8.4-10.2); CARBON DIOXIDE 24 mmol/L (22-29); CHLORIDE 106 mmol/L (98-107); CREATINE KINASE 43 IU/L (29-168); CREATININE, SERUM 0.66 mg/dL (0.57-1.11); EST GLOMERULAR FILTRATION RATE > 60 ML/MIN (60-); GLUCOSE 96 mg/dL (74-118); POTASSIUM 3.5 mmol/L (3.5-5.1); SODIUM 138 mmol/L (136-145)
[2020-06-05 11:07] VITALS: BP 120/79
--- NOTE | 2020-06-05 11:13 | Emergency Department Note ---
History of Present Illnes History of Present Illness Chief Complaint: Chest Pain History of Present Illness This is a 49 year old female . Historian: Patient Arrival Mode: Car Onset (how long ago): day(s) Severity: mild Onset quality: gradual Duration (how long): day(s) Timing of current episode: constant Chronicity: new Relieving factors: none Past Medical/Family History Physician Review I have reviewed the patient's past medical and family history. Any updates have been documented here. Past Medical History Recent Fever: No Clinical Suspicion of Infectio: No New/Unexplained Change in Ment: No Past Medical History: UTI's, Anxiety, GERD Other Medical History: RECURRENT UTI'S, ANXIETY, DIVERTICULITIS Past Surgical History: Hysterectomy, Tubal Ligation Social History Physically hurt or threatened: No Other Last Tetanus: UNK Review of Systems Review of Systems Constitutional: Reports no symptoms EENTM: Reports no symptoms Cardiovascular: Reports as per HPI Respiratory: Reports no symptoms Gastrointestinal: Reports as per HPI Genitourinary: Reports no symptoms Musculoskeletal: Reports no symptoms Integumentary: Reports no symptoms Neurological: Reports no symptoms Psychological: Reports no symptoms Endocrine: Reports no symptoms Hematological/Lymphatic: Reports no symptoms Physical Exam Related Data Allergies: Coded Allergies: amoxicillin (Verified Allergy, Severe, HEART RACE, 06/05/20) ciprofloxacin (Verified Allergy, Severe, HEART RACE, 06/05/20) clavulanic acid (Verified Allergy, Severe, HEART RACE, 06/05/20) diazepam (Verified Allergy, Severe, ANXIOUS, 06/05/20) hydromorphone (Verified Allergy, Severe, ITCHING, 06/05/20) morphine (Verified Allergy, Severe, 06/05/20) PT REPORTS SHE "CAN'T BREATH" WHEN THIS MEDICATION WAS GIVEN nitrofurantoin (Verified Allergy, Intermediate, 03/07/20) escitalopram (Verified Allergy, Unknown, 08/05/19) levofloxacin (Verified Allergy, Unknown, 08/05/19) Triage Vital Signs Vital Signs Date Time Temp Pulse Resp B/P (MAP) Pulse Ox O2 Delivery O2 Flow Rate FiO2 06/05/20 09:14 97.7 81 20 132/78 100 Room Air Vital signs reviewed: Yes Physical Exam CONSTITUTIONAL Constitutional: Present well-developed, Present well-nourished HENT HENT: Present normocephalic, Present atraumatic, Present oropharynx clear/moist, Present nose normal HENT L/R: Present left ext ear normal, Present right ext ear normal EYES Eyes: Reports PERRL, Reports conjunctivae normal NECK Neck: Present ROM normal PULMONARY Pulmonary: Present effort normal, Present breath sounds normal CARDIOVASCULAR Cardiovascular: Present regular rhythm, Present heart sounds normal, Present capillary refill normal, Present normal rate GASTROINTESTINAL Abdominal: Present soft, Present nontender, Present bowel sounds normal GENITOURINARY Genitourinary: Present exam deferred SKIN Skin: Present warm, Present dry MUSCULOSKELETAL Musculoskeletal: Present ROM normal NEUROLOGICAL Neurological: Present alert, Present oriented x 3, Present no gross motor or sensory deficits PSYCHOLOGICAL Psychological: Present mood/affect normal, Present judgement normal Results Laboratory Result Diagram: 06/05/2020 06/05/20 0920 Laboratory Laboratory Tests Test 06/05/20 09:20 White Blood Count 3.96 x10e3/uL (4.8-10.8) Red Blood Count 4.46 x10e6/uL (3.6-5.1) Hemoglobin 13.9 g/dL (12.0-16.0) Hematocrit 41.5 % (34.2-44.1) Mean Corpuscular Volume 93.0 fL (81-99) Mean Corpuscular Hemoglobin 31.2 pg (28-32) Mean Corpuscular Hemoglobin Concent 33.5 g/dL (31-35) Red Cell Distribution Width 13.4 % (11.7-14.4) Platelet Count 257 x10e3/uL (140-360) Neutrophils (%) (Auto) 53.5 % (38.7-80.0) Lymphocytes (%) (Auto) 30.3 % (18.0-39.1) Monocytes (%) (Auto) 9.3 % (4.4-11.3) Eosinophils (%) (Auto) 5.6 % (0.0-6.0) Basophils (%) (Auto) 1.0 % (0.0-1.0) Neutrophils # (Auto) 2.1 (2.1-6.9) Lymphocytes # (Auto) 1.2 (1.0-3.2) Monocytes # (Auto) 0.4 (0.2-0.8) Eosinophils # (Auto) 0.2 (0.0-0.4) Basophils # (Auto) 0.0 (0.0-0.1) Absolute Immature Granulocyte (auto 0.01 x10e3/uL (0-0.1) Sodium Level 138 mmol/L (136-145) Potassium Level 3.5 mmol/L (3.5-5.1) Chloride Level 106 mmol/L (98-107) Carbon Dioxide Level 24 mmol/L (22-29) Anion Gap 11.5 mmol/L (8-16) Blood Urea Nitrogen 11 mg/dL (7-26) Creatinine 0.66 mg/dL (0.57-1.11) Estimat Glomerular Filtration Rate > 60 ML/MIN (60-) BUN/Creatinine Ratio 17 (6-25) Glucose Level 96 mg/dL (74-118) Calcium Level 8.8 mg/dL (8.4-10.2) Total Bilirubin 0.8 mg/dL (0.2-1.2) Aspartate Amino Transf (AST/SGOT) 17 IU/L (5-34) Alanine Aminotransferase (ALT/SGPT) 18 IU/L (0-55) Alkaline Phosphatase 78 IU/L (40-150) Creatine Kinase 43 IU/L (29-168) Creatine Kinase MB 0.70 ng/mL (0-5.0) Troponin I 0.013 ng/mL (0-0.300) B-Type Natriuretic Peptide 25.0 pg/mL (0-100) Total Protein 7.9 g/dL (6.5-8.1) Albumin 4.0 g/dL (3.5-5.0) Globulin 3.9 g/dL (2.3-3.5) Albumin/Globulin Ratio 1.0 (0.8-2.0) Lab results reviewed: Yes Imaging Imaging results reviewed: Yes Procedures 12 Lead ECG Interpretation ECG Interpretation : ECG: ECG 1 Plaster Machine Operator: Interpreted by ED physician Prior ECG tracings: reviewed Rhythm: sinus rhythm QRS axis: normal ST segments normal: Yes Clinical Impression: normal ECG Assessment & Plan Medical Decision Making MDM 49-year-old female arrived to the ED with atypical chest pain, EKG, cardiac markers and chest x-ray unremarkable. Patient stable for discharge home. Assessment & Plan Final Impression: (1) Atypical chest pain Depart Disposition: HOME, SELF-CARE Last Vital Signs Date Time Temp Pulse Resp B/P (MAP) Pulse Ox O2 Delivery O2 Flow Rate FiO2 11/3/20 09:14 97.7 81 20 132/78 100 Room Air Home Meds Reported Medications Lansoprazole (PREVACID) 30 Mg Capsule.dr, PO PRN PRN for INDIGESTION THERAPEUTIC INTERCHANGE WITH PROTONIX PER [facility] 08/05/19 Hyoscyamine Sulfate (LEVSIN) 0.125 Mg Tablet, 0.375 MG PO BID 08/05/19 Lactobacillus Rhamnosus R0011 (PROBIOTIC DIGESTIVE CARE) 1 Each Capsule, 1 TAB PO DAILY 08/05/19 Lorazepam (ATIVAN) 2 Mg Tablet, 2 MG PO TID 08/05/19 Sertraline Hcl (ZOLOFT) 50 Mg Tablet, 50 MG PO DAILY, #30 TAB 08/05/19 Medications in the ED Aspirin 81 mg PRN ONCE PO ; Start 06/05/20 at 09:45; Stop 06/05/20 at 09:54; Status DC ANITRA BROWN DO Jun 05, 2020 11:13
--- OUTSIDE RECORDS SUMMARY | 2020-06-07 19:02 | XMS REPORT | Continuity of Care Document ---
Author Author [facility] t Organization [facility] Address 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 Name Role Phone MD Ganesh MISHRA PCP Ganesh BROWN Attphys Unavailable Wes CABA Attphys Unavailable Rafal ERWIN Attphys Unavailable William BATES Attphys Unavailable Payers Payer Name Policy Type Policy Number Effective Date Expiration Date S zack Self Pay NA [facility] Problems Condition Name Condition Details Condition Category Status Onset Date Resolution Date Last Treatment Date Treating Clinician Comments Source Left flank pain Problem Active [facility] Abdominal pain Problem Active [facility] Diverticulitis Problem Active [facility] Antibiotic causing adverse effect Problem Active [facility] Atypical chest pain Problem Active [facility] Allergies, Adverse Reactions, Alerts Allergy Name Allergy Type Status Severity Reaction(s) Onset Date Inacti ve Date Treating Clinician Comments Source Nitrofurantoin Allergy to substance Active Moderate 2020-03-07 00: 00:00 [facility] No Known Allergies DA Active U 2020-03-06 00:00:00 [facility] Penicillins DA Active SV 2020-03-06 00:00:00 [facility] diazepam DA Active SV 2020-03-06 00:00:00 [facility] morphine DA Active SV 2020-03-06 00:00:00 [facility] ciprofloxacin DA Active SV 2020-03-06 00:00:00 [facility] hydromorphone DA Active SV 2020-03-06 00:00:00 [facility] levofloxacin DA Active SV 2020-03-06 00:00:00 [facility] escitalopram DA Active SV 2020-03-06 00:00:00 [facility] Penicillins DA Active PA 2019-10-08 00:00:00 [facility] escitalopram DA Active U 2019-09-19 00:00:00 [facility] CO-AMOXYCLAV DA Active SV 2019-09-19 00:00:00 [facility] diazepam DA Active U 2019-09-19 00:00:00 [facility] morphine DA Active U 2019-09-19 00:00:00 [facility] ciprofloxacin DA Active U 2019-09-19 00:00:00 [facility] levofloxacin DA Active U 2019-09-19 00:00:00 [facility] Diazepam Allergy to substance Active Severe ANXIOUS 2019-08-05 00:00:00 [facility] Morphine Allergy to substance Active Severe 2019-08-05 00:00:00 [facility] clavulanic acid Allergy to substance Active Severe HEART RACE 2019-08-05 00:00:00 [facility] Ciprofloxacin Allergy to substance Active Severe HEART RACE 2019 00:00:00 [facility] Amoxicillin Allergy to substance Active Severe HEART RACE 2019-08-05 0 0:00:00 [facility] Hydromorphone Allergy to substance Active Severe ITCHING 2019-08-05 00 :00:00 [facility] Levofloxacin Allergy to substance Active 2019-08-05 00:00:0 0 [facility] Escitalopram Allergy to substance Active 2019-08-05 00:00:0 0 [facility] hydromorphone HCl DA Active U 2019-07-26 00:00:00 [facility] diazepam DA Active SV 2019-07-26 00:00:00 [facility] morphine DA Active SV 2019-07-26 00:00:00 [facility] ciprofloxacin DA Active MO 2019-07-26 00:00:00 [facility] hydromorphone DA Active PA 2019-07-26 00:00:00 [facility] levofloxacin DA Active SV 2019-07-26 00:00:00 [facility] clavulanic acid DA Active MO 2019-07-26 00:00:00 [facility] amoxicillin DA Active MO 2019-07-26 00:00:00 [facility] hydromorphone HCl DA Active U 2019-06-18 00:00:00 [facility] diazepam DA Active SV 2019-06-18 00:00:00 [facility] morphine DA Active SV 2019-06-18 00:00:00 [facility] clavulanic acid DA Active MO 2019-06-18 00:00:00 [facility] ciprofloxacin DA Active MO 2019-06-18 00:00:00 [facility] amoxicillin DA Active MO 2019-06-18 00:00:00 [facility] hydromorphone DA Active PA 2019-06-18 00:00:00 [facility] levofloxacin DA Active SV 2019-06-18 00:00:00 [facility] hydromorphone HCl DA Active U 2019-03-29 00:00:00 [facility] diazepam DA Active SV 2019-03-29 00:00:00 [facility] morphine DA Active SV 2019-03-29 00:00:00 [facility] clavulanic acid DA Active MO 2019-03-29 00:00:00 [facility] ciprofloxacin DA Active MO 2019-03-29 00:00:00 [facility] amoxicillin DA Active MO 2019-03-29 00:00:00 [facility] levofloxacin DA Active SV 2019-03-29 00:00:00 [facility] clavulanic acid DA Active MO 2019-03-01 00:00:00 [facility] amoxicillin DA Active MO 2019-03-01 00:00:00 [facility] hydromorphone HCl DA Active U 2018-05-10 00:00:00 [facility] diazepam DA Active SV 2018-05-10 00:00:00 [facility] morphine DA Active SV 2018-05-10 00:00:00 [facility] ciprofloxacin DA Active MO 2018-05-10 00:00:00 [facility] levofloxacin DA Active SV 2018-05-10 00:00:00 [facility] hydromorphone HCl DA Active U 2018-03-23 00:00:00 [facility] diazepam DA Active SV 2018-03-23 00:00:00 [facility] morphine DA Active SV 2018-03-23 00:00:00 [facility] ciprofloxacin DA Active MO 2018-03-23 00:00:00 [facility] levofloxacin DA Active SV 2018-03-23 00:00:00 [facility] No Known Allergies DA Active U 2018-02-16 00:00:00 [facility] Social History Social Habit Start Date Stop Date Quantity Comments Source Sex Assigned At 1970 00:00:00 1970 00:00:00 Female [facility] Medications Ordered Medication Name Filled Medication Name Start Date Stop Da te Current Medication? Ordering Clinician Indication Dosage Frequency Signature (SIG) Comments Components Source Hyoscyamine Sulfate (Levsin) 0.125 Mg TABLET Hyoscyami ne Sulfate (Levsin) 0.125 Mg TABLET Yes .375 Twice A Day [facility] Lactobacillus Rhamnosus R0011 (Probiotic Digestive Car e) 1 Each CAPSULE Lactobacillus Rhamnosus R0011 (Probiotic Digestive Care) 1 Each CAPSULE Yes [address] [facility] Lansoprazole (Prevacid) 30 Mg CAPSULE. Lansoprazole (Prevacid) 30 Mg [address]LE.DR Hernandez As Needed as needed for Ind igestion [facility] Lorazepam (Ativan) 2 Mg TABLET Lorazepam (Ativan) 2 Mg TABLET Yes 2 Three Times A Day [facility] Sertraline Hcl (Zoloft) 50 Mg TABLET Sertraline Hcl (Zoloft) 50 Mg TABLET Yes 50 Daily [facility] Vital Signs Vital Name Observation Time Observation Value Comments Source Weight 2020-05-06 10:53:00 94 [lb_av] [facility] BMI (Body Mass Index) 2020-05-06 10:53:00 21.1 kg/m2 [facility] Weight 2020-04-06 18:56:00 100 [lb_av] [facility] BMI (Body Mass Index) 2020-04-06 18:56:00 23.2 kg/m2 [facility] Weight 2020-03-06 23:07:00 100 [lb_av] [facility] BMI (Body Mass Index) 2020-03-06 23:07:00 23.2 kg/m2 [facility] Weight 2020-01-17 04:02:00 100 [lb_av] [facility] BMI (Body Mass Index) 2020-01-17 04:02:00 23.2 kg/m2 [facility] Weight 2020-01-13 14:04:00 100 [lb_av] [facility] BMI (Body Mass Index) 2020-01-13 14:04:00 23.2 kg/m2 [facility] Body Temperature 2019-12-18 20:38:00 98.2 [degF] [facility] Weight 2019-12-18 18:36:00 100 [lb_av] [facility] BMI (Body Mass Index) 2019-12-18 18:36:00 23.2 kg/m2 [facility] Procedures Procedure Date / Time Performed Performing Clinician [facility] e CT of abdomen and pelvis without contrast 2020-05-06 00:00:[address] [facility] [address] of abdomen and pelvis without contrast 2019-12-18 00:00:00 [facility] X-ray of chest, two views 2019-08-05 00:00:[address] [facility] Encounters Start Date/Time End Date/Time Encounter Type Admission Type Attendi [facility] Care Department Encounter ID Source 2020-05-06 10:50:00 2020-05-06 13:22:00 Departed Emergency Room 1 DEE CABA [facility] [id number] [facility] 2020-04-06 18:57:00 2020-04-06 19:30:00 Departed Emergency Room [facility] [id number] [facility] 2020-03-06 23:19:00 2020-03-07 00:30:00 Departed Emergency Room [facility] [id number] [facility] 2020-01-17 03:54:00 2020-01-17 06:15:00 Departed Emergency Room 1 NORY ERWIN [facility] [id number] [facility] 2020-01-13 13:47:00 2020-01-13 14:10:00 Departed Emergency Room [facility] [id number] [facility] 2019-12-18 18:26:00 2019-12-18 20:45:00 Departed Emergency Room 1 NORY ERWIN [facility] [id number] [facility] 2019-08-05 04:00:00 2019-08-05 04:00:00 Registered Clinic 3 BATESANNE [facility] [id number] [facility] Results Test Description Test Time Test Comments Results Result Comments Source CHEST SINGLE (PORTABLE) 2020-06-05 09:57:00 [facility] : 1970 Sex: F [place] [id number] Patient Name: MERON MARTÍNEZ MR #: [id number] : 1970 Age/Sex: 49/F Req #: [id number] Adm Physician: Ordered by: ANITRA BROWN DO Report #: [id number] Location: ER Room/Bed: Procedure: [id number] DX/CHEST SINGLE (PORTABLE) Exam Date: 06/05/20 Exam Time: 0930 REPORT STATUS: Signed X-ray chest frontal view History: Chest pain Comparison: None Findings: Lines and tubes: Not applicable Central airways: Unremarkable Cardiac silhouette: Unremarkable Mediastinal silhouettes: Unremarkable Pleura: No pleural effusion, pneumothorax or thickening Diaphragms: Unremarkable Lungs: No focal lung disease Skeletal structures: Unremarkable Extrathoracic soft tissues: Unremarkable Impression: No acute cardiopulmonary disease Signed by: Reggie Regan MD on 06/05/2020 9:58 AM Dictated By: REGGIE REGAN MD 7 Transcribed By: ERICK on 06/05/20957 COPY TO: ANITRA BROWN DO CT ABDOMEN/PELVIS 2020-05-06 11:53:[address], [place], [place] [address] Patient Name: MERON MARTÍNEZ MR #: [id number] : 1970 Age/Sex: 49/F Req #: [id number] Adm Physician: Ordered by: DEE CABA MD Report #: [id number] Location: ER Room/Bed: Procedure: [id number] CT/CT ABDOMEN/PELVIS WO Exam Date: 05/06/20 Exam Time: 1134 REPORT STATUS: Signed EXAM: CT Abdomen and Pelvis WITHOUT contrast INDICATION: Left flank pain. COMPARISON: CT Abdomen/Pelvis 12/18/2019, KUB 01/17/2020. TECHNIQUE: Abdomen and pelvis were scanned utilizing a multidetector helical scanner from the lung base to the pubic symphysis without administration of IV contrast. Absence of intravenous contrast decreases sensitivity for detection of focal lesions and vascular pathology. Coronal and sagittal reformations were obtained. Routine protocol was performed. IV CONTRAST: None ORAL CONTRAST: None COMPLICATIONS: None RADIATION DOSE: Total DLP: 159 mGy*cm Estimated effective dose: (DLP x 0.015 x size factor) mSv CTDIvol has been reviewed. It is below the limits set by the Radiation Protocol Committee (RPC). Dose modulation, iterative reconstruction, and/or weight based adjustment of the mA/kV was utilized to reduce the radiation dose to as low as reasonably achievable. FINDINGS: LINES and TUBES: None. LOWER THORAX: Minimal dependent atelectasis. HEPATOBILIARY: Simple 1.2 cm left hepatic lobe cyst. Additional subcentimeter lesions are too small to characterize, but likely represent cysts. No biliary ductal dilation. GALLBLADDER: No radio-opaque stones or sludge. No wall thickening. SPLEEN: No splenomegaly. PANCREAS: There is mild stranding adjacent to the inferior aspect of the pancreatic head. ADRENALS: No adrenal nodules KIDNEYS/URETERS: No hydronephrosis. No cystic or solid mass lesions. Two nonobstructing left intrarenal calculi, largest 5 mm., unchanged GI TRACT: No abnormal distention, wall thickening, or evidence of bowel obstruction. Appendix is normal. PELVIC ORGANS/BLADDER: The urinary bladder is unremarkable. The uterus is surgically absent. Bilateral pelvic calcified phleboliths. LYMPH NODES: Mildly prominent central mesenteric lymph nodes. No lymphadenopathy by CT size criteria. VESSELS: Unremarkable. PERITONEUM / RETROPERITONEUM: No free air or fluid. There is decreased stranding in the central mesenteric fat with mild residual stranding adjacent to the pancreatic head. BONES: Unremarkable. SOFT TISSUES: Unremarkable. IMPRESSION: No obstructive uropathy. Small nonobstructing left intrarenal calculi. Colonic diverticulosis without evidence of diverticulitis. Decreased stranding in the central mesenteric fat with mild residual stranding adjacent to the pancreatic head. This may reflect resolving inflammatory/infectious process. While pancreatitis is considered less likely, recommend correlation with enzymes. Signed by: Dr. Bryson Bates MD on 05/06/2020 12:06 PM Dictated By: BRYSON BATES MD 120 Transcribed By: ERICK on 05/06/20 1206 COPY TO: DEE CABA MD Urine color determination 2020-05-06 11:50:00 Test Item Urine Color (test code = 5778-6) YELLOW YELLOW [facility] [id number] 11:50:00* Test Item Value Reference Range Interpretation Comments Urine Clarity (test code = 22665-1) CLEAR [facility]AR [facility] by Test strip 2020-05-06 11:50:00* Test Item Value Reference Range Interpretation Comments Urine Specific [place] (test code = 5811-5) 1.025 1.010-1.02 5 [facility] pH measurement by automated test [id number] 11:50:00* Test Item Value Reference Range Interpretation Comments Urine pH (test code = 92543-0) 5.5 5-7 [facility] leukocyte esterase detection by texfjyaj6108-28-45 11:50:00* Test Item Value Reference Range Interpretation Comments Urine Leukocyte Esterase (test code = 5799-2) NEGATIVE NEGATIVE [facility] nitrite [id number] 11:50:00* Test Item Value Reference Range Interpretation Comments Urine Nitrite (test code = 55706-7) NEGATIVE NEGATIVE [facility] protein measurement by test strip (mass/volume)2020-05-06 11:50:00* Test Item Value Reference Range Interpretation Comments Urine Protein (test code = 5804-0) NEGATIVE NEGATIVE [facility] glucose [id number] 11:50:00* Test Item Value Reference Range Interpretation Comments Urine Glucose (UA) (test code = 2349-9) NEGATIVE NEGATIVE [facility] ketones detection by automated test [id number] 11:50:00* Test Item Value Reference Range Interpretation Comments Urine Ketones (test code = 81278-5) NEGATIVE NEGATIVE [facility] urobilinogen measurement by test strip (mass/volume)2020-05-06 11:50:00* Test Item Value Reference Range Interpretation Comments Urine Urobilinogen (test code = 01681-9) 0.2 0.2-1 [facility] total bilirubin measurement (mass/volume)2020-05-06 11:50:00* Test Item Value Reference Range Interpretation Comments Urine Bilirubin (test code = 1978-6) NEGATIVE NEGATIVE [facility] erythrocytes [id number] 11:50:00* Test Item Value Reference Range Interpretation Comments Urine Blood (test code = 25457-8) NEGATIVE NEGATIVE [facility] HospitalAutomated urine sediment leukocyte count by microscopy (number/high power field)2020-05-06 11:50:00* Test Item Value Reference Range Interpretation Comments Urine WBC (test code = 5821-4) 0-5 0-5 [facility] HospitalErythrocytes detection in urine sediment by light pgzzehzpdm4533-38-60 11:50:00* Test Item Value Reference Range Interpretation Comments Urine RBC (test code = 71599-6) 0-5 0-5 [facility] HospitalBacteria detection in urine sediment by light recqseskmd1819-51-25 11:50:00* Test Item Value Reference Range Interpretation Comments Urine Bacteria (test code = 70609-4) FEW NONE [facility] HospitalEpithelial cells detection in urine sediment by light coygpivjxf9731-20-32 11:50:00* Test Item Value Reference Range Interpretation Comments Urine Epithelial Cells (test code = 47885-6) FEW NONE [facility] HospitalMucus detection in urine sediment by light vxxkrzefwn5692-32-78 11:50:00* Test Item Value Reference Range Interpretation Comments Urine Mucus (test code = 8247-9) FEW RARE [facility]Blood leukocytes automated count (number/volume)2020-05-06 08:38:00* Test Item Value Reference Range Interpretation Comments White Blood Count (test code = 6690-2) 3.44 4.8-10.8 [facility] erythrocytes automated count (number/volume)2020-05-06 08:38:00* Test Item Value Reference Range Interpretation Comments Red Blood Count (test code = 789-8) 4.48 3.6-5.1 [facility] hemoglobin measurement (moles/volume)2020-05-06 08:38:00* Test Item Value Reference Range Interpretation Comments Hemoglobin (test code = 12029-1) 13.6 12.0-16.0 [facility]Autom[facility] blood hematocrit (volume fraction)2020-05-06 08:38:00* Test Item Value Reference Range Interpretation Comments Hematocrit (test code = 4544-3) 41.2 34.2-44.1 [facility] HospitalAutomated erythrocyte mean corpuscular pkonwt4333-88-92 08:38:00* Test Item Value Reference Range Interpretation Comments Mean Corpuscular Volume (test code = 787-2) 92.0 81-99 [facility]Autom[facility] erythrocyte mean corpuscular hemoglobin (mass per erythrocyte)2020-05-06 08:38:00* Test Item Value Reference Range Interpretation Comments Mean Corpuscular Hemoglobin (test code = 785-6) 30.4 28-32 [facility]Autom[facility] erythrocyte mean corpuscular hemoglobin concentration measurement (mass/volume)2020-05-06 08:38:00* Test Item Value Reference Range Interpretation Comments Mean Corpuscular Hemoglobin Concent (test code = 786-4) 33.0 31-35 [facility] HospitalRDW OkcBw-Wjy7180-45-04 08:38:00* Test Item Value Reference Range Interpretation Comments Red Cell Distribution Width (test code = 68781-5) 13.5 11.7 -14.4 [facility] HospitalAutomated blood platelet count (count/volume)2020-05-06 08:38:00* Test Item Value Reference Range Interpretation Comments Platelet Count (test code = 777-3) 327 140-360 [facility] neutrophil count as percentage of total kejiutccsq8419-53-43 08:38:00* Test Item Value Reference Range Interpretation Comments Neutrophils (%) (Auto) (test code = 68310-0) 55.2 38.7-80.0 [facility] HospitalAutom[facility] blood lymphocyte count as percentage ot total wuolmdanur4580-54-26 08:38:00* Test Item Value Reference Range Interpretation Comments Lymphocytes (%) (Auto) (test code = 736-9) 29.9 18.0-39.1 [facility] HospitalAutom[facility] blood monocyte count as percentage of total uojeekuaue1235-30-47 08:38:00* Test Item Value Reference Range Interpretation Comments Monocytes (%) (Auto) (test code = 5905-5) 8.7 4.4-11.3 [facility] HospitalAutom[facility] blood eosinophil count as percentage of total mtswannprj4061-82-17 08:38:00* Test Item Value Reference Range Interpretation Comments Eosinophils (%) (Auto) (test code = 713-8) 4.7 0.0-6.0 [facility] HospitalAutomated blood basophil count as percentage of total rugpsrxbui4989-41-17 08:38:00* Test Item Value Reference Range Interpretation Comments Basophils (%) (Auto) (test code = 706-2) 1.2 0.0-1.0 [facility] HospitalFluoroscopic procedure less than one hour tiyafnaa9089-75-03 08:38:00* Test Item Value Reference Range Interpretation Comments IM GRANULOCYTES % (test code = IM GRANULOCYTES %) 0.3 0.0- 1.0 [facility]Autom[facility] blood neutrophil count 2020-05-06 08:38:00* Test Item Value Reference Range Interpretation Comments Neutrophils # (Auto) (test code = 751-8) 1.9 2.1-6.9 [facility]Blood lymphocytes count (number/volume) 2020-05-06 08:38:00* Test Item Value Reference Range Interpretation Comments Lymphocytes # (Auto) (test code = 15224-0) 1.0 1.0-3.2 [facility]Bl[facility] monocytes automated count (number/volume)2020-05-06 08:38:00* Test Item Value Reference Range Interpretation Comments Monocytes # (Auto) (test code = 742-7) 0.3 0.2-0.8 [facility] HospitalAutomated blood eosinophil count 2020-05-06 08:38:00* Test Item Value Reference Range Interpretation Comments Eosinophils # (Auto) (test code = 711-2) 0.2 0.0-0.4 [facility] HospitalAutomated blood basophil count (count/volume)2020-05-06 08:38:00* Test Item Value Reference Range Interpretation Comments Basophils # (Auto) (test code = 704-7) 0.0 0.0-0.1 [facility] HospitalFluoroscopic procedure less than one hour jtubppbv5803-86-63 08:38:00* Test Item Value Reference Range Interpretation Comments Absolute Immature Granulocyte (auto (lela t code = Absolute Immature Granulocyte (auto) 0.01 0-0.1 [facility] plasma sodium measurement (moles/volume)2020-05-06 08:38:00* Test Item Value Reference Range Interpretation Comments Sodium Level (test code = 2951-2) 137 136-145 [facility] or plasma potassium measurement (moles/volume)2020-05-06 08:38:00* Test Item Value Reference Range Interpretation Comments Potassium Level (test code = 2823-3) 3.9 3.5-5.1 [facility] plasma chloride measurement (moles/volume)2020-05-06 08:38:00* Test Item Value Reference Range Interpretation Comments Chloride Level (test code = 2075-0) 103 98-107 [facility] or plasma carbon dioxide, total measurement (moles/volume)2020-05-06 08:38:00* Test Item Value Reference Range Interpretation Comments Carbon Dioxide Level (test code = 2028-9) 25 22-29 [facility] or plasma anion [id number] 08:38:00* Test Item Value Reference Range Interpretation Comments Anion Gap (test code = 07791-4) 12.9 8-16 [facility] urea nitrogen measurement (mass/volume)2020-05-06 08:38:00* Test Item Value Reference Range Interpretation Comments Blood Urea Nitrogen (test code = 3094-0) 11 7-26 [facility] creatinine measurement (mass/volume)2020-05-06 08:38:00* Test Item Value Reference Range Interpretation Comments Creatinine (test code = 2160-0) 0.65 0.57-1.11 [facility] urea nitrogen/creatinine mass bbnuz9903-48-71 08:38:00* Test Item Value Reference Range Interpretation Comments BUN/Creatinine Ratio (test code = 3097-3) 17 6-25 [facility] HospitalEstimated glomerular filtration rate (GFR) oqzjxdphzigqr2286-72-65 08:38:00* Test Item Value Reference Range Interpretation Comments Estimat Glomerular Filtration Rate (test code = 039828640) > 60 >60 Ranges were taken from the National Kidney Disease Education Program and the [employer] literature.Reference ranges:60 or greater: Tfrkak67-09 ( for 3 consecutive months): Chronic kidney disease 15 or less: Kidney failureFormerly [facility] HospitalGlucose nuaxgbxgwwu1861-89-66 08:38:00* Test Item Value Reference Range Interpretation Comments Glucose Level (test code = ACO9603) 89 74-118 [facility] calcium measurement (mass/volume)2020-05-06 08:38:00* Test Item Value Reference Range Interpretation Comments Calcium Level (test code = 06374-7) 8.9 8.4-10.2 [facility] total bilirubin measurement (mass/volume)2020-05-06 08:38:00* Test Item Value Reference Range Interpretation Comments Total Bilirubin (test code = 1975-2) 0.9 0.2-1.2 [facility] HospitalFluoroscopic procedure less than one hour nrmlluqs8719-15-57 08:38:00* Test Item Value Reference Range Interpretation Comments Aspartate Amino Transf (AST/SGOT) (test code = Aspartate Amino Transf (AST/SGOT)) 20 5-34 [facility] alanine aminotransferase measurement (enzymatic activity/volume)2020-05-06 08:38:00* Test Item Value Reference Range Interpretation Comments Alanine Aminotransferase (ALT/SGPT) (test code = 1742-6) 18 0-55 [facility] protein measurement (mass/volume)2020-05-06 08:38:00* Test Item Value Reference Range Interpretation Comments Total Protein (test code = 2885-2) 8.4 6.5-8.1 [facility] albumin measurement (mass/volume)2020-05-06 08:38:00* Test Item Value Reference Range Interpretation Comments Albumin (test code = 1751-7) 4.1 3.5-5.0 [facility] HospitalPlasma globulin measurement (mass/volume) 2020-05-06 08:38:00* Test Item Value Reference Range Interpretation Comments Globulin (test code = 41935-2) 4.3 2.3-3.5 [facility] albumin/globulin mass ateid3191-40-85 08:38:00* Test Item Value Reference Range Interpretation Comments Albumin/Globulin Ratio (test code = 1759-0) 1.0 0.8-2.0 [facility] plasma alkaline phosphatase measurement (enzymatic activity/volume)2020-05-06 08:38:00* Test Item Value Reference Range Interpretation Comments Alkaline Phosphatase (test code = 6768-6) 89 40-150 [facility] HospitalURINALYSIS ZXERJWDV0313-30-64 18:23:00* Test Item Value Reference Range Interpretation Comments [...] per HPF NONE Urine Source? Clean CatchURINALYSIS [id number] 18:17:00* Test Item Value Reference Range Interpretation [...] HPF NONE Urine Source? Clean CatchB-TYPE NATRIURETIC NNHPWRY6720-06-15 10:18:00* Test Item Value Reference Range Interpretation Comments B-TYPE NATRIURETIC PEPTIDE (test code = BNP) 9.1 pg/mL 0-100 N BASIC METABOLIC [id number] 10:10:00* Test Item Value Reference Range Interpretation [...] code = CA) 7.9 mg/dL 8.4-10.2 L [id number]-W1781-11-05 10:10:00* Test Item Value Reference Range Interpretation Comments TROPONIN-I (test code = TROPI) <0.015 ng/mL 0.00-0.056 N CBC W/O [id number] 09:58:00* Test Item Value Reference Range Interpretation [...] fL 6.7-11.0 N - XR CHEST 1 [id number] 09:53:00 Name: MERON Martínez [facility] : 1970 Age/S:49 /F [address] [facility] Unit#:[id number] Loc: [place] [address] Phys: Bernardo Rachel MD Dis Date: PHONE #: [phone] Status: REG ER FAX #: [phone] Exam Date: 02/05/2020 Reason: sob EXAMS: CPT CODE: [id number] XR CHEST 1 V 49265 HISTORY: Shortness of breath TECHNIQUE: AP chest x-ray COMPARISON: None FINDINGS: No airspace consolidation or pleural effusion. Normal heart size. Mediastinal silhouette is unremarkable. Visualized osseous structures are grossly intact. IMPRESSION: No radiographic evidence of acute cardiopulmonary process. LOCATION: at 0953 Reported and signed by: Tiara Mittal D.O. CC: Bernardo Rachel MD Technologist: LAESSIA WOLF CT Trnscrpt Data: 02/05/2020 (0953) [email or web address] Orig Print D/T: S: 02/05/2020 (0956) PAGE 1 Signed Report ABDOMEN ACUTE SERIES W/PA CXR 2020-01-17 05:52:00 [place] [address] Patient Name: MERON MARTÍNEZ MR #: [id number] : 1970 Age/Sex: 49/F Req #: [id number] Adm Physician: Ordered by: NORY ERWIN MD Report #: [id number] Location: ER Room/Bed: Procedure: 0616- 0017 DX/ABDOMEN [...] on 01/17/2020 5:54 AM Dictated By: BRANDON Don Signed By: BRANDON LEI DO on 01/17/20553 Transcribed By: ERICK on 01/17/20553 COPY TO: ONRY ERWIN MD Urine color egvgwzhscnuke1784-00-46 04:08:00* Test Item Value Reference Range Interpretation Comments Urine Color (test code = 5778-6) YELLOW YELLOW [facility] HospitalUrine qniuxpp8305-67-50 04:08:00* Test Item Value Reference Range Interpretation Comments Urine Clarity (test code = 13750-1) CLEAR CLEAR [facility] Hospitalpecific gravity of Urine by Test strip 2020-01-17 04:08:00* Test Item Value Reference Range Interpretation Comments Urine Specific [place] (test code = 5811-5) >=1.030 1.010-1.02 5 [facility] HospitalUrine pH measurement by automated test wgzma6520-03-45 04:08:00* Test Item Value Reference Range Interpretation Comments Urine pH (test code = 38266-6) 6 5-7 [facility] HospitalUrine leukocyte esterase detection by plepadtc5260-02-58 04:08:00* Test Item Value Reference Range Interpretation Comments Urine Leukocyte Esterase (test code = 5799-2) TRACE NEGATIVE [facility] HospitalUrine nitrite whaufasnr5395-83-87 04:08:00* Test Item Value Reference Range Interpretation Comments Urine Nitrite (test code = 12993-5) NEGATIVE NEGATIVE [facility] HospitalUrine protein measurement by test strip (mass/volume)2020-01-17 04:08:00* Test Item Value Reference Range Interpretation Comments Urine Protein (test code = 5804-0) NEGATIVE NEGATIVE [facility] HospitalUrine glucose smqyqpgdo7317-53-19 04:08:00* Test Item Value Reference Range Interpretation Comments Urine Glucose (UA) (test code = 2349-9) NEGATIVE NEGATIVE [facility] HospitalUrine ketones detection by automated test ykiwz8805-89-49 04:08:00* Test Item Value Reference Range Interpretation Comments Urine Ketones (test code = 48062-9) NEGATIVE NEGATIVE [facility] HospitalUrine opiates screening mlom4153-55-74 04:08:00* Test Item Value Reference Range Interpretation Comments Urine Opiates Screen (test code = 42054-1) NEGATIVE NEGATIVE ALL TESTS PERFORMED MANUALLY ON [employer] TOX/SEE TESTFormerly [facility] HospitalBarbiturates screen, dkwug2939-50-27 04:08:00* Test Item Value Reference Range Interpretation Comments Urine Barbiturates Screen (test code = 705586728) NEGATIVE NEGA TIVE [facility] HospitalUrine phencyclidine detection by screening nsfjsz6612-23-87 04:08:00* Test Item Value Reference Range Interpretation Comments Urine Phencyclidine Screen (test code = 70058-3) NEGATIVE NEGAT THAI [facility] HospitalUrine amphetamines detection by screen method > 1000 ng/wX8911-53-86 04:08:00* Test Item Value Reference Range Interpretation Comments Urine Amphetamines Screen (test code = 17601-7) NEGATIVE NEGATI VE [facility] HospitalFluoroscopic procedure less than one hour vqsyxirb2316-54-07 04:08:00* Test Item Value Reference Range Interpretation Comments Urine Methamphetamines Screen (test code = Urine Metha mphetamines Screen) NEGATIVE NEGATIVE [facility] HospitalUrine benzodiazepines detection by screening nlbugq2316-93-17 04:08:00* Test Item Value Reference Range Interpretation Comments Urine Benzodiazepines Screen (test code = 21326-6) POSITIVE NEG ATIVE This test provides only a screen. Positive results should be repeated by a confi rmatory test.[facility] HospitalUrine cocaine measurement (mass/volume)2020-01-17 04:08:00* Test Item Value Reference Range Interpretation Comments Urine Cocaine Screen (test code = 3398-5) NEGATIVE NEGATIVE [facility] HospitalUrine cannabinoids detection by screening rjwibt0756-63-37 04:08:00* Test Item Value Reference Range Interpretation Comments Urine Cannabinoids Screen (test code = 56418-2) NEGATIVE NEGATI VE THESE RESULTS ARE FOR MEDICAL TREATMENT ONLYTHIS REPORT CONTAINS UNCONFIR MED SCREENING RESULTS*POSITIVE RESULTS WILL BE CONFIRMED BY REFERENCE LAB UPON R EQUEST CUT-OFFDRUG CLASS CONCENTRATION ng/mLAmphetamines 1000Methamphetamines 1000Cocaine 300Opiate 300Phencyc lidine 25Cannabinoid 50Barbiturates 300Benzodiazepine 300Methadone 300[facility] yjkrqv2722-17-83 04:08:00* Test Item Value Reference Range Interpretation Comments Urine Methadone Screen (test code = 57168-2) NEGATIVE NEGATIVE THESE RESULTS ARE FOR MEDICAL TREATMENT ONLYTHIS REPORT CONTAINS UNCONFIR MED SCREENING RESULTS*POSITIVE RESULTS WILL BE CONFIRMED BY REFERENCE LAB UPON R EQUEST CUT-OFFDRUG CLASS CONCENTRATION ng/mLAmphetamines 1000Methamphetamines 1000Cocaine Metabolite 300Opiate 300Phencyc lidine 25Cannabinoid 50Barbiturates 300Benzodiazepine 300Methadone 300[facility] urobilinogen measurement by test strip (mass/volume)2020-01-17 04:08:00* Test Item Value Reference Range Interpretation Comments Urine Urobilinogen (test code = 89088-8) 0.2 0.2-1 [facility] HospitalUrine total bilirubin measurement (mass/volume)2020-01-17 04:08:00* Test Item Value Reference Range Interpretation Comments Urine Bilirubin (test code = 1978-6) NEGATIVE NEGATIVE [facility] HospitalUrine erythrocytes qpkidkhku3265-32-59 04:08:00* Test Item Value Reference Range Interpretation Comments Urine Blood (test code = 61691-6) NEGATIVE NEGATIVE [facility] HospitalAutomated urine sediment leukocyte count by microscopy (number/high power field)2020-01-17 04:08:00* Test Item Value Reference Range Interpretation Comments Urine WBC (test code = 5821-4) 6-10 0-5 [facility] HospitalErythrocytes detection in urine sediment by light tmdbhapbiq5878-52-71 04:08:00* Test Item Value Reference Range Interpretation Comments Urine RBC (test code = 41380-0) 0-5 0-5 [facility] HospitalBacteria detection in urine sediment by light xnqqlobpjs7861-39-06 04:08:00* Test Item Value Reference Range Interpretation Comments Urine Bacteria (test code = 57249-9) FEW NONE [facility] HospitalEpithelial cells detection in urine sediment by light vnjzfkctrj4482-74-33 04:08:00* Test Item Value Reference Range Interpretation Comments Urine Epithelial Cells (test code = 64327-4) FEW NONE [facility] HospitalUrine color hzvafmoyyxllg2363-14-11 04:08:00* Test Item Value Reference Range Interpretation Comments Urine Color (test code = 5778-6) YELLOW YELLOW [facility] HospitalUrine nocdmdn7775-83-23 04:08:00* Test Item Value Reference Range Interpretation Comments Urine Clarity (test code = 77141-6) CLEAR CLEAR [facility] of Urine by Test strip 2020-01-17 04:08:00* Test Item Value Reference Range Interpretation Comments Urine Specific [place] (test code = 5811-5) >=1.030 1.010-1.02 5 [facility] HospitalUrine pH measurement by automated test baeet6414-66-81 04:08:00* Test Item Value Reference Range Interpretation Comments Urine pH (test code = 00041-7) 6 5-7 [facility] HospitalUrine leukocyte esterase detection by cyunpocm4945-65-80 04:08:00* Test Item Value Reference Range Interpretation Comments Urine Leukocyte Esterase (test code = 5799-2) TRACE NEGATIVE [facility] HospitalUrine nitrite wkarprgig7087-17-41 04:08:00* Test Item Value Reference Range Interpretation Comments Urine Nitrite (test code = 74602-9) NEGATIVE NEGATIVE [facility] HospitalUrine protein measurement by test strip (mass/volume)2020-01-17 04:08:00* Test Item Value Reference Range Interpretation Comments Urine Protein (test code = 5804-0) NEGATIVE NEGATIVE [facility] HospitalUrine glucose kafntaltr3402-31-37 04:08:00* Test Item Value Reference Range Interpretation Comments Urine Glucose (UA) (test code = 2349-9) NEGATIVE NEGATIVE [facility] HospitalUrine ketones detection by automated test herez8781-03-13 04:08:00* Test Item Value Reference Range Interpretation Comments Urine Ketones (test code = 92435-0) NEGATIVE NEGATIVE [facility] HospitalUrine opiates screening kths1114-03-37 04:08:00* Test Item Value Reference Range Interpretation Comments Urine Opiates Screen (test code = 90976-8) NEGATIVE NEGATIVE ALL TESTS PERFORMED MANUALLY ON [employer] TOX/SEE TESTFormerly [facility] HospitalBarbiturates screen, xpetn3489-75-72 04:08:00* Test Item Value Reference Range Interpretation Comments Urine Barbiturates Screen (test code = 586633883) NEGATIVE NEGA TIVE [facility] HospitalUrine phencyclidine detection by screening rdeziu6626-65-53 04:08:00* Test Item Value Reference Range Interpretation Comments Urine Phencyclidine Screen (test code = 72755-5) NEGATIVE NEGAT THAI [facility] HospitalUrine amphetamines detection by screen method > 1000 ng/uL3216-88-86 04:08:00* Test Item Value Reference Range Interpretation Comments Urine Amphetamines Screen (test code = 81209-4) NEGATIVE NEGATI VE [facility] HospitalFluoroscopic procedure less than one hour vdbnhydn7000-31-86 04:08:00* Test Item Value Reference Range Interpretation Comments Urine Methamphetamines Screen (test code = Urine Metha mphetamines Screen) NEGATIVE NEGATIVE [facility] HospitalUrine benzodiazepines detection by screening eovhdt3205-54-03 04:08:00* Test Item Value Reference Range Interpretation Comments Urine Benzodiazepines Screen (test code = 83534-5) POSITIVE NEG ATIVE This test provides only a screen. Positive results should be repeated by a confi rmatory test.[facility] HospitalUrine cocaine measurement (mass/volume)2020-01-17 04:08:00* Test Item Value Reference Range Interpretation Comments Urine Cocaine Screen (test code = 3398-5) NEGATIVE NEGATIVE [facility] HospitalUrine cannabinoids detection by screening wgagvp1911-16-56 04:08:00* Test Item Value Reference Range Interpretation Comments Urine Cannabinoids Screen (test code = 52812-6) NEGATIVE NEGATI VE THESE RESULTS ARE FOR MEDICAL TREATMENT ONLYTHIS REPORT CONTAINS UNCONFIR MED SCREENING RESULTS*POSITIVE RESULTS WILL BE CONFIRMED BY REFERENCE LAB UPON R EQUEST CUT-OFFDRUG CLASS CONCENTRATION ng/mLAmphetamines 1000Methamphetamines 1000Cocaine 300Opiate 300Phencyc lidine 25Cannabinoid 50Barbiturates 300Benzodiazepine 300Methadone 300[facility] methad[facility] dhbmps8787-17-38 04:08:00* Test Item Value Reference Range Interpretation Comments Urine Methadone Screen (test code = 22812-7) NEGATIVE NEGATIVE THESE RESULTS ARE FOR MEDICAL TREATMENT ONLYTHIS REPORT CONTAINS UNCONFIR MED SCREENING RESULTS*POSITIVE RESULTS WILL BE CONFIRMED BY REFERENCE LAB UPON R EQUEST CUT-OFFDRUG CLASS CONCENTRATION ng/mLAmphetamines 1000Methamphetamines 1000Cocaine Metabolite 300Opiate 300Phencyc lidine 25Cannabinoid 50Barbiturates 300Benzodiazepine 300Methadone 300[facility] urobilinogen measurement by test strip (mass/volume)2020-01-17 04:08:00* Test Item Value Reference Range Interpretation Comments Urine Urobilinogen (test code = 53212-4) 0.2 0.2-1 [facility] HospitalUrine total bilirubin measurement (mass/volume)2020-01-17 04:08:00* Test Item Value Reference Range Interpretation Comments Urine Bilirubin (test code = 1978-6) NEGATIVE NEGATIVE [facility] HospitalUrine erythrocytes wmyxzystp2367-70-99 04:08:00* Test Item Value Reference Range Interpretation Comments Urine Blood (test code = 55869-3) NEGATIVE NEGATIVE [facility] HospitalAutomated urine sediment leukocyte count by microscopy (number/high power field)2020-01-17 04:08:00* Test Item Value Reference Range Interpretation Comments Urine WBC (test code = 5821-4) 6-10 0-5 [facility] HospitalErythrocytes detection in urine sediment by light oqlqfjmerf4066-28-72 04:08:00* Test Item Value Reference Range Interpretation Comments Urine RBC (test code = 65625-7) 0-5 0-5 [facility] HospitalBacteria detection in urine sediment by light qsbwwkayqg8587-52-39 04:08:00* Test Item Value Reference Range Interpretation Comments Urine Bacteria (test code = 00299-3) FEW NONE [facility] HospitalEpithelial cells detection in urine sediment by light nzuahuwxvl7283-32-57 04:08:00* Test Item Value Reference Range Interpretation Comments Urine Epithelial Cells (test code = 67187-1) FEW NONE [facility] HospitalUrine color fqqzssgmjpekr1422-55-21 04:08:00* Test Item Value Reference Range Interpretation Comments Urine Color (test code = 5778-6) YELLOW YELLOW [facility] HospitalUrine xcmtchy5047-14-75 04:08:00* Test Item Value Reference Range Interpretation Comments Urine Clarity (test code = 78098-6) CLEAR CLEAR [facility]pecific gravity of Urine by Test strip 2020-01-17 04:08:00* Test Item Value Reference Range Interpretation Comments Urine Specific [place] (test code = 5811-5) >=1.030 1.010-1.02 5 [facility] HospitalUrine pH measurement by automated test bixmm1617-30-83 04:08:00* Test Item Value Reference Range Interpretation Comments Urine pH (test code = 03284-4) 6 5-7 [facility] HospitalUrine leukocyte esterase detection by bohrpfze2247-63-39 04:08:00* Test Item Value Reference Range Interpretation Comments Urine Leukocyte Esterase (test code = 5799-2) TRACE NEGATIVE [facility] HospitalUrine nitrite lfhkunokc3250-64-73 04:08:00* Test Item Value Reference Range Interpretation Comments Urine Nitrite (test code = 74001-7) NEGATIVE NEGATIVE [facility] HospitalUrine protein measurement by test strip (mass/volume)2020-01-17 04:08:00* Test Item Value Reference Range Interpretation Comments Urine Protein (test code = 5804-0) NEGATIVE NEGATIVE [facility] HospitalUrine glucose yskbwsvgt9577-32-61 04:08:00* Test Item Value Reference Range Interpretation Comments Urine Glucose (UA) (test code = 2349-9) NEGATIVE NEGATIVE [facility] HospitalUrine ketones detection by automated test sgqht3543-22-74 04:08:00* Test Item Value Reference Range Interpretation Comments Urine Ketones (test code = 27791-8) NEGATIVE NEGATIVE [facility] HospitalUrine opiates screening ugor1363-68-59 04:08:00* Test Item Value Reference Range Interpretation Comments Urine Opiates Screen (test code = 12328-7) NEGATIVE NEGATIVE ALL TESTS PERFORMED MANUALLY ON [employer] TOX/SEE TESTFormerly [facility] HospitalBarbiturates screen, ghyic9001-74-22 04:08:00* Test Item Value Reference Range Interpretation Comments Urine Barbiturates Screen (test code = 392491603) NEGATIVE NEGA TIVE [facility] HospitalUrine phencyclidine detection by screening pvmame0527-94-73 04:08:00* Test Item Value Reference Range Interpretation Comments Urine Phencyclidine Screen (test code = 36630-4) NEGATIVE NEGAT THAI [facility] HospitalUrine amphetamines detection by screen method > 1000 ng/hT3782-87-91 04:08:00* Test Item Value Reference Range Interpretation Comments Urine Amphetamines Screen (test code = 35008-0) NEGATIVE NEGATI VE [facility] HospitalFluoroscopic procedure less than one hour krpbikml6019-64-99 04:08:00* Test Item Value Reference Range Interpretation Comments Urine Methamphetamines Screen (test code = Urine Metha mphetamines Screen) NEGATIVE NEGATIVE [facility] HospitalUrine benzodiazepines detection by screening nopear8869-24-26 04:08:00* Test Item Value Reference Range Interpretation Comments Urine Benzodiazepines Screen (test code = 11804-4) POSITIVE NEG ATIVE This test provides only a screen. Positive results should be repeated by a confi rmatory test.[facility] HospitalUrine cocaine measurement (mass/volume)2020-01-17 04:08:00* Test Item Value Reference Range Interpretation Comments Urine Cocaine Screen (test code = 3398-5) NEGATIVE NEGATIVE [facility] HospitalUrine cannabinoids detection by screening jqzzzr6323-81-05 04:08:00* Test Item Value Reference Range Interpretation Comments Urine Cannabinoids Screen (test code = 26597-0) NEGATIVE NEGATI VE THESE RESULTS ARE FOR MEDICAL TREATMENT ONLYTHIS REPORT CONTAINS UNCONFIR MED SCREENING RESULTS*POSITIVE RESULTS WILL BE CONFIRMED BY REFERENCE LAB UPON R EQUEST CUT-OFFDRUG CLASS CONCENTRATION ng/mLAmphetamines 1000Methamphetamines 1000Cocaine 300Opiate 300Phencyc lidine 25Cannabinoid 50Barbiturates 300Benzodiazepine 300Methadone 300[facility] HospitalUrine methadone analwg0629-11-64 04:08:00* Test Item Value Reference Range Interpretation Comments Urine Methadone Screen (test code = 56892-8) NEGATIVE NEGATIVE THESE RESULTS ARE FOR MEDICAL TREATMENT ONLYTHIS REPORT CONTAINS UNCONFIR MED SCREENING RESULTS*POSITIVE RESULTS WILL BE CONFIRMED BY REFERENCE LAB UPON R EQUEST CUT-OFFDRUG CLASS CONCENTRATION ng/mLAmphetamines 1000Methamphetamines 1000Cocaine Metabolite 300Opiate 300Phencyc lidine 25Cannabinoid 50Barbiturates 300Benzodiazepine 300Methadone 300[facility] HospitalUrine urobilinogen measurement by test strip (mass/volume)2020-01-17 04:08:00* Test Item Value Reference Range Interpretation Comments Urine Urobilinogen (test code = 32343-7) 0.2 0.2-1 [facility] HospitalUrine total bilirubin measurement (mass/volume)2020-01-17 04:08:00* Test Item Value Reference Range Interpretation Comments Urine Bilirubin (test code = 1978-6) NEGATIVE NEGATIVE [facility] HospitalUrine erythrocytes dlcshjxqc9958-33-64 04:08:00* Test Item Value Reference Range Interpretation Comments Urine Blood (test code = 86051-8) NEGATIVE NEGATIVE [facility] HospitalAutomated urine sediment leukocyte count by microscopy (number/high power field)2020-01-17 04:08:00* Test Item Value Reference Range Interpretation Comments Urine WBC (test code = 5821-4) 6-10 0-5 [facility] HospitalErythrocytes detection in urine sediment by light tixftcfgki6637-97-79 04:08:00* Test Item Value Reference Range Interpretation Comments Urine RBC (test code = 16440-3) 0-5 0-5 [facility] HospitalBacteria detection in urine sediment by light rnisryxvud6943-40-35 04:08:00* Test Item Value Reference Range Interpretation Comments Urine Bacteria (test code = 75453-4) FEW NONE [facility] HospitalEpithelial cells detection in urine sediment by light apxqqkclwx0122-24-40 04:08:00* Test Item Value Reference Range Interpretation Comments Urine Epithelial Cells (test code = 51481-4) FEW NONE [facility] HospitalUrine opiates screening [id number] 04:08:00* Test Item Value Reference Range Interpretation Comments Urine Opiates Screen (test code = 42499-9) NEGATIVE NEGATIVE ALL TESTS PERFORMED MANUALLY ON [employer] TOX/SEE TESTFormerly [facility] HospitalBarbiturates screen, [id number] 04:08:00* Test Item Value Reference Range Interpretation Comments Urine Barbiturates Screen (test code = 577470638) NEGATIVE NEGA TIVE [facility] HospitalUrine phencyclidine detection by screening nfrgja8868-16-31 04:08:00* Test Item Value Reference Range Interpretation Comments Urine Phencyclidine Screen (test code = 10614-6) NEGATIVE NEGAT THAI [facility] HospitalUrine amphetamines detection by screen method > 1000 ng/lS6399-44-21 04:08:00* Test Item Value Reference Range Interpretation Comments Urine Amphetamines Screen (test code = 00035-1) NEGATIVE NEGATI VE [facility] HospitalFluoroscopic procedure less than one hour xeicgevf5850-87-99 04:08:00* Test Item Value Reference Range Interpretation Comments Urine Methamphetamines Screen (test code = Urine Metha mphetamines Screen) NEGATIVE NEGATIVE [facility] HospitalUrine benzodiazepines detection by screening bbudby3156-62-93 04:08:00* Test Item Value Reference Range Interpretation Comments Urine Benzodiazepines Screen (test code = 17530-3) POSITIVE NEG ATIVE This test provides only a screen. Positive results should be repeated by a confi rmatory test.[facility] HospitalUrine cocaine measurement (mass/volume)2020-01-17 04:08:00* Test Item Value Reference Range Interpretation Comments Urine Cocaine Screen (test code = 3398-5) NEGATIVE NEGATIVE [facility] HospitalUrine cannabinoids detection by screening wozrkm9684-58-60 04:08:00* Test Item Value Reference Range Interpretation Comments Urine Cannabinoids Screen (test code = 39418-8) NEGATIVE NEGATI VE THESE RESULTS ARE FOR MEDICAL TREATMENT ONLYTHIS REPORT CONTAINS UNCONFIR MED SCREENING RESULTS*POSITIVE RESULTS WILL BE CONFIRMED BY REFERENCE LAB UPON R EQUEST CUT-OFFDRUG CLASS CONCENTRATION ng/mLAmphetamines 1000Methamphetamines 1000Cocaine 300Opiate 300Phencyc lidine 25Cannabinoid 50Barbiturates 300Benzodiazepine 300Methadone 300[facility] wkoyvt4216-82-15 04:08:00* Test Item Value Reference Range Interpretation Comments Urine Methadone Screen (test code = 71915-6) NEGATIVE NEGATIVE THESE RESULTS ARE FOR MEDICAL TREATMENT ONLYTHIS REPORT CONTAINS UNCONFIR MED SCREENING RESULTS*POSITIVE RESULTS WILL BE CONFIRMED BY REFERENCE LAB UPON R EQUEST CUT-OFFDRUG CLASS CONCENTRATION ng/mLAmphetamines 1000Methamphetamines 1000Cocaine Metabolite 300Opiate 300Phencyc lidine 25Cannabinoid 50Barbiturates 300Benzodiazepine 300Methadone 300[facility]PELVIS PE2515-28-98 20:05:00 [facility] [address] [address] Patient Name: MERON MARTÍNEZ MR #: [id number] : 1970 Age/Sex: 49/F Req #: [id number] Adm Physician: Ordered by: MANDY MALAVE NP Report #: [id number] Location: ER Room/Bed: Procedure: [id number] CT/CT ABDOMEN/PELVIS WO Exam Date: 12/18/19 Exam [...] ERICK on 12/18/192008 COPY TO: MANDY MALAVE FERMENTOLOGIST Blood leukocytes automated count (number/volume)2019-12-18 18:40:00* Test Item Value Reference Range Interpretation Comments White Blood Count (test code = 6690-2) 6.37 4.8-10.8 [facility] HospitalBlood erythrocytes automated count (number/volume)2019-12-18 18:40:00* Test Item Value Reference Range Interpretation Comments Red Blood Count (test code = 789-8) 4.33 3.6-5.1 [facility] HospitalBlood hemoglobin measurement (moles/volume)2019-12-18 18:40:00* Test Item Value Reference Range Interpretation Comments Hemoglobin (test code = 84181-3) 11.9 12.0-16.0 [facility] HospitalAutomated blood hematocrit (volume fraction)2019-12-18 18:40:00* Test Item Value Reference Range Interpretation Comments Hematocrit (test code = 4544-3) 37.4 34.2-44.1 [facility] HospitalAutomated erythrocyte mean corpuscular zhoatc8894-62-89 18:40:00* Test Item Value Reference Range Interpretation Comments Mean Corpuscular Volume (test code = 787-2) 86.4 81-99 [facility] HospitalAutomated erythrocyte mean corpuscular hemoglobin (mass per erythrocyte)2019-12-18 18:40:00* Test Item Value Reference Range Interpretation Comments Mean Corpuscular Hemoglobin (test code = 785-6) 27.5 28-32 [facility] HospitalAutomated erythrocyte mean corpuscular hemoglobin concentration measurement (mass/volume)2019-12-18 18:40:00* Test Item Value Reference Range Interpretation Comments Mean Corpuscular Hemoglobin Concent (test code = 786-4) 31.8 31-35 [facility] HospitalRDW AwfNm-Dfm3714-96-17 18:40:00* Test Item Value Reference Range Interpretation Comments Red Cell Distribution Width (test code = 21534-7) 16.2 11.7 -14.4 [facility] HospitalAutomated blood platelet count (count/volume)2019-12-18 18:40:00* Test Item Value Reference Range Interpretation Comments Platelet Count (test code = 777-3) 309 140-360 [facility] HospitalAutomated blood segmented neutrophil count as percentage of total kylyyjeyei7625-72-52 18:40:00* Test Item Value Reference Range Interpretation Comments Neutrophils (%) (Auto) (test code = 05170-8) 35.9 38.7-80.0 [facility] HospitalAutomated blood lymphocyte count as percentage ot total ylplxyfcgk8606-67-36 18:40:00* Test Item Value Reference Range Interpretation Comments Lymphocytes (%) (Auto) (test code = 736-9) 23.4 18.0-39.1 [facility] HospitalAutomated blood monocyte count as percentage of total hwjviyivhv9129-24-35 18:40:00* Test Item Value Reference Range Interpretation Comments Monocytes (%) (Auto) (test code = 5905-5) 7.2 4.4-11.3 [facility] HospitalAutomated blood eosinophil count as percentage of total ylghcwplre6303-57-47 18:40:00* Test Item Value Reference Range Interpretation Comments Eosinophils (%) (Auto) (test code = 713-8) 31.7 0.0-6.0 [facility] HospitalAutomated blood basophil count as percentage of total aygljbofpr5392-59-30 18:40:00* Test Item Value Reference Range Interpretation Comments Basophils (%) (Auto) (test code = 706-2) 1.6 0.0-1.0 [facility] HospitalFluoroscopic procedure less than one hour hxsilrve4057-94-97 18:40:00* Test Item Value Reference Range Interpretation Comments IM GRANULOCYTES % (test code = IM GRANULOCYTES %) 0.2 0.0- 1.0 [facility] HospitalAutomated blood neutrophil count 2019-12-18 18:40:00* Test Item Value Reference Range Interpretation Comments Neutrophils # (Auto) (test code = 751-8) 2.3 2.1-6.9 [facility] HospitalBlood lymphocytes count (number/volume) 2019-12-18 18:40:00* Test Item Value Reference Range Interpretation Comments Lymphocytes # (Auto) (test code = 12571-9) 1.5 1.0-3.2 [facility] HospitalBlood monocytes automated count (number/volume)2019-12-18 18:40:00* Test Item Value Reference Range Interpretation Comments Monocytes # (Auto) (test code = 742-7) 0.5 0.2-0.8 [facility] HospitalAutomated blood eosinophil count 2019-12-18 18:40:00* Test Item Value Reference Range Interpretation Comments Eosinophils # (Auto) (test code = 711-2) 2.0 0.0-0.4 [facility] HospitalAutomated blood basophil count (count/volume)2019-12-18 18:40:00* Test Item Value Reference Range Interpretation Comments Basophils # (Auto) (test code = 704-7) 0.1 0.0-0.1 [facility] HospitalFluoroscopic procedure less than one hour oxnnhiid4789-55-52 18:40:00* Test Item Value Reference Range Interpretation Comments Absolute Immature Granulocyte (auto (lela t code = Absolute Immature Granulocyte (auto) 0.01 0-0.1 [facility] HospitalUrine color rcqizuwaonvjo8278-47-26 18:40:00* Test Item Value Reference Range Interpretation Comments Urine Color (test code = 5778-6) YELLOW YELLOW [facility] HospitalUrine csqvtxy5790-97-10 18:40:00* Test Item Value Reference Range Interpretation Comments Urine Clarity (test code = 43755-0) [facility]AR CLEAR [facility] by Test strip 2019-12-18 18:40:00* Test Item Value Reference Range Interpretation Comments Urine Specific [place] (test code = 5811-5) 1.020 1.010-1.02 5 [facility] HospitalUrine pH measurement by automated test sdyia6417-97-32 18:40:00* Test Item Value Reference Range Interpretation Comments Urine pH (test code = 87440-5) 6.5 5-7 [facility] HospitalUrine leukocyte esterase detection by mofzrqux9501-66-47 18:40:00* Test Item Value Reference Range Interpretation Comments Urine Leukocyte Esterase (test code = 5799-2) NEGATIVE NEGATIVE [facility] HospitalUrine nitrite nriibfqjh0138-77-06 18:40:00* Test Item Value Reference Range Interpretation Comments Urine Nitrite (test code = 69729-3) NEGATIVE NEGATIVE [facility] HospitalUrine protein measurement by test strip (mass/volume)2019-12-18 18:40:00* Test Item Value Reference Range Interpretation Comments Urine Protein (test code = 5804-0) NEGATIVE NEGATIVE [facility] HospitalUrine glucose ereeejwob3551-02-93 18:40:00* Test Item Value Reference Range Interpretation Comments Urine Glucose (UA) (test code = 2349-9) NEGATIVE NEGATIVE [facility] HospitalUrine ketones detection by automated test szsqi3623-51-02 18:40:00* Test Item Value Reference Range Interpretation Comments Urine Ketones (test code = 11921-6) NEGATIVE NEGATIVE [facility] HospitalUrine urobilinogen measurement by test strip (mass/volume)2019-12-18 18:40:00* Test Item Value Reference Range Interpretation Comments Urine Urobilinogen (test code = 43709-5) 0.2 0.2-1 [facility] HospitalUrine total bilirubin measurement (mass/volume)2019-12-18 18:40:00* Test Item Value Reference Range Interpretation Comments Urine Bilirubin (test code = 1978-6) NEGATIVE NEGATIVE [facility] HospitalUrine erythrocytes ikbxpfztd0314-40-56 18:40:00* Test Item Value Reference Range Interpretation Comments Urine Blood (test code = 08097-0) NEGATIVE NEGATIVE [facility] HospitalAutomated urine sediment leukocyte count by microscopy (number/high power field)2019-12-18 18:40:00* Test Item Value Reference Range Interpretation Comments Urine WBC (test code = 5821-4) 0-5 0-5 [facility] HospitalErythrocytes detection in urine sediment by light kmowyrvpsh5854-98-39 18:40:00* Test Item Value Reference Range Interpretation Comments Urine RBC (test code = 73229-3) 0-5 0-5 [facility] HospitalBacteria detection in urine sediment by light rzdlaecuci4577-43-28 18:40:00* Test Item Value Reference Range Interpretation Comments Urine Bacteria (test code = 70407-5) RARE NONE [facility] HospitalEpithelial cells detection in urine sediment by light ojvnphfiaz0515-58-25 18:40:00* Test Item Value Reference Range Interpretation Comments Urine Epithelial Cells (test code = 23232-8) FEW NONE [facility] Hospitalerum or plasma sodium measurement (moles/volume)2019-12-18 18:40:00* Test Item Value Reference Range Interpretation Comments Sodium Level (test code = 2951-2) 137 136-145 [facility] Hospitalerum or plasma potassium measurement (moles/volume)2019-12-18 18:40:00* Test Item Value Reference Range Interpretation Comments Potassium Level (test code = 2823-3) 4.2 3.5-5.1 [facility] Hospitaler[facility] or plasma chloride measurement (moles/volume)2019-12-18 18:40:00* Test Item Value Reference Range Interpretation Comments Chloride Level (test code = 2075-0) 107 98-107 [facility] Hospitalerum or plasma carbon dioxide, total measurement (moles/volume)2019-12-18 18:40:00* Test Item Value Reference Range Interpretation Comments Carbon Dioxide Level (test code = 2028-9) 20 22-29 [facility]erum or plasma anion ygl4091-09-19 18:40:00* Test Item Value Reference Range Interpretation Comments Anion Gap (test code = 90328-6) 14.2 8-16 [facility]er[facility] plasma urea nitrogen measurement (mass/volume)2019-12-18 18:40:00* Test Item Value Reference Range Interpretation Comments Blood Urea Nitrogen (test code = 3094-0) 11 7-26 [facility]er[facility] plasma creatinine measurement (mass/volume)2019-12-18 18:40:00* Test Item Value Reference Range Interpretation Comments Creatinine (test code = 2160-0) 0.66 0.57-1.11 [facility] Hospitalerum or plasma urea nitrogen/creatinine mass fgqps6007-04-49 18:40:00* Test Item Value Reference Range Interpretation Comments BUN/Creatinine Ratio (test code = 3097-3) 17 6-25 [facility] HospitalEstimated glomerular filtration rate (GFR) eburfbvlesgyl7752-66-91 18:40:00* Test Item Value Reference Range Interpretation Comments Estimat Glomerular Filtration Rate (test code = 996810727) > 60 >60 Ranges were taken from the National Kidney Disease Education Program and the [facility] Kidney Foundation literature.Reference ranges:60 or greater: Rpntop49-22 ( for 3 consecutive months): Chronic kidney disease 15 or less: Kidney failureFormerly [facility] HospitalGlucose ugwgwvzlszg4210-05-42 18:40:00* Test Item Value Reference Range Interpretation Comments Glucose Level (test code = RNH4261) 89 74-118 [facility] Hospitalerum or plasma calcium measurement (mass/volume)2019-12-18 18:40:00* Test Item Value Reference Range Interpretation Comments Calcium Level (test code = 46306-7) 8.9 8.4-10.2 [facility] Hospitaler[facility] or plasma total bilirubin measurement (mass/volume)2019-12-18 18:40:00* Test Item Value Reference Range Interpretation Comments Total Bilirubin (test code = 1975-2) 0.5 0.2-1.2 [facility] HospitalFluoroscopic procedure less than one hour tqvwgwnv3830-31-17 18:40:00* Test Item Value Reference Range Interpretation Comments Aspartate Amino Transf (AST/SGOT) (test code = Aspartate Amino Transf (AST/SGOT)) 19 5-34 [facility] Hospitalerum or plasma alanine aminotransferase measurement (enzymatic activity/volume)2019-12-18 18:40:00* Test Item Value Reference Range Interpretation Comments Alanine Aminotransferase (ALT/SGPT) (test code = 1742-6) 15 0-55 [facility] Hospitalerum or plasma protein measurement (mass/volume)2019-12-18 18:40:00* Test Item Value Reference Range Interpretation Comments Total Protein (test code = 2885-2) 7.4 6.5-8.1 [facility] Hospitalerum or plasma albumin measurement (mass/volume)2019-12-18 18:40:00* Test Item Value Reference Range Interpretation Comments Albumin (test code = 1751-7) 3.7 3.5-5.0 [facility] HospitalPlasma globulin measurement (mass/volume) 2019-12-18 18:40:00* Test Item Value Reference Range Interpretation Comments Globulin (test code = 10623-1) 3.7 2.3-3.5 [facility]er[facility] or plasma albumin/globulin mass hqpiv7315-48-82 18:40:00* Test Item Value Reference Range Interpretation Comments Albumin/Globulin Ratio (test code = 1759-0) 1.0 0.8-2.0 [facility]erum or plasma alkaline phosphatase measurement (enzymatic activity/volume)2019-12-18 18:40:00* Test Item Value Reference Range Interpretation Comments Alkaline Phosphatase (test code = 6768-6) 62 40-150 [facility] HospitalBlood leukocytes automated count (number/volume)2019-12-18 18:40:00* Test Item Value Reference Range Interpretation Comments White Blood Count (test code = 6690-2) 6.37 4.8-10.8 [facility] HospitalBlood erythrocytes automated count (number/volume)2019-12-18 18:40:00* Test Item Value Reference Range Interpretation Comments Red Blood Count (test code = 789-8) 4.33 3.6-5.1 [facility] HospitalBlood hemoglobin measurement (moles/volume)2019-12-18 18:40:00* Test Item Value Reference Range Interpretation Comments Hemoglobin (test code = 59097-0) 11.9 12.0-16.0 [facility] HospitalAutomated blood hematocrit (volume fraction)2019-12-18 18:40:00* Test Item Value Reference Range Interpretation Comments Hematocrit (test code = 4544-3) 37.4 34.2-44.1 [facility] HospitalAutomated erythrocyte mean corpuscular xcewbj6612-50-18 18:40:00* Test Item Value Reference Range Interpretation Comments Mean Corpuscular Volume (test code = 787-2) 86.4 81-99 [facility] HospitalAutomated erythrocyte mean corpuscular hemoglobin (mass per erythrocyte)2019-12-18 18:40:00* Test Item Value Reference Range Interpretation Comments Mean Corpuscular Hemoglobin (test code = 785-6) 27.5 28-32 [facility] HospitalAutomated erythrocyte mean corpuscular hemoglobin concentration measurement (mass/volume)2019-12-18 18:40:00* Test Item Value Reference Range Interpretation Comments Mean Corpuscular Hemoglobin Concent (test code = 786-4) 31.8 31-35 [facility] HospitalRDW XkdTo-Eki8946-96-17 18:40:00* Test Item Value Reference Range Interpretation Comments Red Cell Distribution Width (test code = 89966-8) 16.2 11.7 -14.4 [facility] HospitalAutomated blood platelet count (count/volume)2019-12-18 18:40:00* Test Item Value Reference Range Interpretation Comments Platelet Count (test code = 777-3) 309 140-360 [facility] HospitalAutomated blood segmented neutrophil count as percentage of total gjiozpzdye7446-50-44 18:40:00* Test Item Value Reference Range Interpretation Comments Neutrophils (%) (Auto) (test code = 35012-8) 35.9 38.7-80.0 [facility] HospitalAutomated blood lymphocyte count as percentage ot total ecogsqnfld0921-21-30 18:40:00* Test Item Value Reference Range Interpretation Comments Lymphocytes (%) (Auto) (test code = 736-9) 23.4 18.0-39.1 [facility] HospitalAutomated blood monocyte count as percentage of total dyrsrzxevq8896-39-77 18:40:00* Test Item Value Reference Range Interpretation Comments Monocytes (%) (Auto) (test code = 5905-5) 7.2 4.4-11.3 [facility] HospitalAutomated blood eosinophil count as percentage of total dukvbwicwf8066-18-11 18:40:00* Test Item Value Reference Range Interpretation Comments Eosinophils (%) (Auto) (test code = 713-8) 31.7 0.0-6.0 [facility] HospitalAutomated blood basophil count as percentage of total ghhqkttmbj3228-42-23 18:40:00* Test Item Value Reference Range Interpretation Comments Basophils (%) (Auto) (test code = 706-2) 1.6 0.0-1.0 [facility] HospitalFluoroscopic procedure less than one hour hpbgwfsb7306-19-18 18:40:00* Test Item Value Reference Range Interpretation Comments IM GRANULOCYTES % (test code = IM GRANULOCYTES %) 0.2 0.0- 1.0 [facility] HospitalAutomated blood neutrophil count 2019-12-18 18:40:00* Test Item Value Reference Range Interpretation Comments Neutrophils # (Auto) (test code = 751-8) 2.3 2.1-6.9 [facility] HospitalBlood lymphocytes count (number/volume) 2019-12-18 18:40:00* Test Item Value Reference Range Interpretation Comments Lymphocytes # (Auto) (test code = 78851-9) 1.5 1.0-3.2 [facility] HospitalBlood monocytes automated count (number/volume)2019-12-18 18:40:00* Test Item Value Reference Range Interpretation Comments Monocytes # (Auto) (test code = 742-7) 0.5 0.2-0.8 [facility] HospitalAutomated blood eosinophil count 2019-12-18 18:40:00* Test Item Value Reference Range Interpretation Comments Eosinophils # (Auto) (test code = 711-2) 2.0 0.0-0.4 [facility] HospitalAutomated blood basophil count (count/volume)2019-12-18 18:40:00* Test Item Value Reference Range Interpretation Comments Basophils # (Auto) (test code = 704-7) 0.1 0.0-0.1 [facility] HospitalFluoroscopic procedure less than one hour ynwomepa6615-22-11 18:40:00* Test Item Value Reference Range Interpretation Comments Absolute Immature Granulocyte (auto (lela t code = Absolute Immature Granulocyte (auto) 0.01 0-0.1 [facility] HospitalUrine color fsybpryvfxocy3388-16-04 18:40:00* Test Item Value Reference Range Interpretation Comments Urine Color (test code = 5778-6) YELLOW YELLOW [facility] HospitalUrine zifwmto1845-98-87 18:40:00* Test Item Value Reference Range Interpretation Comments Urine Clarity (test code = 02047-6) CLEAR CLEAR [facility]pecific gravity of Urine by Test strip 2019-12-18 18:40:00* Test Item Value Reference Range Interpretation Comments Urine Specific [place] (test code = 5811-5) 1.020 1.010-1.02 5 [facility] HospitalUrine pH measurement by automated test urokj3493-64-14 18:40:00* Test Item Value Reference Range Interpretation Comments Urine pH (test code = 47951-1) 6.5 5-7 [facility] HospitalUrine leukocyte esterase detection by uvwopjdx9480-09-59 18:40:00* Test Item Value Reference Range Interpretation Comments Urine Leukocyte Esterase (test code = 5799-2) NEGATIVE NEGATIVE [facility] HospitalUrine nitrite jkvbjxont0935-26-38 18:40:00* Test Item Value Reference Range Interpretation Comments Urine Nitrite (test code = 03403-6) NEGATIVE NEGATIVE [facility] HospitalUrine protein measurement by test strip (mass/volume)2019-12-18 18:40:00* Test Item Value Reference Range Interpretation Comments Urine Protein (test code = 5804-0) NEGATIVE NEGATIVE [facility] HospitalUrine glucose yuqhovebx6880-25-87 18:40:00* Test Item Value Reference Range Interpretation Comments Urine Glucose (UA) (test code = 2349-9) NEGATIVE NEGATIVE [facility] HospitalUrine ketones detection by automated test bifry9503-97-58 18:40:00* Test Item Value Reference Range Interpretation Comments Urine Ketones (test code = 06305-6) NEGATIVE NEGATIVE [facility] HospitalUrine urobilinogen measurement by test strip (mass/volume)2019-12-18 18:40:00* Test Item Value Reference Range Interpretation Comments Urine Urobilinogen (test code = 45812-8) 0.2 0.2-1 [facility] HospitalUrine total bilirubin measurement (mass/volume)2019-12-18 18:40:00* Test Item Value Reference Range Interpretation Comments Urine Bilirubin (test code = 1978-6) NEGATIVE NEGATIVE [facility] HospitalUrine erythrocytes zaudspdzn2297-23-17 18:40:00* Test Item Value Reference Range Interpretation Comments Urine Blood (test code = 10141-1) NEGATIVE NEGATIVE [facility] HospitalAutomated urine sediment leukocyte count by microscopy (number/high power field)2019-12-18 18:40:00* Test Item Value Reference Range Interpretation Comments Urine WBC (test code = 5821-4) 0-5 0-5 [facility] HospitalErythrocytes detection in urine sediment by light xtczbjdkhw5878-66-44 18:40:00* Test Item Value Reference Range Interpretation Comments Urine RBC (test code = 72194-4) 0-5 0-5 [facility] HospitalBacteria detection in urine sediment by light xghbeypluz0612-02-45 18:40:00* Test Item Value Reference Range Interpretation Comments Urine Bacteria (test code = 28224-9) RARE NONE [facility] HospitalEpithelial cells detection in urine sediment by light kzazbjlogf1485-52-07 18:40:00* Test Item Value Reference Range Interpretation Comments Urine Epithelial Cells (test code = 83648-5) FEW NONE [facility]erum or plasma sodium measurement (moles/volume)2019-12-18 18:40:00* Test Item Value Reference Range Interpretation Comments Sodium Level (test code = 2951-2) 137 136-145 [facility]erum or plasma potassium measurement (moles/volume)2019-12-18 18:40:00* Test Item Value Reference Range Interpretation Comments Potassium Level (test code = 2823-3) 4.2 3.5-5.1 [facility] Hospitaler[facility] or plasma chloride measurement (moles/volume)2019-12-18 18:40:00* Test Item Value Reference Range Interpretation Comments Chloride Level (test code = 2075-0) 107 98-107 [facility] carbon dioxide, total measurement (moles/volume)2019-12-18 18:40:00* Test Item Value Reference Range Interpretation Comments Carbon Dioxide Level (test code = 2028-9) 20 22-29 [facility] anion [id number] 18:40:00* Test Item Value Reference Range Interpretation Comments Anion Gap (test code = 39134-6) 14.2 8-16 [facility] urea nitrogen measurement (mass/volume)2019-12-18 18:40:00* Test Item Value Reference Range Interpretation Comments Blood Urea Nitrogen (test code = 3094-0) 11 7-26 [facility] creatinine measurement (mass/volume)2019-12-18 18:40:00* Test Item Value Reference Range Interpretation Comments Creatinine (test code = 2160-0) 0.66 0.57-1.11 [facility] urea nitrogen/creatinine mass [id number] 18:40:00* Test Item Value Reference Range Interpretation Comments BUN/Creatinine Ratio (test code = 3097-3) 17 6-25 [facility]Estimated glomerular filtration rate (GFR) gnhfizekkhsld7824-44-43 18:40:00* Test Item Value Reference Range Interpretation Comments Estimat Glomerular Filtration Rate (test code = 991590436) > 60 >60 Ranges were taken from the National Kidney Disease Education Program and the [employer] literature.Reference ranges:60 or greater: [id number] ( for 3 consecutive months): Chronic kidney disease 15 or less: Kidney failureFormerly [facility] HospitalGlucose aimjydplxlg2882-80-79 18:40:00* Test Item Value Reference Range Interpretation Comments Glucose Level (test code = XWR3808) 89 74-118 [facility] calcium measurement (mass/volume)2019-12-18 18:40:00* Test Item Value Reference Range Interpretation Comments Calcium Level (test code = 13979-4) 8.9 8.4-10.2 [facility] total bilirubin measurement (mass/volume)2019-12-18 18:40:00* Test Item Value Reference Range Interpretation Comments Total Bilirubin (test code = 1975-2) 0.5 0.2-1.2 [facility] HospitalFluoroscopic procedure less than one hour ujjycmus9196-69-78 18:40:00* Test Item Value Reference Range Interpretation Comments Aspartate Amino Transf (AST/SGOT) (test code = Aspartate Amino Transf (AST/SGOT)) 19 5-34 [facility]er[facility] alanine aminotransferase measurement (enzymatic activity/volume)2019-12-18 18:40:00* Test Item Value Reference Range Interpretation Comments Alanine Aminotransferase (ALT/SGPT) (test code = 1742-6) 15 0-55 [facility] protein measurement (mass/volume)2019-12-18 18:40:00* Test Item Value Reference Range Interpretation Comments Total Protein (test code = 2885-2) 7.4 6.5-8.1 [facility] albumin measurement (mass/volume)2019-12-18 18:40:00* Test Item Value Reference Range Interpretation Comments Albumin (test code = 1751-7) 3.7 3.5-5.0 [facility] HospitalPlasma globulin measurement (mass/volume) 2019-12-18 18:40:00* Test Item Value Reference Range Interpretation Comments Globulin (test code = 31948-3) 3.7 2.3-3.5 [facility] albumin/globulin mass cqyjr7255-07-30 18:40:00* Test Item Value Reference Range Interpretation Comments Albumin/Globulin Ratio (test code = 1759-0) 1.0 0.8-2.0 [facility] alkaline phosphatase measurement (enzymatic activity/volume)2019-12-18 18:40:00* Test Item Value Reference Range Interpretation Comments Alkaline Phosphatase (test code = 6768-6) 62 40-150 [facility] HospitalBlood leukocytes automated count (number/volume)2019-12-18 18:40:00* Test Item Value Reference Range Interpretation Comments White Blood Count (test code = 6690-2) 6.37 4.8-10.8 [facility] HospitalBlood erythrocytes automated count (number/volume)2019-12-18 18:40:00* Test Item Value Reference Range Interpretation Comments Red Blood Count (test code = 789-8) 4.33 3.6-5.1 [facility] HospitalBlood hemoglobin measurement (moles/volume)2019-12-18 18:40:00* Test Item Value Reference Range Interpretation Comments Hemoglobin (test code = 31745-0) 11.9 12.0-16.0 [facility] HospitalAutomated blood hematocrit (volume fraction)2019-12-18 18:40:00* Test Item Value Reference Range Interpretation Comments Hematocrit (test code = 4544-3) 37.4 34.2-44.1 [facility] HospitalAutomated erythrocyte mean corpuscular tfvosk4136-99-29 18:40:00* Test Item Value Reference Range Interpretation Comments Mean Corpuscular Volume (test code = 787-2) 86.4 81-99 [facility] HospitalAutomated erythrocyte mean corpuscular hemoglobin (mass per erythrocyte)2019-12-18 18:40:00* Test Item Value Reference Range Interpretation Comments Mean Corpuscular Hemoglobin (test code = 785-6) 27.5 28-32 [facility] HospitalAutomated erythrocyte mean corpuscular hemoglobin concentration measurement (mass/volume)2019-12-18 18:40:00* Test Item Value Reference Range Interpretation Comments Mean Corpuscular Hemoglobin Concent (test code = 786-4) 31.8 31-35 [facility] HospitalRDW IyuCk-Afc7448-74-17 18:40:00* Test Item Value Reference Range Interpretation Comments Red Cell Distribution Width (test code = 55236-2) 16.2 11.7 -14.4 [facility] HospitalAutomated blood platelet count (count/volume)2019-12-18 18:40:00* Test Item Value Reference Range Interpretation Comments Platelet Count (test code = 777-3) 309 140-360 [facility] HospitalAutomated blood segmented neutrophil count as percentage of total zxpwelvvvu1651-44-12 18:40:00* Test Item Value Reference Range Interpretation Comments Neutrophils (%) (Auto) (test code = 78034-9) 35.9 38.7-80.0 [facility] HospitalAutomated blood lymphocyte count as percentage ot total kadbkgbjkq0971-55-22 18:40:00* Test Item Value Reference Range Interpretation Comments Lymphocytes (%) (Auto) (test code = 736-9) 23.4 18.0-39.1 [facility] HospitalAutomated blood monocyte count as percentage of total kovqyblooe4227-59-44 18:40:00* Test Item Value Reference Range Interpretation Comments Monocytes (%) (Auto) (test code = 5905-5) 7.2 4.4-11.3 [facility] HospitalAutomated blood eosinophil count as percentage of total fkijketkmj7166-79-37 18:40:00* Test Item Value Reference Range Interpretation Comments Eosinophils (%) (Auto) (test code = 713-8) 31.7 0.0-6.0 [facility] HospitalAutomated blood basophil count as percentage of total rqbzghrlpc1397-07-82 18:40:00* Test Item Value Reference Range Interpretation Comments Basophils (%) (Auto) (test code = 706-2) 1.6 0.0-1.0 [facility] HospitalFluoroscopic procedure less than one hour igrlzvro8802-91-84 18:40:00* Test Item Value Reference Range Interpretation Comments IM GRANULOCYTES % (test code = IM GRANULOCYTES %) 0.2 0.0- 1.0 [facility] HospitalAutomated blood neutrophil count 2019-12-18 18:40:00* Test Item Value Reference Range Interpretation Comments Neutrophils # (Auto) (test code = 751-8) 2.3 2.1-6.9 [facility] HospitalBlood lymphocytes count (number/volume) 2019-12-18 18:40:00* Test Item Value Reference Range Interpretation Comments Lymphocytes # (Auto) (test code = 47924-2) 1.5 1.0-3.2 [facility]Blgil[facility] monocytes automated count (number/volume)2019-12-18 18:40:00* Test Item Value Reference Range Interpretation Comments Monocytes # (Auto) (test code = 742-7) 0.5 0.2-0.8 [facility] HospitalAutomated blood eosinophil count 2019-12-18 18:40:00* Test Item Value Reference Range Interpretation Comments Eosinophils # (Auto) (test code = 711-2) 2.0 0.0-0.4 [facility] HospitalAutomated blood basophil count (count/volume)2019-12-18 18:40:00* Test Item Value Reference Range Interpretation Comments Basophils # (Auto) (test code = 704-7) 0.1 0.0-0.1 [facility] HospitalFluoroscopic procedure less than one hour snqnzsuj6225-07-17 18:40:00* Test Item Value Reference Range Interpretation Comments Absolute Immature Granulocyte (auto (lela t code = Absolute Immature Granulocyte (auto) 0.01 0-0.1 [facility] sodium measurement (moles/volume)2019-12-18 18:40:00* Test Item Value Reference Range Interpretation Comments Sodium Level (test code = 2951-2) 137 136-145 [facility]er[facility] plasma potassium measurement (moles/volume)2019-12-18 18:40:00* Test Item Value Reference Range Interpretation Comments Potassium Level (test code = 2823-3) 4.2 3.5-5.1 [facility]er[facility] plasma chloride measurement (moles/volume)2019-12-18 18:40:00* Test Item Value Reference Range Interpretation Comments Chloride Level (test code = 2075-0) 107 98-107 [facility]er[facility] plasma carbon dioxide, total measurement (moles/volume)2019-12-18 18:40:00* Test Item Value Reference Range Interpretation Comments Carbon Dioxide Level (test code = 2028-9) 20 22-29 [facility]er[facility] anion qgx2577-46-53 18:40:00* Test Item Value Reference Range Interpretation Comments Anion Gap (test code = 25070-8) 14.2 8-16 [facility]er[facility] urea nitrogen measurement (mass/volume)2019-12-18 18:40:00* Test Item Value Reference Range Interpretation Comments Blood Urea Nitrogen (test code = 3094-0) 11 7-26 [facility]er[facility] creatinine measurement (mass/volume)2019-12-18 18:40:00* Test Item Value Reference Range Interpretation Comments Creatinine (test code = 2160-0) 0.66 0.57-1.11 [facility]er[facility] urea nitrogen/creatinine mass xiwtx4479-00-92 18:40:00* Test Item Value Reference Range Interpretation Comments BUN/Creatinine Ratio (test code = 3097-3) 17 6-25 [facility] HospitalEstimated glomerular filtration rate (GFR) usydenrrvhgay8976-29-01 18:40:00* Test Item Value Reference Range Interpretation Comments Estimat Glomerular Filtration Rate (test code = 863400852) > 60 >60 Ranges were taken from the National Kidney Disease Education Program and the [employer] literature.Reference ranges:60 or greater: Cmiezu23-42 ( for 3 consecutive months): Chronic kidney disease 15 or less: Kidney failureFormerly [facility] HospitalGlucose qdizraqvekm9743-81-67 18:40:00* Test Item Value Reference Range Interpretation Comments Glucose Level (test code = MFU9166) 89 74-118 [facility] calcium measurement (mass/volume)2019-12-18 18:40:00* Test Item Value Reference Range Interpretation Comments Calcium Level (test code = 42050-0) 8.9 8.4-10.2 [facility] total bilirubin measurement (mass/volume)2019-12-18 18:40:00* Test Item Value Reference Range Interpretation Comments Total Bilirubin (test code = 1975-2) 0.5 0.2-1.2 [facility] HospitalFluoroscopic procedure less than one hour inqthjwh4606-20-57 18:40:00* Test Item Value Reference Range Interpretation Comments Aspartate Amino Transf (AST/SGOT) (test code = Aspartate Amino Transf (AST/SGOT)) 19 5-34 [facility]er[facility] alanine aminotransferase measurement (enzymatic activity/volume)2019-12-18 18:40:00* Test Item Value Reference Range Interpretation Comments Alanine Aminotransferase (ALT/SGPT) (test code = 1742-6) 15 0-55 [facility]er[facility] protein measurement (mass/volume)2019-12-18 18:40:00* Test Item Value Reference Range Interpretation Comments Total Protein (test code = 2885-2) 7.4 6.5-8.1 [facility]er[facility] albumin measurement (mass/volume)2019-12-18 18:40:00* Test Item Value Reference Range Interpretation Comments Albumin (test code = 1751-7) 3.7 3.5-5.0 [facility] HospitalPlasma globulin measurement (mass/volume) 2019-12-18 18:40:00* Test Item Value Reference Range Interpretation Comments Globulin (test code = 58567-5) 3.7 2.3-3.5 [facility] albumin/globulin mass yvpnv6023-44-17 18:40:00* Test Item Value Reference Range Interpretation Comments Albumin/Globulin Ratio (test code = 1759-0) 1.0 0.8-2.0 [facility] alkaline phosphatase measurement (enzymatic activity/volume)2019-12-18 18:40:00* Test Item Value Reference Range Interpretation Comments Alkaline Phosphatase (test code = 6768-6) 62 40-150 [facility]Bl[facility] leukocytes automated count (number/volume)2019-12-18 18:40:00* Test Item Value Reference Range Interpretation Comments White Blood Count (test code = 6690-2) 6.37 4.8-10.8 [facility] HospitalBlgil[facility] erythrocytes automated count (number/volume)2019-12-18 18:40:00* Test Item Value Reference Range Interpretation Comments Red Blood Count (test code = 789-8) 4.33 3.6-5.1 [facility] HospitalBlood hemoglobin measurement (moles/volume)2019-12-18 18:40:00* Test Item Value Reference Range Interpretation Comments Hemoglobin (test code = 84111-3) 11.9 12.0-16.0 [facility] HospitalAutomated blood hematocrit (volume fraction)2019-12-18 18:40:00* Test Item Value Reference Range Interpretation Comments Hematocrit (test code = 4544-3) 37.4 34.2-44.1 [facility] HospitalAutomated erythrocyte mean corpuscular sdubvu7464-31-65 18:40:00* Test Item Value Reference Range Interpretation Comments Mean Corpuscular Volume (test code = 787-2) 86.4 81-99 [facility] HospitalAutomated erythrocyte mean corpuscular hemoglobin (mass per erythrocyte)2019-12-18 18:40:00* Test Item Value Reference Range Interpretation Comments Mean Corpuscular Hemoglobin (test code = 785-6) 27.5 28-32 [facility] HospitalAutomated erythrocyte mean corpuscular hemoglobin concentration measurement (mass/volume)2019-12-18 18:40:00* Test Item Value Reference Range Interpretation Comments Mean Corpuscular Hemoglobin Concent (test code = 786-4) 31.8 31-35 [facility] HospitalRDW MnvPc-Swd2584-65-17 18:40:00* Test Item Value Reference Range Interpretation Comments Red Cell Distribution Width (test code = 19628-0) 16.2 11.7 -14.4 [facility] HospitalAutomated blood platelet count (count/volume)2019-12-18 18:40:00* Test Item Value Reference Range Interpretation Comments Platelet Count (test code = 777-3) 309 140-360 [facility] HospitalAutomated blood segmented neutrophil count as percentage of total wouwdelbud5368-05-13 18:40:00* Test Item Value Reference Range Interpretation Comments Neutrophils (%) (Auto) (test code = 68049-9) 35.9 38.7-80.0 [facility] HospitalAutomated blood lymphocyte count as percentage ot total mlctbuyrte8697-54-93 18:40:00* Test Item Value Reference Range Interpretation Comments Lymphocytes (%) (Auto) (test code = 736-9) 23.4 18.0-39.1 [facility] HospitalAutomated blood monocyte count as percentage of total zexyakcdkb2039-31-87 18:40:00* Test Item Value Reference Range Interpretation Comments Monocytes (%) (Auto) (test code = 5905-5) 7.2 4.4-11.3 [facility] HospitalAutomated blood eosinophil count as percentage of total gisdflfhwe3578-66-20 18:40:00* Test Item Value Reference Range Interpretation Comments Eosinophils (%) (Auto) (test code = 713-8) 31.7 0.0-6.0 [facility] HospitalAutomated blood basophil count as percentage of total xbxsqdhoye0335-17-24 18:40:00* Test Item Value Reference Range Interpretation Comments Basophils (%) (Auto) (test code = 706-2) 1.6 0.0-1.0 [facility] HospitalFluoroscopic procedure less than one hour okgoxlfp3127-36-15 18:40:00* Test Item Value Reference Range Interpretation Comments IM GRANULOCYTES % (test code = IM GRANULOCYTES %) 0.2 0.0- 1.0 [facility] HospitalAutomated blood neutrophil count 2019-12-18 18:40:00* Test Item Value Reference Range Interpretation Comments Neutrophils # (Auto) (test code = 751-8) 2.3 2.1-6.9 [facility] HospitalBlood lymphocytes count (number/volume) 2019-12-18 18:40:00* Test Item Value Reference Range Interpretation Comments Lymphocytes # (Auto) (test code = 19734-0) 1.5 1.0-3.2 [facility] HospitalBlood monocytes automated count (number/volume)2019-12-18 18:40:00* Test Item Value Reference Range Interpretation Comments Monocytes # (Auto) (test code = 742-7) 0.5 0.2-0.8 [facility] HospitalAutomated blood eosinophil count 2019-12-18 18:40:00* Test Item Value Reference Range Interpretation Comments Eosinophils # (Auto) (test code = 711-2) 2.0 0.0-0.4 [facility] HospitalAutomated blood basophil count (count/volume)2019-12-18 18:40:00* Test Item Value Reference Range Interpretation Comments Basophils # (Auto) (test code = 704-7) 0.1 0.0-0.1 [facility] HospitalFluoroscopic procedure less than one hour gzjtdclm7063-28-94 18:40:00* Test Item Value Reference Range Interpretation Comments Absolute Immature Granulocyte (auto (lela t code = Absolute Immature Granulocyte (auto) 0.01 0-0.1 [facility] sodium measurement (moles/volume)2019-12-18 18:40:00* Test Item Value Reference Range Interpretation Comments Sodium Level (test code = 2951-2) 137 136-145 [facility]er[facility] plasma potassium measurement (moles/volume)2019-12-18 18:40:00* Test Item Value Reference Range Interpretation Comments Potassium Level (test code = 2823-3) 4.2 3.5-5.1 [facility] plasma chloride measurement (moles/volume)2019-12-18 18:40:00* Test Item Value Reference Range Interpretation Comments Chloride Level (test code = 2075-0) 107 98-107 [facility]er[facility] carbon dioxide, total measurement (moles/volume)2019-12-18 18:40:00* Test Item Value Reference Range Interpretation Comments Carbon Dioxide Level (test code = 2028-9) 20 22-29 [facility] anion qpy1329-78-52 18:40:00* Test Item Value Reference Range Interpretation Comments Anion Gap (test code = 46249-5) 14.2 8-16 [facility] urea nitrogen measurement (mass/volume)2019-12-18 18:40:00* Test Item Value Reference Range Interpretation Comments Blood Urea Nitrogen (test code = 3094-0) 11 7-26 [facility] creatinine measurement (mass/volume)2019-12-18 18:40:00* Test Item Value Reference Range Interpretation Comments Creatinine (test code = 2160-0) 0.66 0.57-1.11 [facility] urea nitrogen/creatinine mass jlidr9791-68-00 18:40:00* Test Item Value Reference Range Interpretation Comments BUN/Creatinine Ratio (test code = 3097-3) 17 6-25 [facility] HospitalEstimated glomerular filtration rate (GFR) niqjdlkxqluqv3622-00-96 18:40:00* Test Item Value Reference Range Interpretation Comments Estimat Glomerular Filtration Rate (test code = 026989956) > 60 >60 Ranges were taken from the National Kidney Disease Education Program and the [employer] literature.Reference ranges:60 or greater: Rtmwcm75-26 ( for 3 consecutive months): Chronic kidney disease 15 or less: Kidney failureFormerly [facility] HospitalGlucose zpetcfqgmvi4882-27-17 18:40:00* Test Item Value Reference Range Interpretation Comments Glucose Level (test code = STH8358) 89 74-118 [facility] calcium measurement (mass/volume)2019-12-18 18:40:00* Test Item Value Reference Range Interpretation Comments Calcium Level (test code = 23458-0) 8.9 8.4-10.2 [facility] total bilirubin measurement (mass/volume)2019-12-18 18:40:00* Test Item Value Reference Range Interpretation Comments Total Bilirubin (test code = 1975-2) 0.5 0.2-1.2 [facility] HospitalFluoroscopic procedure less than one hour isqhaokz9137-84-94 18:40:00* Test Item Value Reference Range Interpretation Comments Aspartate Amino Transf (AST/SGOT) (test code = Aspartate Amino Transf (AST/SGOT)) 19 5-34 [facility]er[facility] alanine aminotransferase measurement (enzymatic activity/volume)2019-12-18 18:40:00* Test Item Value Reference Range Interpretation Comments Alanine Aminotransferase (ALT/SGPT) (test code = 1742-6) 15 0-55 [facility]er[facility] protein measurement (mass/volume)2019-12-18 18:40:00* Test Item Value Reference Range Interpretation Comments Total Protein (test code = 2885-2) 7.4 6.5-8.1 [facility] albumin measurement (mass/volume)2019-12-18 18:40:00* Test Item Value Reference Range Interpretation Comments Albumin (test code = 1751-7) 3.7 3.5-5.0 [facility] HospitalPlasma globulin measurement (mass/volume) 2019-12-18 18:40:00* Test Item Value Reference Range Interpretation Comments Globulin (test code = 37232-6) 3.7 2.3-3.5 [facility] albumin/globulin mass fkgdn9248-11-30 18:40:00* Test Item Value Reference Range Interpretation Comments Albumin/Globulin Ratio (test code = 1759-0) 1.0 0.8-2.0 [facility] alkaline phosphatase measurement (enzymatic activity/volume)2019-12-18 18:40:00* Test Item Value Reference Range Interpretation Comments Alkaline Phosphatase (test code = 6768-6) 62 40-150 [facility] HospitalBlood leukocytes automated count (number/volume)2019-12-18 18:40:00* Test Item Value Reference Range Interpretation Comments White Blood Count (test code = 6690-2) 6.37 4.8-10.8 [facility] HospitalBlood erythrocytes automated count (number/volume)2019-12-18 18:40:00* Test Item Value Reference Range Interpretation Comments Red Blood Count (test code = 789-8) 4.33 3.6-5.1 [facility] HospitalBlood hemoglobin measurement (moles/volume)2019-12-18 18:40:00* Test Item Value Reference Range Interpretation Comments Hemoglobin (test code = 75129-3) 11.9 12.0-16.0 [facility] HospitalAutomated blood hematocrit (volume fraction)2019-12-18 18:40:00* Test Item Value Reference Range Interpretation Comments Hematocrit (test code = 4544-3) 37.4 34.2-44.1 [facility] HospitalAutomated erythrocyte mean corpuscular odxpcr9367-98-74 18:40:00* Test Item Value Reference Range Interpretation Comments Mean Corpuscular Volume (test code = 787-2) 86.4 81-99 [facility] HospitalAutomated erythrocyte mean corpuscular hemoglobin (mass per erythrocyte)2019-12-18 18:40:00* Test Item Value Reference Range Interpretation Comments Mean Corpuscular Hemoglobin (test code = 785-6) 27.5 28-32 [facility] HospitalAutomated erythrocyte mean corpuscular hemoglobin concentration measurement (mass/volume)2019-12-18 18:40:00* Test Item Value Reference Range Interpretation Comments Mean Corpuscular Hemoglobin Concent (test code = 786-4) 31.8 31-35 [facility] HospitalRDW KrzTu-Alr7280-76-17 18:40:00* Test Item Value Reference Range Interpretation Comments Red Cell Distribution Width (test code = 81276-2) 16.2 11.7 -14.4 [facility] HospitalAutomated blood platelet count (count/volume)2019-12-18 18:40:00* Test Item Value Reference Range Interpretation Comments Platelet Count (test code = 777-3) 309 140-360 [facility] HospitalAutcount includes the [facility]ed blood segmented neutrophil count as percentage of total bwozgupvff2355-04-76 18:40:00* Test Item Value Reference Range Interpretation Comments Neutrophils (%) (Auto) (test code = 50695-7) 35.9 38.7-80.0 [facility] HospitalAutomated blood lymphocyte count as percentage ot total qbswjhagmz2836-62-61 18:40:00* Test Item Value Reference Range Interpretation Comments Lymphocytes (%) (Auto) (test code = 736-9) 23.4 18.0-39.1 [facility] monocyte count as percentage of total oabaiycych2686-20-73 18:40:00* Test Item Value Reference Range Interpretation Comments Monocytes (%) (Auto) (test code = 5905-5) 7.2 4.4-11.3 [facility]Autom[facility] blood eosinophil count as percentage of total rcbobjepzr6015-05-28 18:40:00* Test Item Value Reference Range Interpretation Comments Eosinophils (%) (Auto) (test code = 713-8) 31.7 0.0-6.0 [facility]Autom[facility] blood basophil count as percentage of total kkflwiewlr4159-10-19 18:40:00* Test Item Value Reference Range Interpretation Comments Basophils (%) (Auto) (test code = 706-2) 1.6 0.0-1.0 [facility] HospitalFluoroscopic procedure less than one hour kueixktz9952-51-72 18:40:00* Test Item Value Reference Range Interpretation Comments IM GRANULOCYTES % (test code = IM GRANULOCYTES %) 0.2 0.0- 1.0 [facility]Autom[facility] blood neutrophil count 2019-12-18 18:40:00* Test Item Value Reference Range Interpretation Comments Neutrophils # (Auto) (test code = 751-8) 2.3 2.1-6.9 [facility] HospitalBlood lymphocytes count (number/volume) 2019-12-18 18:40:00* Test Item Value Reference Range Interpretation Comments Lymphocytes # (Auto) (test code = 69914-6) 1.5 1.0-3.2 [facility] HospitalBlood monocytes automated count (number/volume)2019-12-18 18:40:00* Test Item Value Reference Range Interpretation Comments Monocytes # (Auto) (test code = 742-7) 0.5 0.2-0.8 [facility]Autom[facility] blood eosinophil count 2019-12-18 18:40:00* Test Item Value Reference Range Interpretation Comments Eosinophils # (Auto) (test code = 711-2) 2.0 0.0-0.4 [facility] HospitalAutomated blood basophil count (count/volume)2019-12-18 18:40:00* Test Item Value Reference Range Interpretation Comments Basophils # (Auto) (test code = 704-7) 0.1 0.0-0.1 [facility] HospitalFluoroscopic procedure less than one hour ivltpirr7902-39-16 18:40:00* Test Item Value Reference Range Interpretation Comments Absolute Immature Granulocyte (auto (lela t code = Absolute Immature Granulocyte (auto) 0.01 0-0.1 [facility] sodium measurement (moles/volume)2019-12-18 18:40:00* Test Item Value Reference Range Interpretation Comments Sodium Level (test code = 2951-2) 137 136-145 [facility]er[facility] plasma potassium measurement (moles/volume)2019-12-18 18:40:00* Test Item Value Reference Range Interpretation Comments Potassium Level (test code = 2823-3) 4.2 3.5-5.1 [facility] plasma chloride measurement (moles/volume)2019-12-18 18:40:00* Test Item Value Reference Range Interpretation Comments Chloride Level (test code = 2075-0) 107 98-107 [facility]er[facility] or plasma carbon dioxide, total measurement (moles/volume)2019-12-18 18:40:00* Test Item Value Reference Range Interpretation Comments Carbon Dioxide Level (test code = 2028-9) 20 22-29 [facility] plasma anion pxq4591-54-39 18:40:00* Test Item Value Reference Range Interpretation Comments Anion Gap (test code = 02635-3) 14.2 8-16 [facility] plasma urea nitrogen measurement (mass/volume)2019-12-18 18:40:00* Test Item Value Reference Range Interpretation Comments Blood Urea Nitrogen (test code = 3094-0) 11 7-26 [facility] plasma creatinine measurement (mass/volume)2019-12-18 18:40:00* Test Item Value Reference Range Interpretation Comments Creatinine (test code = 2160-0) 0.66 0.57-1.11 [facility] plasma urea nitrogen/creatinine mass rqgrj9603-26-67 18:40:00* Test Item Value Reference Range Interpretation Comments BUN/Creatinine Ratio (test code = 3097-3) 17 6-25 [facility] HospitalEstimated glomerular filtration rate (GFR) xtjddcbdazfaz0231-62-41 18:40:00* Test Item Value Reference Range Interpretation Comments Estimat Glomerular Filtration Rate (test code = 556798887) > 60 >60 Ranges were taken from the National Kidney Disease Education Program and the [facility] literature.Reference ranges:60 or greater: Dwfbds43-16 ( for 3 consecutive months): Chronic kidney disease 15 or less: Kidney failureFormerly [facility] HospitalGlucose rouuafdzggh3887-55-35 18:40:00* Test Item Value Reference Range Interpretation Comments Glucose Level (test code = PAU4002) 89 74-118 [facility] plasma calcium measurement (mass/volume)2019-12-18 18:40:00* Test Item Value Reference Range Interpretation Comments Calcium Level (test code = 32696-5) 8.9 8.4-10.2 [facility] plasma total bilirubin measurement (mass/volume)2019-12-18 18:40:00* Test Item Value Reference Range Interpretation Comments Total Bilirubin (test code = 1975-2) 0.5 0.2-1.2 [facility] HospitalFluoroscopic procedure less than one hour rfurzxbi8147-05-01 18:40:00* Test Item Value Reference Range Interpretation Comments Aspartate Amino Transf (AST/SGOT) (test code = Aspartate Amino Transf (AST/SGOT)) 19 5-34 [facility]er[facility] or plasma alanine aminotransferase measurement (enzymatic activity/volume)2019-12-18 18:40:00* Test Item Value Reference Range Interpretation Comments Alanine Aminotransferase (ALT/SGPT) (test code = 1742-6) 15 0-55 [facility]er[facility] or plasma protein measurement (mass/volume)2019-12-18 18:40:00* Test Item Value Reference Range Interpretation Comments Total Protein (test code = 2885-2) 7.4 6.5-8.1 [facility]er[facility] or plasma albumin measurement (mass/volume)2019-12-18 18:40:00* Test Item Value Reference Range Interpretation Comments Albumin (test code = 1751-7) 3.7 3.5-5.0 [facility] HospitalPlasma globulin measurement (mass/volume) 2019-12-18 18:40:00* Test Item Value Reference Range Interpretation Comments Globulin (test code = 35478-7) 3.7 2.3-3.5 [facility]er[facility] plasma albumin/globulin mass knwrb6900-39-41 18:40:00* Test Item Value Reference Range Interpretation Comments Albumin/Globulin Ratio (test code = 1759-0) 1.0 0.8-2.0 [facility]er[facility] or plasma alkaline phosphatase measurement (enzymatic activity/volume)2019-12-18 18:40:00* Test Item Value Reference Range Interpretation Comments Alkaline Phosphatase (test code = 6768-6) 62 40-150 [facility] HospitalURINALYSIS VNGQQPDX5150-67-81 17:01:00* Test Item Value Reference Range Interpretation [...] HPF NONE Urine Source? Clean CatchUR HCG DMMN2567-86-73 17:01:00* Test Item Value Reference Range Interpretation Comments UR HCG QUAL (test code = HCGQLU) NEGATIVE This HCGQL test is NOT applicable for MALE patients.Check with nurse about probable order error.If Tumor Marker Test needed, nurse should order test "HCGTU"(Test #550.27619) Urine Source? Clean CatchURINALYSIS TTGKUWPG3311-40-86 16:55:00* Test Item Value Reference Range Interpretation [...] HPF NONE Urine Source? Clean CatchUR HCG CWHB7450-96-80 16:55:00* Test Item Value Reference Range Interpretation Comments UR HCG QUAL (test code = HCGQLU) Urine Source? Clean CatchURINALYSIS VVXPUCHG6009-82-85 16:55:00* Test Item Value Reference Range Interpretation [...] HPF NONE Urine Source? Clean CatchUR HCG [id number] 16:55:00* Test Item Value Reference Range Interpretation Comments UR HCG QUAL (test code = HCGQLU) NEGATIVE This HCGQL test is NOT applicable for MALE patients.Check with nurse about probable order error.If Tumor Marker Test needed, nurse should order test "HCGTU"(Test #550.23171) Urine Source? Clean CatchURINALYSIS [id number] 16:00:00* Test Item Value Reference Range Interpretation [...] per LPF NONE-FEW Urine Source? Clean CatchURINALYSIS CEUJBRSS9488-66-82 15:54:00* Test Item Value Reference Range Interpretation [...] BACU) per HPF NONE Urine Source? Clean KggoqQBNNUMAGR3391-36-13 10:39:00* Test Item Value Reference Range Interpretation Comments MAGNESIUM (test code = MAG) 2.0 mg/dL 1.6-2.3 N COMPREHENSIVE METABOLIC JUSUQ6603-30-50 10:22:00* Test Item Value Reference Range Interpretation [...] code = ALKP) 140 U/L 38-126 H EACAKO5983-33-75 10:22:00* Test Item Value Reference Range Interpretation Comments LIPASE (test code = LIP) 60 U/L 128-270 L COMPREHENSIVE METABOLIC FZESX3453-76-90 10:17:00* Test Item Value Reference Range Interpretation [...] TOTAL (test code = ALKP) IUnit/L 45-117 IYRACC6613-11-95 10:17:00* Test Item Value Reference Range Interpretation Comments LIPASE (test code = LIP) Unit/L 144-286 URINALYSIS JJVJSCIS2572-17-06 10:08:00* Test Item Value Reference Range Interpretation [...] NONE A Urine Source? Clean CatchCBC W/AUTO AQMM7289-27-37 10:01:00* Test Item Value Reference Range Interpretation [...] = MDIFF) NO - CT ABD PELVIS W/TJWH8797-66-90 19:01:00 Name: TANYA,MERONGÓMEZ LEWIS [facility] : 1970 Age/S: 48 / F [address] Unit #: [id number] Loc: [place], [place] [address] Phys: Oliva Gonzalez MD Acct: [id number] Dis Date: Status: REG ER PHONE #: [phone] Exam Date: 10/08/2019 1828 FAX #: [phone] Reason: LLQ abd pain EXAMS: CPT CODE: [id number] CT ABD PELVIS W/CONT 16276 REASON FOR EXAM: LLQ abd pain EXAM [...] 1 Signed Report (CONTINUED) Name: MERON MARTÍNEZ [facility] : 1970 Age/S: 48 / F [address] Unit #: [id number] Loc: [place] [address] Phys: Oliva Gonzalez MD Acct: [id number] Dis Date: Status: REG ER PHONE #: [phone] Exam Date: 02/2020 1828 FAX #: [phone] Reason: LLQ abd pain EXAMS: CPT CODE: [id number] CT ABD PELVIS W/CONT 82181 <Continued> fat in the peripancreatic region. However [...] code = ALKP) 128 U/L 38-126 H [id number] 17:50:00* Test Item Value Reference Range Interpretation Comments LIPASE (test code = LIP) 84 U/L 128-270 L COMPREHENSIVE METABOLIC HNJZH4456-00-61 17:45:00* Test Item Value Reference Range Interpretation [...] TOTAL (test code = ALKP) IUnit/L 45-117 OVMNSX0357-74-15 17:45:00* Test Item Value Reference Range Interpretation Comments LIPASE (test code = LIP) Unit/L 144-286 CBC W/AUTO [id number] 17:37:00* Test Item Value Reference Range Interpretation [...] REQUIRED (test code = MDIFF) NO URINALYSIS VSLUDGMN5311-63-27 17:12:00* Test Item Value Reference Range Interpretation [...] NONE A Urine Source? Clean CatchUR HCG [id number] 17:12:00* Test Item Value Reference Range Interpretation Comments UR HCG QUAL (test code = HCGQLU) NEGATIVE This HCGQL test is NOT applicable for MALE patients.Check with nurse about probable order error.If Tumor Marker Test needed, nurse should order test "HCGTU"(Test #550.53681) Urine Source? Clean CatchUTERUS,OTHER THAN PROLAPSE/RVI1235-65-06 18:51:00 RUN DATE: 09/29/19 [facility] PAGE 1 RUN TIME: 1124 Specimen Inqui ry RUN USER: INTERFACE PATIENT: MERON MARTÍNEZ ACCT #: [id number] LOC: [place] U #: [id number] AGE/SX: 48/F ROOM: [facility] RE09/27/19REG DR: Kim Cook MD : [birth year] BED: A DIS: 09/28/19 STATUS: DIS Peter TLOC: SPEC #: [id number] RECD: 09/27/19 STATUS: [place] #: [id number] HANNAH: 09/27/19- SUBM DR: Kim Cook MD ENTERED: 09/27/19 SP TYPE: UTERUSOTH OT : ORDERED: LEVEL V SURGICA CODES: [id number] - UTERUS, NOS PROCEDURES: LEV EL V [...] with paratubal cyst CPT code(s): 883 [facility] 09/28/19 GROSS DESCRIPTION ANATOMIC SOURCE OF [...] measures 3.5 cm. The entire cervix and outreach representative sections of the lower uterine segment are castro bmitted in A1 through A3 - anterior and A4 through A6 - posterior. The end ometrium measures 0.1 cm. The myometrium measures 4 cm and contains guillermo, whit e, firm nodules measuring up to 3.5 cm with no identifiable degenerative change on the cut surfaces. Transmitter Chief sections are submitted in A7 and A8. CONTINUED ON NEXT PAGE RUN DA TE: 09/29/19 [facility] PAG E 2 RUN TIME: 1124 Specimen Inquiry RUN USER: INTERFACE SPEC #: [id number] PATIENT: MERON MARTÍNEZ #[id number] (Continued) GROSS DESCRIPTION (Contin ued) The first [...] the tube are submitt ed in A10. linda 09/27/19 Signed __ Mindi Okeefe MD 09/28/19 1851 END OF REPORT CHEMISTRY 7 [id number] 07:09:00* Test Item Value Reference Range Interpretation [...] CA) 8.3 mg/dL 8.4-10.2 L CBC W/AUTO [id number] 06:41:00* Test Item Value Reference Range Interpretation [...] = PLTMR) NORMAL MISTI L UR HCG [id number] 08:55:00* Test Item Value Reference Range Interpretation Comments UR HCG QUAL (test code = HCGQLU) NEGATIVE 1. Very dilute urine specimens, as indicated by a lowspecific gravity, may not contain outreach representative levels ofhCG. 2. False negative results may occur when the levels of hCGare below the sensitivity level of the test. If is still suspected, a first morningurine specimen should be collected 48 hours later andtested. CHEMISTRY 7 PMYYJVG6394-97-30 15:43:00* Test Item Value Reference Range Interpretation [...] CA) 8.9 mg/dL 8.4-10.2 N CBC W/AUTO [id number] 15:25:00* Test Item Value Reference Range Interpretation [...] = PLTMR) NORMAL MISTI L UR HCG [id number] 15:23:00* Test Item Value Reference Range Interpretation Comments UR HCG QUAL (test code = HCGQLU) NEGATIVE 1. Very dilute urine specimens, as indicated by a lowspecific gravity, may not contain outreach representative levels ofhCG. 2. False negative results may occur when the levels of hCGare below the sensitivity level of the test. If is still suspected, a first morningurine specimen should be collected 48 hours later andtested. URINALYSIS [id number] 12:35:00* Test Item Value Reference Range Interpretation [...] LPF NONE-FEW A Urine Source? Clean CatchURINALYSIS [id number] 12:29:00* Test Item Value Reference Range Interpretation [...] HPF NONE Urine Source? Clean CatchCHEST 2 IGBKC8360-60-59 10:29:00 [facility] [address] [address] Patient Name: MERON MARTÍNEZ MR #: [id number] : Age/Sex: 48/F Req #: [id number] Adm Physician: Ordered by: ANEN BATES MD Report #: [id number] Location: OR Room/Bed: Procedure: 0103-0 019 DX/CHEST [...] MD Serum or plasma choriogonadotropin ( test) gqeptwxql8032-77-30 08:30:00* Test Item Value Reference Range Interpretation Comments Human Chorionic Gonadotropin, Qual (test code = 2118-8) NEGATIVE NEGATIVE [facility]HIV 1 and 2 antibody detection qualitative by rapid klbgvlhmxkx0757-70-47 08:30:00* Test Item Value Reference Range Interpretation Comments HIV (1&2) Antibody (test code = 04553-4) NON-REACTIVE NONREACTIVE [facility] HospitalFluoroscopic procedure less than one hour ygeoldvn7729-55-52 08:30:00* Test Item Value Reference Range Interpretation Comments HIV P24 Antigen (test code = HIV P24 Antigen) REACTIVE NONREA CTIVE Results called to LESLIE ART at 1213 on 08/05/19 by William Brody. [place].[facility] or plasma hepatitis A virus IgM antibody detection by gcmgbrczqzi7985-68-27 08:30:00* Test Item Value Reference Range Interpretation Comments Hepatitis A IgM Antibody (test code = 73933-6) Negative Negativ e [facility] or plasma hepatitis B virus surface antigen detection by ydnokrksjtt5290-08-86 08:30:00* Test Item Value Reference Range Interpretation Comments Hepatitis B Surface Antigen (test code = 5196-1) Negative Negat thai [facility] or plasma hepatitis B virus core IgM antibody detection by raunismnsfa4817-49-35 08:30:00* Test Item Value Reference Range Interpretation Comments Hepatitis B Core IgM Antibody (test code = 30937-3) Negative Ne gative [facility] hepatitis C virus antibody eapyjefjp3673-63-09 08:30:00* Test Item Value Reference Range Interpretation Comments Hepatitis C Antibody (test code = 61095-4) <0.1 0.0-0.9 Negative: < 0.8 Indeterminate: 0.8 - 0.9 Positive: > 0.9 The CDC recommends that a positive HCV antibody result be followed up with a HCV Nucleic Acid Amplification test (107237).Performed at: [facility] [address] [place], [place] [id number] Director: Simon Dash MD, Phone: [phone] [facility] HospitalHIV-2 antibody detection by enzyme uuvivimendx4518-10-30 08:30:00* Test Item Value Reference Range Interpretation Comments HIV-2 Antibody (EIA) (test code = 27964-5) Negative Interpretation:A repeatedly reactive HIV-2 result may [...] show the presence of HIV-2 specific viral bands.[facility] HospitalHIV RNA zxiwb2228-62-03 08:30:00* Test Item Value Reference Range Interpretation Comments HIV-1 RNA, Qualitative (TMA) (test code = 290423763) Negative N egative Negative for HIV-1 RNAPerformed at: [facility]Co[address] [id number] Director: Norma Canas MD, Phone: [phone] Pinto General Hospitalerum or plasma choriogonadotropin ( test) vwhitiynr0816-37-47 08:30:00* Test Item Value Reference Range Interpretation Comments Human Chorionic Gonadotropin, Qual (test code = 2118-8) NEGATIVE NEGATIVE [facility]HIV 1 and 2 antibody detection qualitative by rapid nytvtxhdntf4409-44-20 08:30:00* Test Item Value Reference Range Interpretation Comments HIV (1&2) Antibody (test code = 84258-9) NON-REACTIVE NONREACTIVE [facility] HospitalFluoroscopic procedure less than one hour slrxqnmy2583-84-86 08:30:00* Test Item Value Reference Range Interpretation Comments HIV P24 Antigen (test code = HIV P24 Antigen) REACTIVE NONREA CTIVE Results called to LESLIE ART at 1213 on 08/05/19 by William Brody. [place].[facility] Hospitalerum or plasma hepatitis A virus IgM antibody detection by mtyezyipobf8007-74-65 08:30:00* Test Item Value Reference Range Interpretation Comments Hepatitis A IgM Antibody (test code = 23667-6) Negative Negativ e [facility] or plasma hepatitis B virus surface antigen detection by pddixmwkgbw7159-16-63 08:30:00* Test Item Value Reference Range Interpretation Comments Hepatitis B Surface Antigen (test code = 5196-1) Negative Negat thai [facility]erum or plasma hepatitis B virus core IgM antibody detection by qmgzcgactws8971-75-99 08:30:00* Test Item Value Reference Range Interpretation Comments Hepatitis B Core IgM Antibody (test code = 17694-2) Negative Ne gative [facility]erum hepatitis C virus antibody tibcrislz0519-86-07 08:30:00* Test Item Value Reference Range Interpretation Comments Hepatitis C Antibody (test code = 17820-5) <0.1 0.0-0.9 Negative: < 0.8 Indeterminate: 0.8 - 0.9 Positive: > 0.9 The CDC recommends that a positive HCV antibody result be followed up with a HCV Nucleic Acid Amplification test (885263).Performed at: - [facility] [address] [place] [id number] Director: Simon Dash MD, Phone: [phone] [facility] HospitalHIV-2 antibody detection by enzyme iyidixndwkf8793-97-36 08:30:00* Test Item Value Reference Range Interpretation Comments HIV-2 Antibody (EIA) (test code = 06338-2) Negative Interpretation:A repeatedly reactive HIV-2 result may [...] show the presence of HIV-2 specific viral bands.[facility] HospitalHIV RNA oqtsp2541-75-34 08:30:00* Test Item Value Reference Range Interpretation Comments HIV-1 RNA, Qualitative (TMA) (test code = 186277282) Negative N egative Negative for HIV-1 RNAPerformed at: - [facility] [address] [place], [place] [id number] Director: Norma Canas MD, Phone: [phone] Pinto General Hospitalerum or plasma choriogonadotropin ( test) iszbrbwbr6498-18-83 08:30:00* Test Item Value Reference Range Interpretation Comments Human Chorionic Gonadotropin, Qual (test code = 2118-8) NEGATIVE NEGATIVE [facility]HIV 1 and 2 antibody detection qualitative by rapid vhyseqphllb0814-59-93 08:30:00* Test Item Value Reference Range Interpretation Comments HIV (1&2) Antibody (test code = 76749-7) NON-REACTIVE NONREACTIVE [facility] HospitalFluoroscopic procedure less than one hour glikjwtd2842-10-98 08:30:00* Test Item Value Reference Range Interpretation Comments HIV P24 Antigen (test code = HIV P24 Antigen) REACTIVE NONREA CTIVE Results called to LESLIE ART at 1213 on 08/05/19 by William Brody. [place].[facility] Hospitalerum or plasma hepatitis A virus IgM antibody detection by gsiryremkcx8954-10-57 08:30:00* Test Item Value Reference Range Interpretation Comments Hepatitis A IgM Antibody (test code = 62897-2) Negative Negativ e [facility]erum or plasma hepatitis B virus surface antigen detection by fxykaxzvyub7868-75-62 08:30:00* Test Item Value Reference Range Interpretation Comments Hepatitis B Surface Antigen (test code = 5196-1) Negative Negat thai [facility]erum or plasma hepatitis B virus core IgM antibody detection by cbysajetrdd2587-50-82 08:30:00* Test Item Value Reference Range Interpretation Comments Hepatitis B Core IgM Antibody (test code = 12175-9) Negative Ne gative [facility]erum hepatitis C virus antibody owfckyrum5416-94-79 08:30:00* Test Item Value Reference Range Interpretation Comments Hepatitis C Antibody (test code = 17019-7) <0.1 0.0-0.9 Negative: < 0.8 Indeterminate: 0.8 - 0.9 Positive: > 0.9 The CDC recommends that a positive HCV antibody result be followed up with a HCV Nucleic Acid Amplification test (212036).Performed at: [facility] [address] [place], [place] [id number] Director: Simon Dash MD, Phone: [phone] [facility] HospitalHIV-2 antibody detection by enzyme umnwjutjomu5589-16-59 08:30:00* Test Item Value Reference Range Interpretation Comments HIV-2 Antibody (EIA) (test code = 48007-6) Negative Interpretation:A repeatedly reactive HIV-2 result may [...] show the presence of HIV-2 specific viral bands.[facility] HospitalHIV RNA babtz6685-96-28 08:30:00* Test Item Value Reference Range Interpretation Comments HIV-1 RNA, Qualitative (TMA) (test code = 721379155) Negative N egative Negative for HIV-1 RNAPerformed at: [facility] [address] [id number] Director: Norma Canas MD, Phone: [phone] Pinto General Hospitalerum or plasma choriogonadotropin ( test) bmxtjmics5466-25-71 08:30:00* Test Item Value Reference Range Interpretation Comments Human Chorionic Gonadotropin, Qual (test code = 2118-8) NEGATIVE NEGATIVE [facility]HIV 1 and 2 antibody detection qualitative by rapid oxfsmehygry4625-21-50 08:30:00* Test Item Value Reference Range Interpretation Comments HIV (1&2) Antibody (test code = 70386-6) NON-REACTIVE NONREACTIVE [facility] HospitalFluoroscopic procedure less than one hour zbuyhdza5798-99-11 08:30:00* Test Item Value Reference Range Interpretation Comments HIV P24 Antigen (test code = HIV P24 Antigen) REACTIVE NONREA CTIVE Results called to LESLIE ART at 1213 on 08/05/19 by William Brody. [place].[facility] Hospitalerum or plasma hepatitis A virus IgM antibody detection by hcejnmnqohr3481-08-52 08:30:00* Test Item Value Reference Range Interpretation Comments Hepatitis A IgM Antibody (test code = 03803-9) Negative Negativ e [facility] Hospitalerum or plasma hepatitis B virus surface antigen detection by aecyqnaxzee3620-83-51 08:30:00* Test Item Value Reference Range Interpretation Comments Hepatitis B Surface Antigen (test code = 5196-1) Negative Negat thai [facility] Hospitalerum or plasma hepatitis B virus core IgM antibody detection by mmzxekvmmbf3631-00-47 08:30:00* Test Item Value Reference Range Interpretation Comments Hepatitis B Core IgM Antibody (test code = 40958-1) Negative Ne gative [facility] Hospitalerum hepatitis C virus antibody ewimgaqmz9212-79-19 08:30:00* Test Item Value Reference Range Interpretation Comments Hepatitis C Antibody (test code = 81727-0) <0.1 0.0-0.9 Negative: < 0.8 Indeterminate: 0.8 - 0.9 Positive: > 0.9 The CDC recommends that a positive HCV antibody result be followed up with a HCV Nucleic Acid Amplification test (544051).Performed at: [facility] [address] [place] [address] [id number] Director: Simon Dash MD, Phone: [phone] [facility] HospitalHIV-2 antibody detection by enzyme qbenkoefafb2085-33-06 08:30:00* Test Item Value Reference Range Interpretation Comments HIV-2 Antibody (EIA) (test code = 06405-5) Negative Interpretation:A repeatedly reactive HIV-2 result may [...] show the presence of HIV-2 specific viral bands.[facility]ly [facility] HospitalHIV RNA nfwqb5906-90-33 08:30:00* Test Item Value Reference Range Interpretation Comments HIV-1 RNA, Qualitative (TMA) (test code = 756713954) Negative N egative Negative for HIV-1 RNAPerformed at: [facility] [place], [place] [id number] Director: Norma Canas MD, Phone: [phone] Pinto General Hospitalerum or plasma choriogonadotropin ( test) keeoeheaf5983-76-76 08:30:00* Test Item Value Reference Range Interpretation Comments Human Chorionic Gonadotropin, Qual (test code = 2118-8) NEGATIVE NEGATIVE [facility] HospitalHIV 1 and 2 antibody detection qualitative by rapid kagogyrxzii7379-28-81 08:30:00* Test Item Value Reference Range Interpretation Comments HIV (1&2) Antibody (test code = 65104-5) NON-REACTIVE NONREACTIVE Formerly [facility] HospitalFluoroscopic procedure less than one hour wnyhzblu1038-26-47 08:30:00* Test Item Value Reference Range Interpretation Comments HIV P24 Antigen (test code = HIV P24 Antigen) REACTIVE NONREA CTIVE Results called to LESLIE ART at 1213 on 08/05/19 by William Brody. RB [place].[facility] Hospitalerum or plasma hepatitis A virus IgM antibody detection by pqfshekafsl5511-98-15 08:30:00* Test Item Value Reference Range Interpretation Comments Hepatitis A IgM Antibody (test code = 94843-3) Negative Negativ e [facility] Hospitalerum or plasma hepatitis B virus surface antigen detection by ltgfvskdcvf7150-66-31 08:30:00* Test Item Value Reference Range Interpretation Comments Hepatitis B Surface Antigen (test code = 5196-1) Negative Negat thai [facility] Hospitalerum or plasma hepatitis B virus core IgM antibody detection by unazuqyxile3417-39-59 08:30:00* Test Item Value Reference Range Interpretation Comments Hepatitis B Core IgM Antibody (test code = 70359-2) Negative Ne gative [facility] Hospitalerum hepatitis C virus antibody nvbncyonc3638-49-75 08:30:00* Test Item Value Reference Range Interpretation Comments Hepatitis C Antibody (test code = 44983-3) <0.1 0.0-0.9 Negative: < 0.8 Indeterminate: 0.8 - 0.9 Positive: > 0.9 The CDC recommends that a positive HCV antibody result be followed up with a HCV Nucleic Acid Amplification test (893230).Performed at: [facility] [address] [place], [place] [id number] Director: Simon Dash MD, Phone: [phone] [facility] HospitalHIV-2 antibody detection by enzyme cfzsrfoxmlb2658-09-82 08:30:00* Test Item Value Reference Range Interpretation Comments HIV-2 Antibody (EIA) (test code = 67312-1) Negative Interpretation:A repeatedly reactive HIV-2 result may [...] show the presence of HIV-2 specific viral bands.Formerly [facility] HospitalHIV RNA itfjd4358-35-56 08:30:00* Test Item Value Reference Range Interpretation Comments HIV-1 RNA, Qualitative (TMA) (test code = 717804424) Negative N egative Negative for HIV-1 RNAPerformed at: [facility] [place], [place] [id number] Director: Norma Canas MD, Phone: [phone] Pinto General Hospitalerum or plasma choriogonadotropin ( test) eccflbfzh8229-29-59 08:30:00* Test Item Value Reference Range Interpretation Comments Human Chorionic Gonadotropin, Qual (test code = 2118-8) NEGATIVE NEGATIVE [facility] HospitalHIV 1 and 2 antibody detection qualitative by rapid fnjgviyouig8216-93-29 08:30:00* Test Item Value Reference Range Interpretation Comments HIV (1&2) Antibody (test code = 53190-7) NON-REACTIVE NONREACTIVE Formerly [facility] HospitalFluoroscopic procedure less than one hour frlrrjmh3238-38-94 08:30:00* Test Item Value Reference Range Interpretation Comments HIV P24 Antigen (test code = HIV P24 Antigen) REACTIVE NONREA CTIVE Results called to LESLIE ART at 1213 on 08/05/19 by William Brody. RB [place].[facility] Hospitalerum or plasma hepatitis A virus IgM antibody detection by jebdgttmxvn4020-63-06 08:30:00* Test Item Value Reference Range Interpretation Comments Hepatitis A IgM Antibody (test code = 72952-2) Negative Negativ e [facility] Hospitalerum or plasma hepatitis B virus surface antigen detection by mxnrcedibxe3269-77-63 08:30:00* Test Item Value Reference Range Interpretation Comments Hepatitis B Surface Antigen (test code = 5196-1) Negative Negat thai [facility] Hospitalerum or plasma hepatitis B virus core IgM antibody detection by mrdrtptpxos5501-32-32 08:30:00* Test Item Value Reference Range Interpretation Comments Hepatitis B Core IgM Antibody (test code = 83613-2) Negative Ne gative [facility] Hospitalerum hepatitis C virus antibody bfpztbeaa8476-09-93 08:30:00* Test Item Value Reference Range Interpretation Comments Hepatitis C Antibody (test code = 41299-6) <0.1 0.0-0.9 Negative: < 0.8 Indeterminate: 0.8 - 0.9 Positive: > 0.9 The CDC recommends that a positive HCV antibody result be followed up with a HCV Nucleic Acid Amplification test (325274).Performed at: [facility] [address] [place] [id number] Director: Simon Dash MD, Phone: [phone] [facility] HospitalHIV-2 antibody detection by enzyme cxuncxvceiu5783-03-96 08:30:00* Test Item Value Reference Range Interpretation Comments HIV-2 Antibody (EIA) (test code = 45835-3) Negative Interpretation:A repeatedly reactive HIV-2 result may [...] the presence of HIV-2 specific viral bands.[facility] ffhec6917-64-36 08:30:00* Test Item Value Reference Range Interpretation Comments HIV-1 RNA, Qualitative (TMA) (test code = 991062647) Negative N egative Negative for HIV-1 RNAPerformed at: - Lab[address] [id number] Director: Norma Canas MD, Phone: [phone] [facility] HospitalBASIC METABOLIC SRRZB9491-20-66 09:02:00* Test Item Value Reference Range Interpretation [...] CA) 7.8 mg/dL 8.5-10.1 L CBC W/AUTO ENAF8620-18-84 07:20:00* Test Item Value Reference Range Interpretation [...] K/mm3 0.0-0.1 N - CT ABD PELVIS W/QELC5496-80-89 14:17:00 Name: MERON MARTÍNEZ [facility] : 1970 Age/S: 48 / F [address] [facility] Unit #: [id number] Loc: [place] [address] Phys: Liz Terry MD Acct: [id number] Dis Date: Status: REG ER PHONE #: [phone] Exam Date: 07/26/2019 1332 FAX #: [phone] Reason: lower abdominal pain EXAMS: CPT CODE: [id number] CT ABD PELVIS W/CONT 15846 REASON FOR EXAM: lower abdominal pain EXAM [...] representing multiple fibroids. Gastrointestinal tract and appen ocnsuelo: There is extensive diverticulosis of the sigmoid [...] 1 Signed Report (CONTINUED) Name: MERON MARTÍNEZ ng [facility] : 1970 Age/S: 48 / F [address] Unit #: [id number] Loc: [place] [address] Phys: Liz Terry MD Acct: [id number] Dis Date: Status: REG ER PHONE #: [phone] Exam Date: 07/26/2019 1332 FAX #: [phone] Reason: lower abdominal pain EXAMS: CPT CODE: [id number] CT ABD PELVIS W/CONT 87519 < Continued> Abdominal vascular structures: Normal Peritoneum [...] or prior episode of acute appendicitis. Location: [facility] at 1417 Reported and signed by: Cecil Moses MD CC: Liz Terry MD Technologist:Shraddha Aviles CTDI: DLP: Trnscb Date/Time: 07/26/2019 (141) t.SDR.RR31 Orig Print D/T: S: 07/26/2019 (1420) PAGE 2 Signed Report URINALYSIS [id number] 12:21:00* Test Item Value Reference Range Interpretation [...] NONE-FEW A Urine Source? Clean CatchBASIC METABOLIC [id number] 12:17:00* Test Item Value Reference Range Interpretation [...] CA) 8.8 mg/dL 8.4-10.2 N HEPATIC FUNCTION [id number] 12:17:00* Test Item Value Reference Range Interpretation [...] code = ALKP) 66 U/L 38-126 N EATZXY1102-63-76 12:17:00* Test Item Value Reference Range Interpretation Comments LIPASE (test code = LIP) 106 U/L 128-270 L HCG SERUM [id number] 12:17:00* Test Item Value Reference Range Interpretation Comments HCG SERUM QUAL (test code = HCGQL) NEGATIVE NEGATIVE This HCGQL test is NOT applicable for MALE patients.Check with nurse about probable order error.If Tumor Marker Test needed, nurse should order test "HCGTU"(Test #550.33158) URINALYSIS [id number] 12:14:00* Test Item Value Reference Range Interpretation [...] HPF NONE Urine Source? Clean CatchBASIC METABOLIC QULDB1359-72-66 11:56:00* Test Item Value Reference Range Interpretation [...] CA) 8.8 mg/dL 8.4-10.2 N HEPATIC FUNCTION [id number] 11:56:00* Test Item Value Reference Range Interpretation [...] TOTAL (test code = ALKP) IUnit/L 45-117 RPLWLZ5879-63-21 11:56:00* Test Item Value Reference Range Interpretation Comments LIPASE (test code = LIP) Unit/L 144-286 HCG SERUM [id number] 11:56:00* Test Item Value Reference Range Interpretation Comments HCG SERUM QUAL (test code = HCGQL) NEGATIVE NEGATIVE This HCGQL test is NOT applicable for MALE patients.Check with nurse about probable order error.If Tumor Marker Test needed, nurse should order test "HCGTU"(Test #550.05318) CBC W/O [id number] 11:53:00* Test Item Value Reference Range Interpretation [...] MPV) 9.2 fL 6.7-11.0 N BASIC METABOLIC CPKHY5563-31-01 11:53:00* Test Item Value Reference Range Interpretation [...] CA) 8.8 mg/dL 8.4-10.2 N HEPATIC FUNCTION [id number] 11:53:00* Test Item Value Reference Range Interpretation [...] TOTAL (test code = ALKP) IUnit/L 45-117 [id number] 11:53:00* Test Item Value Reference Range Interpretation Comments LIPASE (test code = LIP) Unit/L 144-286 HCG SERUM [id number] 11:53:00* Test Item Value Reference Range Interpretation Comments HCG SERUM QUAL (test code = HCGQL) NEGATIVE URINALYSIS [id number] 09:51:00* Test Item Value Reference Range Interpretation [...] NONE A Urine Source? Clean CatchUR HCG [id number] 09:51:00* Test Item Value Reference Range Interpretation Comments UR HCG QUAL (test code = HCGQLU) NEGATIVE This HCGQL test is NOT applicable for MALE patients.Check with nurse about probable order error.If Tumor Marker Test needed, nurse should order test "HCGTU"(Test #550.04049) Urine Source? Clean CatchURINALYSIS [id number] 09:30:00* Test Item Value Reference Range Interpretation [...] HPF NONE Urine Source? Clean CatchUR HCG [id number] 09:30:00* Test Item Value Reference Range Interpretation Comments UR HCG QUAL (test code = HCGQLU) Urine Source? Clean CatchURINALYSIS [id number] 13:03:00* Test Item Value Reference Range Interpretation [...] LPF NONE-FEW A Urine Source? Clean CatchURINALYSIS [id number] 12:57:00* Test Item Value Reference Range Interpretation [...] HPF NONE Urine Source? Clean CatchBASIC METABOLIC [id number] 14:53:00* Test Item Value Reference Range Interpretation [...] CA) 8.5 mg/dL 8.0-10.5 N BASIC METABOLIC [id number] 14:48:00* Test Item Value Reference Range Interpretation [...] 8.0-10.5 N UA RFLX MICR CULT IF [id number] 14:46:00* Test Item Value Reference Range Interpretation [...] culture: Suprapubic PainSpecimen Description: CLEAN CATCHUR HCG [id number] 14:42:00* Test Item Value Reference Range Interpretation Comments UR HCG QUAL (test code = HCGQLU) NEGATIVE NEGATIVE CBC W/AUTO [id number] 14:39:00* Test Item Value Reference Range Interpretation [...] REQUIRED (test code = MDIFF) NO URINALYSIS [id number] 09:46:00* Test Item Value Reference Range Interpretation [...] BACU) FEW per HPF NONE URINALYSIS W/O [id number] 09:46:00* Test Item Value Reference Range Interpretation Comments UA MICROSCOPIC NEEDED? (test code = UAMICRO) YES URINALYSIS [id number] 09:38:00* Test Item Value Reference Range Interpretation [...] = BACU) per HPF NONE URINALYSIS W/O [id number] 09:38:00* Test Item Value Reference Range Interpretation Comments UA MICROSCOPIC NEEDED? (test code = UAMICRO) URINALYSIS [id number] 09:38:00* Test Item Value Reference Range Interpretation [...] = BACU) per HPF NONE URINALYSIS W/O [id number] 09:38:00* Test Item Value Reference Range Interpretation Comments UA MICROSCOPIC NEEDED? (test code = UAMICRO) B-TYPE NATRIURETIC [id number] 17:30:00* Test Item Value Reference Range Interpretation Comments B-TYPE NATRIURETIC PEPTIDE (test code = BNP) 15.1 pg/mL 0-100 N [id number] 17:23:00* Test Item Value Reference Range Interpretation Comments D-DIMER (test code = DDIMER) < 100 ng/ml < 600 COMPREHENSIVE METABOLIC [id number] 17:21:00* Test Item Value Reference Range Interpretation [...] code = ALKP) 72 U/L 38-126 N [id number]-[id number] 17:21:00* Test Item Value Reference Range Interpretation Comments TROPONIN-I (test code = TROPI) <0.015 ng/mL 0.00-0.056 N COMPREHENSIVE METABOLIC [id number] 17:13:00* Test Item Value Reference Range Interpretation [...] TOTAL (test code = ALKP) IUnit/L 45-117 [id number]-[id number] 17:13:00* Test Item Value Reference Range Interpretation Comments TROPONIN-I (test code = TROPI) ng/mL 0-0.045 CBC W/AUTO [id number] 17:09:00* Test Item Value Reference Range Interpretation [...] = MDIFF) NO - XR CHEST 1 [id number] 16:53:00 Name: MERON MARTÍNEZ [facility] : 1970 Age/S:48 /F [address] [facility] Unit#:[id number] Loc: [place] [address] Phys: Marco Patterson MD Dis Date: PHONE #: [phone] Status: REG ER FAX #: [phone] Exam Date: 03/01/2019 Reason: sob EXAMS: CPT CODE: [id number] XR CHEST 1 V 37039 REASON FOR EXAM: sob EXAM ORDER DATE: 03/01/2019 4:16 PM Ordering M.D.: Marco Patterson MD PROCEDURE: - XR CHEST 1 V COMPARISON: FINDINGS: Portable AP frontal view of the chest obtained at 4:31 PM shows clear lungs without evidence of consolidation. There is no evidence of effusion. The heart size is within normal limits. Pulmonary vasculatures are unremarkable. IMPRESSION: No active disease. at 9975 Reported and signed by: Kelvin Cole M.D. CC: Marco Son MD Technologist: Shraddha Aviles Trnscrpt Data: 03/01/2019 (5091) t.YOELR. VTL Orig Print D/T: S: 03/01/2019 (5135) PAGE 1 Signed Report - CT ABD PELVIS W/O [id number] 15:35:00 Name: MERON MARTÍNEZ [facility] : 1970 Age/S: 48 / F [address] [facility] Unit #: [id number] Loc: [place] [address] Phys: Marco Patterson MD Acct: [id number] Dis Date: Status: REG ER PHONE #: [phone] Exam Date: 02/28/2019 1512 FAX #: [phone] Reason: left side abd pain EXAMS: CPT CODE: [id number] CT ABD PELVIS W/O CONT 23634 REASON FOR EXAM: left side abd pain [...] Aviles CTDI: DLP: Trnscb Date /Time: 02/28/2019 (8127) t.YOELR.VTL PAGE 1 Signed Report COMPREHENSIVE METABOLIC [id number] 15:14:00* Test Item Value Reference Range Interpretation [...] code = ALKP) 74 U/L 38-126 N [id number] 15:14:00* Test Item Value Reference Range Interpretation Comments LIPASE (test code = LIP) 82 U/L 128-270 L COMPREHENSIVE METABOLIC [id number] 15:06:00* Test Item Value Reference Range Interpretation [...] TOTAL (test code = ALKP) IUnit/L 45-117 [id number] 15:06:00* Test Item Value Reference Range Interpretation Comments LIPASE (test code = LIP) Unit/L 144-286 CBC W/AUTO [id number] 14:56:00* Test Item Value Reference Range Interpretation [...] (test code = MDIFF) NO URINALYSIS W/O [id number] 14:50:00* Test Item Value Reference Range Interpretation [...] = LEUUR) NEGATIVE NEG ATIVE URINALYSIS W/O [id number] 14:49:00* Test Item Value Reference Range Interpretation [...] NEG ATIVE - XR KNEE 3 V [id number] 14:17:00 Name: TANYAMERON JOSHUA [facility] : 1970 Age/S:48 /F [address] [facility] Unit#:[id number] Loc: [place] [address] Phys: Isabella Perry FERMENTOLOGIST Dis Date: PHONE #: [phone] Status: REG ER FAX #: [phone] Exam Date: 12/25/2018 Reason: hypererxtension right knee EXAMS: CPT CODE: [id number] XR KNEE 3 V RT [address]142 REASON FOR EXAM: hypererxtension right knee EXAM [...] Technologist: Shraddha [place] per Trnscrpt Data: 12/25/2018 (141) t.YOELR.VTL Orig Print D/T: S: 12/25/2018 (8572) PAGE 1 Signed Report - XR TIBIA/FIBULA 2 V [id number] 14:12:00 Name: MERON MARTÍNEZ [facility] : 1970 Age/S:48 /F [address] [facility] Unit#:[id number] Loc: [place] [address] Phys: Isabella Perry NP Dis Date: PHONE #: [phone] Status: REG ER FAX #: [phone] Exam Date: 12/25/2018 Reason: hypererxtension right knee EXAMS: CPT CODE: [id number] XR TIBIA/FIBULA 2 [place] [address] REASON FOR EXAM: hypererxtension right knee EXAM [...] CC: Russell Espinoza MD Technologist: [facility]raddha [facility] Data: 12/25/2018 (1412) tJUDYVTL Orig Print D/T : S: 12/25/2018 (3853) PAGE 1 Sig lisbeth Report URINALYSIS [id number] 06:31:00 * Test Item Value Reference Range [...] DERIAN) FEW per HPF NONE A URINALYSIS [id number] 06:24:00* Test Item Value Reference Range Interpretation [...] = BACU) per HPF NONE URINALYSIS W/O [id number] 06:24:00* Test Item Value Reference Range Interpretation Comments UA LEUKOCYTE ESTERASE W REFLEX (test code = LEUUR) NEG ATIVE URINALYSIS [id number] 06:24:00* Test Item Value Reference Range Interpretation [...] = BACU) per HPF NONE URINALYSIS W/O [id number] 06:24:00* Test Item Value Reference Range Interpretation Comments UA LEUKOCYTE ESTERASE W REFLEX (test code = LEUUR) NEG ATIVE URINALYSIS [id number] 10:05:00* Test Item Value Reference Range Interpretation [...] BACU) FEW per HPF NONE URINALYSIS W/O [id number] 10:05:00* Test Item Value Reference Range Interpretation Comments UA MICROSCOPIC NEEDED? (test code = UAMICRO) YES URINALYSIS [id number] 09:59:00* Test Item Value Reference Range Interpretation [...] = BACU) per HPF NONE URINALYSIS W/O [id number] 09:59:00* Test Item Value Reference Range Interpretation Comments UA MICROSCOPIC NEEDED? (test code = UAMICRO) URINALYSIS [id number] 09:59:00* Test Item Value Reference Range Interpretation [...] = BACU) per HPF NONE URINALYSIS W/O [id number] 09:59:00* Test Item Value Reference Range Interpretation Comments UA MICROSCOPIC NEEDED? (test code = UAMICRO)
== END 2020-06-05 11:14 | disposition home or self-care (01) ==
LOC: ER 09:39
DX: R07.89 Other chest pain (principal); F41.9 Anxiety disorder, unspecified; K21.9 Gastro-esophageal reflux disease without esophagitis
CPT/HCPCS: 36415; 71045; 80053; 82550; 82553; 83880; 84484; 85025; 93005; 99283

== ENCOUNTER 2020-07-28 09:31 | Emergency (ER) | payer SELFPAY ==
[~2020-07-28] VITALS: Ht 142.2 cm; Wt 42.6 kg
== END 2020-07-28 09:50 | disposition home or self-care (01) ==
LOC: ER 09:45
DX: J30.9 Allergic rhinitis, unspecified (principal); F41.9 Anxiety disorder, unspecified; K21.9 Gastro-esophageal reflux disease without esophagitis
CPT/HCPCS: 99282

== ENCOUNTER 2020-10-30 15:10 | Emergency (ER) | payer BC ==
[~2020-10-30] VITALS: Ht 142.2 cm; Wt 42.6 kg
[2020-10-30 15:54] LABS: CLARITY,URINE SL CLOUDY (CLEAR); COLOR,URINE YELLOW (YELLOW)
[2020-10-30 15:55] LABS: KETONES,URINE NEGATIVE (NEGATIVE); LEUKOCYTE ESTERASE ,URINE SMALL (NEGATIVE); NITRITE,URINE NEGATIVE (NEGATIVE); PROTEIN,URINE DIPSTICK NEGATIVE (NEGATIVE); URINE UROBILINOGEN 0.2 mg/dL (0.2 - 1)
[2020-10-30 16:06] LABS: BACTERIA,URINE MODERATE /HPF; EPITHELIAL CELLS,URINE MODERATE /LPF; RBC,URINE 0-5 /HPF (0-5)
[2020-10-30] MEDS ORDERED: CEPHALEXIN500 MG PO (16:09)
[2020-10-30 16:21] VITALS: BP 126/52
[2020-10-30] MEDS ORDERED: CEPHALEXIN250 MG PO (16:24)
== END 2020-10-30 16:35 | disposition home or self-care (01) ==
LOC: ER 15:33
DX: R20.0 Anesthesia of skin (principal); R20.2 Paresthesia of skin; F41.9 Anxiety disorder, unspecified; K21.9 Gastro-esophageal reflux disease without esophagitis
CPT/HCPCS: 81001; 99283

== ENCOUNTER 2020-11-30 04:19 | Emergency (ER) | payer BC ==
[~2020-11-30] VITALS: Ht 139.7 cm; Wt 49.9 kg
[~2020-11-30 04:19] MED LIST changes: +CEPHALEXIN250 MG PO; +CEPHALEXIN500 MG PO
[2020-11-30 04:40] LABS: BASOPHILS # (AUTO) 0.1 (0.0-0.1); BASOPHILS % 1.1 % (0.0-1.0); EOSINOPHILS # (AUTO) 0.3 (0.0-0.4); EOSINOPHILS % 5.3 % (0.0-6.0); HEMATOCRIT 39.8 % (34.2-44.1); HEMOGLOBIN 13.5 g/dL (12.0-16.0); LYMPHOCYTES # (AUTO) 1.2 (1.0-3.2); LYMPHOCYTES % 25.5 % (18.0-39.1); MEAN CORPUSCULAR HEMOGLOBIN 31.5 pg (28-32); MEAN CORPUSCULAR HGB CONC 33.9 g/dL (31-35); MEAN CORPUSCULAR VOLUME 92.8 fL (81-99); MONOCYTES # (AUTO) 0.5 (0.2-0.8); MONOCYTES % 10.3 % (4.4-11.3); NEUTROPHILS # (AUTO) 2.7 (2.1-6.9); NEUTROPHILS % 57.6 % (38.7-80.0); PLATELET COUNT 251 x10e3/uL (140-360); RED BLOOD COUNT 4.29 x10e6/uL (3.6-5.1); RED CELL DISTRIBUTION WIDTH 12.1 % (11.7-14.4)
[2020-11-30 04:42] LABS: CLARITY,URINE SL CLOUDY (CLEAR); COLOR,URINE YELLOW (YELLOW); KETONES,URINE NEGATIVE (NEGATIVE); LEUKOCYTE ESTERASE ,URINE SMALL (NEGATIVE); NITRITE,URINE NEGATIVE (NEGATIVE); PROTEIN,URINE DIPSTICK NEGATIVE (NEGATIVE); URINE UROBILINOGEN 0.2 mg/dL (0.2 - 1)
[2020-11-30 04:49] LABS: BACTERIA,URINE MODERATE /HPF; EPITHELIAL CELLS,URINE MODERATE /LPF; RBC,URINE 0-5 /HPF (0-5)
[2020-11-30 05:00] LABS: AMYLASE 150 U/L (25-125); LIPASE 17 U/L (8-78)
[2020-11-30] MEDS ORDERED: DIATRIZOATE MEGL/DIATRIZOA SOD 30 ML BTL PO ONE (05:00)
[2020-11-30 05:02] LABS: ALANINE AMINOTRANSFERASE 28 IU/L (0-55); ALBUMIN 3.6 g/dL (3.5-5.0); ALBUMIN/GLOBULIN RATIO 0.9 (0.8-2.0); ALKALINE PHOSPHATASE 98 IU/L (40-150); ANION GAP 12.4 mmol/L (8-16); BLOOD UREA NITROGEN 13 mg/dL (7-26); BUN/CREATININE RATIO 20 (6-25); CALCIUM 8.5 mg/dL (8.4-10.2); CARBON DIOXIDE 21 mmol/L (22-29); CHLORIDE 109 mmol/L (98-107); CREATININE, SERUM 0.66 mg/dL (0.57-1.11); EST GLOMERULAR FILTRATION RATE > 60 ML/MIN (60-); GLUCOSE 96 mg/dL (74-118); POTASSIUM 3.4 mmol/L (3.5-5.1); SODIUM 139 mmol/L (136-145)
[2020-11-30] MEDS ORDERED: SODIUM CHLORIDE 0.9% 50ML 50 ML ONE (05:51)
[2020-11-30] MEDS ORDERED: IOPAMIDOL 370 MG/ML 200 ML INFUS..BTL INJ ONE (05:52)
[2020-11-30 07:52] VITALS: BP 116/62
== END 2020-11-30 07:58 | disposition home or self-care (01) ==
LOC: ER 04:54
DX: R10.32 Left lower quadrant pain (principal); N39.0 Urinary tract infection, site not specified; F41.9 Anxiety disorder, unspecified; Z87.19 Personal history of other diseases of the digestive system
CPT/HCPCS: 36415; 74177; 80053; 81001; 82150; 83690; 85025; 87086; 99284; Q9967

== ENCOUNTER 2021-02-03 09:23 | Emergency (ER) | payer BC ==
[~2021-02-03] VITALS: Ht 139.7 cm; Wt 49.9 kg
[2021-02-03] MEDS ORDERED: DICYCLOMINE HCL 20 MG/2 ML VIAL IM ONE (11:00)
[2021-02-03 11:55] LABS: CLARITY,URINE CLEAR (CLEAR); COLOR,URINE YELLOW (YELLOW)
[2021-02-03 11:56] LABS: KETONES,URINE NEGATIVE (NEGATIVE); LEUKOCYTE ESTERASE ,URINE TRACE (NEGATIVE); NITRITE,URINE NEGATIVE (NEGATIVE); PROTEIN,URINE DIPSTICK NEGATIVE (NEGATIVE); URINE UROBILINOGEN 0.2 mg/dL (0.2 - 1)
[2021-02-03 12:05] LABS: BACTERIA,URINE RARE /HPF; EPITHELIAL CELLS,URINE FEW /LPF; WBC,URINE (MAN) 0-5 /HPF (0-5)
== END 2021-02-03 13:41 | disposition home or self-care (01) ==
LOC: ER 09:43
DX: K57.32 Diverticulitis of large intestine without perforation or abscess without bleeding (principal); K58.9 Irritable bowel syndrome, unspecified; F41.9 Anxiety disorder, unspecified
CPT/HCPCS: 81001; 87086; 99284; J0500

== ENCOUNTER 2021-03-02 13:22 | Emergency (ER) | payer BC ==
[~2021-03-02] VITALS: Ht 139.7 cm; Wt 49.9 kg
== END 2021-03-02 15:15 | disposition home or self-care (01) ==
LOC: ER 14:23
DX: K58.0 Irritable bowel syndrome with diarrhea (principal)
CPT/HCPCS: 99283

== ENCOUNTER 2021-04-18 04:57 | Emergency (ER) | payer SELFPAY ==
[~2021-04-18] VITALS: Ht 139.7 cm; Wt 49.9 kg
[2021-04-18 05:56] LABS: CLARITY,URINE CLEAR (CLEAR); COLOR,URINE YELLOW (YELLOW); KETONES,URINE NEGATIVE (NEGATIVE); LEUKOCYTE ESTERASE ,URINE NEGATIVE (NEGATIVE); NITRITE,URINE NEGATIVE (NEGATIVE); PROTEIN,URINE DIPSTICK NEGATIVE (NEGATIVE); URINE UROBILINOGEN 0.2 mg/dL (0.2 - 1)
[2021-04-18 06:07] LABS: BACTERIA,URINE MODERATE /HPF; EPITHELIAL CELLS,URINE MODERATE /LPF; RBC,URINE 0-5 /HPF (0-5); WBC,URINE (MAN) 0-5 /HPF (0-5)
[2021-04-18] MEDS ORDERED: CEFDINIR300 MG PO (06:20)
[2021-04-18] MEDS ORDERED: FLAGYL500 MG PO (06:21)
== END 2021-04-18 06:25 | disposition home or self-care (01) ==
LOC: ER 05:13
DX: R10.32 Left lower quadrant pain (principal); F41.9 Anxiety disorder, unspecified; K58.9 Irritable bowel syndrome, unspecified; Z87.19 Personal history of other diseases of the digestive system
CPT/HCPCS: 81001; 87086; 99282

== ENCOUNTER 2021-07-21 14:01 | Emergency (ER) | payer SELFPAY ==
[~2021-07-21] VITALS: Ht 139.7 cm; Wt 49.9 kg
[~2021-07-21 14:01] MED LIST changes: +CEFDINIR300 MG PO; +FLAGYL500 MG PO
[2021-07-21 15:18] LABS: CLARITY,URINE HAZY (CLEAR); COLOR,URINE YELLOW (YELLOW); KETONES,URINE NEGATIVE (NEGATIVE); LEUKOCYTE ESTERASE ,URINE NEGATIVE (NEGATIVE); NITRITE,URINE NEGATIVE (NEGATIVE); PROTEIN,URINE DIPSTICK NEGATIVE (NEGATIVE); URINE UROBILINOGEN 0.2 mg/dL (0.2 - 1)
[2021-07-21 15:22] LABS: BACTERIA,URINE MODERATE /HPF; EPITHELIAL CELLS,URINE MODERATE /LPF
== END 2021-07-21 16:08 | disposition home or self-care (01) ==
LOC: ER 14:30
DX: R30.0 Dysuria (principal); N39.0 Urinary tract infection, site not specified; R10.32 Left lower quadrant pain; F41.9 Anxiety disorder, unspecified; Z87.19 Personal history of other diseases of the digestive system
CPT/HCPCS: 81001; 87086; 99283

== ENCOUNTER 2022-06-17 16:34 | Emergency (ER) | payer SELFPAY ==
[~2022-06-17] VITALS: Ht 139.7 cm; Wt 52.2 kg
[2022-06-17 18:06] LABS: CLARITY,URINE CLEAR (CLEAR); COLOR,URINE YELLOW (YELLOW); KETONES,URINE NEGATIVE (NEGATIVE); LEUKOCYTE ESTERASE ,URINE SMALL (NEGATIVE); NITRITE,URINE NEGATIVE (NEGATIVE); PROTEIN,URINE DIPSTICK NEGATIVE (NEGATIVE); URINE UROBILINOGEN 0.2 mg/dL (0.2 - 1)
[2022-06-17 18:16] LABS: BACTERIA,URINE MODERATE /HPF; EPITHELIAL CELLS,URINE MODERATE /LPF; RBC,URINE 0-5 /HPF (0-5); WBC,URINE (MAN) 0-5 /HPF (0-5)
== END 2022-06-17 19:15 | disposition home or self-care (01) ==
LOC: ER 16:37
DX: R30.0 Dysuria (principal); Z88.1 Allergy status to other antibiotic agents; Z88.5 Allergy status to narcotic agent; Z88.8 Allergy status to other drugs, medicaments and biological substances
CPT/HCPCS: 81001; 99282

== ENCOUNTER 2023-08-19 14:17 | Emergency (ER) | payer BC ==
[~2023-08-19] VITALS: Ht 139.7 cm; Wt 52.2 kg
[~2023-08-19 14:17] MED LIST changes: +DIFLUCAN200 MG PO; +FLUCONAZOLE150 MG PO; +METRONIDAZOLE500 MG PO; +OMEPRAZOLE20 MG PO
[2023-08-19] MEDS ORDERED: SODIUM CHLORIDE 0.9% 1000ML 1,000 ML IV STA (14:51)
[2023-08-19] MEDS ORDERED: KETOROLAC TROMETHAMINE 30 MG/ML VIAL IV STA (14:52)
[2023-08-19] MEDS ORDERED: ONDANSETRON HCL INJ 2MG/ML 2ML 2 MG/ML VIAL IV PRN (15:00)
[2023-08-19] MEDS ORDERED: DICYCLOMINE HCL 20 MG/2 ML VIAL IM ONE (15:00)
[2023-08-19 15:10] LABS: BASOPHILS % 0.8 % (0.0-1.0); EOSINOPHILS # (AUTO) 0.2 (0.0-0.4); EOSINOPHILS % 3.6 % (0.0-6.0); HEMATOCRIT 39.6 % (34.2-44.1); HEMOGLOBIN 13.2 g/dL (12.0-16.0); LYMPHOCYTES # (AUTO) 1.2 (1.0-3.2); LYMPHOCYTES % 22.2 % (18.0-39.1); MEAN CORPUSCULAR HEMOGLOBIN 32.3 pg (28-32); MEAN CORPUSCULAR HGB CONC 33.3 g/dL (31-35); MEAN CORPUSCULAR VOLUME 96.8 fL (81-99); MONOCYTES # (AUTO) 0.5 (0.2-0.8); MONOCYTES % 9.2 % (4.4-11.3); NEUTROPHILS # (AUTO) 3.3 (2.1-6.9); NEUTROPHILS % 63.8 % (38.7-80.0); PLATELET COUNT 221 x10e3/uL (140-360); RED BLOOD COUNT 4.09 x10e6/uL (3.6-5.1); RED CELL DISTRIBUTION WIDTH 12.4 % (11.7-14.4); WHITE BLOOD COUNT 5.23 x10e3/uL (4.8-10.8)
[2023-08-19 15:19] LABS: BILIRUBIN,URINE NEGATIVE (NEGATIVE); COLOR,URINE YELLOW (YELLOW); GLUCOSE, URINE NEGATIVE (NEGATIVE); KETONES,URINE NEGATIVE (NEGATIVE); LEUKOCYTE ESTERASE ,URINE TRACE (NEGATIVE); NITRITE,URINE NEGATIVE (NEGATIVE); PH,URINE 5 (5 - 7); PROTEIN,URINE DIPSTICK NEGATIVE (NEGATIVE); URINE UROBILINOGEN 0.2 mg/dL (0.2 - 1)
[2023-08-19 15:24] LABS: ALBUMIN 3.5 g/dL (3.5-5.0); ALBUMIN/GLOBULIN RATIO 0.8 (0.8-2.0); ANION GAP 13.5 mmol/L (8-16); BILIRUBIN,TOTAL 0.5 mg/dL (0.2-1.2); CALCIUM 8.8 mg/dL (8.4-10.2); CREATININE, SERUM 0.69 mg/dL (0.57-1.11); POTASSIUM 3.5 mmol/L (3.5-5.1); TOTAL PROTEIN 8.1 g/dL (6.5-8.1)
[2023-08-19 15:29] LABS: CLARITY,URINE SL CLOUDY (CLEAR)
[2023-08-19 15:30] LABS: EPITHELIAL CELLS,URINE FEW /LPF
[2023-08-19 15:31] LABS: BACTERIA,URINE FEW /HPF; RBC,URINE 0-5 /HPF (0-5); WBC,URINE (MAN) 0-5 /HPF (0-5)
[2023-08-19] MEDS ORDERED: IOPAMIDOL 370 MG/ML 100 ML INFUS..BTL INJ ONE (15:42)
[2023-08-19] MEDS ORDERED: DICYCLOMINE HCL20 MG PO (16:32)
[2023-08-19] MEDS ORDERED: CEFDINIR300 MG PO (16:32)
[2023-08-19] MEDS ORDERED: METRONIDAZOLE500 MG PO (16:32)
[2023-08-19 16:52] VITALS: O2SAT 98
== END 2023-08-19 16:53 | disposition home or self-care (01) ==
LOC: ER 14:22
DX: R10.30 Lower abdominal pain, unspecified (principal); K57.32 Diverticulitis of large intestine without perforation or abscess without bleeding; F41.9 Anxiety disorder, unspecified
CPT/HCPCS: 36415; 74177; 80053; 81001; 83690; 85025; 99284; J0500; J1885; J2405; J7030; Q9967

== ENCOUNTER 2023-10-12 05:46 | Emergency (ER) | payer BC ==
[~2023-10-12] VITALS: Ht 139.7 cm; Wt 52.2 kg
[~2023-10-12 05:46] MED LIST changes: +DICYCLOMINE HCL20 MG PO
[2023-10-12] MEDS ORDERED: SODIUM CHLORIDE FLUSH 10 ML SYR IV PRN (07:30)
[2023-10-12 07:35] LABS: BACTERIA,URINE FEW /HPF; BILIRUBIN,URINE NEGATIVE (NEGATIVE); CLARITY,URINE CLOUDY (CLEAR); COLOR,URINE YELLOW (YELLOW); EPITHELIAL CELLS,URINE MANY /LPF; GLUCOSE, URINE NEGATIVE (NEGATIVE); KETONES,URINE NEGATIVE (NEGATIVE); LEUKOCYTE ESTERASE ,URINE NEGATIVE (NEGATIVE); NITRITE,URINE NEGATIVE (NEGATIVE); PH,URINE 5.5 (5 - 7); PROTEIN,URINE DIPSTICK NEGATIVE (NEGATIVE); RBC,URINE 0-5 /HPF (0-5); RENAL EPITHELIAL CELLS,URINE RARE; TRANSITIONAL EPI CELLS,URINE FEW; URINE UROBILINOGEN 0.2 mg/dL (0.2 - 1)
[2023-10-12 08:02] LABS: BASOPHILS % 0.7 % (0.0-1.0); EOSINOPHILS # (AUTO) 0.2 (0.0-0.4); EOSINOPHILS % 3.6 % (0.0-6.0); HEMATOCRIT 42.4 % (34.2-44.1); HEMOGLOBIN 13.9 g/dL (12.0-16.0); LYMPHOCYTES % 24.1 % (18.0-39.1); MEAN CORPUSCULAR HEMOGLOBIN 31.7 pg (28-32); MEAN CORPUSCULAR HGB CONC 32.8 g/dL (31-35); MEAN CORPUSCULAR VOLUME 96.8 fL (81-99); MONOCYTES # (AUTO) 0.4 (0.2-0.8); MONOCYTES % 10.4 % (4.4-11.3); NEUTROPHILS # (AUTO) 2.5 (2.1-6.9); PLATELET COUNT 227 x10e3/uL (140-360); RED BLOOD COUNT 4.38 x10e6/uL (3.6-5.1); RED CELL DISTRIBUTION WIDTH 11.9 % (11.7-14.4); WHITE BLOOD COUNT 4.15 x10e3/uL (4.8-10.8)
[2023-10-12 08:25] LABS: ALBUMIN 3.7 g/dL (3.5-5.0); ALBUMIN/GLOBULIN RATIO 0.9 (0.8-2.0); ANION GAP 13.7 mmol/L (8-16); BILIRUBIN,TOTAL 1.1 mg/dL (0.2-1.2); CALCIUM 8.7 mg/dL (8.4-10.2); CREATININE, SERUM 0.64 mg/dL (0.57-1.11); POTASSIUM 3.7 mmol/L (3.5-5.1); TOTAL PROTEIN 7.8 g/dL (6.5-8.1)
[2023-10-12 10:13] VITALS: BP 127/84; PULSE 71; RESP 18; O2SAT 100
== END 2023-10-12 10:13 | disposition home or self-care (01) ==
LOC: ER 05:51
DX: R10.30 Lower abdominal pain, unspecified (principal); K57.90 Diverticulosis of intestine, part unspecified, without perforation or abscess without bleeding; F41.9 Anxiety disorder, unspecified; F32.A Depression, unspecified
CPT/HCPCS: 36415; 74176; 80053; 81001; 85025; 99284

== ENCOUNTER 2024-02-07 15:46 | Emergency (ER) | payer SELFPAY ==
[~2024-02-07] VITALS: Ht 139.7 cm; Wt 51.7 kg
[~2024-02-07 15:46] MED LIST changes: +CARAFATE1 GM PO; +ONDANSETRON ODT4 MG SL
[2024-02-07 17:29] LABS: BASOPHILS # (AUTO) 0.1 (0.0-0.1); BASOPHILS % 0.7 % (0.0-1.0); EOSINOPHILS # (AUTO) 0.2 (0.0-0.4); EOSINOPHILS % 2.3 % (0.0-6.0); HEMATOCRIT 40.7 % (34.2-44.1); HEMOGLOBIN 14.2 g/dL (12.0-16.0); LYMPHOCYTES # (AUTO) 1.1 (1.0-3.2); LYMPHOCYTES % 16.6 % (18.0-39.1); MEAN CORPUSCULAR HEMOGLOBIN 32.8 pg (28-32); MEAN CORPUSCULAR HGB CONC 34.9 g/dL (31-35); MONOCYTES # (AUTO) 0.6 (0.2-0.8); MONOCYTES % 8.5 % (4.4-11.3); NEUTROPHILS # (AUTO) 4.9 (2.1-6.9); NEUTROPHILS % 71.6 % (38.7-80.0); PLATELET COUNT 253 x10e3/uL (140-360); RED BLOOD COUNT 4.33 x10e6/uL (3.6-5.1); RED CELL DISTRIBUTION WIDTH 12.2 % (11.7-14.4); WHITE BLOOD COUNT 6.86 x10e3/uL (4.8-10.8)
[2024-02-07] MEDS: SODIUM CHLORIDE 0.9% 1000ML 1,000 ML IV STA (17:31)
[2024-02-07 17:43] LABS: ALBUMIN/GLOBULIN RATIO 0.9 (0.8-2.0); ANION GAP 14.6 mmol/L (8-16); BILIRUBIN,TOTAL 1.1 mg/dL (0.2-1.2); CALCIUM 8.6 mg/dL (8.4-10.2); CREATININE, SERUM 0.67 mg/dL (0.57-1.11); POTASSIUM 3.6 mmol/L (3.5-5.1); TOTAL PROTEIN 8.4 g/dL (6.5-8.1)
[2024-02-07] MEDS ORDERED: SODIUM CHLORIDE 0.9% 100 ML ONE (18:01)
[2024-02-07] MEDS ORDERED: IOPAMIDOL 370 MG/ML 100 ML INFUS..BTL INJ ONE (18:01)
[2024-02-07 18:45] VITALS: PULSE 80; RESP 16; TEMP 98.2; O2SAT 100
== END 2024-02-07 18:54 | disposition home or self-care (01) ==
LOC: ER 15:54
DX: R19.7 Diarrhea, unspecified (principal); K62.5 Hemorrhage of anus and rectum; K64.9 Unspecified hemorrhoids; K57.30 Diverticulosis of large intestine without perforation or abscess without bleeding; K44.9 Diaphragmatic hernia without obstruction or gangrene
CPT/HCPCS: 36415; 74174; 80053; 85025; 99284; J7030; J7050; Q9967

== ENCOUNTER 2024-02-21 16:42 | Emergency (ER) | payer SELFPAY ==
[~2024-02-21] VITALS: Ht 139.7 cm; Wt 51.7 kg
[2024-02-21 16:57] VITALS: TEMP 99.5
[2024-02-21] MEDS: SODIUM CHLORIDE 0.9% 1000ML 1,000 ML IV STA (17:16)
[2024-02-21 17:21] LABS: BASOPHILS % 0.4 % (0.0-1.0); EOSINOPHILS # (AUTO) 0.2 (0.0-0.4); EOSINOPHILS % 2.6 % (0.0-6.0); HEMATOCRIT 37.6 % (34.2-44.1); HEMOGLOBIN 13.1 g/dL (12.0-16.0); LYMPHOCYTES # (AUTO) 0.9 (1.0-3.2); LYMPHOCYTES % 12.9 % (18.0-39.1); MEAN CORPUSCULAR HEMOGLOBIN 32.5 pg (28-32); MEAN CORPUSCULAR HGB CONC 34.8 g/dL (31-35); MEAN CORPUSCULAR VOLUME 93.3 fL (81-99); MONOCYTES # (AUTO) 0.6 (0.2-0.8); MONOCYTES % 8.2 % (4.4-11.3); NEUTROPHILS # (AUTO) 5.5 (2.1-6.9); NEUTROPHILS % 75.6 % (38.7-80.0); PLATELET COUNT 225 x10e3/uL (140-360); RED BLOOD COUNT 4.03 x10e6/uL (3.6-5.1); RED CELL DISTRIBUTION WIDTH 11.9 % (11.7-14.4)
[2024-02-21 17:23] LABS: BILIRUBIN,URINE NEGATIVE (NEGATIVE); CLARITY,URINE CLEAR (CLEAR); COLOR,URINE YELLOW (YELLOW); GLUCOSE, URINE NEGATIVE (NEGATIVE); KETONES,URINE NEGATIVE (NEGATIVE); LEUKOCYTE ESTERASE ,URINE NEGATIVE (NEGATIVE); NITRITE,URINE NEGATIVE (NEGATIVE); PH,URINE 6 (5 - 7); PROTEIN,URINE DIPSTICK NEGATIVE (NEGATIVE); URINE UROBILINOGEN 0.2 mg/dL (0.2 - 1)
[2024-02-21 17:27] LABS: INR 0.99; PROTHROMBIN TIME 13.8 seconds (11.9-14.5)
[2024-02-21 17:28] LABS: PARTIAL THROMBOPLASTIN TIME 30.6 seconds (23.8-35.5)
[2024-02-21 17:34] LABS: BACTERIA,URINE FEW /HPF; EPITHELIAL CELLS,URINE MODERATE /LPF; WBC,URINE (MAN) 0-5 /HPF (0-5)
[2024-02-21 17:35] LABS: MUCUS,URINE MODERATE (RARE)
[2024-02-21 17:37] LABS: ALBUMIN 3.5 g/dL (3.5-5.0); ALBUMIN/GLOBULIN RATIO 0.9 (0.8-2.0); ANION GAP 16.4 mmol/L (8-16); BILIRUBIN,TOTAL 0.6 mg/dL (0.2-1.2); CALCIUM 8.7 mg/dL (8.4-10.2); CREATININE, SERUM 0.64 mg/dL (0.57-1.11); MAGNESIUM 1.9 MG/DL (1.3-2.1); TOTAL PROTEIN 7.6 g/dL (6.5-8.1)
[2024-02-21 17:39] LABS: POTASSIUM 3.4 mmol/L (3.5-5.1)
[2024-02-21] MEDS ORDERED: IOPAMIDOL 370 MG/ML 100 ML INFUS..BTL INJ ONE (17:48)
[2024-02-21 19:00] VITALS: PULSE 84; RESP 16; O2SAT 96
[2024-02-21] MEDS ORDERED: CEFDINIR300 MG PO (19:30)
== END 2024-02-21 19:45 | disposition home or self-care (01) ==
LOC: ER 16:47
DX: R10.32 Left lower quadrant pain (principal); K57.32 Diverticulitis of large intestine without perforation or abscess without bleeding; N28.9 Disorder of kidney and ureter, unspecified; K21.9 Gastro-esophageal reflux disease without esophagitis; F41.9 Anxiety disorder, unspecified; F32.A Depression, unspecified; Z11.52 Encounter for screening for COVID-19
CPT/HCPCS: 36415; 74177; 80053; 81001; 83735; 85025; 85610; 85730; 99284; J7030; Q9967; U0002

== ENCOUNTER 2024-03-23 14:14 | Emergency (ER) | payer BC ==
[~2024-03-23] VITALS: Ht 139.7 cm; Wt 52.2 kg
[2024-03-23 14:17] VITALS: PULSE 98; RESP 17; TEMP 98.5; O2SAT 100
== END 2024-03-23 14:34 | disposition home or self-care (01) ==
LOC: ER 14:21
DX: R10.32 Left lower quadrant pain (principal); K21.9 Gastro-esophageal reflux disease without esophagitis; F41.9 Anxiety disorder, unspecified; F32.A Depression, unspecified; Z87.19 Personal history of other diseases of the digestive system
CPT/HCPCS: 99282

== ENCOUNTER 2024-04-14 19:32 | Emergency (ER) | payer BC, OTHER ==
[~2024-04-14] VITALS: Ht 139.7 cm; Wt 52.2 kg
[2024-04-14 19:47] VITALS: PULSE 82; RESP 20; TEMP 97.2; O2SAT 100
[2024-04-14 20:09] LABS: BASOPHILS # (AUTO) 0.1 (0.0-0.1); EOSINOPHILS # (AUTO) 0.2 (0.0-0.4); EOSINOPHILS % 3.2 % (0.0-6.0); HEMATOCRIT 40.9 % (34.2-44.1); LYMPHOCYTES # (AUTO) 1.5 (1.0-3.2); LYMPHOCYTES % 24.5 % (18.0-39.1); MEAN CORPUSCULAR HEMOGLOBIN 32.5 pg (28-32); MEAN CORPUSCULAR HGB CONC 34.2 g/dL (31-35); MEAN CORPUSCULAR VOLUME 94.9 fL (81-99); MONOCYTES # (AUTO) 0.5 (0.2-0.8); MONOCYTES % 8.5 % (4.4-11.3); NEUTROPHILS # (AUTO) 3.7 (2.1-6.9); NEUTROPHILS % 62.5 % (38.7-80.0); PLATELET COUNT 242 x10e3/uL (140-360); RED BLOOD COUNT 4.31 x10e6/uL (3.6-5.1); RED CELL DISTRIBUTION WIDTH 12.3 % (11.7-14.4); WHITE BLOOD COUNT 5.97 x10e3/uL (4.8-10.8)
[2024-04-14 20:15] LABS: BILIRUBIN,URINE NEGATIVE (NEGATIVE); CLARITY,URINE CLEAR (CLEAR); COLOR,URINE YELLOW (YELLOW); GLUCOSE, URINE NEGATIVE (NEGATIVE); KETONES,URINE NEGATIVE (NEGATIVE); LEUKOCYTE ESTERASE ,URINE NEGATIVE (NEGATIVE); NITRITE,URINE NEGATIVE (NEGATIVE); PH,URINE 7 (5 - 7); PROTEIN,URINE DIPSTICK NEGATIVE (NEGATIVE); URINE UROBILINOGEN 0.2 mg/dL (0.2 - 1)
[2024-04-14 20:22] LABS: RBC,URINE 0-5 /HPF (0-5); WBC,URINE (MAN) 0-5 /HPF (0-5)
[2024-04-14 20:23] LABS: BACTERIA,URINE FEW /HPF; EPITHELIAL CELLS,URINE FEW /LPF
[2024-04-14 20:25] LABS: ANION GAP 12.9 mmol/L (8-16); CALCIUM 9.1 mg/dL (8.4-10.2); CREATININE, SERUM 0.69 mg/dL (0.57-1.11); POTASSIUM 3.9 mmol/L (3.5-5.1)
== END 2024-04-14 20:45 | disposition home or self-care (01) ==
LOC: ER 19:40
DX: R10.32 Left lower quadrant pain (principal); K57.32 Diverticulitis of large intestine without perforation or abscess without bleeding; K21.9 Gastro-esophageal reflux disease without esophagitis; F41.9 Anxiety disorder, unspecified; F32.A Depression, unspecified
CPT/HCPCS: 36415; 80048; 81001; 85025; 99283

== ENCOUNTER 2024-09-18 12:10 | Emergency (ER) | payer BC, OTHER ==
[~2024-09-18] VITALS: Ht 139.7 cm; Wt 53.3 kg
[2024-09-18] MEDS ORDERED: IOPAMIDOL 370 MG/ML 100 ML INFUS..BTL INJ ONE (13:21)
[2024-09-18 14:03] VITALS: PULSE 80; RESP 16; TEMP 97.2; O2SAT 99
[2024-09-18] MEDS ORDERED: BACTRIM DS TAB1 EACH PO (14:11)
[2024-09-18] MEDS ORDERED: METRONIDAZOLE500 MG PO (14:11)
== END 2024-09-18 14:15 | disposition home or self-care (01) ==
LOC: FSED 12:13
DX: R10.32 Left lower quadrant pain (principal); K57.32 Diverticulitis of large intestine without perforation or abscess without bleeding; N20.0 Calculus of kidney; K21.9 Gastro-esophageal reflux disease without esophagitis; K44.9 Diaphragmatic hernia without obstruction or gangrene; K76.0 Fatty (change of) liver, not elsewhere classified; F41.9 Anxiety disorder, unspecified; F32.A Depression, unspecified
CPT/HCPCS: 74177; 80048; 80076; 81003; 85025; 99284; Q9967

== ENCOUNTER 2024-09-26 22:25 | Emergency (ER) | payer BC ==
[~2024-09-26] VITALS: Ht 139.7 cm; Wt 50.8 kg
[~2024-09-26 22:25] MED LIST changes: +BACTRIM DS TAB1 EACH PO
[2024-09-26 22:30] VITALS: PULSE 99; RESP 18; TEMP 97.5
[2024-09-26] MEDS ORDERED: IOPAMIDOL 370 MG/ML 100 ML INFUS..BTL INJ ONE (22:51)
[2024-09-26 23:08] LABS: BASOPHILS % 0.9 % (0.0-1.0); EOSINOPHILS # (AUTO) 0.3 (0.0-0.4); EOSINOPHILS % 6.2 % (0.0-6.0); HEMATOCRIT 39.1 % (34.2-44.1); HEMOGLOBIN 13.4 g/dL (12.0-16.0); LYMPHOCYTES % 24.4 % (18.0-39.1); MEAN CORPUSCULAR HEMOGLOBIN 31.8 pg (28-32); MEAN CORPUSCULAR HGB CONC 34.3 g/dL (31-35); MEAN CORPUSCULAR VOLUME 92.9 fL (81-99); MONOCYTES # (AUTO) 0.6 (0.2-0.8); MONOCYTES % 14.9 % (4.4-11.3); NEUTROPHILS # (AUTO) 2.2 (2.1-6.9); NEUTROPHILS % 53.1 % (38.7-80.0); PLATELET COUNT 252 x10e3/uL (140-360); RED BLOOD COUNT 4.21 x10e6/uL (3.6-5.1); RED CELL DISTRIBUTION WIDTH 12.5 % (11.7-14.4); WHITE BLOOD COUNT 4.22 x10e3/uL (4.8-10.8)
[2024-09-26] MEDS: KETOROLAC TROMETHAMINE 30 MG/ML VIAL IV STA (23:13)
[2024-09-27 00:58] VITALS: BP 139/76; PULSE 80; RESP 18; TEMP 98; O2SAT 98
== END 2024-09-27 00:58 | disposition home or self-care (01) ==
LOC: FSED 22:31
DX: R10.32 Left lower quadrant pain (principal); K57.90 Diverticulosis of intestine, part unspecified, without perforation or abscess without bleeding; R19.7 Diarrhea, unspecified; K21.9 Gastro-esophageal reflux disease without esophagitis; F41.9 Anxiety disorder, unspecified; F32.A Depression, unspecified
CPT/HCPCS: 36415; 74177; 80048; 85025; 96374; 99283; J1885; Q9967

== ENCOUNTER 2024-10-04 18:05 | Emergency (ER) | payer BC ==
[~2024-10-04] VITALS: Ht 139.7 cm; Wt 50.8 kg
[2024-10-04] MEDS: SODIUM CHLORIDE 0.9% 1000ML 1,000 ML IV ONE (19:35)
[2024-10-04] MEDS ORDERED: METRONIDAZOLE500 MG PO (19:48)
[2024-10-04] MEDS ORDERED: PEPCID20 MG PO (19:48)
[2024-10-04] MEDS: KETOROLAC TROMETHAMINE 30 MG/ML VIAL IV STA (19:52)
[2024-10-04] MEDS: METRONIDAZOLE 500MG/NS 100ML 100 ML IV ONE (19:53)
[2024-10-04] MEDS ORDERED: BACTRIM DS TAB1 EACH PO (20:06)
[2024-10-04 20:11] VITALS: PULSE 83; RESP 18; TEMP 97.4
[2024-10-04 20:19] VITALS: BP 121/68; PULSE 83; RESP 18; TEMP 97.4; O2SAT 97
== END 2024-10-04 20:22 | disposition home or self-care (01) ==
LOC: FSED 18:15
DX: R10.32 Left lower quadrant pain (principal); K57.32 Diverticulitis of large intestine without perforation or abscess without bleeding; N20.0 Calculus of kidney; K21.9 Gastro-esophageal reflux disease without esophagitis; F41.9 Anxiety disorder, unspecified; F32.A Depression, unspecified
CPT/HCPCS: 74176; 80053; 81003; 85025; 99284; J1885; J7030

== ENCOUNTER 2024-10-13 23:07 | Emergency (ER) | payer SELFPAY ==
[~2024-10-13] VITALS: Ht 139.7 cm; Wt 50.8 kg
[~2024-10-13 23:07] MED LIST changes: +PEPCID20 MG PO
[2024-10-13 23:22] VITALS: TEMP 97.8
[2024-10-13] MEDS ORDERED: IOPAMIDOL 370 MG/ML 100 ML INFUS..BTL INJ ONE (23:39)
[2024-10-13 23:56] LABS: BASOPHILS # (AUTO) 0.1 (0.0-0.1); BASOPHILS % 0.8 % (0.0-1.0); EOSINOPHILS # (AUTO) 0.2 (0.0-0.4); EOSINOPHILS % 2.7 % (0.0-6.0); HEMATOCRIT 41.4 % (34.2-44.1); HEMOGLOBIN 14.8 g/dL (12.0-16.0); LYMPHOCYTES # (AUTO) 1.6 (1.0-3.2); LYMPHOCYTES % 24.7 % (18.0-39.1); MEAN CORPUSCULAR HEMOGLOBIN 32.5 pg (28-32); MEAN CORPUSCULAR HGB CONC 35.7 g/dL (31-35); MEAN CORPUSCULAR VOLUME 90.8 fL (81-99); MONOCYTES # (AUTO) 0.6 (0.2-0.8); NEUTROPHILS # (AUTO) 3.9 (2.1-6.9); NEUTROPHILS % 61.6 % (38.7-80.0); PLATELET COUNT 309 x10e3/uL (140-360); RED BLOOD COUNT 4.56 x10e6/uL (3.6-5.1); RED CELL DISTRIBUTION WIDTH 12.6 % (11.7-14.4); WHITE BLOOD COUNT 6.27 x10e3/uL (4.8-10.8)
[2024-10-14 00:10] LABS: ALBUMIN/GLOBULIN RATIO 0.9 (0.8-2.0); ANION GAP 17.4 mmol/L (8-16); BILIRUBIN,TOTAL 0.8 mg/dL (0.2-1.2); CREATININE, SERUM 0.72 mg/dL (0.57-1.11); TOTAL PROTEIN 8.5 g/dL (6.5-8.1)
[2024-10-14 00:11] LABS: POTASSIUM 3.4 mmol/L (3.5-5.1)
[2024-10-14] MEDS: SODIUM CHLORIDE 0.9% 1000ML 1,000 ML IV STA (00:14)
[2024-10-14] MEDS: ONDANSETRON HCL INJ 2MG/ML 2ML 2 MG/ML VIAL IV STA (00:14)
[2024-10-14 00:23] LABS: BACTERIA,URINE MANY /HPF; CLARITY,URINE CLOUDY (CLEAR); COLOR,URINE YELLOW (YELLOW); EPITHELIAL CELLS,URINE MODERATE /LPF; LEUKOCYTE ESTERASE ,URINE NEGATIVE (NEGATIVE); MUCUS,URINE MANY; PH,URINE 5.5 (5 - 7)
[2024-10-14 00:24] LABS: BILIRUBIN,URINE 1+ (NEGATIVE); GLUCOSE, URINE NEGATIVE (NEGATIVE); KETONES,URINE NEGATIVE (NEGATIVE); NITRITE,URINE NEGATIVE (NEGATIVE); PROTEIN,URINE DIPSTICK NEGATIVE (NEGATIVE); URINE UROBILINOGEN 0.2 mg/dL (0.2 - 1)
[2024-10-14 02:00] VITALS: PULSE 89; RESP 16; O2SAT 100
[2024-10-14] MEDS ORDERED: PREDNISONE20 MG PO (02:23)
[2024-10-14] MEDS: METHYLPREDNISOLONE SOD SUCC 125 MG/2ML VIAL IV STA (02:34)
== END 2024-10-14 02:40 | disposition home or self-care (01) ==
LOC: ER 23:17
DX: R10.13 Epigastric pain (principal); K52.9 Noninfective gastroenteritis and colitis, unspecified; R11.2 Nausea with vomiting, unspecified; K21.9 Gastro-esophageal reflux disease without esophagitis; F41.9 Anxiety disorder, unspecified; F32.A Depression, unspecified; Z87.19 Personal history of other diseases of the digestive system
CPT/HCPCS: 36415; 74177; 80053; 81001; 83690; 85025; 99284; J2405; J2919; J7030; Q9967

== ENCOUNTER 2025-01-09 22:20 | Emergency (ER) | payer OTHER ==
[~2025-01-09] VITALS: Ht 139.7 cm; Wt 49.9 kg
[~2025-01-09 22:20] MED LIST changes: +DICYCLOMINE HCL10 MG PO; +PREDNISONE20 MG PO; +ULTRAM 50MG50 MG PO; +VENTOLIN HFA18 GM INH
[2025-01-09 23:27] VITALS: PULSE 80; RESP 17; TEMP 97.9; O2SAT 99
[2025-01-16] MEDS ORDERED: PROBIOTIC & AC1 EACH PO (09:18)
[2025-01-16] MEDS ORDERED: TYLENOL EXTRA500 MG PO (09:18)
[2025-01-16] MEDS ORDERED: BENTYL10 MG/1 ML PO (09:18)
== END 2025-01-09 23:30 | disposition home or self-care (01) ==
LOC: ER 23:30
DX: R10.32 Left lower quadrant pain (principal); G89.29 Other chronic pain; K21.9 Gastro-esophageal reflux disease without esophagitis; F41.9 Anxiety disorder, unspecified; F32.A Depression, unspecified; Z87.19 Personal history of other diseases of the digestive system
CPT/HCPCS: 99282

== ENCOUNTER → 2025-01-20 | Day surgery (SDC) | payer OTHER ==
[~2025-01-20] MED LIST changes: +ACETAMINOPHEN-1 EAC4 PO; +BENTYL10 MG/1 ML PO; +DICYCLOMINE HCL 20 MG TAB PO ONE; +ESMOLOL HCL 100MG/10ML 10 MG/ML VIAL ONE; +FENTANYL CITRATE/PF 100MCG/2 ML INJ ONE; +GLUCAGON FOR INJ 1 MG VIAL ONE; +HYOSCYAMINE SULFATE 0.5 MG/ML INJ ONE; +LIDOCAINE HCL 2% LOCAL INJ 5 ML SDV VIAL INJ ONE; +METHYLPREDNISOLONE SOD SUCC 125 MG/2ML VIAL ONE; +PROBIOTIC & AC1 EACH PO; +PROPOFOL IV EMULSION 10 MG/ML 20 ML VIAL ONE; +TYLENOL EXTRA500 MG PO
[2025-01-20] MEDS: LACTATED RINGER'S 1,000 ML ONE (10:53)
[2025-01-20 13:45] VITALS: TEMP 97.6
[2025-01-20 14:45] VITALS: BP 125/89; PULSE 92; RESP 16; O2SAT 97
[2025-01-20] MEDS: DICYCLOMINE HCL 20 MG TAB PO ONE (14:50)
[2025-01-20] MEDS: METHYLPREDNISOLONE SOD SUCC 125 MG/2ML VIAL IV ONE (14:55)
[2025-01-20 14:58] LABS: CDIFF AG QUIK CHEK **POSITIVE** (NEGATIVE); CDIFF TOX QUIK CHEK NEGATIVE (NEGATIVE)
== END ==
LOC: OR 10:00
PROVIDERS: ATTEND Internal Medicine Gastroenterology
DX: K52.9 Noninfective gastroenteritis and colitis, unspecified (principal); K57.30 Diverticulosis of large intestine without perforation or abscess without bleeding; K64.8 Other hemorrhoids; K62.89 Other specified diseases of anus and rectum; Z88.1 Allergy status to other antibiotic agents; Z88.0 Allergy status to penicillin; Z88.5 Allergy status to narcotic agent; Z88.8 Allergy status to other drugs, medicaments and biological substances; Z86.0100 Personal history of colon polyps, unspecified; Z01.810 Encounter for preprocedural cardiovascular examination
CPT/HCPCS: 45380; 83630; 83993; 86140; 87045; 87177; 87324; 87328; 87449; 93005; J1610; J1980; J2003; J2704; J2919; J3010; J7121; 45378

== ENCOUNTER 2025-01-24 21:03 | Emergency (ER) | payer OTHER ==
[~2025-01-24] VITALS: Ht 139.7 cm; Wt 45.4 kg
[~2025-01-24 21:03] MED LIST changes: -ACETAMINOPHEN-1 EAC4 PO; -DICYCLOMINE HCL 20 MG TAB PO ONE; -ESMOLOL HCL 100MG/10ML 10 MG/ML VIAL ONE; -FENTANYL CITRATE/PF 100MCG/2 ML INJ ONE; -GLUCAGON FOR INJ 1 MG VIAL ONE; -HYOSCYAMINE SULFATE 0.5 MG/ML INJ ONE; -LIDOCAINE HCL 2% LOCAL INJ 5 ML SDV VIAL INJ ONE; -METHYLPREDNISOLONE SOD SUCC 125 MG/2ML VIAL ONE; -PROPOFOL IV EMULSION 10 MG/ML 20 ML VIAL ONE
[2025-01-24 21:27] LABS: BASOPHILS % 0.6 % (0.0-1.0); EOSINOPHILS # (AUTO) 0.1 (0.0-0.4); EOSINOPHILS % 2.2 % (0.0-6.0); HEMATOCRIT 40.7 % (34.2-44.1); HEMOGLOBIN 14.5 g/dL (12.0-16.0); LYMPHOCYTES # (AUTO) 1.3 (1.0-3.2); LYMPHOCYTES % 23.7 % (18.0-39.1); MEAN CORPUSCULAR HGB CONC 35.6 g/dL (31-35); MEAN CORPUSCULAR VOLUME 92.7 fL (81-99); MONOCYTES # (AUTO) 0.5 (0.2-0.8); MONOCYTES % 9.4 % (4.4-11.3); NEUTROPHILS # (AUTO) 3.5 (2.1-6.9); NEUTROPHILS % 63.7 % (38.7-80.0); PLATELET COUNT 284 x10e3/uL (140-360); RED BLOOD COUNT 4.39 x10e6/uL (3.6-5.1); RED CELL DISTRIBUTION WIDTH 13.2 % (11.7-14.4); WHITE BLOOD COUNT 5.45 x10e3/uL (4.8-10.8)
[2025-01-24 21:39] LABS: BILIRUBIN,URINE NEGATIVE (NEGATIVE); CLARITY,URINE SL CLOUDY (CLEAR); COLOR,URINE YELLOW (YELLOW); GLUCOSE, URINE NEGATIVE (NEGATIVE); KETONES,URINE 1+ (NEGATIVE); LEUKOCYTE ESTERASE ,URINE SMALL (NEGATIVE); NITRITE,URINE NEGATIVE (NEGATIVE); PH,URINE 6 (5 - 7); PROTEIN,URINE DIPSTICK NEGATIVE (NEGATIVE); URINE UROBILINOGEN 0.2 mg/dL (0.2 - 1)
[2025-01-24 21:41] LABS: BACTERIA,URINE MODERATE /HPF; EPITHELIAL CELLS,URINE MODERATE /LPF; RBC,URINE 0-5 /HPF (0-5); WBC,URINE (MAN) 0-5 /HPF (0-5)
[2025-01-24] MEDS: ONDANSETRON HCL INJ 2MG/ML 2ML 2 MG/ML VIAL IV STA (21:41)
[2025-01-24] MEDS: SODIUM CHLORIDE 0.9% 1000ML 1,000 ML IV STA (21:41)
[2025-01-24 21:53] LABS: ALBUMIN 3.7 g/dL (3.5-5.0); ANION GAP 17.3 mmol/L (8-16); BILIRUBIN,TOTAL 0.7 mg/dL (0.2-1.2); CALCIUM 8.9 mg/dL (8.4-10.2); CREATININE, SERUM 0.6 mg/dL (0.57-1.11); TOTAL PROTEIN 7.3 g/dL (6.5-8.1)
[2025-01-24 21:54] LABS: POTASSIUM 3.3 mmol/L (3.5-5.1)
[2025-01-24] MEDS ORDERED: ACETAMINOPHEN-1 EAC4 PO (22:30)
[2025-01-24] MEDS ORDERED: METRONIDAZOLE500 MG PO (22:30)
[2025-01-24 23:14] VITALS: PULSE 80; RESP 17; TEMP 98.3; O2SAT 98
== END 2025-01-24 23:09 | disposition home or self-care (01) ==
LOC: ER 21:09
DX: R10.31 Right lower quadrant pain (principal); R11.2 Nausea with vomiting, unspecified; K21.9 Gastro-esophageal reflux disease without esophagitis; F41.9 Anxiety disorder, unspecified; F32.A Depression, unspecified; Z87.19 Personal history of other diseases of the digestive system
CPT/HCPCS: 36415; 80053; 81001; 83690; 85025; 99284; J2405; J7030

== ENCOUNTER 2025-01-27 07:41 | Emergency (ER) | payer OTHER ==
[~2025-01-27] VITALS: Ht 139.7 cm; Wt 45.4 kg
[~2025-01-27 07:41] MED LIST changes: +ACETAMINOPHEN-1 EAC4 PO
[2025-01-27 07:49] VITALS: PULSE 97; RESP 14; TEMP 99; O2SAT 97
[2025-01-27] MEDS: LORAZEPAM 1 MG TAB PO ONE (08:48)
[2025-01-27] MEDS: ONDANSETRON HCL 4 MG ORAL DISINTEGRATING TAB PO ONE (08:48)
== END 2025-01-27 09:04 | disposition home or self-care (01) ==
LOC: ER 07:48
DX: R00.0 Tachycardia, unspecified (principal); R11.2 Nausea with vomiting, unspecified; F41.9 Anxiety disorder, unspecified; K21.9 Gastro-esophageal reflux disease without esophagitis; Z87.19 Personal history of other diseases of the digestive system
CPT/HCPCS: 93005; 99283; Q0162

== ENCOUNTER 2025-02-09 09:08 | Emergency (ER) | payer OTHER ==
[~2025-02-09] VITALS: Ht 139.7 cm; Wt 45.4 kg
[2025-02-09 10:09] LABS: LEUKOCYTE ESTERASE ,URINE NEGATIVE (NEGATIVE); PROTEIN,URINE DIPSTICK NEGATIVE (NEGATIVE); URINE UROBILINOGEN 0.2 mg/dL (0.2 - 1)
[2025-02-09 10:10] LABS: EPITHELIAL CELLS,URINE FEW /LPF
[2025-02-09 12:12] VITALS: PULSE 72; RESP 16; TEMP 98.4; O2SAT 99
== END 2025-02-09 12:18 | disposition home or self-care (01) ==
LOC: ER 09:13
DX: R10.9 Unspecified abdominal pain (principal); R35.0 Frequency of micturition; F41.9 Anxiety disorder, unspecified; F32.A Depression, unspecified; K21.9 Gastro-esophageal reflux disease without esophagitis; K58.9 Irritable bowel syndrome, unspecified; Z88.1 Allergy status to other antibiotic agents; Z88.5 Allergy status to narcotic agent; Z88.0 Allergy status to penicillin; Z88.8 Allergy status to other drugs, medicaments and biological substances
CPT/HCPCS: 74176; 81001; 87086; 87186; 99284

== ENCOUNTER 2025-02-16 06:12 | Emergency (ER) | payer OTHER ==
[~2025-02-16] VITALS: Ht 139.7 cm; Wt 45.4 kg
[2025-02-16 06:14] VITALS: PULSE 110; RESP 21; TEMP 98
[2025-02-16 06:27] VITALS: BP 114/85; PULSE 100; RESP 19; O2SAT 95
== END 2025-02-16 06:37 | disposition home or self-care (01) ==
LOC: ER 06:16
DX: R10.30 Lower abdominal pain, unspecified (principal); G89.29 Other chronic pain; K21.9 Gastro-esophageal reflux disease without esophagitis; F41.9 Anxiety disorder, unspecified; F32.A Depression, unspecified; Z87.19 Personal history of other diseases of the digestive system
CPT/HCPCS: 99283

== ENCOUNTER 2025-02-22 12:09 | Emergency (ER) | payer OTHER | END 2025-02-22 12:23 | disposition short-term general hospital (02) | LOC: ER 12:22 | DX: R10.9 Unspecified abdominal pain (principal) ==